=== PATIENT | female | born 1955 | race Caucasian/White ===

== ENCOUNTER → 2016-06-19 | Outpatient (CLI) | payer BC ==
[~2016-06-19] MED LIST: ACET-24 PO; ALBUAER19 INH; CLB/200 PO; CLB200 PO; CPR500 PO; DICL75TA2 PO; FEXO1TAB46 PO; FLUT0.15 INH; LANS30CA12 PO; LCTX PO; MECL1TAB42 PO; MULT-240 PO; MULT-506 PO; ONDA8TAB12 PO; ONDA8TAB6 PO; OSEL75CA16 PO; OXYC15TA89 PO; OXYC20TA50 PO; OXYSR10 PO; PARO1TAB PO; RXC5 PO; SIMV40TA2 PO; TRAM-10 PO; VNTHFA/IN INH; [UNRECOGNIZED DRUG - CODE] PO
--- NOTE | 2016-06-20 07:31 | MAMMOGRAPHY REPORT ---
BILATERAL DIGITAL SCREENING MAMMOGRAM WITH CAD: 06/19/2016 CLINICAL HISTORY: Routine screening. Patient has no complaints. TECHNIQUE: Current study was also evaluated with a Computer Aided Detection (CAD) system. Bilatera l CC and MLO views were obtained. COMPARISON: Comparison is made to exams dated: 06/14/2015 mammogram, 02/21/2014 mammogram, 02/07/2013 mammogram, 02/06/2012 mammogram, and 11/26/2009 mammogram - [facility]. BREAST COMPOSITION: The tissue of both breasts is almost entirely fatty. FINDINGS: No suspicious masses, calcifications, or areas of architectural distortion are noted in e ither breast. There has been no significant interval change compared to prior exams. Scattered bilat eral benign-appearing calcifications are not significantly changed. IMPRESSION: ACR BI-RADS CATEGORY 2: BENIGN There is no mammographic evidence of malignancy. A 1 year screening mammogram is recommended. The p atient will receive written notification of the results. Approximately 10% of breast cancers are not detected with mammography. A negative mammographic repor t should not delay biopsy if a clinically suggestive mass is present. Tesha Stewart M.D. ah/:06/19/2016 15:14:22 [employer] Breathing Apparatus: Bettina Cali, [facility] letter sent: Normal 1/2 BI-RADS Code: ACR BI-RADS Category 2: Benign
== END | disposition home or self-care (01) ==
LOC: C.MAMM 13:09
PROVIDERS: ATTEND Obstetrics & Gynecology
DX: Z12.31 Encounter for screening mammogram for malignant neoplasm of breast (principal)

== ENCOUNTER 2016-07-17 16:47 | Emergency (ER) | payer BC ==
[~2016-07-17] VITALS: Ht 162.6 cm; Wt 103.5 kg
[~2016-07-17 16:47] MED LIST changes: -ACET-24 PO; -CLB/200 PO; -CLB200 PO; -CPR500 PO; -LCTX PO; -MULT-506 PO; -ONDA8TAB12 PO; -ONDA8TAB6 PO; -OSEL75CA16 PO; -OXYC15TA89 PO; -OXYC20TA50 PO; -OXYSR10 PO; -RXC5 PO; -TRAM-10 PO; -VNTHFA/IN INH
[2016-07-17 17:11] VITALS: TEMP 36.9; Ht 162.6 cm; Wt 103.5 kg
[2016-07-17] MEDS ORDERED: OSEL75CA16 PO (17:35)
[2016-07-17] MEDS ORDERED: IBUPROFEN 600 MG TAB PO STA (17:56)
[2016-07-17] MEDS ORDERED: SODIUM CHLORIDE 0.9% 1000ML 1,000 ML IV STA (17:56)
[2016-07-17 18:37] LABS: COMPLETE YES; EOS % 0.3 %; HEMATOCRIT 39.9 % (37-47); IG% 0.4 %; LYMPH % 8.5 %; LYMPH ABS # 0.77 K/uL (1.2-3.4); MEAN CELL VOLUME 89.7 fL (80-100); MEAN CORPUSCULAR HGB CONC 34.6 g/dl (32-36); MEAN PLATELET VOLUME 10.2 fL (7.4-10.4); MONO % 10.5 %; NEUT % 80.3 %; PLATELET COUNT 181 K/uL (130-400); RED BLOOD COUNT 4.45 M/uL (4.2-5.4); WHITE BLOOD COUNT 9.09 K/uL (4.8-10.8)
[2016-07-17 18:50] VITALS: BP 130/74; PULSE 76; O2SAT 98
[2016-07-17 18:55] LABS: BLOOD UREA NITROGEN 19 mg/dl (7-18); BUN/CREATININE RATIO 17.1 (10-20); CALCIUM 8.7 mg/dl (8.5-10.1); CARBON DIOXIDE 18 mmol/L (21-32); CHLORIDE 109 mmol/L (98-107); GLUCOSE 126 mg/dl (70-99); POTASSIUM 3.4 mmol/L (3.5-5.1); SODIUM 141 mmol/L (136-145)
[2016-07-17 18:59] LABS: CKMB/CK RATIO 0.4 (0-3.0)
--- NOTE | 2016-07-17 19:09 | DIAGNOSTIC IMAGING REPORT ---
SINGLE VIEW CHEST CLINICAL HISTORY: Fever. Sepsis. FINDINGS: An AP, portable, upright chest radiograph is compared to study dated 11/30/2015. Correlation is made with chest CT dated . The examination is significantly degraded by portable technique large body habitus, and patient rotation. The cardiomediastinal silhouette is unremarkable. The lungs and pleural spaces are clear. No pneumothorax is seen. The skeletal structures are osteopenic. The bony thorax is grossly intact. IMPRESSION: No active disease in the chest. Electronically signed by: Singh Garcia M.D. 07/17/2016 7:08 PM Dictated Date/Time: 07/17/2016 7:07 PM
--- NOTE | 2016-07-17 19:15 | EMERGENCY ROOM VISIT NOTE ---
History Report prepared by Uriel: Venkatesh Owens Under the Supervision of: Abilio HairstonO. First contact with patient: 17:38 Chief Complaint: FLU LIKE SX Stated Complaint: FLU History of Present Illness The patient is a 60 year old female who presents to the Emergency Room with complaints of persistent illness beginning 3 days ago. She notes that 3 days ago she began shaking, had a fever of 99.5, nausea, vomiting, and diarrhea and made an appointment for the next day at [facility]. She was put on Tamiflu but was not tested for the flu. Since they she has also taken Tylenol, and has been sweaty and developed congestion and headache today, but denies any cough. She reports the shaking begins after 4 hours following taking Tylenol. The patient notes she has been drinking fluids. She admits to being around people with the flu recently. Source of History: patient Onset: 3 days ago Position: other (global) Quality: other (illness) Timing: other (persistent) Associated Symptoms: + diarrhea, + fevers, + headache, + nausea, + vomiting , No cough Review of Systems See HPI for pertinent positives & negatives. A total of 10 systems reviewed and were otherwise negative. Past Medical & Surgical Medical Problems: (1) Abdominal pain (2) Avulsion of fingernail (3) Depressive Disorder Nec (4) Dysuria (5) Encounter for removal of sutures (6) GERD (gastroesophageal reflux disease) (7) Lower extremity edema (8) Pure Hypercholesterolem (9) Rib fracture (10) Shortness of breath (11) SOB (shortness of breath) (12) Umbilical hernia (13) Vertigo Surgical Problems: (1) H/O tubal ligation (2) H/O umbilical hernia repair (3) S/P rotator cuff surgery Family History Blood clots FH: cancer FH: myocardial infarction Hypertension Seizures Social History Smoking Status: Never Smoker Alcohol Use: none Drug Use: none Marital Status: Housing Status: lives with significant other Occupation Status: employed Current/Historical Medications Scheduled Diclofenac Sodium (Voltaren), 75 MG PO BID Lansoprazole (Prevacid), 30 MG PO QAM Multiple Vitamins W/ Minerals (Womens One Daily), 1 TAB PO QAM Oseltamivir Phosphate (Oseltamivir Phosphate), 75 MG PO BID Paroxetine (Paroxetine HCl ER), 12.5 MG PO QAM Paroxetine (Paroxetine HCl ER), 37.5 MG PO QAM Simvastatin (Zocor), 40 MG PO QPM Scheduled PRN Albuterol Inhaler (Ventolin Inhaler), 2 PUFFS INH QID PRN for Colds/Cough Fexofenadine Hcl (Cristina), 180 MG PO DAILY PRN for ALLERGIC REACTION Fluticasone Propionate (Nasal) (Flonase Allergy Relief), 2 SPRAYS NEB DAILY PRN for Allergy Symptoms Meclizine Hcl (Meclizine Hcl), 25 MG PO TID PRN for Dizziness Allergies Coded Allergies: Amitriptyline (Verified Allergy, Intermediate, RASH AND FEET SWELLING, 07/17) Cephalosporins (Verified Allergy, Intermediate, RASH AND TACHYCARDIA, ) Lorazepam (Verified Allergy, Intermediate, RASH, 07/17/16) Amoxicillin (Verified Adverse Reaction, Intermediate, VOMITING, 07/17/16) Sulfamethoxazole w/Trimethoprim (Verified Adverse Reaction, Intermediate, SEVERE GI UPSET; DIAPHORESIS; HOT FLASHES, 07/17/16) Clarithromycin (Verified Adverse Reaction, Mild, GI UPSET, 07/17/16) Clavulanic Acid (Verified Adverse Reaction, Mild, SEVERE NAUSEA, 07/17/16) Nitrofurantoin (Verified Adverse Reaction, Mild, GI UPSET, 07/17/16) Penicillins (Verified Adverse Reaction, Mild, SEVERE NAUSEA, 07/17/16) Physical Exam Vital Signs Date Time Temp Pulse Resp B/P Pulse Ox O2 Delivery O2 Flow Rate FiO2 07/17/16 17:11 36.9 74 16 102/67 97 Room Air Physical Exam CONSTITUTIONAL/VITAL SIGNS: Reviewed / noted above. GENERAL: Non-toxic in appearance. INTEGUMENTARY: Warm, dry, and [place]. HEAD: Normocephalic. EYES: without scleral icterus or trauma. ENT/OROPHARYNX: clear and moist. LYMPHADENOPATHY/NECK: Is supple without lymphadenopathy or meningismus. RESPIRATORY: Lungs clear and equal. CARDIOVASCULAR: Regular rate and rhythm. GI/ABDOMEN: Soft and nontender. No organomegaly or pulsatile mass. No rebound or guarding. Normal bowel sounds. EXTREMITIES: Warm and well perfused. BACK: No CVA tenderness. NEUROLOGICAL: Intact without focal deficits. PSYCHIATRIC: normal affect. MUSCULOSKELETAL: Normally developed with good muscle tone. Medical Decision & Procedures ER Provider Diagnostic Interpretation: Radiology results are stated below per my review and radiologist interpretation: SINGLE VIEW CHEST FINDINGS: An AP, portable, upright chest radiograph is compared to study dated 11/30/2015. Correlation is made with chest CT dated . The examination is significantly degraded by portable technique large body habitus, and patient rotation. The cardiomediastinal silhouette is unremarkable. The lungs and pleural spaces are clear. No pneumothorax is seen. The skeletal structures are osteopenic. The bony thorax is grossly intact. IMPRESSION: No active disease in the chest. Electronically signed by: Singh Garcia M.D. 07/17/2016 7:08 PM Dictated Date/Time: 07/17/2016 7:07 PM Laboratory Results 07/17/16 18:15 Red Blood Count 4.45, Mean Corpuscular Volume 89.7, Mean Corpuscular Hemoglobin 31.0, Mean Corpuscular Hemoglobin Concent 34.6, Mean Platelet Volume 10.2, Neutrophils (%) (Auto) 80.3, Lymphocytes (%) (Auto) 8.5, Monocytes (%) (Auto) 10.5, Eosinophils (%) (Auto) 0.3, Basophils (%) (Auto) 0.0, Neutrophils # (Auto ) 7.30, Lymphocytes # (Auto) 0.77, Monocytes # (Auto) 0.95, Eosinophils # (Auto ) 0.03, Basophils # (Auto) 0.00 07/17/16 18:15 Test 07/17/16 18:15 07/17/16 18:38 White Blood Count 9.09 K/uL (4.8-10.8) Red Blood Count 4.45 M/uL (4.2-5.4) Hemoglobin 13.8 g/dL (12.0-16.0) Hematocrit 39.9 % (37-47) Mean Corpuscular Volume 89.7 fL (80-100) Mean Corpuscular Hemoglobin 31.0 pg (25-34) Mean Corpuscular Hemoglobin Concent 34.6 g/dl (32-36) Platelet Count 181 K/uL (130-400) Mean Platelet Volume 10.2 fL (7.4-10.4) Neutrophils (%) (Auto) 80.3 % Lymphocytes (%) (Auto) 8.5 % Monocytes (%) (Auto) 10.5 % Eosinophils (%) (Auto) 0.3 % Basophils (%) (Auto) 0.0 % Neutrophils # (Auto) 7.30 K/uL (1.4-6.5) Lymphocytes # (Auto) 0.77 K/uL (1.2-3.4) Monocytes # (Auto) 0.95 K/uL (0.11-0.59) Eosinophils # (Auto) 0.03 K/uL (0-0.5) Basophils # (Auto) 0.00 K/uL (0-0.2) RDW Standard Deviation 47.4 fL (36.4-46.3) RDW Coefficient of Variation 14.5 % (11.5-14.5) Immature Granulocyte % (Auto) 0.4 % Immature Granulocyte # (Auto) 0.04 K/uL (0.00-0.02) Anion Gap 14.0 mmol/L (3-11) Est Creatinine Clear Calc Drug Dose 62.9 ml/min Estimated GFR () 62.8 Estimated GFR (Non- 54.1 BUN/Creatinine Ratio 17.1 (10-20) Calcium Level 8.7 mg/dl (8.5-10.1) Total Creatine Kinase 178 U/L (26-192) Creatine Kinase MB 0.8 ng/ml (0.5-3.6) Creatine Kinase MB Ratio 0.4 (0-3.0) Troponin I < 0.015 ng/ml (0-0.045) Influenza Type A Antigen Neg for Influ A (NEG) Influenza Type B Antigen Neg for Influ B (NEG) Laboratory results as stated above per my review. Medications Administered Medications (Trade) Dose Ordered Sig/Nino Route Start Time Stop Time Status Last Admin Dose Admin Sodium Chloride (Nss 1000ml) 1,000 ml @ 999 mls/hr Q1H1M STAT IV 07/17/16 17:56 07/17/16 18:56 DC 07/17/16 18:35 999 MLS/HR Ibuprofen (Motrin Tab) 600 mg NOW STAT PO 07/17/16 17:56 07/17/16 17:59 DC 07/17/16 18:36 600 MG ED Course 1750: Previous medical records were reviewed. The patient was evaluated in room C12B. A complete history and physical examination was performed. 1756: Ordered Ibuprofen 600 mg PO, and NSS 1,000 ml @ 999 mls/hr IV. 1919: On reevaluation, the patient is doing well. I discussed the results and findings with the patient. She verbalized agreement of the treatment plan. The patient was discharged home. Medical Decision Differential includes viral illness, influenza, streptococcal pharyngitis, meningitis, pneumonia, sinusitis, UTI, pyelonephritis, otitis media. This is a [id number] female who presents to the ED with a chief complaint of flulike symptoms. The patient states that she started having symptoms on Thursday , 3 days ago and was placed on Tamiflu on Thursday. The patient states that she has continued having some subjective fevers and chills. She also reports a little diarrhea. She checked her temperature and it was 99.5. The patient's vital signs here are normal. She is afebrile. Her physical exam was unremarkable. CBC is normal, PRP is normal, troponin is negative. Flu swab was negative. Chest x-ray was negative for acute disease. The patient was told the results per cheese felt to be stable for discharge. Impression Primary Impression: Influenza-like symptoms Scribe Attestation The scribe's documentation has been prepared under my direction and personally reviewed by me in its entirety. I confirm that the note above accurately reflects all work, treatment, procedures, and medical decision making performed by me. Departure Information Dispostion Home / Self-Care Referrals Contreras Shelton M.D. (PCP) Patient Instructions My [facility] Additional Instructions Follow-up with your doctor for further care and evaluation in 1-5 days. Return to the emergency department for worsening or new symptoms or any concerns. You have been examined and treated today on an emergency basis only. This is not a substitute for, or an effort to provide, complete comprehensive medical care. It is impossible to recognize and treat all injuries or illnesses in a single emergency department visit. It is therefore important that you follow up closely with your doctor. Call as soon as possible for an appointment.
--- NOTE | 2016-07-18 14:29 | Pharmacy Progress Note ---
ED Pharmacist Culture FollowUp Date of Service: Jul 18, 2016. 1 of 2 Blood Cx's from 07/17 is growing gram negative rods. Patient was seen on for "flu-like symptoms": fever, chills, NVD. She had a normal WBC but elevated neut count and L shift. She was felt to have a viral illness. She was not sent home with antibiotics. Reviewed the patient's case w/ Dr Jimenez. He asked that patient be called and asked to return to the ER for evaluation. I spoke with the patient ([phone]). She said she is feeling better today but will have her bring her to the ER for evaluation this evening.
[2016-07-18] MEDS ORDERED: VNTHFA/IN INH (16:16)
[2016-07-18] MEDS ORDERED: TRAM-10 PO (21:27)
[2016-07-23] MEDS ORDERED: CPR500 PO (10:15)
[2016-07-23] MEDS ORDERED: LCTX PO (10:15)
--- NOTE | 2016-07-23 13:37 | Pharmacy Progress Note ---
ED Pharmacist Culture FollowUp Date of Service: Jul 23, 2016. Blood Cx from 07/17 finalized today. 1 of 2 BLCXs from that date grew E coli. The patient was contacted on 07/18 when preliminary cx was growing gram negative rods. She presented to the ER that evening and was subsequently admitted to [facility]. ID was consulted. Bacteremia was felt to be secondary to UTI. She was treated w/ Aztreonam IV from 07/18 thru 07/22 at which time she was transitioned to Ciprofloxacin PO. She was discharged on 07/23 with Rx for Ciprofloxacin PO per ID /hospitalist's recommendations to complete a total ABX course of 7 days. The sensitivities from the BLCX showed pansensitive E coli. The patient was prescribed appropriate ABX therapy. No action required from ED standpoint.
[2016-11-03] MEDS ORDERED: MULT-506 PO (11:34)
== END 2016-07-17 19:28 | disposition home or self-care (01) ==
LOC: C.EDB 16:48 → C.EDC 19:28
DX: R50.9 Fever, unspecified (principal); R19.7 Diarrhea, unspecified; R11.2 Nausea with vomiting, unspecified; K21.9 Gastro-esophageal reflux disease without esophagitis; E78.00 Pure hypercholesterolemia, unspecified; Z98.51 Tubal ligation status; Z98.890 Other specified postprocedural states; Z82.49 Family history of ischemic heart disease and other diseases of the circulatory system; Z82.0 Family history of epilepsy and other diseases of the nervous system; Z79.899 Other long term (current) drug therapy

== ENCOUNTER 2016-07-18 15:18 | Inpatient (IN) | payer BC ==
[~2016-07-18] VITALS: Ht 160 cm; Wt 103.9 kg
[~2016-07-18 15:18] MED LIST changes: +OSEL75CA16 PO
--- NOTE | 2016-07-18 16:09 | EMERGENCY ROOM VISIT NOTE ---
History Report prepared by Uriel: Rachel Blackman Under the Supervision of: Dr. Molly Porter D.O. First contact with patient: 15:47 Chief Complaint: ABNORMAL LABS Stated Complaint: REF BY [facility] - BACTERIA IN BLOOD History of Present Illness The patient is a 60 year old female who presents to the Emergency Room with complaints of persistent abnormal labs that were drawn yesterday. The patient states that last evening she was evaluated in the emergency department for persistent flu-like symptoms. She states that earlier this week she started developing diaphoresis, headache, chills, and post-nasal drip. The patient states that she saw her PCP and states that she was started on Tamiflu due to her symptoms. She states that last evening she felt dizzy and lightheaded so she was evaluated in the emergency department. The patient states that she is feeling better today, but notes that she has been taking Motrin and Tylenol for her symptoms. Per records the patient was instructed to come to the emergency department because she grew out gram negative bacilli in her blood cultures. The patient states that for the last three weeks she hasn't been feeling well. She additionally states that she recently got a Cortizone shot in her shoulder. Source of History: patient Onset: yesterday Position: other (global) Quality: other (abnormal labs) Timing: other (persistent) Associated Symptoms: + chills, + diaphoresis, + headache Note: Associated Symptoms: post-nasal drip Review of Systems See HPI for pertinent positives & negatives. A total of 10 systems reviewed and were otherwise negative. Past Medical & Surgical Medical Problems: (1) Abdominal pain (2) Avulsion of fingernail (3) Depressive Disorder Nec (4) Dysuria (5) Encounter for removal of sutures (6) GERD (gastroesophageal reflux disease) (7) Lower extremity edema (8) Pure Hypercholesterolem (9) Rib fracture (10) Shortness of breath (11) SOB (shortness of breath) (12) Umbilical hernia (13) Vertigo Surgical Problems: (1) H/O tubal ligation (2) H/O umbilical hernia repair (3) S/P rotator cuff surgery Family History Blood clots FH: cancer FH: myocardial infarction Hypertension Seizures Social History Smoking Status: Never Smoker Alcohol Use: none Drug Use: none Marital Status: Housing Status: lives with significant other Occupation Status: employed Current/Historical Medications Scheduled Albuterol Hfa (Ventolin Hfa), 2-4 PUFFS INH Q6H Diclofenac Sodium (Voltaren), 75 MG PO BID Lansoprazole (Prevacid), 30 MG PO QAM Multiple Vitamins W/ Minerals (Womens One Daily), 1 TAB PO QAM Oseltamivir Phosphate (Oseltamivir Phosphate), 75 MG PO BID Paroxetine (Paroxetine HCl ER), 12.5 MG PO QAM Paroxetine (Paroxetine HCl ER), 37.5 MG PO QAM Simvastatin (Zocor), 40 MG PO QPM Scheduled PRN Fexofenadine Hcl (Cristina), 180 MG PO DAILY PRN for ALLERGIC REACTION Fluticasone Propionate (Nasal) (Flonase Allergy Relief), 2 SPRAYS NEB DAILY PRN for Allergy Symptoms Meclizine Hcl (Meclizine Hcl), 25 MG PO TID PRN for Dizziness Allergies Coded Allergies: Amitriptyline (Verified Allergy, Intermediate, RASH AND FEET SWELLING, 07/18) Cephalosporins (Verified Allergy, Intermediate, RASH AND TACHYCARDIA, ) Lorazepam (Verified Allergy, Intermediate, RASH, 07/18/16) Amoxicillin (Verified Adverse Reaction, Intermediate, VOMITING, 07/18/16) Sulfamethoxazole w/Trimethoprim (Verified Adverse Reaction, Intermediate, SEVERE GI UPSET; DIAPHORESIS; HOT FLASHES, 07/18/16) Clarithromycin (Verified Adverse Reaction, Mild, GI UPSET, 07/18/16) Clavulanic Acid (Verified Adverse Reaction, Mild, SEVERE NAUSEA, 07/18/16) Nitrofurantoin (Verified Adverse Reaction, Mild, GI UPSET, 07/18/16) Penicillins (Verified Adverse Reaction, Mild, SEVERE NAUSEA, 07/18/16) Physical Exam Vital Signs Date Time Temp Pulse Resp B/P Pulse Ox O2 Delivery O2 Flow Rate FiO2 07/18/16 18:02 36.8 07/18/16 17:18 36.8 88 18 149/88 99 Room Air 07/18/16 15:23 36.4 87 18 124/85 100 Room Air Physical Exam HEENT: Head - normocephalic and atraumatic Pupils are equal, round, and reactive to light. Extraocular eye muscles are intact, and sclera are anicteric. Vertical nystagmus noted. Nose - moist nasal mucosa without discharge. Mouth - moist buccal mucosa. Oropharynx is nonerythematous and there is no tonsillar exudate or edema noted. Neck: Supple; no JVD, nuchal rigidity, cervical lymphadenopathy. Heart: Regular rate and rhythm. There is a normal S1 and S2 with no murmurs, clicks, or gallops appreciated. Lungs: Clear to auscultation bilaterally with no wheezes, rales, or rhonchi. Abdomen: Soft, completely nontender, nondistended, with good bowel sounds. There are no palpable pulsatile masses or hepatosplenomegaly. There is no guarding, rigidity, or rebound noted. Extremities: No evidence of cyanosis, clubbing, or edema. There are easily palpable peripheral pulses. Skin: warm and dry with good turgor and no rashes. Medical Decision & Procedures Laboratory Results 07/18/16 16:30 Red Blood Count 4.56, Mean Corpuscular Volume 90.1, Mean Corpuscular Hemoglobin 30.9, Mean Corpuscular Hemoglobin Concent 34.3, Mean Platelet Volume 10.3, Neutrophils (%) (Auto) 77.0, Lymphocytes (%) (Auto) 9.8, Monocytes (%) (Auto) 12.1, Eosinophils (%) (Auto) 0.5, Basophils (%) (Auto) 0.1, Neutrophils # (Auto ) 6.53, Lymphocytes # (Auto) 0.83, Monocytes # (Auto) 1.03, Eosinophils # (Auto ) 0.04, Basophils # (Auto) 0.01 07/18/16 16:30 Test 07/18/16 16:30 07/18/16 16:37 07/18/16 16:40 White Blood Count 8.48 K/uL (4.8-10.8) Red Blood Count 4.56 M/uL (4.2-5.4) Hemoglobin 14.1 g/dL (12.0-16.0) Hematocrit 41.1 % (37-47) Mean Corpuscular Volume 90.1 fL (80-100) Mean Corpuscular Hemoglobin 30.9 pg (25-34) Mean Corpuscular Hemoglobin Concent 34.3 g/dl (32-36) Platelet Count 187 K/uL (130-400) Mean Platelet Volume 10.3 fL (7.4-10.4) Neutrophils (%) (Auto) 77.0 % Lymphocytes (%) (Auto) 9.8 % Monocytes (%) (Auto) 12.1 % Eosinophils (%) (Auto) 0.5 % Basophils (%) (Auto) 0.1 % Neutrophils # (Auto) 6.53 K/uL (1.4-6.5) Lymphocytes # (Auto) 0.83 K/uL (1.2-3.4) Monocytes # (Auto) 1.03 K/uL (0.11-0.59) Eosinophils # (Auto) 0.04 K/uL (0-0.5) Basophils # (Auto) 0.01 K/uL (0-0.2) RDW Standard Deviation 48.8 fL (36.4-46.3) RDW Coefficient of Variation 14.8 % (11.5-14.5) Immature Granulocyte % (Auto) 0.5 % Immature Granulocyte # (Auto) 0.04 K/uL (0.00-0.02) Anion Gap 12.0 mmol/L (3-11) Est Creatinine Clear Calc Drug Dose 78.9 ml/min Estimated GFR () 82.2 Estimated GFR (Non- 70.9 BUN/Creatinine Ratio 21.5 (10-20) Calcium Level 8.8 mg/dl (8.5-10.1) Total Bilirubin 0.9 mg/dl (0.2-1) Aspartate Amino Transf (AST/SGOT) 28 U/L (15-37) Alanine Aminotransferase (ALT/SGPT) 45 U/L (12-78) Alkaline Phosphatase 151 U/L (45-117) C-Reactive Protein 31.70 mg/dl (0-0.29) Total Protein 7.3 gm/dl (6.4-8.2) Albumin 2.6 gm/dl (3.4-5.0) Globulin 4.7 gm/dl (2.5-4.0) Albumin/Globulin Ratio 0.6 (0.9-2) Bedside Lactic Acid Venous 1.17 mmol/L (0.90-1.70) Prothrombin Time 10.9 SECONDS (9.0-12.0) Prothromb Time International Ratio 1.0 (0.9-1.1) Activated Partial Thromboplast Time 31.5 SECONDS (21.0-31.0) Partial Thromboplastin Ratio 1.2 Laboratory results per my review. Medications Administered Medications (Trade) Dose Ordered Sig/Nino Route Start Time Stop Time Status Last Admin Dose Admin Aztreonam/Dextrose (Azactam IV/D5 100ml) 110 ml @ 100 mls/hr NOW STAT IV 07/18/16 17:32 07/18/16 18:37 DC 07/18/16 18:08 100 MLS/HR Ibuprofen (Motrin Tab) 600 mg NOW STAT PO 07/18/16 18:05 07/18/16 18:06 DC 07/18/16 18:10 600 MG Procedure The patient was treated with Aztreonam 2000 mg/Dextrose 110 ml @ 100 mls/hr IV. Oral Motrin ED Course 1550: Past medical records reviewed. The patient was evaluated in room C10. A complete history and physical exam was performed. A septic protocol was performed. 1726: I reevaluated the patient and she is resting comfortably. I discussed the exam findings with her and I discussed the treatment plan. She verbalized complete understanding and agreement. She is going to be evaluated for further treatment. The patient has developed rigors and was given oral Motrin. 1732: Ordered Aztreonam 2000 mg/Dextrose 110 ml @ 100 mls/hr IV. 1736: I discussed the patients case with Milly Randolph. She is going to evaluate the patient for further treatment. Medical Decision The patient is a 60 year old female who presents to the ED with abnormal labs. Differential diagnosis includes sepsis, septic joint, bacteremia, influenza Lab interpretation: white count 8.4, stable H&H, potassium 3.2, Lactic acid 1.1 , creatinine 0.8, glucose 103, LFTs are normal, except alk-phos of 151, coags are normal. C-reactive protein is greater than 31. This is a 60-year-old female patient who was diagnosed with influenza earlier in the week and started on Tamiflu. The patient's symptoms were not improving. She was seen here in the emergency department last night where she was diagnosed with a flulike illness. Blood cultures were obtained and she grew out gram negative bacilli today. She was told to return here to the emergency department. The patient does give a history of rigors that seemed to be controlled with NSAIDs. Of note, the patient underwent a hydrocortisone injection in her shoulder a couple weeks ago. She states that she has not felt well since that time. She states that the pain has not worsened at all in that shoulder but is not improving. Considered the possibility of a septic joint. The patient will be admitted to the hospital on IV Aztreonam. I discussed the case with the [facility] Hospitalist and they will evaluate for further care. Consults Time Called: 1731 Consulting Physician: Milly Randolph Returned Call: [phone] I discussed the patients case with Milly Randolph. She is going to evaluate the patient for further treatment. Impression Primary Impression: Bacteremia Scribe Attestation The scribe's documentation has been prepared under my direction and personally reviewed by me in its entirety. I confirm that the note above accurately reflects all work, treatment, procedures, and medical decision making performed by me. Departure Information Dispostion Being Evaluated By Hospitalist Contreras Duron M.D. (PCP)
[2016-07-18] MEDS ORDERED: VNTHFA/IN INH (16:16)
[2016-07-18 17:00] LABS: BUN/CREATININE RATIO 21.5 (10-20); CALCIUM 8.8 mg/dl (8.5-10.1); CREATININE 0.88 mg/dl (0.60-1.20); POTASSIUM 3.2 mmol/L (3.5-5.1)
[2016-07-18 17:04] LABS: ALB/GLOB RATIO 0.6 (0.9-2)
[2016-07-18 17:06] LABS: PARTIAL THROMBOPLASTIN RATIO 1.2; PROTHROMBIN TIME (PATIENT) 10.9 SECONDS (9.0-12.0)
[2016-07-18 17:14] LABS: BASO % 0.1 %; BASO ABS # 0.01 K/uL (0-0.2); EOS % 0.5 %; HEMATOCRIT 41.1 % (37-47); IG% 0.5 %; LYMPH % 9.8 %; LYMPH ABS # 0.83 K/uL (1.2-3.4); MEAN CELL VOLUME 90.1 fL (80-100); MEAN CORPUSCULAR HEMOGLOBIN 30.9 pg (25-34); MEAN CORPUSCULAR HGB CONC 34.3 g/dl (32-36); MEAN PLATELET VOLUME 10.3 fL (7.4-10.4); MONO % 12.1 %; PLATELET COUNT 187 K/uL (130-400); RED BLOOD COUNT 4.56 M/uL (4.2-5.4); WHITE BLOOD COUNT 8.48 K/uL (4.8-10.8)
[2016-07-18] MEDS ORDERED: AZTREONAM IV 2,000 MG in DEXTROSE 5% 100ML 100 ML IV STA (17:32)
[2016-07-18] MEDS ORDERED: IBUPROFEN 600 MG TAB PO STA (18:05)
[2016-07-18] MEDS ORDERED: ONDANSETRON INJ 2 MG/ML 2 ML VIAL IV PRN (19:15)
[2016-07-18] MEDS ORDERED: MAGNESIUM HYDROXIDE SUSP 30 ML UDC PO PRN (19:15)
[2016-07-18] MEDS ORDERED: ALUMINUM/MAGNESIUM/SIMETH (MAALOX MAX) 30 ML UDC PO PRN (19:15)
[2016-07-18] MEDS ORDERED: ZOLPIDEM TARTRATE 5 MG TAB PO PRN (19:15)
[2016-07-18] MEDS ORDERED: POLYETHYLENE (MIRALAX) 17 GM PACK PO PRN (19:30)
[2016-07-18] MEDS ORDERED: POTASSIUM CHLORIDE 10 MEQ TABCR PO STA (19:31)
[2016-07-18] MEDS: SODIUM CHLORIDE 0.9% 1000ML 1,000 ML IV SCH (20:43)
[2016-07-18 21:01] VITALS: BP 145/73; PULSE 97; TEMP 36.7; Ht 160 cm; Wt 103.9 kg
[2016-07-18] MEDS ORDERED: TRAM-10 PO (21:27)
[2016-07-18] MEDS ORDERED: TRAMADOL HCL 50 MG TAB PO PRN (21:30)
[2016-07-18] MEDS ORDERED: IBUPROFEN 200 MG TAB PO PRN (21:30)
[2016-07-18] MEDS ORDERED: MECLIZINE HCL 25 MG TAB PO PRN (21:30)
--- NOTE | 2016-07-18 22:01 | History and Physical ---
History & Physical Date & Time of Service: Jul 18, 2016 at 21:30 Chief Complaint: Bacteremia Primary Care Physician: Contreras Shelton M.D. History of Present Illness Source: patient, clinic records, hospital records This is a 60 y/o female with PMH of dyslipidemia, anxiety, chronic sinusitis, and other problems listed below who presented to the ED for abnormal blood work. Pt states 4 days ago on Thursday she developed chills/ rigors, sweats, severe diffuse body aches, sore throat. No fever when she took her temp. She was alternating Tylenol and Motrin at home which helps with the rigors. She was seen by Dr. Hoffman on Thursday and started empirically on Tamiflu due to known influenza exposure (her grandson). She had 1 episode of vomiting and diarrhea on Thursday but that resolved. Pt states yesterday she did not eat well and had a headache which resolved. She presented to the ER yesterday due to persistent symptoms. Workup included CXR and labs which were unremarkable and influenza antigen was negative. She had blood cultures drawn yesterday and was called today for one bottle growing gram negative bacilli. Today patient feels generally weak and continues with chills/ sweats/ diffuse aches. She has been lightheaded upon standing. She was able to eat today. She has some right shoulder pain for past month for which she had an MRI and cortisone shot approx [address] Zhong. The R shoulder is remains sore. She had right rotator cuff repair in 2013. Pt denies nasal congestion, sinus pressure, cough, chest pain, SOB, wheezing, abdominal pain, dysuria, frequency, urgency, rash, wounds. Past Medical/Surgical History Medical Problems: (1) Allergic rhinitis Status: Chronic (2) Anxiety Status: Chronic (3) Chronic sinusitis Status: Chronic (4) Depressive Disorder Nec Status: Chronic (5) Dyslipidemia Status: Chronic (6) Encounter for removal of sutures Status: Resolved (7) GERD (gastroesophageal reflux disease) Status: Chronic (8) Pure Hypercholesterolem Status: Chronic (9) SOB (shortness of breath) Status: Resolved (10) Vertigo Status: Chronic Surgical Problems: (1) H/O dilation and curettage Status: Chronic (2) H/O sinus surgery Status: Chronic (3) H/O tubal ligation Status: Resolved (4) H/O umbilical hernia repair Status: Resolved (5) H/O umbilical hernia repair Status: Chronic (6) S/P rotator cuff repair Permanent Comment: right shoulder 2013, Dr. Zhong Status: Chronic (7) S/P rotator cuff surgery Status: Resolved (8) S/P tonsillectomy and adenoidectomy Status: Chronic (9) S/P tubal ligation Status: Chronic Family History Blood clots FH: cancer FH: myocardial infarction Hypertension Seizures Social History Smoking Status: Never Smoker Marital Status: Occupational Status: employed Immunizations History of Influenza Vaccine: Yes Influenza Vaccine Date: Mar 17, 2013 History of Tetanus Vaccine?: Yes History of Pneumococcal: No History of Hepatitis B Vaccine: No Multi-Drug Resistant Organisms History of MDRO: No Allergies Coded Allergies: Amitriptyline (Verified Allergy, Intermediate, RASH AND FEET SWELLING, 07/18) Cephalosporins (Verified Allergy, Intermediate, RASH AND TACHYCARDIA, ) Lorazepam (Verified Allergy, Intermediate, RASH, 07/18/16) Amoxicillin (Verified Adverse Reaction, Intermediate, VOMITING, 07/18/16) Sulfamethoxazole w/Trimethoprim (Verified Adverse Reaction, Intermediate, SEVERE GI UPSET; DIAPHORESIS; HOT FLASHES, 07/18/16) Clarithromycin (Verified Adverse Reaction, Mild, GI UPSET, 07/18/16) Clavulanic Acid (Verified Adverse Reaction, Mild, SEVERE NAUSEA, 07/18/16) Nitrofurantoin (Verified Adverse Reaction, Mild, GI UPSET, 07/18/16) Penicillins (Verified Adverse Reaction, Mild, SEVERE NAUSEA, 07/18/16) Home Medications Scheduled Albuterol Hfa (Ventolin Hfa), 2 PUFFS INH QID Diclofenac Sodium (Voltaren), 75 MG PO BID Fexofenadine Hcl (Cristina), 180 MG PO DAILY Fluticasone Propionate (Nasal) (Flonase Allergy Relief), 2 SPRAYS INH DAILY Lansoprazole (Prevacid), 30 MG PO QAM Oseltamivir Phosphate (Oseltamivir Phosphate), 75 MG PO BID Paroxetine (Paroxetine HCl ER), 12.5 MG PO QAM Paroxetine (Paroxetine HCl ER), 37.5 MG PO QAM Simvastatin (Zocor), 40 MG PO QPM Scheduled PRN Meclizine Hcl (Meclizine Hcl), 25 MG PO TID PRN for Dizziness Tramadol (Ultram), 100 MG PO Q6H PRN for Pain Review of Systems Ten point ROS performed with pertinent positives and negatives noted in HPI. Physical Exam Vital Signs Date Time Temp Pulse Resp B/P Pulse Ox O2 Delivery O2 Flow Rate FiO2 07/18/16 18:02 36.8 07/18/16 17:18 36.8 88 18 149/88 99 Room Air 07/18/16 15:23 36.4 87 18 124/85 100 Room Air General Appearance: no apparent distress, + obese Head: normocephalic, atraumatic Eyes: normal inspection, PERRL, EOMI ENT: hearing grossly normal, pharynx normal, + pertinent finding (no sinus tenderness) Neck: supple, trachea midline Respiratory/Chest: lungs clear, normal breath sounds, no respiratory distress, no accessory muscle use Cardiovascular: regular rate, rhythm, no murmur, normal peripheral pulses Abdomen/GI: normal bowel sounds, non tender, soft Extremities/Musculoskelatal: no calf tenderness, no pedal edema, + pertinent finding (R shoulder nontender, no swelling or erythema, no pain with ROM) Neurologic/Psych: alert, normal mood/affect, oriented x 3, + pertinent finding (grossly nonfocal) Skin: normal color, no rash, + diaphoresis Diagnostics Laboratory Results Results Past 24 Hours Test 07/18/16 16:30 07/18/16 16:37 07/18/16 16:40 Range/Units White Blood Count 8.48 4.8-10.8 K/uL Red Blood Count 4.56 4.2-5.4 M/uL Hemoglobin 14.1 12.0-16.0 g/dL Hematocrit 41.1 37-47 % Mean Corpuscular Volume 90.1 80-100 fL Mean Corpuscular Hemoglobin 30.9 25-34 pg Mean Corpuscular Hemoglobin Concent 34.3 32-36 g/dl Platelet Count 187 130-400 K/uL Mean Platelet Volume 10.3 7.4-10.4 fL Neutrophils (%) (Auto) 77.0 % Lymphocytes (%) (Auto) 9.8 % Monocytes (%) (Auto) 12.1 % Eosinophils (%) (Auto) 0.5 % Basophils (%) (Auto) 0.1 % Neutrophils # (Auto) 6.53 1.4-6.5 K/uL Lymphocytes # (Auto) 0.83 1.2-3.4 K/uL Monocytes # (Auto) 1.03 0.11-0.59 K/uL Eosinophils # (Auto) 0.04 0-0.5 K/uL Basophils # (Auto) 0.01 0-0.2 K/uL RDW Standard Deviation 48.8 36.4-46.3 fL RDW Coefficient of Variation 14.8 11.5-14.5 % Immature Granulocyte % (Auto) 0.5 % Immature Granulocyte # (Auto) 0.04 0.00-0.02 K/uL Sodium Level 141 136-145 mmol/L Potassium Level 3.2 3.5-5.1 mmol/L Chloride Level 108 98-107 mmol/L Carbon Dioxide Level 21 21-32 mmol/L Anion Gap 12.0 3-11 mmol/L Blood Urea Nitrogen 19 7-18 mg/dl Creatinine 0.88 0.60-1.20 mg/dl Est Creatinine Clear Calc Drug Dose 78.9 ml/min Estimated GFR () 82.2 Estimated GFR (Non- 70.9 BUN/Creatinine Ratio 21.5 10-20 Random Glucose 103 70-99 mg/dl Calcium Level 8.8 8.5-10.1 mg/dl Total Bilirubin 0.9 0.2-1 mg/dl Aspartate Amino Transf (AST/SGOT) 28 15-37 U/L Alanine Aminotransferase (ALT/SGPT) 45 12-78 U/L Alkaline Phosphatase 151 45-117 U/L C-Reactive Protein 31.70 0-0.29 mg/dl Total Protein 7.3 6.4-8.2 gm/dl Albumin 2.6 3.4-5.0 gm/dl Globulin 4.7 2.5-4.0 gm/dl Albumin/Globulin Ratio 0.6 0.9-2 Bedside Lactic Acid Venous 1.17 0.90-1.70 mmol/L Prothrombin Time 10.9 9.0-12.0 SECONDS Prothromb Time International Ratio 1.0 0.9-1.1 Activated Partial Thromboplast Time 31.5 21.0-31.0 SECONDS Partial Thromboplastin Ratio 1.2 Microbiology Results 07/18/16 Blood Culture, Received Pending 07/18/16 Blood Culture, Received Pending Impression Assessment and Plan GRAM NEGATIVE BACTEREMIA 1 bottle blood culture yesterday 07/17 grew gram negative bacilli No evidence of sepsis: no leukocytosis, afebrile, no tachycardia or hypotension , lactic acid WNL; does have elevated CRP No clear source of infection- CXR 07/17/16 unremarkable, no wounds; will check UA although low suspicion for UTI (denies urinary sx) Treated with Azactam in ER Continue empiric Azactam Repeat blood cultures pending Consult infectious disease INFLUENZA LIKE SYMPTOMS Was on Tamiflu from 07/15 Influenza antigen negative in ER yesterday Check influenza PCR Acetaminophen and ibuprofen PRN (held diclofenac as patient preferred ibuprofen instead) HYPOKALEMIA Replace and monitor R SHOULDER PAIN No apparent joint infection Check x-ray right shoulder in am ANXIETY Continue Paxil DYSLIPIDEMIA Continue statin GERD Continue PPI DVT PROPHYLAXIS Heparin SQ Pt seen in collaboration with Dr. Augustine. Please see her addendum. ATTENDING ADDENDUM : pt seen and examined, in agreement with above h&P 60 yo F presented to ED with flu like symptom -generalized body ache , sore throat , fever Flu serology negative Blood culture drawn in ED yesterday 1 bottle + ve gram negative bacilli repeat blood cultures ordered empiric abx with IV Azactam ID eval requested VTE Prophylaxis VTE Risk Assessment Done? Y/N: Yes Risk Level: Moderate
[2016-07-18] MEDS: ACETAMINOPHEN 325 MG TAB PO PRN (22:11)
[2016-07-18] MEDS: HEPARIN SOD 5000 UNIT/0.5 ML CARP SQ SCH (22:13)
[2016-07-18 22:47] VITALS: O2SAT 98
[2016-07-18 23:17] LABS: COMPLETE YES
[2016-07-18 23:55] VITALS: BP 111/76; PULSE 71; TEMP 36.9; O2SAT 99
[2016-07-19] MEDS: AZTREONAM IV 1,000 MG in DEXTROSE 5% 100ML 100 ML IV SCH ×3 (01:52→18:23)
[2016-07-19] MEDS: IBUPROFEN 200 MG TAB PO PRN ×3 (01:54→18:24)
[2016-07-19 04:36] LABS: URINE APPEARANCE CLOUDY (CLEAR); URINE BILIRUBIN NEG (NEG); URINE COLOR YELLOW; URINE EPITHELIAL CELL AUTO 20-30 /lpf (0-5); URINE NITRITE POS (NEG); URINE PH 5.5 (4.5-7.5); URINE SPECIFIC GRAVITY 1.021 (1.000-1.030); UROBILINOGEN NEG (NEG); ZZUR CULT IF INDIC CLEAN CATCH YES
[2016-07-19 04:48] LABS: MANUAL MICROSCOPIC REQUIRED? NO; REVIEW REQ? NO
[2016-07-19] MEDS: SODIUM CHLORIDE 0.9% 1000ML 1,000 ML IV SCH ×2 (05:16→15:44)
[2016-07-19] MEDS: ACETAMINOPHEN 325 MG TAB PO PRN ×3 (06:22→22:12)
[2016-07-19 06:56] LABS: HEMATOCRIT 38.3 % (37-47); MEAN CELL VOLUME 90.3 fL (80-100); MEAN CORPUSCULAR HEMOGLOBIN 30.2 pg (25-34); MEAN CORPUSCULAR HGB CONC 33.4 g/dl (32-36); MEAN PLATELET VOLUME 9.7 fL (7.4-10.4); PLATELET COUNT 209 K/uL (130-400); RED BLOOD COUNT 4.24 M/uL (4.2-5.4); WHITE BLOOD COUNT 9.25 K/uL (4.8-10.8)
[2016-07-19 07:29] LABS: BUN/CREATININE RATIO 17.8 (10-20); CALCIUM 8.6 mg/dl (8.5-10.1); CREATININE 0.8 mg/dl (0.60-1.20); POTASSIUM 3.4 mmol/L (3.5-5.1)
[2016-07-19 07:54] VITALS: BP 128/78; PULSE 93; TEMP 36.8; O2SAT 97
[2016-07-19] MEDS: ALBUTEROL HFA 8 GM INHALER INH SCH ×4 (08:00→20:00)
[2016-07-19] MEDS ORDERED: DICLOFENAC SOD EC 75 MG TABCR PO SCH (08:00)
[2016-07-19] MEDS: FLUTICASONE PROPIONATE NA SPR 16 GM BTL NAE SCH (08:00)
[2016-07-19] MEDS: FEXOFENADINE HCL 180 MG TAB PO SCH (08:16)
[2016-07-19 09:20] LABS: MAGNESIUM 2.2 mg/dl (1.8-2.4)
--- NOTE | 2016-07-19 09:55 | DIAGNOSTIC IMAGING REPORT ---
RIGHT SHOULDER 3 VIEWS CLINICAL HISTORY: Right shoulder pain. FINDINGS: 3 views of the right shoulder are obtained. No prior studies are available for comparison at the time of dictation. The Skeletal structures are osteopenic. No fracture or dislocation is seen. Mild productive degenerative change is seen at the acromioclavicular joint. Mild arthritic change is also seen in the greater tuberosity of the humeral head. There is spurring seen along the inferior humeral head. The glenohumeral articulation is preserved. The overlying soft tissues are within normal limits. Partially imaged right upper lobe lung parenchyma appears clear. IMPRESSION: Osteopenia and mild arthritic change as above. No acute bony abnormality is identified in the right shoulder. Electronically signed by: Singh Garcia M.D. 07/19/2016 9:54 AM Dictated Date/Time: 07/19/2016 9:53 AM
[2016-07-19] MEDS ORDERED: POTASSIUM CHLORIDE 20 MEQ TABCR PO ONE (12:15)
[2016-07-19] MEDS: HEPARIN SOD 5000 UNIT/0.5 ML CARP SQ SCH ×3 (13:05→22:15)
[2016-07-19 16:18] VITALS: BP 135/84; PULSE 91; TEMP 36.6; O2SAT 100
--- NOTE | 2016-07-19 16:58 | Medical Consult ---
Consultation Date of Consultation: Jul 19, 2016. Attending Physician: Franc Jones MD Reason for Consultation: Gram-negative bacteremia History of Present Illness 60-year-old female with history of hyperlipidemia and chronic sinusitis who was in usual state of health until 4-5 days prior to admission when she developed the onset of high fever, shaking chills, and sore throat. She was seen by her primary care physician who prescribed Tamiflu, but then patient developed abdominal pain and diarrhea with persistence of fever. She was seen in the emergency room where blood cultures were drawn, patient was sent home, but called back when cultures were reported positive for gram-negative bacilli. She has been started empirically on IV aztreonam and feeling somewhat better. She was found to have abnormal urinalysis and does have history of urinary tract infections, but denies any significant dysuria, frequency, change in urine , or flank pain. Denies cough or shortness of breath. No other significant travel or exposure history. No ill contacts. Past Medical/Surgical History Medical Problems: (1) Bacteremia Status: Acute (2) Chest pressure Status: Acute (3) Depressive Disorder Nec Status: Chronic (4) Dizziness Status: Acute (5) GERD (gastroesophageal reflux disease) Status: Chronic (6) Influenza-like symptoms Status: Acute (7) Pure Hypercholesterolem Status: Chronic (8) Vertigo Status: Chronic Social History Problems: (1) History of recent surgery Status: Acute Medical Problems: (1) Allergic rhinitis (2) Anxiety (3) Chronic sinusitis (4) Depressive Disorder Nec (5) Dyslipidemia (6) Encounter for removal of sutures (7) GERD (gastroesophageal reflux disease) (8) Pure Hypercholesterolem (9) SOB (shortness of breath) (10) Vertigo Surgical Problems: (1) H/O dilation and curettage (2) H/O sinus surgery (3) H/O tubal ligation (4) H/O umbilical hernia repair (5) H/O umbilical hernia repair (6) S/P rotator cuff repair (7) S/P rotator cuff surgery (8) S/P tonsillectomy and adenoidectomy (9) S/P tubal ligation Family History Blood clots FH: cancer FH: myocardial infarction Hypertension Seizures Social History Smoking Status: Never Smoker Marital Status: Housing Status: lives with significant other Occupation Status: employed Allergies Coded Allergies: Amitriptyline (Verified Allergy, Intermediate, RASH AND FEET SWELLING, 07/18) Cephalosporins (Verified Allergy, Intermediate, RASH AND TACHYCARDIA, ) Lorazepam (Verified Allergy, Intermediate, RASH, 07/18/16) Amoxicillin (Verified Adverse Reaction, Intermediate, VOMITING, 07/18/16) Sulfamethoxazole w/Trimethoprim (Verified Adverse Reaction, Intermediate, SEVERE GI UPSET; DIAPHORESIS; HOT FLASHES, 07/18/16) Clarithromycin (Verified Adverse Reaction, Mild, GI UPSET, 07/18/16) Clavulanic Acid (Verified Adverse Reaction, Mild, SEVERE NAUSEA, 07/18/16) Nitrofurantoin (Verified Adverse Reaction, Mild, GI UPSET, 07/18/16) Penicillins (Verified Adverse Reaction, Mild, SEVERE NAUSEA, 07/18/16) Current Inpatient Medications Current Inpatient Medications Medications (Trade) Dose Ordered Sig/Nino Route Start Time Stop Time Status Last Admin Dose Admin Heparin Sodium (Porcine) (Heparin Sq 5000 Unit/0.5ml) 5,000 unit Q8 SQ 07/18/16 22:00 08/17/16 21:59 07/19/16 13:18 5,000 UNIT Acetaminophen (Tylenol Tab) 650 mg Q4H PRN PO 07/18/16 19:15 08/17/16 19:14 07/19/16 13:56 650 MG Al Hydrox/Mg Hydrox/Simethicone (Maalox Max Susp) 15 ml Q4H PRN PO 07/18/16 19:15 08/17/16 19:14 Magnesium Hydroxide (Milk Of Magnesia Susp) 30 ml Q6H PRN PO 07/18/16 19:15 08/17/16 19:14 Polyethylene (Miralax Powder Packet) 17 gm DAILY PRN PO 07/18/16 19:30 08/17/16 19:29 Zolpidem Tartrate (Ambien Tab) 5 mg HSZ PRN PO 07/18/16 19:15 08/17/16 19:14 Ondansetron HCl 4 mg 4 mg Q6H PRN IV 07/18/16 19:15 08/17/16 19:14 Aztreonam 1000 mg/ Dextrose 110 ml @ 100 mls/hr Q8H IV 07/19/16 02:00 08/01/16 17:59 07/19/16 09:45 100 MLS/HR Sodium Chloride (Nss 1000ml) 1,000 ml @ 100 mls/hr Q10H IV 07/18/16 19:30 08/17/16 19:29 07/19/16 15:44 100 MLS/HR Albuterol (Ventolin Hfa Inhaler) 2 puffs QID INH 07/19/16 08:00 08/18/16 07:59 Fexofenadine HCl (Cristina Tab) 180 mg DAILY PO 07/19/16 08:00 08/18/16 07:59 07/19/16 08:16 180 MG Fluticasone Propionate (Flonase Nasal [place]) 2 sprays DAILY MARICRUZ 07/19/16 08:00 08/18/16 07:59 Meclizine HCl (Antivert Tab) 25 mg TID PRN PO 07/18/16 21:30 08/17/16 21:29 Simvastatin (Zocor Tab) 40 mg QPM PO 07/19/16 21:00 08/18/16 20:59 Tramadol HCl (Ultram Tab) 100 mg Q6H PRN PO 07/18/16 21:30 08/17/16 21:29 Ibuprofen (Advil Tab) 400 mg Q6 PRN PO 07/18/16 21:45 08/17/16 21:44 07/19/16 09:45 400 MG Miscellaneous Information (Order Awaiting Action) 1 ea QS N/A 07/19/16 16:00 08/18/16 15:59 Miscellaneous Information (Order Awaiting Action) 1 ea QS N/A 07/19/16 16:00 08/18/16 15:59 Review of Systems Constitutional: + chills, + fatigue, + fever, + sweats, + weakness Eyes: No problem reported ENT: No problem reported Respiratory: No problem reported Cardiovascular: No problem reported Abdomen: + diarrhea, + nausea, + vomiting Musculoskeletal: + joint pain Genitourinary - Female: + problem reported ( discolored urine) Neurologic: + problem reported ( headache) Psychiatric: No problem reported Endocrine: No problem reported Hematologic / Lymphatic: No problem reported Integumentary: No problem reported Allergic / Immunologic: No problem reported Physical Exam Date Time Temp Pulse Resp B/P Pulse Ox O2 Delivery O2 Flow Rate FiO2 07/19/16 16:18 36.6 91 18 135/84 100 Room Air 07/19/16 16:00 Room Air 07/19/16 08:00 Room Air 07/19/16 07:54 36.8 93 20 128/78 97 Room Air 07/19/16 00:00 Room Air 07/18/16 23:55 36.9 71 18 111/76 99 Room Air 07/18/16 22:47 98 Room Air 07/18/16 21:01 36.7 97 18 145/73 07/18/16 18:02 36.8 07/18/16 17:18 36.8 88 18 149/88 99 Room Air General Appearance: WD/WN, no apparent distress Head: normocephalic, atraumatic Eyes: normal inspection, EOMI, sclerae normal ENT: normal ENT inspection, hearing grossly normal, pharynx normal Neck: supple, no adenopathy, thyroid normal, trachea midline Respiratory/Chest: chest non-tender, lungs clear, normal breath sounds, no respiratory distress Cardiovascular: regular rate, rhythm, no gallop, no murmur Abdomen/GI: normal bowel sounds, non tender, soft, no organomegaly Back: normal inspection, no CVA tenderness Extremities/Musculoskelatal: normal inspection, no calf tenderness, non-tender Neurologic/Psych: alert, normal mood/affect, oriented x 3 Skin: normal color, warm/dry, no rash Lymphatic: no adenopathy Laboratory Results Date/Time Source Procedure Growth Status 07/19/16 00:55 Urine , Clean Catch Urine Culture Pending Received Last 24 Hours Test 07/19/16 00:55 07/19/16 06:31 07/19/16 06:41 Urine Color YELLOW Urine Appearance CLOUDY Urine pH 5.5 Urine Specific [place] 1.021 Urine Protein 1+ Urine Glucose (UA) NEG Urine Ketones NEG Urine Occult Blood 3+ Urine Nitrite POS Urine Bilirubin NEG Urine Urobilinogen NEG Urine Leukocyte Esterase MODERATE Urine WBC (Auto) >30 /hpf Urine RBC (Auto) >30 /hpf Urine Hyaline Casts (Auto) 10-30 /lpf Urine Epithelial Cells (Auto) 20-30 /lpf Urine Bacteria (Auto) NEG White Blood Count 9.25 K/uL Red Blood Count 4.24 M/uL Hemoglobin 12.8 g/dL Hematocrit 38.3 % Mean Corpuscular Volume 90.3 fL Mean Corpuscular Hemoglobin 30.2 pg Mean Corpuscular Hemoglobin Concent 33.4 g/dl RDW Standard Deviation 49.4 fL RDW Coefficient of Variation 14.9 % Platelet Count 209 K/uL Mean Platelet Volume 9.7 fL Sodium Level 143 mmol/L Potassium Level 3.4 mmol/L Chloride Level 111 mmol/L Carbon Dioxide Level 22 mmol/L Anion Gap 10.0 mmol/L Blood Urea Nitrogen 14 mg/dl Creatinine 0.80 mg/dl Est Creatinine Clear Calc Drug Dose 85.1 ml/min Estimated GFR () 92.2 Estimated GFR (Non- 79.6 BUN/Creatinine Ratio 17.8 Random Glucose 117 mg/dl Calcium Level 8.6 mg/dl Magnesium Level 2.2 mg/dl RIGHT SHOULDER 3 VIEWS CLINICAL HISTORY: Right shoulder pain. FINDINGS: 3 views of the right shoulder are obtained. No prior studies are available for comparison at the time of dictation. The Skeletal structures are osteopenic. No fracture or dislocation is seen. Mild productive degenerative change is seen at the acromioclavicular joint. Mild arthritic change is also seen in the greater tuberosity of the humeral head. There is spurring seen along the inferior humeral head. The glenohumeral articulation is preserved. The overlying soft tissues are within normal limits. Partially imaged right upper lobe lung parenchyma appears clear. IMPRESSION: Osteopenia and mild arthritic change as above. No acute bony abnormality is identified in the right shoulder. Electronically signed by: Singh Garcia M.D. 07/19/2016 9:54 AM Dictated Date/Time: 07/19/2016 9:53 AM The status of Assessment & Plan 60-year-old female with gram-negative bacteremia, most likely source appears to be urinary tract infection given abnormal urinalysis and discolored urine. However, final identification should provide better idea where this infection has originated. Patient appears to be responding well to aztreonam, but given body weight I have increase dose to 2 g every 8 hours. Patient does not appear to have severe penicillin allergy, so likely could be able to be transitioned to IV ertapenem if organism proved sensitive, which will allow easier outpatient therapy as may require 7-10 days of IV antibiotics. ID service will follow.
--- NOTE | 2016-07-19 19:09 | Progress Note ---
Medicine Progress Note Date & Time of Visit: Jul 19, 2016 at 19:05. Subjective patient states she feels improved in good spirits denies abdominal pain, nausea, urinary symptoms no cough, dyspnea, denies other symptoms Objective Last 8 Hrs Date Time Temp Pulse Resp B/P Pulse Ox O2 Delivery O2 Flow Rate FiO2 07/19/16 16:18 36.6 91 18 135/84 100 Room Air 07/19/16 16:00 Room Air Physical Exam: General- oriented x 3, not in distress, speaks in sentences with no effort Head- atraumatic Eyes- anicteric Neck- supple, no JVD Lungs- clear breath sounds bilaterally Heart- normal rate, regular rhythm; no murmurs Abdomen- normal bowel sounds, soft, nontender Extremities- no pretibial edema, no calf tenderness Neuro- alert, oriented x 3; no gross focal deficits Skin- warm & dry Laboratory Results: Last 24 Hours Test 07/19/16 00:55 07/19/16 06:31 07/19/16 06:41 Urine Color YELLOW Urine Appearance CLOUDY Urine pH 5.5 Urine Specific [place] 1.021 Urine Protein 1+ Urine Glucose (UA) NEG Urine Ketones NEG Urine Occult Blood 3+ Urine Nitrite POS Urine Bilirubin NEG Urine Urobilinogen NEG Urine Leukocyte Esterase MODERATE Urine WBC (Auto) >30 /hpf Urine RBC (Auto) >30 /hpf Urine Hyaline Casts (Auto) 10-30 /lpf Urine Epithelial Cells (Auto) 20-30 /lpf Urine Bacteria (Auto) NEG White Blood Count 9.25 K/uL Red Blood Count 4.24 M/uL Hemoglobin 12.8 g/dL Hematocrit 38.3 % Mean Corpuscular Volume 90.3 fL Mean Corpuscular Hemoglobin 30.2 pg Mean Corpuscular Hemoglobin Concent 33.4 g/dl RDW Standard Deviation 49.4 fL RDW Coefficient of Variation 14.9 % Platelet Count 209 K/uL Mean Platelet Volume 9.7 fL Sodium Level 143 mmol/L Potassium Level 3.4 mmol/L Chloride Level 111 mmol/L Carbon Dioxide Level 22 mmol/L Anion Gap 10.0 mmol/L Blood Urea Nitrogen 14 mg/dl Creatinine 0.80 mg/dl Est Creatinine Clear Calc Drug Dose 85.1 ml/min Estimated GFR () 92.2 Estimated GFR (Non- 79.6 BUN/Creatinine Ratio 17.8 Random Glucose 117 mg/dl Calcium Level 8.6 mg/dl Magnesium Level 2.2 mg/dl Date/Time Source Procedure Growth Status 07/19/16 00:55 Urine , Clean Catch Urine Culture Pending Received Assessment & Plan GRAM NEGATIVE BACTEREMIA R/O UTI - improving clinically - ff up cultures continue Aztreonam IV fluids INFLUENZA LIKE SYMPTOMS Was on Tamiflu from 07/15 Influenza antigen negative in ER yesterday Check influenza PCR: negative Acetaminophen and ibuprofen PRN (held diclofenac as patient preferred ibuprofen instead) HYPOKALEMIA replaced R SHOULDER PAIN No apparent joint infection X-ray right shoulder in am: unrevealing ANXIETY Continue Paxil DYSLIPIDEMIA Continue statin GERD Continue PPI DVT PROPHYLAXIS Heparin SQ Dispo pending Current Inpatient Medications: Current Inpatient Medications Medications (Trade) Dose Ordered Sig/Nino Route Start Time Stop Time Status Last Admin Dose Admin Heparin Sodium (Porcine) (Heparin Sq 5000 Unit/0.5ml) 5,000 unit Q8 SQ 07/18/16 22:00 08/17/16 21:59 07/19/16 13:18 5,000 UNIT Acetaminophen (Tylenol Tab) 650 mg Q4H PRN PO 07/18/16 19:15 08/17/16 19:14 07/19/16 13:56 650 MG Al Hydrox/Mg Hydrox/Simethicone (Maalox Max Susp) 15 ml Q4H PRN PO 07/18/16 19:15 08/17/16 19:14 Magnesium Hydroxide (Milk Of Magnesia Susp) 30 ml Q6H PRN PO 07/18/16 19:15 08/17/16 19:14 Polyethylene (Miralax Powder Packet) 17 gm DAILY PRN PO 07/18/16 19:30 08/17/16 19:29 Zolpidem Tartrate (Ambien Tab) 5 mg HSZ PRN PO 07/18/16 19:15 08/17/16 19:14 Ondansetron HCl 4 mg 4 mg Q6H PRN IV 07/18/16 19:15 08/17/16 19:14 Aztreonam 1000 mg/ Dextrose 110 ml @ 200 mls/hr Q8H IV 07/19/16 02:00 08/01/16 17:59 07/19/16 18:23 200 MLS/HR Sodium Chloride (Nss 1000ml) 1,000 ml @ 100 mls/hr Q10H IV 07/18/16 19:30 08/17/16 19:29 07/19/16 15:44 100 MLS/HR Albuterol (Ventolin Hfa Inhaler) 2 puffs QID INH 07/19/16 08:00 08/18/16 07:59 Fexofenadine HCl (Cristina Tab) 180 mg DAILY PO 07/19/16 08:00 08/18/16 07:59 07/19/16 08:16 180 MG Fluticasone Propionate (Flonase Nasal [place]) 2 sprays DAILY MARICRUZ 07/19/16 08:00 08/18/16 07:59 Meclizine HCl (Antivert Tab) 25 mg TID PRN PO 07/18/16 21:30 08/17/16 21:29 Simvastatin (Zocor Tab) 40 mg QPM PO 07/19/16 21:00 08/18/16 20:59 Tramadol HCl (Ultram Tab) 100 mg Q6H PRN PO 07/18/16 21:30 08/17/16 21:29 Ibuprofen (Advil Tab) 400 mg Q6 PRN PO 07/18/16 21:45 08/17/16 21:44 07/19/16 18:24 400 MG Miscellaneous Information (Order Awaiting Action) 1 ea QS N/A 07/19/16 16:00 08/18/16 15:59 Miscellaneous Information (Order Awaiting Action) 1 ea QS N/A 07/19/16 16:00 08/18/16 15:59
[2016-07-19] MEDS: SIMVASTATIN 40 MG TAB PO SCH (22:11)
[2016-07-20 00:07] VITALS: BP 123/80; PULSE 75; TEMP 36.7; O2SAT 99
[2016-07-20] MEDS: AZTREONAM IV 1,000 MG in DEXTROSE 5% 100ML 100 ML IV SCH ×3 (01:52→17:34)
[2016-07-20] MEDS: SODIUM CHLORIDE 0.9% 1000ML 1,000 ML IV SCH ×3 (01:52→17:05)
[2016-07-20] MEDS: IBUPROFEN 200 MG TAB PO PRN ×3 (01:54→18:49)
[2016-07-20] MEDS: HEPARIN SOD 5000 UNIT/0.5 ML CARP SQ SCH ×3 (05:53→20:19)
[2016-07-20] MEDS: ACETAMINOPHEN 325 MG TAB PO PRN ×3 (05:58→20:35)
[2016-07-20 07:22] VITALS: BP 134/83; PULSE 73; TEMP 36.7; O2SAT 97
[2016-07-20 08:00] VITALS: O2SAT 97
[2016-07-20] MEDS: ALBUTEROL HFA 8 GM INHALER INH SCH ×5 (08:00→20:18)
[2016-07-20] MEDS: FLUTICASONE PROPIONATE NA SPR 16 GM BTL NAE SCH (08:00)
[2016-07-20] MEDS: FEXOFENADINE HCL 180 MG TAB PO SCH (08:00)
[2016-07-20] MEDS: PREVACID PO SCH (08:01)
[2016-07-20] MEDS: PAROXETINE 12.5 MG TABCR PO SCH (08:01)
[2016-07-20] MEDS: PAXIL PO SCH (08:02)
[2016-07-20 14:59] VITALS: BP 126/78; PULSE 88; TEMP 36.8; O2SAT 97
[2016-07-20 16:00] VITALS: O2SAT 97
--- NOTE | 2016-07-20 16:34 | Progress Note ---
Medicine Progress Note Date & Time of Visit: Jul 20, 2016 at 16:32. Subjective patient seen resting in bed, comfortable states she continues to feel improved still having episodes of sweats otherwise, no chills, abdominal pain, headache, urinary symptoms, diarrhea denies other symptoms Objective Last 8 Hrs Date Time Temp Pulse Resp B/P Pulse Ox O2 Delivery O2 Flow Rate FiO2 07/20/16 16:00 97 Room Air 07/20/16 14:59 36.8 88 18 126/78 97 Room Air Physical Exam: General- oriented x 3, not in distress, speaks in sentences with no effort Neck- no JVD Lungs- clear breath sounds bilaterally, no rales Heart- normal rate, regular rhythm; no murmurs Abdomen- normal bowel sounds, soft, nontender Extremities- no pretibial edema, no calf tenderness Neuro- alert, oriented x 3; no gross focal deficits Skin- warm & dry Laboratory Results: Last 24 Hours Test 07/20/16 16:14 Assessment & Plan E COLI BACTEREMIA LIKELY FROM UTI - improving clinically continue Aztreonam IV fluids - ID on board INFLUENZA LIKE SYMPTOMS Was on Tamiflu from 07/15 Influenza antigen negative in ER yesterday influenza PCR: negative Acetaminophen and ibuprofen PRN (held diclofenac as patient preferred ibuprofen instead) - resolved HYPOKALEMIA - repeat prp today R SHOULDER PAIN No apparent joint infection X-ray right shoulder in am: unrevealing ANXIETY Continue Paxil DYSLIPIDEMIA Continue statin GERD Continue PPI DVT PROPHYLAXIS Heparin SQ Dispo pending Current Inpatient Medications: Current Inpatient Medications Medications (Trade) Dose Ordered Sig/Nino Route Start Time Stop Time Status Last Admin Dose Admin Heparin Sodium (Porcine) (Heparin Sq 5000 Unit/0.5ml) 5,000 unit Q8 SQ 07/18/16 22:00 08/17/16 21:59 07/20/16 14:17 5,000 UNIT Acetaminophen (Tylenol Tab) 650 mg Q4H PRN PO 07/18/16 19:15 08/17/16 19:14 07/20/16 14:17 650 MG Al Hydrox/Mg Hydrox/Simethicone (Maalox Max Susp) 15 ml Q4H PRN PO 07/18/16 19:15 08/17/16 19:14 Magnesium Hydroxide (Milk Of Magnesia Susp) 30 ml Q6H PRN PO 07/18/16 19:15 08/17/16 19:14 Polyethylene (Miralax Powder Packet) 17 gm DAILY PRN PO 07/18/16 19:30 08/17/16 19:29 Zolpidem Tartrate (Ambien Tab) 5 mg HSZ PRN PO 07/18/16 19:15 08/17/16 19:14 Ondansetron HCl 4 mg 4 mg Q6H PRN IV 07/18/16 19:15 08/17/16 19:14 Aztreonam/Dextrose (Azactam IV/D5 100ml) 110 ml @ 200 mls/hr Q8H IV 07/19/16 02:00 08/01/16 17:59 07/20/16 10:02 200 MLS/HR Albuterol (Ventolin Hfa Inhaler) 2 puffs QID INH 07/19/16 08:00 08/18/16 07:59 Fexofenadine HCl (Cristina Tab) 180 mg DAILY PO 07/19/16 08:00 08/18/16 07:59 07/20/16 08:00 180 MG Fluticasone Propionate (Flonase Nasal [place]) 2 sprays DAILY MARICRUZ 07/19/16 08:00 08/18/16 07:59 Meclizine HCl (Antivert Tab) 25 mg TID PRN PO 07/18/16 21:30 08/17/16 21:29 Simvastatin (Zocor Tab) 40 mg QPM PO 07/19/16 21:00 08/18/16 20:59 07/19/16 22:11 40 MG Tramadol HCl (Ultram Tab) 100 mg Q6H PRN PO 07/18/16 21:30 08/17/16 21:29 Ibuprofen (Advil Tab) 400 mg Q6 PRN PO 07/18/16 21:45 08/17/16 21:44 07/20/16 10:03 400 MG Non-Formulary Medication (Non-Formulary Patient'S Own Med) 1 ea DAILY PO 07/20/16 08:00 08/19/16 07:59 07/20/16 08:01 1 EA Paroxetine HCl (pAXil CONTROLLED REL TAB) 12.5 mg QAM PO 07/20/16 08:00 08/19/16 07:59 07/20/16 08:01 12.5 MG Non-Formulary Medication (Non-Formulary Patient'S Own Med) 1 ea DAILY PO 07/20/16 08:00 08/19/16 07:59 07/20/16 08:02 1 EA
[2016-07-20 17:54] LABS: BUN/CREATININE RATIO 25.1 (10-20); CALCIUM 8.1 mg/dl (8.5-10.1); CREATININE 0.69 mg/dl (0.60-1.20)
[2016-07-20 17:55] LABS: POTASSIUM 4.1 mmol/L (3.5-5.1)
[2016-07-20] MEDS: SIMVASTATIN 40 MG TAB PO SCH (20:18)
[2016-07-20 23:52] VITALS: BP 152/89; PULSE 73; TEMP 36.5; O2SAT 97
[2016-07-21] MEDS: IBUPROFEN 200 MG TAB PO SCH ×4 (00:57→19:22)
[2016-07-21] MEDS: AZTREONAM IV 1,000 MG in DEXTROSE 5% 100ML 100 ML IV SCH ×3 (00:57→17:47)
[2016-07-21] MEDS: SODIUM CHLORIDE 0.9% 1000ML 1,000 ML IV SCH ×2 (00:57→16:38)
[2016-07-21] MEDS: ACETAMINOPHEN 325 MG TAB PO PRN ×3 (04:06→16:30)
[2016-07-21] MEDS: HEPARIN SOD 5000 UNIT/0.5 ML CARP SQ SCH ×3 (06:29→21:43)
[2016-07-21 07:22] VITALS: BP 98/49; PULSE 52; TEMP 36.5; O2SAT 97
[2016-07-21 07:28] LABS: MEAN CELL VOLUME 92.4 fL (80-100); MEAN CORPUSCULAR HEMOGLOBIN 30.5 pg (25-34); MEAN PLATELET VOLUME 9.5 fL (7.4-10.4); PLATELET COUNT 264 K/uL (130-400); RED BLOOD COUNT 3.57 M/uL (4.2-5.4); WHITE BLOOD COUNT 6.29 K/uL (4.8-10.8)
[2016-07-21] MEDS: FLUTICASONE PROPIONATE NA SPR 16 GM BTL NAE SCH (07:58)
[2016-07-21] MEDS: ALBUTEROL HFA 8 GM INHALER INH SCH ×4 (07:58→19:25)
[2016-07-21] MEDS: FEXOFENADINE HCL 180 MG TAB PO SCH (07:59)
[2016-07-21] MEDS: PAROXETINE 12.5 MG TABCR PO SCH (07:59)
[2016-07-21 08:00] VITALS: O2SAT 97
[2016-07-21] MEDS: PAXIL PO SCH (08:00)
[2016-07-21] MEDS: PREVACID PO SCH (08:00)
--- NOTE | 2016-07-21 11:58 | Progress Note ---
Subjective Date of Service: Jul 21, 2016. Subjective initial blood culture with e coli, final sensitivity pending. urine culture negative. afebriel. tolerating abx. no overnight events. Problem List Medical Problems: (1) Bacteremia Status: Acute (2) Chest pressure Status: Acute (3) Depressive Disorder Nec Status: Chronic (4) Dizziness Status: Acute (5) GERD (gastroesophageal reflux disease) Status: Chronic (6) Influenza-like symptoms Status: Acute (7) Pure Hypercholesterolem Status: Chronic (8) Vertigo Status: Chronic Social History Problems: (1) History of recent surgery Status: Acute Objective Vital Signs Date Time Temp Pulse Resp B/P Pulse Ox O2 Delivery O2 Flow Rate FiO2 07/21/16 08:00 97 Room Air 07/21/16 07:22 36.5 52 18 98/49 97 Room Air 07/20/16 23:52 36.5 73 20 152/89 97 Room Air 07/20/16 16:00 97 Room Air 07/20/16 14:59 36.8 88 18 126/78 97 Room Air Laboratory Results Item Value Date Time Blood Culture - Preliminary Resulted 07/18/16 1630 Blood Escherichia Coli Blood Culture - Preliminary Resulted 07/18/16 1640 Blood NO GROWTH TO DATE. Urine Culture - Final Complete 07/19/16 0055 Urine , Clean Catch NO GROWTH - LESS THAN 1,000 COLONIES/ML Last 24 Hours Test 07/20/16 17:00 07/21/16 07:17 Sodium Level 145 mmol/L Potassium Level 4.1 mmol/L Chloride Level 111 mmol/L Carbon Dioxide Level 22 mmol/L Anion Gap 12.0 mmol/L Blood Urea Nitrogen 17 mg/dl Creatinine 0.69 mg/dl Est Creatinine Clear Calc Drug Dose 98.7 ml/min Estimated GFR () 108.9 Estimated GFR (Non- 94.0 BUN/Creatinine Ratio 25.1 Random Glucose 95 mg/dl Calcium Level 8.1 mg/dl White Blood Count 6.29 K/uL Red Blood Count 3.57 M/uL Hemoglobin 10.9 g/dL Hematocrit 33.0 % Mean Corpuscular Volume 92.4 fL Mean Corpuscular Hemoglobin 30.5 pg Mean Corpuscular Hemoglobin Concent 33.0 g/dl RDW Standard Deviation 51.7 fL RDW Coefficient of Variation 15.2 % Platelet Count 264 K/uL Mean Platelet Volume 9.5 fL Assessment and Plan (1) Sepsis Assessment & Plan: will need 10 days abx, await final sensitivities. would repeat blood cultures. will follow.
[2016-07-21] MEDS ORDERED: NURSING VERBAL MED ORDER ONE (14:00)
[2016-07-21 14:44] VITALS: BP 130/64; PULSE 80; TEMP 36.8; O2SAT 100
[2016-07-21 16:00] VITALS: O2SAT 100
--- NOTE | 2016-07-21 17:28 | Progress Note ---
Medicine Progress Note Date & Time of Visit: Jul 21, 2016 at 17:23. Subjective states was not feeling well this afternoon feeling improved now that IV fluids was increased denies shortness of breath, chest pain no abdominal pain, nausea, vomiting, urinary symptoms requesting tylenol and motrin round the clock to relieve chills no other symptoms Objective Last 8 Hrs Date Time Temp Pulse Resp B/P Pulse Ox O2 Delivery O2 Flow Rate FiO2 07/21/16 14:44 36.8 80 16 130/64 100 Room Air Physical Exam: General- oriented x 3, not in distress, speaks in sentences with no effort Neck- no JVD Lungs- clear breath sounds bilaterally, no rales/wheezes Heart- normal rate, regular rhythm; no murmurs Abdomen- normal bowel sounds, soft, nontender Extremities- no pretibial edema, no calf tenderness Neuro- alert, oriented x 3; no gross focal deficits Skin- warm & dry Laboratory Results: Last 24 Hours Test 07/21/16 07:17 White Blood Count 6.29 K/uL Red Blood Count 3.57 M/uL Hemoglobin 10.9 g/dL Hematocrit 33.0 % Mean Corpuscular Volume 92.4 fL Mean Corpuscular Hemoglobin 30.5 pg Mean Corpuscular Hemoglobin Concent 33.0 g/dl RDW Standard Deviation 51.7 fL RDW Coefficient of Variation 15.2 % Platelet Count 264 K/uL Mean Platelet Volume 9.5 fL Assessment & Plan E COLI BACTEREMIA LIKELY FROM UTI - blood cultures 07/17/16: pansensitive E coli 1/2 bottles- sensitive to Cipro and Levaquin which patient is not allergic to repeat blood cultures 07.18.16: e coli 1/2 bottles urine cultures: no growth - improving clinically continue Aztreonam Day 3 IV fluids scheduled Motrin and Tylenol per patient's request (has been taking tylenol and motrin since last week, will check PRP and Liver function test) - possible transition to PO antibiotics - ID on board, appreciate the recommendations INFLUENZA LIKE SYMPTOMS Was on Tamiflu from 07/15 Influenza antigen negative in ER yesterday influenza PCR: negative Acetaminophen and ibuprofen PRN (held diclofenac as patient preferred ibuprofen instead) - resolved HYPOKALEMIA - monitor R SHOULDER PAIN No apparent joint infection X-ray right shoulder in am: unrevealing ANXIETY Continue Paxil DYSLIPIDEMIA Continue statin GERD Continue PPI DVT PROPHYLAXIS Heparin SQ Dispo pending anticipate dc home when medically stable Current Inpatient Medications: Current Inpatient Medications Medications (Trade) Dose Ordered Sig/Nino Route Start Time Stop Time Status Last Admin Dose Admin Heparin Sodium (Porcine) (Heparin Sq 5000 Unit/0.5ml) 5,000 unit Q8 SQ 07/18/16 22:00 08/17/16 21:59 07/21/16 13:32 5,000 UNIT Acetaminophen (Tylenol Tab) 650 mg Q4H PRN PO 07/18/16 19:15 08/17/16 19:14 07/21/16 16:30 650 MG Al Hydrox/Mg Hydrox/Simethicone (Maalox Max Susp) 15 ml Q4H PRN PO 07/18/16 19:15 08/17/16 19:14 Magnesium Hydroxide (Milk Of Magnesia Susp) 30 ml Q6H PRN PO 07/18/16 19:15 08/17/16 19:14 Polyethylene (Miralax Powder Packet) 17 gm DAILY PRN PO 07/18/16 19:30 08/17/16 19:29 Zolpidem Tartrate (Ambien Tab) 5 mg HSZ PRN PO 07/18/16 19:15 08/17/16 19:14 Ondansetron HCl 4 mg 4 mg Q6H PRN IV 07/18/16 19:15 08/17/16 19:14 Aztreonam/Dextrose (Azactam IV/D5 100ml) 110 ml @ 200 mls/hr Q8H IV 07/19/16 02:00 08/01/16 17:59 07/21/16 10:16 200 MLS/HR Albuterol (Ventolin Hfa Inhaler) 2 puffs QID INH 07/19/16 08:00 08/18/16 07:59 Fexofenadine HCl (Cristina Tab) 180 mg DAILY PO 07/19/16 08:00 08/18/16 07:59 07/21/16 07:59 180 MG Fluticasone Propionate (Flonase Nasal [place]) 2 sprays DAILY MARICRUZ 07/19/16 08:00 08/18/16 07:59 Meclizine HCl (Antivert Tab) 25 mg TID PRN PO 07/18/16 21:30 08/17/16 21:29 Simvastatin (Zocor Tab) 40 mg QPM PO 07/19/16 21:00 08/18/16 20:59 07/20/16 20:18 40 MG Tramadol HCl (Ultram Tab) 100 mg Q6H PRN PO 07/18/16 21:30 08/17/16 21:29 Non-Formulary Medication (Non-Formulary Patient'S Own Med) 1 ea DAILY PO 07/20/16 08:00 08/19/16 07:59 07/21/16 08:00 1 EA Paroxetine HCl (pAXil CONTROLLED REL TAB) 12.5 mg QAM PO 07/20/16 08:00 08/19/16 07:59 07/21/16 07:59 12.5 MG Non-Formulary Medication 1 ea 1 ea DAILY PO 07/20/16 08:00 08/19/16 07:59 07/21/16 08:00 1 EA Sodium Chloride (Nss 1000ml) 1,000 ml @ 100 mls/hr Q10H IV 07/20/16 16:45 08/19/16 16:44 07/21/16 16:38 100 MLS/HR Ibuprofen (Advil Tab) 400 mg Q6 PO 07/21/16 01:00 08/20/16 00:59 07/21/16 12:31 400 MG
[2016-07-21 18:13] LABS: CALCIUM 8.7 mg/dl (8.5-10.1); CREATININE 0.74 mg/dl (0.60-1.20); POTASSIUM 3.8 mmol/L (3.5-5.1)
[2016-07-21] MEDS: SIMVASTATIN 40 MG TAB PO SCH (21:18)
[2016-07-21 23:04] VITALS: BP 135/77; PULSE 78; TEMP 36.7; O2SAT 99
[2016-07-21] MEDS: ACETAMINOPHEN 325 MG TAB PO SCH (23:34)
[2016-07-22] MEDS: AZTREONAM IV 1,000 MG in DEXTROSE 5% 100ML 100 ML IV SCH ×2 (01:37→09:27)
[2016-07-22] MEDS: IBUPROFEN 200 MG TAB PO SCH ×3 (03:26→20:08)
[2016-07-22] MEDS: HEPARIN SOD 5000 UNIT/0.5 ML CARP SQ SCH ×3 (06:14→21:07)
[2016-07-22 06:59] VITALS: BP 159/97; PULSE 72; TEMP 36.7; O2SAT 96
[2016-07-22] MEDS: ALBUTEROL HFA 8 GM INHALER INH SCH ×4 (07:26→20:00)
[2016-07-22] MEDS: FLUTICASONE PROPIONATE NA SPR 16 GM BTL NAE SCH ×2 (07:27→07:34)
[2016-07-22 07:29] LABS: BASO % 0.9 %; BASO ABS # 0.06 K/uL (0-0.2); COMPLETE YES; EOS % 1.7 %; HEMATOCRIT 32.8 % (37-47); IG% 3.9 %; LYMPH % 28.7 %; LYMPH ABS # 2.01 K/uL (1.2-3.4); MEAN CELL VOLUME 90.6 fL (80-100); MEAN CORPUSCULAR HEMOGLOBIN 30.1 pg (25-34); MEAN CORPUSCULAR HGB CONC 33.2 g/dl (32-36); MEAN PLATELET VOLUME 9.2 fL (7.4-10.4); MONO % 8.1 %; NEUT % 56.7 %; PLATELET COUNT 307 K/uL (130-400); RED BLOOD COUNT 3.62 M/uL (4.2-5.4); WHITE BLOOD COUNT 7.01 K/uL (4.8-10.8)
[2016-07-22] MEDS: SODIUM CHLORIDE 0.9% 1000ML 1,000 ML IV SCH (07:34)
[2016-07-22] MEDS: ACETAMINOPHEN 325 MG TAB PO SCH ×2 (07:35→15:35)
[2016-07-22] MEDS: PAXIL PO SCH (07:36)
[2016-07-22] MEDS: FEXOFENADINE HCL 180 MG TAB PO SCH (07:36)
[2016-07-22] MEDS: PREVACID PO SCH (07:37)
[2016-07-22] MEDS: PAROXETINE 12.5 MG TABCR PO SCH (07:37)
[2016-07-22 07:59] LABS: BUN/CREATININE RATIO 16.1 (10-20); CALCIUM 8.2 mg/dl (8.5-10.1); CREATININE 0.63 mg/dl (0.60-1.20); POTASSIUM 3.7 mmol/L (3.5-5.1)
[2016-07-22 08:00] VITALS: O2SAT 96
--- NOTE | 2016-07-22 14:05 | Progress Note ---
Subjective Date of Service: Jul 22, 2016. Subjective pt tolerating abx. initial culture 07/17 valdivia sensitive e coli, repeat 07/18 pending. on day 08/22 abx with aztreonam. afebrile. wbc nml. Problem List Medical Problems: (1) Bacteremia Status: Acute (2) Chest pressure Status: Acute (3) Depressive Disorder Nec Status: Chronic (4) Dizziness Status: Acute (5) GERD (gastroesophageal reflux disease) Status: Chronic (6) Influenza-like symptoms Status: Acute (7) Pure Hypercholesterolem Status: Chronic (8) Vertigo Status: Chronic Social History Problems: (1) History of recent surgery Status: Acute Objective Vital Signs Date Time Temp Pulse Resp B/P Pulse Ox O2 Delivery O2 Flow Rate FiO2 07/22/16 08:00 96 Room Air 07/22/16 06:59 36.7 72 18 159/97 96 Room Air 07/22/16 00:00 Room Air 07/21/16 23:04 36.7 78 18 135/77 99 Room Air 07/21/16 16:00 100 Room Air 07/21/16 14:44 36.8 80 16 130/64 100 Room Air Laboratory Results Last 24 Hours Test 07/21/16 17:33 07/22/16 06:55 Sodium Level 141 mmol/L 145 mmol/L Potassium Level 3.8 mmol/L 3.7 mmol/L Chloride Level 108 mmol/L 112 mmol/L Carbon Dioxide Level 22 mmol/L 24 mmol/L Anion Gap 11.0 mmol/L 9.0 mmol/L Blood Urea Nitrogen 16 mg/dl 10 mg/dl Creatinine 0.74 mg/dl 0.63 mg/dl Est Creatinine Clear Calc Drug Dose 92.0 ml/min 108.1 ml/min Estimated GFR () 101.3 112.2 Estimated GFR (Non- 87.4 96.8 BUN/Creatinine Ratio 22.0 16.1 Random Glucose 94 mg/dl 95 mg/dl Calcium Level 8.7 mg/dl 8.2 mg/dl Total Bilirubin 0.3 mg/dl Direct Bilirubin 0.1 mg/dl Aspartate Amino Transf (AST/SGOT) 36 U/L Alanine Aminotransferase (ALT/SGPT) 58 U/L Alkaline Phosphatase 176 U/L Total Protein 7.0 gm/dl Albumin 2.4 gm/dl White Blood Count 7.01 K/uL Red Blood Count 3.62 M/uL Hemoglobin 10.9 g/dL Hematocrit 32.8 % Mean Corpuscular Volume 90.6 fL Mean Corpuscular Hemoglobin 30.1 pg Mean Corpuscular Hemoglobin Concent 33.2 g/dl Platelet Count 307 K/uL Mean Platelet Volume 9.2 fL Neutrophils (%) (Auto) 56.7 % Lymphocytes (%) (Auto) 28.7 % Monocytes (%) (Auto) 8.1 % Eosinophils (%) (Auto) 1.7 % Basophils (%) (Auto) 0.9 % Neutrophils # (Auto) 3.98 K/uL Lymphocytes # (Auto) 2.01 K/uL Monocytes # (Auto) 0.57 K/uL Eosinophils # (Auto) 0.12 K/uL Basophils # (Auto) 0.06 K/uL RDW Standard Deviation 51.0 fL RDW Coefficient of Variation 15.2 % Immature Granulocyte % (Auto) 3.9 % Immature Granulocyte # (Auto) 0.27 K/uL Assessment and Plan (1) Sepsis Assessment & Plan: continue abx, initial culture with valdivia sensitive e coli. will need 7 days total, can transition to po levaquin upon d/c.
[2016-07-22 15:01] VITALS: BP 146/88; PULSE 86; TEMP 37; O2SAT 98
[2016-07-22 16:03] VITALS: O2SAT 98
[2016-07-22] MEDS ORDERED: FLUCONAZOLE 50 MG TAB PO ONE (16:15)
--- NOTE | 2016-07-22 20:48 | Progress Note ---
Internal Med Progress Note Date of Service: Jul 22, 2016. Provider Documentation: SUBJECTIVE: no fever or chills feels much better energy has improved OBJECTIVE: Vital Signs-as noted below Exam: General-no sign of distress Eyes-sclera non icteric ENT-NAd Neck-no thyromegaly Lungs-CTA Heart-regular S1/S2 Abdomen-soft, non tender Extremities-no rash or deformity Neuro-AAO x3, no focal deficit Lab data as noted below. ASSESSMENT & PLAN: E COLI BACTEREMIA LIKELY FROM UTI - blood cultures 07/17/16: pansensitive E coli 1/2 bottles- repeat blood cultures 07.18.16: e coli 1/2 bottles urine cultures: no growth - improving clinically on Aztreonam Day # 4 - possible transition to PO antibiotics tomorrow - ID on board, appreciate the recommendations INFLUENZA LIKE SYMPTOMS Was on Tamiflu from 07/15 Influenza antigen negative in ER influenza PCR: negative D/c Tamiflu HYPOKALEMIA - corrected R SHOULDER PAIN No apparent joint infection X-ray right shoulder in am: unrevealing ANXIETY Continue Paxil DYSLIPIDEMIA Continue statin GERD Continue PPI DVT PROPHYLAXIS Heparin SQ FULL CODE DISPOSITION possible discharge home tomorrow if medically stable Medicine follow up with Dr Contreras Shelton Vital Signs: Date Time Temp Pulse Resp B/P Pulse Ox O2 Delivery O2 Flow Rate FiO2 07/23/16 08:00 97 Room Air 07/23/16 07:00 36.4 72 20 140/84 97 Room Air 07/23/16 04:39 36.7 93 20 100 Room Air 07/23/16 00:20 36.4 82 20 148/82 100 Room Air 07/23/16 00:10 Room Air 07/22/16 16:03 98 Room Air 07/22/16 15:01 37.0 86 20 146/88 98 Room Air Lab Results:
[2016-07-22] MEDS: SIMVASTATIN 40 MG TAB PO SCH (21:13)
--- NOTE | 2016-07-22 21:37 | Discharge Instructions ---
Discharge Instructions Date of Service Jul 22, 2016. Admission Reason for Admission: Bacteremia Discharge Discharge Diagnosis / Problem: GENERALIZED WEAKNESS /BACTEREMIA /UTI Discharge Goals Goal(s): Improve disease control, Therapeutic intervention Activity Recommendations Activity Limitations: resume your previous activity . Instructions / Follow-Up Instructions / Follow-Up HOSPITAL FOLLOW UP WITH DR DUNN ON Thursday07/28/16 @ 11: 10 AM CHECK UA ON YOUR OFFICE VISIT CONTINUE TO TAKE LACTINEX ( PROBIOTIC ) FOR AT LEAST 1 WEEK TO PREVENT ANTIBIOTIC INDUCED DIARRHEA YOU CAN ALSO TAKE YOGURT WITH PROBIOTIC -ACTIVA 3 TIMES WITH MEALS WELL DRINK PLENTY OF FLUID , RESUME DAILY ACTIVITY TOLERATED TRY TO DO 2-3 HRS A DAY LIGHT WALKING /EXERCISE AT LEAST 3-4 TIMES A WEEK PLEASE CALL DR DUNN OFFICE WITH ANY SYMPTOMS OF FEVER OR CHILLS OR URINARY SYMPTOMS DO NOT TAKE DICLOFENAC FOR YOUR SHOULDER PAIN IF TAKING MOTRIN FOR HEADACHE OR FEVER -WILL CAUSE SEVERE ACID REFLUX DISEASE /STOMACH INFLAMMATION PLEASE NOTIFY YOUR FAMILY PHYSICIAN WITH ANY RECURRENCE OF THE SYMPTOM Current Hospital Diet Patient's current hospital diet: Regular Diet Discharge Diet Recommended Diet: Regular Diet Pending Studies Studies pending at discharge: no Medical Emergencies . Who to Call and When: Medical Emergencies: If at any time you feel your situation is an emergency, please call 911 immediately. . Non-Emergent Contact Non-Emergency issues call your: Primary Care Provider . . "Provider Documentation" section prepared by Margaret Augustine. VTE Core Measure Inpt VTE Proph given/why not?: Unfractionated heparin SQ
[2016-07-23] MEDS ORDERED: ACETAMINOPHEN 325 MG TAB PO PRN
[2016-07-23 00:20] VITALS: BP 148/82; PULSE 82; TEMP 36.4; O2SAT 100
[2016-07-23] MEDS ORDERED: IBUPROFEN 200 MG TAB PO PRN ×2 (04:00→14:00)
[2016-07-23 04:39] VITALS: PULSE 93; TEMP 36.7; O2SAT 100
[2016-07-23] MEDS: HEPARIN SOD 5000 UNIT/0.5 ML CARP SQ SCH ×2 (05:55→13:10)
[2016-07-23 07:00] VITALS: BP 140/84; PULSE 72; TEMP 36.4; O2SAT 97
[2016-07-23] MEDS: ALBUTEROL HFA 8 GM INHALER INH SCH ×2 (07:22→11:34)
[2016-07-23] MEDS: FLUTICASONE PROPIONATE NA SPR 16 GM BTL NAE SCH (07:22)
[2016-07-23] MEDS: FEXOFENADINE HCL 180 MG TAB PO SCH (07:23)
[2016-07-23] MEDS: PREVACID PO SCH (07:24)
[2016-07-23] MEDS: PAXIL PO SCH (07:24)
[2016-07-23] MEDS: PAROXETINE 12.5 MG TABCR PO SCH (07:25)
[2016-07-23 08:00] VITALS: O2SAT 97
[2016-07-23] MEDS ORDERED: ACETAMINOPHEN 325 MG TAB PO SCH (08:00)
[2016-07-23] MEDS ORDERED: PANTOprazole SOD 40 MG TAB PO SCH (08:00)
[2016-07-23] MEDS ORDERED: CIPROFLOXACIN 250 MG TAB PO SCH (10:00)
[2016-07-23] MEDS ORDERED: LCTX PO (10:15)
[2016-07-23] MEDS ORDERED: CPR500 PO (10:15)
--- NOTE | 2016-07-23 10:19 | Progress Note ---
Internal Med Progress Note Date of Service: Jul 23, 2016. Provider Documentation: SUBJECTIVE: feels absolutely fine no chills or rigor no fever , normal energy and appetite no urinary symptoms ready to be discharged home OBJECTIVE: Vital Signs-as noted below Exam: General-no sign of distress , very pleasant Eyes-sclera non icteric ENT-NAd Neck-no thyromegaly Lungs-CTA Heart-regular S1/S2 Abdomen-soft, non tender Extremities-no rash or deformity Neuro-AAO x3, no focal deficit Lab data as noted below. ASSESSMENT & PLAN: E COLI BACTEREMIA LIKELY FROM UTI - blood cultures 07/17/16: pansensitive E coli 1/2 bottles- repeat blood cultures 07/18/16: e coli 1/2 bottles urine cultures: no growth - improving clinically ID on board, appreciate the recommendations treated with IV Aztreonam Day - transition to PO antibiotics today -PO ciprofloxacin -complete total 7 days course - INFLUENZA LIKE SYMPTOMS -possible due to above Was on Tamiflu from 07/15 Influenza antigen negative in ER influenza PCR: negative D/c Tamiflu HYPOKALEMIA - corrected R SHOULDER PAIN No apparent joint infection X-ray right shoulder in am: unrevealing ANXIETY Continue Paxil DYSLIPIDEMIA Continue statin GERD Continue PPI DVT PROPHYLAXIS Heparin SQ FULL CODE DISPOSITION discharge home today Medicine follow up with Dr Contreras Shelton Vital Signs: Date Time Temp Pulse Resp B/P Pulse Ox O2 Delivery O2 Flow Rate FiO2 07/23/16 08:00 97 Room Air 07/23/16 07:00 36.4 72 20 140/84 97 Room Air 07/23/16 04:39 36.7 93 20 100 Room Air 07/23/16 00:20 36.4 82 20 148/82 100 Room Air 07/23/16 00:10 Room Air 07/22/16 16:03 98 Room Air 07/22/16 15:01 37.0 86 20 146/88 98 Room Air
[2016-07-23 10:20] VITALS: BP 140/84; PULSE 72; TEMP 36.4; O2SAT 97
--- NOTE | 2016-07-23 10:22 | Discharge Summary ---
Discharge Summary Date of Service Jul 23, 2016. Discharge Summary Admission Date: Jul 18, 2016 at 17:50 Discharge Date: Jul 23, 2016 Discharge Disposition: Home Principal Diagnosis: GENERALIZED WEAKNESS /BACTEREMIA /UTI Consultations: ID DR HOWE /DR BELL Medication Reconciliation New Medications: Ciprofloxacin (Ciprofloxacin HCl) 500 Mg Tab 1 TAB PO BID for 2 Days, #4 TABS Lactobacillus Acidophilus (Lactinex) Tab 1 TAB PO TIDM for 7 Days, #21 TAB OVER THE COUNTER Continued Medications: Albuterol Hfa (Ventolin Hfa) 200 Puffs/77445 Mcg Aers 2 PUFFS INH QID, #1 INHALER Diclofenac Sodium (Voltaren) 75 Mg Tab 75 MG PO BID, TAB TAKE THIS MEDICATION WITH FOOD. Fexofenadine Hcl (Cristina) 180 Mg Tab 180 MG PO DAILY, TAB Fluticasone Propionate (Nasal) (Flonase Allergy Relief) 50 Mcg/Act Spr 2 SPRAYS INH DAILY Lansoprazole (Prevacid) 30 Mg Capcr 30 MG PO QAM, CAP Meclizine Hcl (Meclizine Hcl) 25 Mg Tab 25 MG PO TID PRN for Dizziness, TAB Paroxetine (Paroxetine HCl ER) 12.5 Mg Tabcr 12.5 MG PO QAM TAKE ONE 12.5 MG TABLET ALONG WITH ONE 37.5 MG TABLET TO EQUAL DAILY DOSE OF 50 MG. Paroxetine (Paroxetine HCl ER) 37.5 Mg Tabcr 37.5 MG PO QAM TAKE ONE 37.5 MG TABLET ALONG WITH ONE 12.5 MG TABLET TO EQUAL DAILY DOSE OF 50 MG. Simvastatin (Zocor) 40 Mg Tab 40 MG PO QPM, TAB Tramadol (Ultram) 50 Mg Tab 100 MG PO Q6H PRN for Pain, TAB Discontinued Medications: Oseltamivir Phosphate (Oseltamivir Phosphate) 75 Mg Cap 75 MG PO BID, #10 Referrals At Discharge Follow up Referrals: Physician Referral - 07/28/16 with Contreras Shelton M.D. Admission Information HPI (per Admitting provider): This is a 60 y/o female with PMH of dyslipidemia, anxiety, chronic sinusitis, and other problems listed below who presented to the ED for abnormal blood work. Pt states 4 days ago on Thursday she developed chills/ rigors, sweats, severe diffuse body aches, sore throat. No fever when she took her temp. She was alternating Tylenol and Motrin at home which helps with the rigors. She was seen by Dr. Hoffman on Thursday and started empirically on Tamiflu due to known influenza exposure (her grandson). She had 1 episode of vomiting and diarrhea on Thursday but that resolved. Pt states yesterday she did not eat well and had a headache which resolved. She presented to the ER yesterday due to persistent symptoms. Workup included CXR and labs which were unremarkable and influenza antigen was negative. She had blood cultures drawn yesterday and was called today for one bottle growing gram negative bacilli. Today patient feels generally weak and continues with chills/ sweats/ diffuse aches. She has been lightheaded upon standing. She was able to eat today. She has some right shoulder pain for past month for which she had an MRI and cortisone shot approx [address] Zhong. The R shoulder is remains sore. She had right rotator cuff repair in 2013. Pt denies nasal congestion, sinus pressure, cough, chest pain, SOB, wheezing, abdominal pain, dysuria, frequency, urgency, rash, wounds. Physical Exam (per Admitting): General Appearance: no apparent distress, + obese Head: normocephalic, atraumatic Eyes: normal inspection, PERRL, EOMI ENT: hearing grossly normal, pharynx normal, + pertinent finding (no sinus tenderness) Neck: supple, trachea midline Respiratory/Chest: lungs clear, normal breath sounds, no respiratory distress, no accessory muscle use Cardiovascular: regular rate, rhythm, no murmur, normal peripheral pulses Abdomen/GI: normal bowel sounds, non tender, soft Extremities/Musculoskelatal: no calf tenderness, no pedal edema, + pertinent finding (R shoulder nontender, no swelling or erythema, no pain with ROM) Neurologic/Psych: alert, normal mood/affect, oriented x 3, + pertinent finding (grossly nonfocal) Skin: normal color, no rash, + diaphoresis Hospital Course E COLI BACTEREMIA LIKELY FROM UTI - blood cultures 07/17/16: pansensitive E coli 1/2 bottles- repeat blood cultures 07/18/16: e coli 1/2 bottles urine cultures: no growth - improving clinically ID on board, appreciate the recommendations treated with IV Aztreonam Day - transition to PO antibiotics today -PO ciprofloxacin -complete total 7 days course - INFLUENZA LIKE SYMPTOMS -possible due to above Was on Tamiflu from 07/15 Influenza antigen negative in ER influenza PCR: negative D/c Tamiflu HYPOKALEMIA - corrected R SHOULDER PAIN No apparent joint infection X-ray right shoulder in am: unrevealing ANXIETY Continue Paxil DYSLIPIDEMIA Continue statin GERD Continue PPI DVT PROPHYLAXIS Heparin SQ FULL CODE DISPOSITION discharge home today Medicine follow up with Dr Contreras Shelton Total time spent on discharge = 40 m ins This includes examination of the patient, discharge planning, medication reconciliation, and communication with other providers. Discharge Instructions DI: Medical v4 Discharge Instructions Date of Service Jul 22, 2016. Admission Reason for Admission: Bacteremia Discharge Discharge Diagnosis / Problem: GENERALIZED WEAKNESS /BACTEREMIA /UTI Discharge Goals Goal(s): Improve disease control, Therapeutic intervention Activity Recommendations Activity Limitations: resume your previous activity . Instructions / Follow-Up Instructions / Follow-Up HOSPITAL FOLLOW UP WITH DR SHELTON ON Thursday07/28/16 @ 11: 10 AM CHECK UA ON YOUR OFFICE VISIT CONTINUE TO TAKE LACTINEX ( PROBIOTIC ) FOR AT LEAST 1 WEEK TO PREVENT ANTIBIOTIC INDUCED DIARRHEA YOU CAN ALSO TAKE YOGURT WITH PROBIOTIC -ACTIVA 3 TIMES WITH MEALS WELL DRINK PLENTY OF FLUID , RESUME DAILY ACTIVITY TOLERATED TRY TO DO 2-3 HRS A DAY LIGHT WALKING /EXERCISE AT LEAST 3-4 TIMES A WEEK PLEASE CALL DR SHELTON OFFICE WITH ANY SYMPTOMS OF FEVER OR CHILLS OR URINARY SYMPTOMS DO NOT TAKE DICLOFENAC FOR YOUR SHOULDER PAIN IF TAKING MOTRIN FOR HEADACHE OR FEVER -WILL CAUSE SEVERE ACID REFLUX DISEASE /STOMACH INFLAMMATION PLEASE NOTIFY YOUR FAMILY PHYSICIAN WITH ANY RECURRENCE OF THE SYMPTOM Current Hospital Diet Patient's current hospital diet: Regular Diet Discharge Diet Recommended Diet: Regular Diet Pending Studies Studies pending at discharge: no Medical Emergencies . Who to Call and When: Medical Emergencies: If at any time you feel your situation is an emergency, please call 911 immediately. . Non-Emergent Contact Non-Emergency issues call your: Primary Care Provider . . "Provider Documentation" section prepared by Margaret Augustine. VTE Core Measure Inpt VTE Proph given/why not?: Unfractionated heparin SQ Additional Copies To Contreras Shelton M.D.
[2016-07-23] MEDS ORDERED: LEVOFLOXACIN 500 MG TAB PO SCH (11:00)
[2016-07-23] MEDS: LACTOBACILLUS ACIDOPHILUS (FLORANEX) TAB PO SCH ×2 (11:33→11:36)
[2016-07-23] MEDS ORDERED: IBUPROFEN 200 MG TAB PO SCH (12:00)
[2016-11-03] MEDS ORDERED: MULT-506 PO (11:34)
== END 2016-07-23 13:20 | disposition home or self-care (01) | DRG 872 ==
LOC: ENRESERVTM → ENRESERVDT → C.EDB 15:20 → C.MS4W 17:50 → UNDOADMIN 19:10
PROVIDERS: ADMIT Hospitalist; ATTEND Hospitalist
DX: R78.81 Bacteremia (principal); N39.0 Urinary tract infection, site not specified; B96.20 Unspecified Escherichia coli [E. coli] as the cause of diseases classified elsewhere; R09.89 Other specified symptoms and signs involving the circulatory and respiratory systems; E87.6 Hypokalemia; M25.511 Pain in right shoulder; F41.9 Anxiety disorder, unspecified; E78.5 Hyperlipidemia, unspecified; K21.9 Gastro-esophageal reflux disease without esophagitis; E66.9 Obesity, unspecified; Z79.899 Other long term (current) drug therapy; Z88.0 Allergy status to penicillin; Z88.1 Allergy status to other antibiotic agents; Z88.2 Allergy status to sulfonamides; Z88.8 Allergy status to other drugs, medicaments and biological substances; Z82.49 Family history of ischemic heart disease and other diseases of the circulatory system; Z82.0 Family history of epilepsy and other diseases of the nervous system; R19.7 Diarrhea, unspecified; R11.2 Nausea with vomiting, unspecified; E78.00 Pure hypercholesterolemia, unspecified; Z98.51 Tubal ligation status; Z98.890 Other specified postprocedural states

== ENCOUNTER → 2016-09-04 | Outpatient (CLI) | payer BC ==
[~2016-09-04] MED LIST changes: +ACET-24 PO; -ALBUAER19 INH; +CLB/200 PO; +CLB200 PO; +CPR500 PO; -MULT-240 PO; +MULT-506 PO; +ONDA8TAB12 PO; +ONDA8TAB6 PO; -OSEL75CA16 PO; +OXYC15TA89 PO; +OXYC20TA50 PO; +OXYSR10 PO; +RXC5 PO; +TRAM-10 PO; +VNTHFA/IN INH
== END | disposition home or self-care (01) ==
LOC: C.PAPS 10:49
PROVIDERS: ATTEND Obstetrics & Gynecology
DX: Z01.419 Encounter for gynecological examination (general) (routine) without abnormal findings (principal); Z78.0 Asymptomatic menopausal state

== ENCOUNTER 2016-11-28 06:09 | Inpatient (IN) | payer BC ==
[2016-11-03 11:34] VITALS: BMI 40.0
--- NOTE | 2016-11-03 12:09 | PAT Medication Instructions ---
Service Date Nov 03, 2016. Current Home Medication List Albuterol Hfa (Ventolin Hfa), 2 PUFFS INH QID Diclofenac Sodium (Voltaren), 75 MG PO BID Fexofenadine Hcl (Cristina), 180 MG PO DAILY Fluticasone Propionate (Nasal) (Flonase Allergy Relief), 2 SPRAYS INH DAILY Lansoprazole (Prevacid), 30 MG PO QAM Meclizine Hcl (Meclizine Hcl), 25 MG PO TID PRN for Dizziness Multivitamin (Multivitamin), 1 TAB PO QAM Paroxetine (Paroxetine HCl ER), 12.5 MG PO QAM Paroxetine (Paroxetine HCl ER), 37.5 MG PO QAM Simvastatin (Zocor), 40 MG PO QPM Tramadol (Ultram), 100 MG PO Q6H PRN for Pain Medication Instructions For Your Scheduled Surgery - Check with surgeon for instructions: Diclofenac Sodium (Voltaren), 75 MG PO BID - Hold the following medications the morning of surgery: Fexofenadine Hcl (Cristina), 180 MG PO DAILY Multivitamin (Multivitamin), 1 TAB PO QAM - Take the following medications the morning of surgery with a sip of water OTHERWISE NOTHING TO EAT OR DRINK AFTER MIDNIGHT: Albuterol Hfa (Ventolin Hfa), 2 PUFFS INH QID (use if needed; BRING TO HOSPITAL) Lansoprazole (Prevacid), 30 MG PO QAM Fluticasone Propionate (Nasal) (Flonase Allergy Relief), 2 SPRAYS INH DAILY Tramadol (Ultram), 100 MG PO Q6H PRN for Pain (may take up to 4 hours prior to surgery if needed) Paroxetine (Paroxetine HCl ER), 12.5 MG PO QAM Paroxetine (Paroxetine HCl ER), 37.5 MG PO QAM Meclizine Hcl (Meclizine Hcl), 25 MG PO TID PRN for Dizziness - Take the following medications as scheduled the night before surgery: Albuterol Hfa (Ventolin Hfa), 2 PUFFS INH QID Tramadol (Ultram), 100 MG PO Q6H PRN for Pain Simvastatin (Zocor), 40 MG PO QPM Meclizine Hcl (Meclizine Hcl), 25 MG PO TID PRN for Dizziness If you have any questions please call us at [phone] or [phone] or [phone]
[2016-11-03 12:58] LABS: BASO % 0.3 %; BASO ABS # 0.02 K/uL (0-0.2); COMPLETE YES; EOS % 1.7 %; HEMATOCRIT 41.2 % (37-47); IG% 0.2 %; LYMPH % 23.9 %; LYMPH ABS # 1.45 K/uL (1.2-3.4); MEAN CELL VOLUME 94.3 fL (80-100); MEAN CORPUSCULAR HEMOGLOBIN 30.4 pg (25-34); MEAN CORPUSCULAR HGB CONC 32.3 g/dl (32-36); MEAN PLATELET VOLUME 10.4 fL (7.4-10.4); MONO % 11.1 %; NEUT % 62.8 %; PLATELET COUNT 277 K/uL (130-400); RED BLOOD COUNT 4.37 M/uL (4.2-5.4); WHITE BLOOD COUNT 6.06 K/uL (4.8-10.8)
--- NOTE | 2016-11-03 13:14 | DIAGNOSTIC IMAGING REPORT ---
TWO VIEW CHEST CLINICAL HISTORY: Preoperative examination. FINDINGS: PA and lateral chest radiographs are compared to study dated 07/17/2016. The cardiomediastinal silhouette is unremarkable. There is mild elevation of the right hemidiaphragm. Bibasilar atelectasis is observed. The lungs and pleural spaces are otherwise clear. There is no pneumothorax. The skeletal structures are osteopenic. Degenerative change is noted throughout the thoracic spine. IMPRESSION: No active disease in the chest. Electronically signed by: Snigh Garcia M.D. 11/03/2016 1:13 PM Dictated Date/Time: 11/03/2016 1:12 PM
[2016-11-03 13:22] LABS: ESTIMATED AVERAGE GLUCOSE 117 mg/dl; HA1C FLAG Normal (Normal)
[2016-11-03 13:26] LABS: URINE APPEARANCE CLEAR (CLEAR); URINE BILIRUBIN NEG (NEG); URINE COLOR YELLOW; URINE EPITHELIAL CELL AUTO 20-30 /lpf (0-5); URINE NITRITE NEG (NEG); URINE PH 6.5 (4.5-7.5); URINE SPECIFIC GRAVITY 1.023 (1.000-1.030); UROBILINOGEN NEG (NEG); ZZUR CULT IF INDIC CLEAN CATCH NO
[2016-11-03 13:27] LABS: PROTHROMBIN TIME (PATIENT) 10.9 SECONDS (9.0-12.0)
[2016-11-03 13:30] LABS: MANUAL MICROSCOPIC REQUIRED? NO; REVIEW REQ? NO
[2016-11-03 14:16] LABS: BUN/CREATININE RATIO 30.4 (10-20); CALCIUM 8.8 mg/dl (8.5-10.1); CREATININE 0.78 mg/dl (0.60-1.20); POTASSIUM 4.5 mmol/L (3.5-5.1)
--- NOTE | 2016-11-17 14:11 | History and Physical ---
History & Physical Date Nov 17, 2016. Chief Complaint Right shoulder pain History of Present Illness The patient is a 60 year old female with complaints of right shoulder pain. She states the symptoms are acute and non-traumatic. The patient states the pain occurs constantly. She has failed conservative therapies of NSAIDs, Cortisone injections and PT. She would like to proceed with surgery. Past Medical/Surgical History Medical Problems: (1) Allergic rhinitis (2) Anxiety (3) Bacteremia (4) Chronic sinusitis (5) Depressive Disorder Nec (6) Dyslipidemia (7) Encounter for removal of sutures (8) GERD (gastroesophageal reflux disease) (9) Pure Hypercholesterolem (10) Sepsis (11) SOB (shortness of breath) (12) Vertigo Surgical Problems: (1) H/O dilation and curettage (2) H/O sinus surgery (3) H/O tubal ligation (4) H/O umbilical hernia repair (5) H/O umbilical hernia repair (6) S/P rotator cuff repair (7) S/P rotator cuff surgery (8) S/P tonsillectomy and adenoidectomy (9) S/P tubal ligation Additional History Hepatic Disease: No Endocrine Disorder: No Kidney Disease: No Hypertension: No Heart Disease: No Bleeding Tendencies: No Infectious Diseases: No Allergies Coded Allergies: Amitriptyline (Verified Allergy, Intermediate, RASH AND FEET SWELLING, ) Cephalosporins (Verified Allergy, Intermediate, RASH AND TACHYCARDIA, 11/03) Lorazepam (Verified Allergy, Intermediate, RASH, 11/03/16) Amoxicillin (Verified Adverse Reaction, Intermediate, VOMITING, 11/03/16) Sulfamethoxazole w/Trimethoprim (Verified Adverse Reaction, Intermediate, SEVERE GI UPSET; DIAPHORESIS; HOT FLASHES, 11/03/16) Clarithromycin (Verified Adverse Reaction, Mild, GI UPSET, 11/03/16) Clavulanic Acid (Verified Adverse Reaction, Mild, SEVERE NAUSEA, 11/03/16) Nitrofurantoin (Verified Adverse Reaction, Mild, GI UPSET, 11/03/16) Penicillins (Verified Adverse Reaction, Mild, SEVERE NAUSEA, 11/03/16) Home Medications Scheduled Albuterol Hfa (Ventolin Hfa), 2 PUFFS INH QID Diclofenac Sodium (Voltaren), 75 MG PO BID Fexofenadine Hcl (Cristina), 180 MG PO DAILY Fluticasone Propionate (Nasal) (Flonase Allergy Relief), 2 SPRAYS INH DAILY Lansoprazole (Prevacid), 30 MG PO QAM Multivitamin (Multivitamin), 1 TAB PO QAM Paroxetine (Paroxetine HCl ER), 12.5 MG PO QAM Paroxetine (Paroxetine HCl ER), 37.5 MG PO QAM Simvastatin (Zocor), 40 MG PO QPM Scheduled PRN Meclizine Hcl (Meclizine Hcl), 25 MG PO TID PRN for Dizziness Tramadol (Ultram), 100 MG PO Q6H PRN for Pain Physical Examination Skin: warm/dry, no rash Eyes: normal inspection, EOMI ENT: normal ENT inspection Head: normocephalic, atraumatic Neck: supple, no adenopathy Respiratory/Chest: lungs clear, normal breath sounds Cardiovascular: regular rate, rhythm, no murmur Abdomen / GI: normal bowel sounds, non tender Extremities: normal inspection, + pertinent finding (decreased ROM and strength of the right arm. 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 She had failed conservative therapies that include NSAIDs, cortisone injections and PT. The pain makes it difficult to perform her ADL's. 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 She would like to proceed with surgery. She will be schedule for a right shoulder arthroscopy with rotator cuff repair and subacromial decompression. Risks and benefits were discussed with the patient that include but not limited to infection, DVT, pain, stiffness, need for revision surgery, failure to relieve all symptoms, re-tear, damage to blood vessels, damage to nerves, and anesthesia risks. She wishes to proceed. all questions were answered to her satisfaction.
[2016-11-28] VITALS (9 sets, daily range): BP systolic 100–150; BP diastolic 61–91; PULSE 85–102; TEMP 36.3–37.3; O2SAT 92–97; Ht 160 cm; Wt 102.6 kg
[~2016-11-28] VITALS: Ht 160 cm; Wt 102.6 kg
[~2016-11-28 06:09] MED LIST changes: -ACET-24 PO; +ACETAMINOPHEN 500 MG TAB PO SCH; +CEFAZOLIN 2000 MG/60 ML D5W 60 ML IV SCH; -CLB/200 PO; -CLB200 PO; -CPR500 PO; +GABAPENTIN 300 MG CAP PO SCH; +LACTATED RINGER'S 1000ML 1,000 ML IV SCH; +METOCLOPRAMIDE HCL 10 MG TAB PO SCH; -ONDA8TAB12 PO; -ONDA8TAB6 PO; -OXYC15TA89 PO; -OXYC20TA50 PO; -OXYSR10 PO; -RXC5 PO
[2016-11-28] MEDS: TRANEXAMIC ACID INJ 1,000 MG in SODIUM CHLORIDE 0.9% 100ML 100 ML IV SCH ×2 (06:30→07:52)
[2016-11-28] MEDS ORDERED: ONDANSETRON INJ 2 MG/ML 2 ML VIAL ONE (06:45)
[2016-11-28] MEDS ORDERED: ROCURONIUM BROMIDE 10 MG/ML 5 ML VIAL ONE (06:45)
[2016-11-28] MEDS ORDERED: GLYCOPYRROLATE INJ 0.2 MG/ML VIAL ONE (06:45)
[2016-11-28] MEDS ORDERED: MIDAZOLAM HCL 1 MG/ML 2ML VIAL ONE (06:45)
[2016-11-28] MEDS ORDERED: FENTANYL CITRATE INJ 50 MCG/1 ML 2 ML VIAL ONE (06:45)
[2016-11-28] MEDS ORDERED: PROPOFOL IV EMULSION 10 MG/ML 20 ML VIAL IV ONE (06:45)
[2016-11-28] MEDS ORDERED: LIDOCAINE HCL 2% 2 ML VIAL (20MG/ML) ONE (06:45)
[2016-11-28] MEDS ORDERED: DEXAMETHASONE SOD INJ 4 MG/ML VIAL ONE (06:45)
[2016-11-28] MEDS ORDERED: NEOSTIGMINE METHYLSULFATE 5 MG/5 ML SYR ONE (06:45)
--- NOTE | 2016-11-28 06:49 | History & Physical Bridge Note ---
H&P Re-Evaluation Bridge Note: I have examined the patient, reviewed the History & Physical and in the interval since the performance of the History & Physical I have noted the following changes of clinical significance: No changes noted
[2016-11-28] MEDS ORDERED: ROPIVACAINE 0.5% 5 MG/ML 30 ML VIAL ONE (07:04)
[2016-11-28] MEDS ORDERED: POVIDONE-IODINE OP SOLN 30 ML BTL ONE (07:11)
[2016-11-28] MEDS ORDERED: THROMBIN FOR SOLN 20000 UNIT KIT ONE (07:11)
[2016-11-28] MEDS ORDERED: VANCOMYCIN HCL 1000MG/20ML VIAL ONE (07:12)
[2016-11-28] MEDS ORDERED: BACITRACIN 50000 UNIT VIAL ONE (07:12)
[2016-11-28] MEDS ORDERED: VANCOMYCIN 1GM/270ML NSS ONE (07:24)
[2016-11-28] MEDS ORDERED: SODIUM CHLORIDE 0.9% INJ 10 ML VIAL ONE (08:05)
[2016-11-28] MEDS ORDERED: ORTHO JOINT ANESTHETIC ONE ×2 (08:22→09:27)
[2016-11-28] MEDS ORDERED: ROPIVACAINE 5MG/ML 30 ML 150 MG, BUPIVACAINE/EPINEPHR 0.5% MPF 30 ML, KETOROLAC TROMETH... INFIL SCH ×7 (09:00)
[2016-11-28] MEDS ORDERED: ONDANSETRON INJ 2 MG/ML 2 ML VIAL IV PRN ×2 (09:30→10:45)
[2016-11-28] MEDS ORDERED: FENTANYL CITRATE INJ 50 MCG/1 ML 2 ML VIAL IV PRN (09:30)
[2016-11-28] MEDS ORDERED: ATROPINE SULFATE 0.1 MG/ML 5ML SYR IV PRN (09:30)
[2016-11-28] MEDS ORDERED: PHENYLEPHRINE 100MCG/ML 5ML SYR ONE (09:36)
[2016-11-28] MEDS ORDERED: PHENYLEPHRINE HCL INJ 10 MG/ML VIAL ONE (10:21)
--- NOTE | 2016-11-28 10:41 | [facility] Post Operative Brief Note ---
Immediate Operative Summary Operative Date Nov 28, 2016. 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 Duke Ramachandran General Internal Medicine Doctor Surgeon(s) [place] PA-C Estimated Blood Loss 100ml Findings above Specimens Permanent specimens A: Right humeral head B: Explanted anchors right shoulder Drains 1 hemovac Anesthesia geta, interscalene Complication(s) None Disposition Recovery Room / PACU
[2016-11-28] MEDS ORDERED: MECLIZINE HCL 25 MG TAB PO PRN (10:45)
[2016-11-28] MEDS ORDERED: ZOLPIDEM TARTRATE 5 MG TAB PO PRN (10:45)
[2016-11-28] MEDS ORDERED: METOCLOPRAMIDE HCL INJ 5 MG/ML 2 ML VIAL IV PRN (10:45)
[2016-11-28] MEDS ORDERED: MAGNESIUM HYDROXIDE SUSP 30 ML UDC PO PRN (10:45)
[2016-11-28] MEDS ORDERED: MoRPHine SULFATE 2 MG/ML CARP IV PRN (10:45)
[2016-11-28] MEDS ORDERED: ALUMINUM/MAGNESIUM SUSP 30 ML UDC PO PRN (10:45)
--- NOTE | 2016-11-28 11:50 | DIAGNOSTIC IMAGING REPORT ---
RIGHT SHOULDER MIN 2 VIEWS ROUTINE CLINICAL HISTORY: Postop right shoulder arthroplasty. COMPARISON: 07/19/2016 DISCUSSION: There are postsurgical changes of a reverse total right shoulder arthroplasty. There are overlying surgical drains and skin sushila. There is no dislocation. IMPRESSION: Postsurgical changes of a reverse total right shoulder arthroplasty Electronically signed by: Ganesh Kelly M.D. 11/28/2016 11:49 AM Dictated Date/Time: 11/28/2016 11:49 AM
[2016-11-28] MEDS: ALBUTEROL HFA 8 GM INHALER INH SCH ×3 (13:00→21:23)
--- NOTE | 2016-11-28 13:00 | Anesthesiology Progress Note ---
Anesthesia Post Op Note Date & Time Nov 28, 2016 at 13:00 Vital Signs Pain Intensity: 0.0 Vital Signs Past 12 Hours Date Time Temp Pulse Resp B/P (MAP) Pulse Ox O2 Delivery O2 Flow Rate FiO2 11/28/16 12:55 97 18 148/89 (108) 95 Nasal Cannula 2.0 11/28/16 12:25 36.7 94 15 124/78 (93) 94 Nasal Cannula 2.0 11/28/16 12:00 36.7 102 16 136/79 (98) 97 Nasal Cannula 2.0 11/28/16 12:00 97 Nasal Cannula 2.0 11/28/16 12:00 97 Nasal Cannula 2.0 11/28/16 11:43 36.7 140/87 11/28/16 11:41 165/88 11/28/16 11:40 102 20 92 11/28/16 11:40 102 20 11/28/16 11:36 138/83 11/28/16 11:35 103 21 95 11/28/16 11:35 95 21 11/28/16 11:31 133/83 11/28/16 11:30 93 17 11/28/16 11:30 93 17 95 11/28/16 11:26 138/79 11/28/16 11:25 95 16 94 11/28/16 11:25 95 16 11/28/16 11:21 139/87 11/28/16 11:20 94 18 95 11/28/16 11:20 94 18 11/28/16 11:16 152/91 11/28/16 11:15 94 16 93 11/28/16 11:15 94 16 11/28/16 11:11 124/82 11/28/16 11:10 93 18 11/28/16 11:10 93 18 92 11/28/16 11:06 154/90 11/28/16 11:05 93 19 93 11/28/16 11:05 93 19 11/28/16 11:02 166/86 11/28/16 11:00 36.2 99 14 166/86 94 Mask 10 11/28/16 06:45 36.8 90 20 150/91 97 Room Air Notes Mental Status: alert / awake / arousable, participated in evaluation Pt Amnestic to Procedure: Yes Nausea / Vomiting: adequately controlled Pain: adequately controlled Airway Patency, RR, SpO2: stable & adequate BP & HR: stable & adequate Hydration State: stable & adequate Anesthetic Complications: no major complications apparent
[2016-11-28] MEDS: D5W AND 1/2NSS + 20MEQ KCL 1,000 ML IV SCH ×2 (14:00→22:45)
[2016-11-28] MEDS: ACETAMINOPHEN 500 MG TAB PO SCH ×2 (14:01→21:23)
[2016-11-28] MEDS: KETOROLAC TROMETHAMINE 30 MG/ML VIAL IV. SCH ×2 (14:02→19:51)
--- NOTE | 2016-11-28 16:20 | [facility] Operative Report ---
Operative Report Operative Date Nov 28, 2016. 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 She is failed conservative measures including injections anti-inflammatories and physical therapy. Status for rotator cuff recommendation was for a reverse total shoulder arthroplasty. Description of Procedure Risks, benefits and alternatives to surgery including, but not limited to, infection DVT, pain, stiffness, need for revision surgery, failure to relieve all symptoms, damage to blood vessels, damage to nerves, risk of anesthesia were discussed with the patient and they wished to proceed. The patient was identified. Laterality was confirmed and marked. The patient received a preoperative antibiotic as well as an interscalene block. They were transferred to the operating room and placed in the supine position and induced into general endotracheal anesthesia per the anesthesia staff. The patient was then safely transferred to a slight beachchair position. The patient was secured in the Tenet positioner. All pressure points were well padded. The shoulder was prepped and draped in the usual sterile manner with ChloraPrep. The arm was secured in the Spider choudhury. I made a longitudinal incision just lateral to the coracoid, sharply incising through the skin and utilizing Bovie electrocautery to achieve hemostasis. I identified the cephalic vein and mobilized it laterally with the deltoid. I mobilize the pectoralis and mobilize this medially releasing a small portion of the upper border of the pec tendon to improve visualization. I then identified and mobilized the conjoined tendon. I identified the long head of the biceps tendon. The long head of the biceps tendon had significant tendinosis and tearing proximally. I performed an in situ biceps tenodesis with interrupted #2 FiberWire suture. I then released the subscapularis. I didn't pinned into place my humeral head version cutting guide and made my humeral head resection. I then sequentially reamed and sequentially broached up to a size 7. I then placed the trial humeral stem into the shoulder. I placed retractors around the glenoid and then excised the residual biceps tendon stump and glenoid labrum. I elevated the soft tissues and the inferior aspect of the glenoid to improve exposure and released tissues circumferentially. I then positioned and drilled for the central post for the glenoid plate. The glenoid plate was bone grafted with bone taken from the humeral head. I impacted the definitive glenoid plate into position and then placed a total of 4 compression screws that were then locked into position with locking caps. I then placed the size 38 glenosphere onto the plate and secured it with a locking screw. I then removed the trial humeral stem and placed the definitive humeral stem. I trialed off of the definitive stem. I had difficulty getting the shoulder reduced. I felt that the liner was engaging with the notch on the last year that the humeral setscrew goes into and it appeared that the polyethylene had become deformed. I therefore removed the polyethylene resected a little bit more bone and then further impacted the stem. I then placed a new +0 polyethylene liner. There was good fit with a plus [0) humeral tray and a plus 0 humeral liner. The definitive components used were [employer] Equinox: Humeral press-fit stem: 7 Standard glenoid plate Glenosphere: 38 Humeral tray:+ 0 Humeral polyethylene liner: + 0 I thoroughly irrigated the wound. Deep tissues were anesthetized with an orthomix solution. I then locked my definitive humeral tray into position with a torque limiting screw. I then impacted the definitive humeral polyethylene liner into position. I then reduced the shoulder. There was good range of motion and good stability after the reduction. The wound was again thoroughly irrigated and a Betadine soak was performed. A deep drain was placed. The deltopectoral interval was closed with interrupted #1 Ethibond suture. The subcutaneous tissue was closed with interrupted 2-0 Vicryl suture. The skin was closed with sushila. A sterile dressing was applied. A sling was placed. All needle and sponge counts were correct at the end of the procedure. The patient was transferred to the PACU in stable condition without apparent complication. I attest to the content of the Intraoperative Record and any orders documented therein. Any exceptions are noted below.
[2016-11-28] MEDS: FERROUS GLUCONATE 324 MG TAB PO SCH (17:22)
[2016-11-28] MEDS ORDERED: VANCOMYCIN INJ 1,500 MG in SODIUM CHLORIDE 0.9% 500ML 500 ML IV SCH (20:00)
[2016-11-28] MEDS ORDERED: SIMVASTATIN 40 MG TAB PO SCH (21:00)
[2016-11-28] MEDS: PREGABALIN 75 MG CAP PO SCH (21:00)
[2016-11-28] MEDS: OXYCODONE HCL 10 MG TABCR (OXYCONTIN) PO SCH (21:22)
[2016-11-29] MEDS: KETOROLAC TROMETHAMINE 30 MG/ML VIAL IV. SCH ×2 (02:08→07:25)
[2016-11-29] MEDS: OXYCODONE HCL IR 5 MG TAB (IMMEDIATE RELEASE) PO PRN ×3 (03:34→11:30)
[2016-11-29] MEDS: ACETAMINOPHEN 500 MG TAB PO SCH (05:49)
[2016-11-29 05:54] LABS: HEMATOCRIT 34.2 % (37-47); MEAN CELL VOLUME 91.7 fL (80-100); MEAN CORPUSCULAR HEMOGLOBIN 29.5 pg (25-34); MEAN CORPUSCULAR HGB CONC 32.2 g/dl (32-36); MEAN PLATELET VOLUME 9.7 fL (7.4-10.4); PLATELET COUNT 257 K/uL (130-400); RED BLOOD COUNT 3.73 M/uL (4.2-5.4); WHITE BLOOD COUNT 12.06 K/uL (4.8-10.8)
[2016-11-29 06:27] LABS: CALCIUM 8.2 mg/dl (8.5-10.1); CREATININE 0.67 mg/dl (0.60-1.20); POTASSIUM 4.4 mmol/L (3.5-5.1)
[2016-11-29 07:04] VITALS: BP 108/67; PULSE 84; TEMP 36.7; O2SAT 98
[2016-11-29] MEDS: OXYCODONE HCL 10 MG TABCR (OXYCONTIN) PO SCH (07:25)
[2016-11-29] MEDS: D5W AND 1/2NSS + 20MEQ KCL 1,000 ML IV SCH (08:24)
[2016-11-29] MEDS: ALBUTEROL HFA 8 GM INHALER INH SCH (08:25)
[2016-11-29] MEDS: FERROUS GLUCONATE 324 MG TAB PO SCH (08:27)
[2016-11-29] MEDS: PREGABALIN 75 MG CAP PO SCH (08:28)
--- NOTE | 2016-11-29 08:35 | Orthopedic Progress Note ---
Orthopedic Progress Note Date of Service Nov 29, 2016. Subjective Post OP Day: 1 Reports: feeling well, Denies: chest pain, SOB, nausea / vomiting, light headedness, calf pain Objective calves soft nontender, N/V intact, dressing C/D/I, A&O x3, toes mobile, hemovac drainage (65/50CC PER SHIFT) Date Time Temp Pulse Resp B/P (MAP) Pulse Ox O2 Delivery O2 Flow Rate FiO2 11/29/16 07:20 Room Air 11/29/16 07:04 36.7 84 19 108/67 (81) 98 Room Air 11/29/16 00:30 Room Air 11/28/16 23:03 36.4 85 16 100/61 (74) 92 Room Air 11/28/16 19:21 36.4 93 17 116/64 (81) 96 Room Air 11/28/16 16:00 Nasal Cannula 2.0 11/28/16 15:23 36.3 89 16 124/75 (91) 94 Nasal Cannula 2.0 11/28/16 14:53 37.3 90 21 109/71 (84) 96 Nasal Cannula 2.0 11/28/16 13:57 91 20 118/73 (88) 95 Nasal Cannula 2.0 11/28/16 12:55 97 18 148/89 (108) 95 Nasal Cannula 2.0 11/28/16 12:25 36.7 94 15 124/78 (93) 94 Nasal Cannula 2.0 11/28/16 12:00 36.7 102 16 136/79 (98) 97 Nasal Cannula 2.0 11/28/16 12:00 97 Nasal Cannula 2.0 11/28/16 12:00 97 Nasal Cannula 2.0 11/28/16 11:43 36.7 140/87 11/28/16 11:41 165/88 11/28/16 11:40 102 20 92 11/28/16 11:40 102 20 11/28/16 11:36 138/83 11/28/16 11:35 103 21 95 11/28/16 11:35 95 21 11/28/16 11:31 133/83 11/28/16 11:30 93 17 11/28/16 11:30 93 17 95 11/28/16 11:26 138/79 11/28/16 11:25 95 16 94 11/28/16 11:25 95 16 11/28/16 11:21 139/87 11/28/16 11:20 94 18 95 11/28/16 11:20 94 18 11/28/16 11:16 152/91 11/28/16 11:15 94 16 93 11/28/16 11:15 94 16 11/28/16 11:11 124/82 11/28/16 11:10 93 18 11/28/16 11:10 93 18 92 11/28/16 11:06 154/90 11/28/16 11:05 93 19 93 11/28/16 11:05 93 19 11/28/16 11:02 166/86 11/28/16 11:00 36.2 99 14 166/86 94 Mask 10 Laboratory Results 24 Hours: Test 11/29/16 05:28 Hematocrit 34.2 % Hemoglobin 11.0 g/dL Assessment & Plan Assessment: POD#1 SP RIGHT REV TSA Plan: pain controlled d/c drain d/c to home Inhouse Planning Pain Management: Celebrex, Oxycontin, PO Tylenol, Oxy IR DVT Prophylaxis: TEDs, SCDs Discharge Planning Discharge Planning: home with home health (PLAN ON DC TO HOME TODAY)
[2016-11-29] MEDS ORDERED: CLB200 PO (08:39)
[2016-11-29] MEDS ORDERED: ACET-24 PO (08:39)
[2016-11-29] MEDS ORDERED: ONDA8TAB6 PO (08:39)
[2016-11-29] MEDS ORDERED: OXYSR10 PO (08:39)
[2016-11-29] MEDS ORDERED: RXC5 PO (08:39)
--- NOTE | 2016-11-29 08:40 | Discharge Instructions ---
Discharge Instructions Date of Service Nov 29, 2016. Admission Reason for Admission: Right Shoulder Osteoarthritis Discharge Discharge Diagnosis / Problem: SP RIGHT REV TSA Discharge Goals Goal(s): Decrease discomfort, Improve function, Increase independence Activity Recommendations Activity Limitations: per Instructions/Follow-up section . Instructions / Follow-Up Instructions / Follow-Up ACTIVITY RECOMMENDATIONS: SELF CARE INSTRUCTIONS AFTER TOTAL SHOULDER ARTHROPLASTY REVERSE A. You may do daily exercises as taught in physical therapy while in hospital. No lifting with the operative arm. B. You are to wear your sling/immobilizer at all times EXCEPT when performing your daily exercises and for hygiene purposes. C. You may perform dry, daily dressing changes. Please keep your incision covered. You may shower 48 hours after surgery. Do not apply soap or any ointment/ lotions directly over incision. Do not soak incision in bath tub/swimming pool. D. You may use ice as needed to operative shoulder. SPECIAL CARE INSTRUCTIONS: VERY IMPORTANT TO READ AND REVIEW A. There are a few signs you need to watch for after you are home. Call [facility] at [phone] if you experience any of the followin. Increased severe shoulder pain. Some pain is expected especially when you exercise. 2. Increased swelling in you shoulder or arm; pain or swelling in either upper extremity. 3. Any fluid drainage from the incision. 4. Shortness of breath or chest pain. B. Please call [facility] at [phone] if you have any questions or concerns about your operation or recovery. C. Call your physician if: 1. Temperature is greater than 101 degrees (F). 2. Pain is not relieved by prescribed pain medications. 3. Increase drainage or redness from incision. 4. Unanswered questions or concerns. FOLLOW UP VISIT: Please call [facility] at [phone] to schedule a follow up appointment with Dr. GRAY or his PA in 12-14 days from your surgery date. Current Hospital Diet Patient's current hospital diet: Regular Diet Discharge Diet Recommended Diet: Regular Diet Procedures Procedures Performed: Right Reverse Total Shoulder Arthroplasty abd biceps tenodesis Pending Studies Studies pending at discharge: no Laboratory Results Hemoglobin A1c Test 11/03/16 12:30 Range/Units Estimated Average Glucose 117 mg/dl Hemoglobin A1c 5.7 H 4.5-5.6 % Medical Emergencies . Who to Call and When: Medical Emergencies: If at any time you feel your situation is an emergency, please call 911 immediately. . Non-Emergent Contact Non-Emergency issues call your: Surgeon . "Provider Documentation" section prepared by Ayla Chauhan. . VTE Core Measure Inpt VTE Proph given/why not?: Myles Rizo, SCD's
[2016-11-29] MEDS ORDERED: FLUTICASONE PROPIONATE NA SPR 16 GM BTL SCH (09:00)
[2016-11-29] MEDS ORDERED: LANSOPRAZOLE SOLUTAB 30 MG PO SCH (09:00)
[2016-11-29] MEDS ORDERED: PANTOprazole SOD 40 MG TAB PO SCH (09:00)
[2016-11-29] MEDS ORDERED: FEXOFENADINE HCL 180 MG TAB PO SCH (09:00)
[2016-11-29] MEDS ORDERED: MULTIVITAMIN TAB PO SCH ×2 (09:00)
[2016-11-29] MEDS ORDERED: PAROXETINE 12.5 MG TABCR PO SCH ×2 (09:00)
[2016-11-29] MEDS ORDERED: PAROXETINE 37.5 MG PO SCH (09:00)
[2016-11-29] MEDS ORDERED: PAROXETINE PO SCH ×2 (09:00)
[2016-11-29 10:16] VITALS: BP 108/67; PULSE 84; TEMP 36.7; O2SAT 98
[2016-11-29] MEDS ORDERED: CeleBREX 200 MG CAP PO SCH (21:00)
== END 2016-11-29 13:20 | disposition home health service (06) | DRG 483 ==
LOC: C.ACU 06:09 → C.3E 10:40 → ENRESERV 11:41
PROVIDERS: ADMIT Orthopaedic Surgery; ATTEND Orthopaedic Surgery
PROC: 0KQ70ZZ Repair Right Upper Arm Muscle, Open Approach (ICD-10-PCS; principal; 2016-11-28 08:30)
PROC: 0RRJ00Z Replacement of Right Shoulder Joint with Reverse Ball and Socket Synthetic Substitute, Open Approach (ICD-10-PCS; principal; 2016-11-28 08:30)
DX: M19.011 Primary osteoarthritis, right shoulder (principal); M87.321 Other secondary osteonecrosis, right humerus; S46.211A Strain of muscle, fascia and tendon of other parts of biceps, right arm, initial encounter; K21.9 Gastro-esophageal reflux disease without esophagitis; F41.9 Anxiety disorder, unspecified; E78.00 Pure hypercholesterolemia, unspecified; J30.9 Allergic rhinitis, unspecified; J32.9 Chronic sinusitis, unspecified; F32.9 Major depressive disorder, single episode, unspecified; Z79.899 Other long term (current) drug therapy; X58.XXXA Exposure to other specified factors, initial encounter

== ENCOUNTER 2016-12-04 03:15 | Emergency (ER) | payer BC ==
[~2016-12-04] VITALS: Ht 160 cm; Wt 105.0 kg
[~2016-12-04 03:15] MED LIST changes: +ACET-24 PO; -ACETAMINOPHEN 500 MG TAB PO SCH; -CEFAZOLIN 2000 MG/60 ML D5W 60 ML IV SCH; +CLB200 PO; -DICL75TA2 PO; -GABAPENTIN 300 MG CAP PO SCH; -LACTATED RINGER'S 1000ML 1,000 ML IV SCH; -METOCLOPRAMIDE HCL 10 MG TAB PO SCH; +ONDA8TAB6 PO; +OXYSR10 PO; +RXC5 PO; -TRAM-10 PO
[2016-12-04 03:20] VITALS: Ht 160 cm; Wt 105.0 kg
[2016-12-04] MEDS ORDERED: ACET-24 PO (03:44)
[2016-12-04] MEDS ORDERED: CLB/200 PO (03:45)
[2016-12-04] MEDS ORDERED: ONDA8TAB12 PO (03:47)
[2016-12-04] MEDS ORDERED: OXYC20TA50 PO (03:48)
[2016-12-04] MEDS ORDERED: OXYC15TA89 PO (03:49)
[2016-12-04 03:54] LABS: BASO % 0.4 %; BASO ABS # 0.03 K/uL (0-0.2); COMPLETE YES; EOS % 4.3 %; HEMATOCRIT 36.3 % (37-47); IG% 0.1 %; LYMPH % 28.4 %; LYMPH ABS # 1.94 K/uL (1.2-3.4); MEAN CORPUSCULAR HEMOGLOBIN 29.1 pg (25-34); MEAN PLATELET VOLUME 9.8 fL (7.4-10.4); MONO % 9.4 %; NEUT % 57.4 %; PLATELET COUNT 297 K/uL (130-400); RED BLOOD COUNT 3.99 M/uL (4.2-5.4); WHITE BLOOD COUNT 6.82 K/uL (4.8-10.8)
[2016-12-04 04:16] LABS: BUN/CREATININE RATIO 31.4 (10-20); CALCIUM 8.6 mg/dl (8.5-10.1); CREATININE 0.64 mg/dl (0.60-1.20)
[2016-12-04 04:19] LABS: ALB/GLOB RATIO 0.9 (0.9-2)
[2016-12-04 04:51] VITALS: BP 136/86; PULSE 85; TEMP 36.7; O2SAT 98
--- NOTE | 2016-12-04 04:57 | EMERGENCY ROOM VISIT NOTE ---
History First contact with patient: 03:27 Chief Complaint: ARM PAIN Stated Complaint: S/P 11/28 ON R SHOULDER, STINGING AND HOT SENSATION History of Present Illness The patient is a 61 year old female who presents to the Emergency Room with complaints of pain of her right upper extremity for the past several hours. 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 The patient states that her pain is well-controlled on OxyContin and Vicodin. She has been using a sling for comfort, but states that she had her first appointment for physical therapy today. The patient is now complaining of some discomfort along the medial aspect of her arm just superior to her elbow. She describes it as a warm sensation. The patient is concerned for infection, but has not had fever at home. She has been eating and drinking as normal. No chest pain, chest tightness or shortness of breath, abdominal pain, or difficulty using the bathroom. No pain in her legs. No numbness or paresthesias. She rates her discomfort a 4/10. Review of Systems More than 10 systems were reviewed and otherwise negative with the exception of history of present illness. Past Medical/Surgical History Medical Problems: (1) Allergic rhinitis (2) Anxiety (3) Bacteremia (4) Chronic sinusitis (5) Depressive Disorder Nec (6) Dyslipidemia (7) Encounter for removal of sutures (8) GERD (gastroesophageal reflux disease) (9) Pure Hypercholesterolem (10) Rotator cuff arthropathy (11) Sepsis (12) SOB (shortness of breath) (13) Vertigo Surgical Problems: (1) H/O dilation and curettage (2) H/O sinus surgery (3) H/O tubal ligation (4) H/O umbilical hernia repair (5) H/O umbilical hernia repair (6) S/P rotator cuff repair (7) S/P rotator cuff surgery (8) S/P tonsillectomy and adenoidectomy (9) S/P tubal ligation Family History Blood clots FH: cancer FH: myocardial infarction Hypertension Seizures Social History Smoking Status: Never Smoker Alcohol Use: none Marital Status: Housing Status: lives with significant other Occupation Status: employed Current/Historical Medications Scheduled Acetaminophen (Sb Non-Aspirin Extra Stre), 1,000 MG PO Q8 Albuterol Hfa (Ventolin Hfa), 2 PUFFS INH QID Celecoxib (CeleBREX), 200 MG PO BID Fexofenadine Hcl (Cristina), 180 MG PO DAILY Fluticasone Propionate (Nasal) (Flonase Allergy Relief), 2 SPRAYS INH DAILY Lansoprazole (Prevacid), 30 MG PO QAM Multivitamin (Multivitamin), 1 TAB PO QAM Oxycodone HCl (Oxycontin), 10 MG PO Q12 Oxycodone Hcl (Oxycontin), 10 MG PO Q12 Oxycodone Hcl (Oxycontin), 5 MG PO Q12 Paroxetine (Paroxetine HCl ER), 12.5 MG PO QAM Paroxetine (Paroxetine HCl ER), 37.5 MG PO QAM Simvastatin (Zocor), 40 MG PO QPM Scheduled PRN Meclizine Hcl (Meclizine Hcl), 25 MG PO TID PRN for Dizziness Ondansetron Hcl (Zofran), 8 MG PO Q8 PRN for nausea Physical Exam Vital Signs Date Time Temp Pulse Resp B/P (MAP) Pulse Ox O2 Delivery O2 Flow Rate FiO2 12/04/16 03:20 36.7 85 18 136/86 98 Room Air Physical Exam VITALS: Vitals are noted on the nurse's note and reviewed by myself. Vital signs stable. GENERAL: Well-developed, well-nourished, white female, who is in no acute distress and resting comfortably. Patient is cooperative with the examination. HEAD: Normocephalic atraumatic. HEART: Regular rate and rhythm without murmurs gallops or rubs. LUNGS: Clear to auscultation bilaterally without wheezes, rales or rhonchi. No retractions or accessory muscle use. MUSCULOSKELETAL: No obvious tenderness on palpation of the right shoulder. The surgical dressing appears intact without erythema or edema. There is bruising appreciated throughout the mid and distal medial humerus, which is roughly in the area the patient isolates her discomfort. There is no obvious warmth or palpable cord. Neurovascular status is intact distally. NEURO: Patient was alert and oriented to person place and time. CN II through XII grossly intact. Medical Decision & Procedures Laboratory Results 12/04/16 03:40 Red Blood Count 3.99, Mean Corpuscular Volume 91.0, Mean Corpuscular Hemoglobin 29.1, Mean Corpuscular Hemoglobin Concent 32.0, Mean Platelet Volume 9.8, Neutrophils (%) (Auto) 57.4, Lymphocytes (%) (Auto) 28.4, Monocytes (%) (Auto) 9.4, Eosinophils (%) (Auto) 4.3, Basophils (%) (Auto) 0.4, Neutrophils # (Auto) 3.91, Lymphocytes # (Auto) 1.94, Monocytes # (Auto) 0.64, Eosinophils # (Auto) 0.29, Basophils # (Auto) 0.03 12/04/16 03:40 Test 12/04/16 03:40 White Blood Count 6.82 K/uL (4.8-10.8) Red Blood Count 3.99 M/uL (4.2-5.4) Hemoglobin 11.6 g/dL (12.0-16.0) Hematocrit 36.3 % (37-47) Mean Corpuscular Volume 91.0 fL (80-100) Mean Corpuscular Hemoglobin 29.1 pg (25-34) Mean Corpuscular Hemoglobin Concent 32.0 g/dl (32-36) Platelet Count 297 K/uL (130-400) Mean Platelet Volume 9.8 fL (7.4-10.4) Neutrophils (%) (Auto) 57.4 % Lymphocytes (%) (Auto) 28.4 % Monocytes (%) (Auto) 9.4 % Eosinophils (%) (Auto) 4.3 % Basophils (%) (Auto) 0.4 % Neutrophils # (Auto) 3.91 K/uL (1.4-6.5) Lymphocytes # (Auto) 1.94 K/uL (1.2-3.4) Monocytes # (Auto) 0.64 K/uL (0.11-0.59) Eosinophils # (Auto) 0.29 K/uL (0-0.5) Basophils # (Auto) 0.03 K/uL (0-0.2) RDW Standard Deviation 46.4 fL (36.4-46.3) RDW Coefficient of Variation 13.9 % (11.5-14.5) Immature Granulocyte % (Auto) 0.1 % Immature Granulocyte # (Auto) 0.01 K/uL (0.00-0.02) Anion Gap 7.0 mmol/L (3-11) Est Creatinine Clear Calc Drug Dose 105.6 ml/min Estimated GFR () 110.8 Estimated GFR (Non- 95.6 BUN/Creatinine Ratio 31.4 (10-20) Calcium Level 8.6 mg/dl (8.5-10.1) Total Bilirubin 0.4 mg/dl (0.2-1) Aspartate Amino Transf (AST/SGOT) 28 U/L (15-37) Alanine Aminotransferase (ALT/SGPT) 32 U/L (12-78) Alkaline Phosphatase 124 U/L (45-117) Total Protein 6.7 gm/dl (6.4-8.2) Albumin 3.1 gm/dl (3.4-5.0) Globulin 3.6 gm/dl (2.5-4.0) Albumin/Globulin Ratio 0.9 (0.9-2) ED Course Physical exam and history were performed. Nursing notes, EMR, and Medication List were personally reviewed. Patient appears to have pain along the medial aspect of her right upper arm began this evening. She is on postop day 5 of a right shoulder repair and her pain in the shoulder itself is very well controlled at home. The patient is concerned about infection and has been without fever. I discussed options of care with the patient and elected to draw basic blood work. The patient's blood work is as above and was reviewed. She does not have a significantly elevated white blood cell count or bandemia. She is very slightly anemic, but this is likely related to her recent surgical procedure. Her electrolytes and other labs are fairly nondiagnostic. Overall the patient appears stable for discharge home. Clinically she does not have signs of infection or clot. Labs also seen without signs of infection. She does have an upcoming appointment with her surgeon next week, and I feel this is a reasonable timeframe. Her symptoms today could certainly be related to the initiation of physical therapy or simply part of the normal healing process. I did ask the patient to monitor for fever, redness, and any other concerning symptoms. She was certainly invited back to the ER anytime and was pleased with plan of care. She rated her discomfort a 0/10 at the time of departure. The chart was completed utilizing [employer] Voice Recognition Software. Grammatical errors, random word insertions, pronoun errors, and incomplete sentences are an occasional consequence of this system due to software limitations, ambient noise, and hardware issues. Any formal questions or concerns about the content, text, or information contained within the body of this dictation should be directly addressed to the provider for clarification. . Medical Decision Differential diagnosis: Etiologies such as cellulitis, abscess, MRSA infection, DVT, necrotizing fasciitis, dermatitis, drug eruption, as well as others were entertained.. Impression Primary Impression: Pain of right upper extremity Departure Information Dispostion Home / Self-Care Condition GOOD Referrals Duke Ramachandran M.D. Forms HOME CARE DOCUMENTATION FORM, IMPORTANT VISIT INFORMATION Patient Instructions My [facility] Additional Instructions You were seen and evaluated today on an emergency basis only. This is not a substitute for, or an effort to provide, complete comprehensive medical care. It is not possible to recognize and treat all injuries or illnesses in a single emergency department visit. For this reason it is recommended that you followup with Orthopedics as scheduled next week for ongoing care and evaluation. Continue your at-home medications as prescribed. You are welcome to return to the emergency department anytime with new, worsening, or concerning symptoms.
== END 2016-12-04 04:52 | disposition home or self-care (01) ==
LOC: C.EDB 03:17 → C.EDA 04:52
DX: M79.601 Pain in right arm (principal); Z98.890 Other specified postprocedural states; F32.9 Major depressive disorder, single episode, unspecified; Z79.899 Other long term (current) drug therapy

== ENCOUNTER → 2017-01-24 | Outpatient (CLI) | payer BC ==
[~2017-01-24] MED LIST changes: +CLB/200 PO; -CLB200 PO; +ONDA8TAB12 PO; -ONDA8TAB6 PO; +OXYC15TA89 PO; +OXYC20TA50 PO; -RXC5 PO
== END | disposition home or self-care (01) ==
LOC: C.LAB 09:51
PROVIDERS: ATTEND Obstetrics & Gynecology
DX: N83.209 Unspecified ovarian cyst, unspecified side (principal)

== ENCOUNTER → 2017-06-23 | Outpatient (CLI) | payer BC ==
[~2017-06-23] MED LIST changes: +DICL-201 PO; -FLUT0.15 INH; +FLUT0.15 NAE
--- NOTE | 2017-06-24 14:02 | MAMMOGRAPHY REPORT ---
BILATERAL DIGITAL SCREENING MAMMOGRAM TOMOSYNTHESIS WITH CAD: 06/23/2017 CLINICAL HISTORY: Routine screening. Patient has no complaints. TECHNIQUE: Breast tomosynthesis in addition to standard 2D mammography was performed. Current study was also evaluated with a Computer Aided Detection (CAD) system. COMPARISON: Comparison is made to exams dated: 06/19/2016 mammogram, 06/14/2015 mammogram, 02/21/2014 ma mmogram, 02/06/2012 mammogram, 02/07/2013 mammogram, and 12/24/2010 mammogram - [facility]. BREAST COMPOSITION: The tissue of both breasts is almost entirely fatty. FINDINGS: There are scattered benign rim calcifications in both breasts. No suspicious mass, archite ctural distortion or cluster of microcalcifications is seen. IMPRESSION: ACR BI-RADS CATEGORY 1: NEGATIVE There is no mammographic evidence of malignancy. A 1 year screening mammogram is recommended. The pa tient will receive written notification of the results. Approximately 10% of breast cancers are not detected with mammography. A negative mammographic report should not delay biopsy if a clinically suggestive mass is present. Hattie Mendes M.D. ay/:06/23/2017 16:18:07 Telegraph Mechanic: Britney Hummel M, [facility] letter sent: Normal 1/2 BI-RADS Code: ACR BI-RADS Category 1: Negative
== END | disposition home or self-care (01) ==
LOC: C.MAMM 13:09
PROVIDERS: ATTEND Obstetrics & Gynecology
DX: Z12.31 Encounter for screening mammogram for malignant neoplasm of breast (principal)

== ENCOUNTER 2017-07-11 15:48 | Emergency (ER) | payer BC ==
[~2017-07-11] VITALS: Ht 160 cm; Wt 101.5 kg
[~2017-07-11 15:48] MED LIST changes: -CLB/200 PO; -ONDA8TAB12 PO; -OXYC15TA89 PO; -OXYC20TA50 PO; -OXYSR10 PO; -[UNRECOGNIZED DRUG - CODE] PO
[2017-07-11 16:06] VITALS: Ht 160 cm; Wt 101.5 kg
--- NOTE | 2017-07-11 16:25 | EMERGENCY ROOM VISIT NOTE ---
History Report prepared by Uriel: Mehdi Quiles Under the Supervision of: Dr. Miguel Ángel Avila M.D. First contact with patient: 16:12 Chief Complaint: URINARY SYMPTOMS Stated Complaint: UTI,BACTERIAL INF Nursing Triage Summary: patient to ED via triage with family for UTI, states "I am asymptomatic with UTI typically, last year I went septic and almost from one. I've been having hot flashes, and weakness, [facility] and sent me over for a possible sepsis workup." History of Present Illness The patient is a 61 year old white female with a past medical history of dyslipidemia, GERD, vertigo, UTI's who presents to the ED with a cc of persistent urinary symptoms beginning 3 nights ago. Positive sweats, dysuria, bacteria in urine, chills, increased temperature. Negative recent strains or heavy lifting. Per the patient's family, the patient, last year around this time , was hospitalized with sepsis which ended up coming from a UTI which was asymptomatic. The patient had a urine culture 4 days ago, and was told that there were no issues and it was clean. The patient then saw her urologist 5 days ago, and had her bladder checked. She was then noted to be "soaking wet" 3 nights ago, and her temperature was noted to be around 99.7. The next few nights she had the sweats with chills again. The patient says that she was seen at [facility] prior to arrival, and was told that her urine culture from 2 days ago had bacteria and was concerning for sepsis. The patient was prescribed Amoxicillin but has not taken it yet. Source of History: patient Onset: 3 nights ago Position: other (global - urinary symptoms) Quality: other (dysuria) Timing: other (persistent) Associated Symptoms: + chills, + diaphoresis Note: Negative recent strains or heavy lifting. Review of Systems See HPI for pertinent positives and negatives. A total of ten systems were reviewed and were otherwise negative. Past Medical & Surgical Medical Problems: (1) Allergic rhinitis (2) Anxiety (3) Bacteremia (4) Chronic sinusitis (5) Depressive Disorder Nec (6) Dyslipidemia (7) Encounter for removal of sutures (8) GERD (gastroesophageal reflux disease) (9) Pure Hypercholesterolem (10) Rotator cuff arthropathy (11) Sepsis (12) SOB (shortness of breath) (13) Vertigo Surgical Problems: (1) H/O dilation and curettage (2) H/O sinus surgery (3) H/O tubal ligation (4) H/O umbilical hernia repair (5) H/O umbilical hernia repair (6) S/P rotator cuff repair (7) S/P rotator cuff surgery (8) S/P tonsillectomy and adenoidectomy (9) S/P tubal ligation Family History Blood clots FH: cancer FH: myocardial infarction Hypertension Seizures Social History Smoking Status: Never Smoker Alcohol Use: none Marital Status: Housing Status: lives with significant other Occupation Status: employed Current/Historical Medications Scheduled Albuterol Hfa (Ventolin Hfa), 2 PUFFS INH QID Ciprofloxacin Hcl (Cipro), 500 MG PO BID Lansoprazole (Prevacid), 30 MG PO QAM Multivitamin (Multivitamin), 1 TAB PO QAM Paroxetine Hcl (Paxil Cr), 12.5 MG PO DAILY Paroxetine Hcl (Paxil Cr), 37.5 MG PO DAILY Simvastatin (Zocor), 40 MG PO QPM Scheduled PRN Acetaminophen (Sb Non-Aspirin Extra Stre), 1,000 MG PO Q8 PRN for Pain Diclofenac (Voltaren), 75 MG PO UD PRN for Pain Fexofenadine Hcl (Cristina), 180 MG PO QAM PRN for Allergic Reaction Fluticasone Propionate (Nasal) (Flonase Allergy Relief), 2 SPRAYS MARICRUZ QAM PRN for Allergic Reaction Meclizine Hcl (Meclizine Hcl), 25 MG PO TID PRN for Dizziness Tramadol (Ultram), 100 MG PO TID PRN for Pain Allergies Coded Allergies: Amitriptyline (Verified Allergy, Intermediate, RASH AND FEET SWELLING, ) Cephalosporins (Verified Allergy, Intermediate, RASH AND TACHYCARDIA, 07/11) Lorazepam (Verified Allergy, Intermediate, RASH, 06/29/17) Amoxicillin (Verified Adverse Reaction, Intermediate, VOMITING, 07/11/17) Sulfamethoxazole w/Trimethoprim (Verified Adverse Reaction, Intermediate, SEVERE GI UPSET; DIAPHORESIS; HOT FLASHES, 07/11/17) Clarithromycin (Verified Adverse Reaction, Mild, GI UPSET, 07/11/17) Clavulanic Acid (Verified Adverse Reaction, Mild, SEVERE NAUSEA, 07/11/17) Nitrofurantoin (Verified Adverse Reaction, Mild, GI UPSET, 07/11/17) Penicillins (Verified Adverse Reaction, Mild, SEVERE NAUSEA, 07/11/17) Physical Exam Vital Signs Date Time Temp Pulse Resp B/P (MAP) Pulse Ox O2 Delivery O2 Flow Rate FiO2 07/11/17 19:19 37.2 82 20 163/102 97 07/11/17 18:55 82 20 163/102 97 Room Air 07/11/17 17:44 82 07/11/17 16:06 37.2 87 20 154/99 92 Room Air Physical Exam GENERAL: Awake, alert, well-appearing, NAD HENT: Normocephalic, atraumatic. EYES: Normal conjunctiva. Sclera non-icteric. NECK: Supple. No nuchal rigidity. FROM. RESPIRATORY: CTAB, no rhonchi, wheezing, crackles CARDIAC: RRR, no MRG ABDOMEN: Soft, NTND, BS+ MSK: No chest wall TTP, no LE edema NEURO: GCS 15, CN 2-12 intact, moves all 4s on command SKIN: No rash or jaundice noted. Medical Decision & Procedures ER Provider Diagnostic Interpretation: X-ray: Per my interpretation, radiologist review. CHEST ONE VIEW PORTABLE CLINICAL HISTORY: Fever, sepsis COMPARISON STUDY: No previous studies for comparison. FINDINGS: The cardiac and mediastinal contours are normal. There is no evidence of focal pulmonary consolidation. There is no evidence of failure. No pleural effusions are visualized.[ There are postsurgical changes involving the right shoulder IMPRESSION: No active disease in the chest. Electronically signed by: Ganesh Kelly M.D. 07/11/2017 5:25 PM Dictated Date/Time: 07/11/2017 5:25 PM Laboratory Results 07/11/17 16:53 Red Blood Count 4.50, Mean Corpuscular Volume 90.2, Mean Corpuscular Hemoglobin 30.2, Mean Corpuscular Hemoglobin Concent 33.5, Mean Platelet Volume 9.9, Neutrophils (%) (Auto) 57.1, Lymphocytes (%) (Auto) 30.5, Monocytes (%) (Auto) 9.9, Eosinophils (%) (Auto) 1.8, Basophils (%) (Auto) 0.5, Neutrophils # (Auto) 3.75, Lymphocytes # (Auto) 2.00, Monocytes # (Auto) 0.65, Eosinophils # (Auto) 0.12, Basophils # (Auto) 0.03 07/11/17 16:53 Test 07/11/17 16:50 07/11/17 16:53 Urine Color YELLOW Urine Appearance CLEAR (CLEAR) Urine pH 6.5 (4.5-7.5) Urine Specific [place] 1.023 (1.000-1.030) Urine Protein NEG (NEG) Urine Glucose (UA) NEG (NEG) Urine Ketones NEG (NEG) Urine Occult Blood NEG (NEG) Urine Nitrite NEG (NEG) Urine Bilirubin NEG (NEG) Urine Urobilinogen NEG (NEG) Urine Leukocyte Esterase MODERATE (NEG) Urine WBC (Auto) 5-10 /hpf (0-5) Urine RBC (Auto) 0-4 /hpf (0-4) Urine Hyaline Casts (Auto) 0 /lpf (0-5) Urine Epithelial Cells (Auto) 10-20 /lpf (0-5) Urine Bacteria (Auto) NEG (NEG) White Blood Count 6.56 K/uL (4.8-10.8) Red Blood Count 4.50 M/uL (4.2-5.4) Hemoglobin 13.6 g/dL (12.0-16.0) Hematocrit 40.6 % (37-47) Mean Corpuscular Volume 90.2 fL (80-100) Mean Corpuscular Hemoglobin 30.2 pg (25-34) Mean Corpuscular Hemoglobin Concent 33.5 g/dl (32-36) Platelet Count 273 K/uL (130-400) Mean Platelet Volume 9.9 fL (7.4-10.4) Neutrophils (%) (Auto) 57.1 % Lymphocytes (%) (Auto) 30.5 % Monocytes (%) (Auto) 9.9 % Eosinophils (%) (Auto) 1.8 % Basophils (%) (Auto) 0.5 % Neutrophils # (Auto) 3.75 K/uL (1.4-6.5) Lymphocytes # (Auto) 2.00 K/uL (1.2-3.4) Monocytes # (Auto) 0.65 K/uL (0.11-0.59) Eosinophils # (Auto) 0.12 K/uL (0-0.5) Basophils # (Auto) 0.03 K/uL (0-0.2) RDW Standard Deviation 49.4 fL (36.4-46.3) RDW Coefficient of Variation 14.9 % (11.5-14.5) Immature Granulocyte % (Auto) 0.2 % Immature Granulocyte # (Auto) 0.01 K/uL (0.00-0.02) Prothrombin Time 10.5 SECONDS (9.0-12.0) Prothromb Time International Ratio 1.0 (0.9-1.1) Activated Partial Thromboplast Time 24.0 SECONDS (21.0-31.0) Partial Thromboplastin Ratio 0.9 Anion Gap 7.0 mmol/L (3-11) Est Creatinine Clear Calc Drug Dose 89.6 ml/min Estimated GFR () 100.6 Estimated GFR (Non- 86.8 BUN/Creatinine Ratio 29.6 (10-20) Calcium Level 9.1 mg/dl (8.5-10.1) Laboratory results reviewed by me Medications Administered Medications (Trade) Dose Ordered Sig/Nino Route Start Time Stop Time Status Last Admin Dose Admin Sodium Chloride 500 ml @ 1,000 mls/hr Q30M ONCE IV 07/11/17 16:36 07/11/17 17:05 DC 07/11/17 17:07 1,000 MLS/HR Ciprofloxacin (Cipro Tab) 500 mg NOW STAT PO 07/11/17 17:50 07/11/17 17:51 DC 07/11/17 19:05 500 MG ED Course 1630: The patient was evaluated in room B10. A complete history and physical exam was performed. 1754: I reevaluated the patient and she is resting comfortably. Discussed results and discharge instructions: she verbalized understanding and agreement. The patient is ready for discharge. Medical Decision The patient is a 61 year old white female with a past medical history of dyslipidemia, GERD, vertigo, UTI's who presents to the ED with a cc of persistent urinary symptoms beginning 3 nights ago. Positive sweats, dysuria, bacteria in urine, chills, increased temperature. Negative recent strains or heavy lifting. Differential diagnosis: Etiologies such as renal colic, appendicitis, diverticulitis, mesenteric ischemia, aortic pathology, infections, inflammatory bowel disease, PUD, biliary pathology, UTI, as well as others were entertained. Patient was seen and evaluated the bedside. Patient was having some mild complaints of just not feeling her normal self. The patient and family were concerned as the patient did have some asymptomatic UTI which resulted in a septicemia. Upon review of the chart she did have an E. coli that was pansensitive to antibiotics. Patient was seen and agrees Ott which point they referred her here for further evaluation and treatment. I did obtain the records from her urinalysis which showed that she may be infected. Negative nitrates with the patient does have some WBCs leuks and bacteria. Patient did have blood work completed. Patient's blood work is very reassuring. Patient has normal kidney function does not have an elevated white blood cell count. Patient's urinalysis does not necessarily look infected at this time however given the patient's prior urinalysis we will treat. Patient was given a first dose of Rocephin. I believe the patient is suitable for outpatient follow-up and treatment at this time. Patient was given ciprofloxacin for home. Patient was informed of all findings. Patient was given strict follow-up, discharge, and return precautions. All questions were answered. Patient was deemed suitable for outpatient follow-up at this time. Patient agreed with the plan of care and was safely discharged home. Medication Reconcilliation Current Medication List: was personally reviewed by me Blood Pressure Screening Patient's blood pressure: Elevated blood pressure Blood pressure disposition: Referred to PCP Impression Primary Impression: Urinary tract infection Scribe Attestation The scribe's documentation has been prepared under my direction and personally reviewed by me in its entirety. I confirm that the note above accurately reflects all work, treatment, procedures, and medical decision making performed by me. Departure Information Dispostion Home / Self-Care Prescriptions Ciprofloxacin Hcl (CIPRO) 500 Mg Tab 500 MG PO BID for 7 Days, #14 TAB Prov: Miguel Ángel Avila M.D. 07/11/17 Referrals Contreras Shelton M.D. (PCP) Patient Instructions ED UTI Cystitis Female, My [facility] Additional Instructions Please return to the emergency department if you have worsening or recurrent symptoms not amenable to at-home treatment. Please call for a follow-up appointment with her primary care physician. Please take your medications as prescribed. If you have other concerns and/or complaints please feel free to also call your primary care physician's office or return the ED for further evaluation, management, and treatment. You may take 600 mg Ibuprofen every 6 hours as needed for pain with food for no more than 2 consecutive days. You may take tylenol 1000 mg every 6 hours as needed for pain. You may take motrin and tylenol separately or at the same time. Take your medications as prescribed. If taking an antibiotic consider taking a probiotic and/or eating yogurt, but at the least, please take with food as it can cause upset stomach. You have been examined and treated today on an emergency basis only. This is not a substitute for, or an effort to provide, complete comprehensive medical care. It is impossible to recognize and treat all injuries or illnesses in a single emergency department visit. It is therefore important that you follow up closely with [facility] [address] [facility], your PCP, and/or your specialist(s). Call as soon as possible for an appointment. Thank you for your time and consideration. I look forward to speaking with you again soon. Please don't hesitate to call us if you have any questions. Problem Qualifiers Primary Impression: Urinary tract infection Urinary tract infection type: site unspecified Hematuria presence: without hematuria Qualified Codes: N39.0 - Urinary tract infection, site not specified
[2017-07-11] MEDS ORDERED: SODIUM CHLORIDE 0.9% 500ML 500 ML IV ONE (16:36)
[2017-07-11 17:10] LABS: BASO % 0.5 %; BASO ABS # 0.03 K/uL (0-0.2); EOS % 1.8 %; EOS ABS # 0.12 K/uL (0-0.5); HEMATOCRIT 40.6 % (37-47); HEMOGLOBIN 13.6 g/dL (12.0-16.0); IG# 0.01 K/uL (0.00-0.02); LYMPH % 30.5 %; MEAN CELL VOLUME 90.2 fL (80-100); MEAN CORPUSCULAR HEMOGLOBIN 30.2 pg (25-34); MEAN CORPUSCULAR HGB CONC 33.5 g/dl (32-36); MEAN PLATELET VOLUME 9.9 fL (7.4-10.4); MONO % 9.9 %; MONO ABS # 0.65 K/uL (0.11-0.59); NEUT % 57.1 %; NEUT ABS # 3.75 K/uL (1.4-6.5); PLATELET COUNT 273 K/uL (130-400); RED CELL DISTRIBUTION WIDTH CV 14.9 % (11.5-14.5); RED CELL DISTRIBUTION WIDTH SD 49.4 fL (36.4-46.3); WHITE BLOOD COUNT 6.56 K/uL (4.8-10.8)
[2017-07-11] MEDS ORDERED: PARO37.5 PO (17:17)
[2017-07-11] MEDS ORDERED: TRAM-10 PO (17:17)
[2017-07-11] MEDS ORDERED: PARO12.5 PO (17:17)
--- NOTE | 2017-07-11 17:26 | DIAGNOSTIC IMAGING REPORT ---
CHEST ONE VIEW PORTABLE CLINICAL HISTORY: Fever, sepsis COMPARISON STUDY: No previous studies for comparison. FINDINGS: The cardiac and mediastinal contours are normal. There is no evidence of focal pulmonary consolidation. There is no evidence of failure. No pleural effusions are visualized.[ There are postsurgical changes involving the right shoulder IMPRESSION: No active disease in the chest. Electronically signed by: Ganesh Kelly M.D. 07/11/2017 5:25 PM Dictated Date/Time: 07/11/2017 5:25 PM
[2017-07-11 17:27] LABS: CALCIUM 9.1 mg/dl (8.5-10.1); CREATININE 0.74 mg/dl (0.60-1.20)
[2017-07-11] MEDS ORDERED: CIPROFLOXACIN 500 MG TAB PO STA (17:50)
[2017-07-11] MEDS ORDERED: CIPR-255 PO (19:03)
[2017-07-11 19:19] VITALS: BP 163/102; PULSE 82; TEMP 37.2; O2SAT 97
== END 2017-07-11 19:20 | disposition home or self-care (01) ==
LOC: C.EDB 15:49
DX: N39.0 Urinary tract infection, site not specified (principal); R03.0 Elevated blood-pressure reading, without diagnosis of hypertension; F41.8 Other specified anxiety disorders; E78.5 Hyperlipidemia, unspecified; Z86.19 Personal history of other infectious and parasitic diseases; Z88.8 Allergy status to other drugs, medicaments and biological substances; Z88.2 Allergy status to sulfonamides; Z88.1 Allergy status to other antibiotic agents; Z88.0 Allergy status to penicillin; Z83.2 Family history of diseases of the blood and blood-forming organs and certain disorders involving the immune mechanism; Z82.49 Family history of ischemic heart disease and other diseases of the circulatory system; Z82.0 Family history of epilepsy and other diseases of the nervous system

== ENCOUNTER 2017-07-13 12:12 | Emergency (ER) | payer BC ==
[~2017-07-13] VITALS: Ht 160 cm; Wt 99.8 kg
[~2017-07-13 12:12] MED LIST changes: +CIPR-255 PO; +PARO12.5 PO; -PARO1TAB PO; +PARO37.5 PO; +TRAM-10 PO
[2017-07-13 12:40] VITALS: Ht 160 cm; Wt 99.8 kg
[2017-07-13] MEDS ORDERED: SODIUM CHLORIDE 0.9% 500ML 500 ML IV STA (13:34)
[2017-07-13] MEDS ORDERED: CEFTRIAXONE SOD INJ 1 GM ADDVIAL IV STA (13:34)
[2017-07-13 13:39] LABS: BASO % 0.3 %; BASO ABS # 0.02 K/uL (0-0.2); EOS % 1.6 %; HEMATOCRIT 41.1 % (37-47); HEMOGLOBIN 13.6 g/dL (12.0-16.0); IG# 0.01 K/uL (0.00-0.02); LYMPH ABS # 1.72 K/uL (1.2-3.4); MEAN CELL VOLUME 89.2 fL (80-100); MEAN CORPUSCULAR HEMOGLOBIN 29.5 pg (25-34); MEAN CORPUSCULAR HGB CONC 33.1 g/dl (32-36); MEAN PLATELET VOLUME 9.8 fL (7.4-10.4); MONO ABS # 0.64 K/uL (0.11-0.59); NEUT % 60.9 %; NEUT ABS # 3.89 K/uL (1.4-6.5); PLATELET COUNT 268 K/uL (130-400); RED CELL DISTRIBUTION WIDTH CV 14.9 % (11.5-14.5); RED CELL DISTRIBUTION WIDTH SD 48.7 fL (36.4-46.3); WHITE BLOOD COUNT 6.38 K/uL (4.8-10.8)
[2017-07-13 13:58] LABS: CALCIUM 8.8 mg/dl (8.5-10.1); CREATININE 0.78 mg/dl (0.60-1.20); POTASSIUM 3.9 mmol/L (3.5-5.1)
[2017-07-13] MEDS ORDERED: AMPICILLIN INJ 2,000 MG in SODIUM CHLORIDE 0.9% 50ML 50 ML IV STA (14:03)
--- NOTE | 2017-07-13 15:51 | DIAGNOSTIC IMAGING REPORT ---
ABD/PELVIS WITHOUT FOR STONE CLINICAL HISTORY: 61 years-old Female presenting with EVALUATE FLANK PAIN/HEMATURIA. TECHNIQUE: Multidetector CT of the abdomen and pelvis was performed without the use of intravenous contrast. IV contrast: None. A dose lowering technique was used consistent with the principles of ALARA (as low as reasonably achievable). COMPARISON: 08/29/2015. CT DOSE (mGy.cm): The estimated cumulative dose is 998.86 mGycm. 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 Lung bases: Lungs and pleural spaces clear. Normal heart size. No pericardial or pleural effusion. Liver: Normal morphology. Density consistent with hepatic steatosis. Biliary: No intrahepatic or extrahepatic biliary ductal dilatation. Normal gallbladder. Pancreas: Mild parenchymal atrophy. Spleen: Normal. Adrenal glands: Normal. Kidneys and ureters: Focal cortical defect along the posterior upper pole of the right kidney could suggest scarring from reflux nephropathy or prior infarct or infection. Bilateral nonobstructing renal calculi at the upper poles of the kidneys, on the right measuring 5 mm and on the left measuring 5 mm. No hydronephrosis. Ureters normal. Bladder: Normal. Pelvic organs: Normal noncontrast appearance of the uterus. The ovaries contain follicles/cysts and are somewhat prominent for the patient's age. Bowel: Limited diverticulosis of the sigmoid colon. No bowel obstruction. The appendix is normal. Small hiatal hernia. Peritoneal cavity: No free fluid or intraperitoneal gas. Lymph nodes: No gross lymphadenopathy allowing for noncontrast technique. Vasculature: Normal noncontrast appearance. Abdominal wall: Postsurgical changes of the umbilicus with ventral mesh in place. No associated fluid. Musculoskeletal: Degenerative changes of the spine. Degenerative changes of the pubic symphysis. IMPRESSION: 1. Bilateral nonobstructing renal calculi. No hydronephrosis. 2. Prominent ovaries containing follicles/cysts, unexpected for the patient's age. Further evaluation with dedicated pelvic ultrasound to be considered. 3. Postsurgical changes of the umbilicus with hernia repair. The report will be called/faxed according to standard departmental protocol. Electronically signed by: Duke Caraballo M.D. 07/13/2017 3:50 PM Dictated Date/Time: 07/13/2017 3:44 PM
[2017-07-13] MEDS ORDERED: AMOX500T3 PO (16:20)
[2017-07-13 16:27] VITALS: BP 151/87; PULSE 76; TEMP 36.5; O2SAT 97
--- NOTE | 2017-07-13 16:48 | EMERGENCY ROOM VISIT NOTE ---
History Report prepared by Uriel: Radha Ma Under the Supervision of: Dr. Singh Hernández M.D. First contact with patient: 13:22 Chief Complaint: URINARY SYMPTOMS Stated Complaint: UTI SYMPTOMS, RECOMMENDED BY DR SAGE, SEPSIS HX Nursing Triage Summary: pt was seen here thursday daughter called dr sage told to come back for reeval. not been feeling any better. History of Present Illness The patient is a 61 year old female who presents to the Emergency Room with complaints of persistent urinary symptoms for six days. She states that she has been waking up in a puddle of sweat with a fever. She states that she was not feeling well three days ago. She was seen in the ED three days ago for similar symptoms. She was diagnosed with an E. coli UTI and was prescribed Cipro. She notes burning with urination began two days ago, along with low back pain. She has a history of urinary issues. She has a history of sepsis. She reports there was blood in her urine about a week and a half ago. She had a cystoscopy seven days ago and was told everything was normal--she began feeling poorly the day after the cystoscopy. She states that they could barely get through to her bladder due to some narrowing. Source of History: patient Onset: six days ago Position: other (global ) Quality: other (urinary symptoms) Timing: other (persistent ) Associated Symptoms: + fevers, + abdominal pain, + back pain, + urinary symptoms (pain with urination) Note: She notes brain fog and sweats. Review of Systems See HPI for pertinent positives & negatives. A total of 10 systems reviewed and were otherwise negative. Past Medical & Surgical Medical Problems: (1) Allergic rhinitis (2) Anxiety (3) Bacteremia (4) Chronic sinusitis (5) Depressive Disorder Nec (6) Dyslipidemia (7) Encounter for removal of sutures (8) GERD (gastroesophageal reflux disease) (9) Pure Hypercholesterolem (10) Rotator cuff arthropathy (11) Sepsis (12) SOB (shortness of breath) (13) Vertigo Surgical Problems: (1) H/O dilation and curettage (2) H/O sinus surgery (3) H/O tubal ligation (4) H/O umbilical hernia repair (5) H/O umbilical hernia repair (6) S/P rotator cuff repair (7) S/P rotator cuff surgery (8) S/P tonsillectomy and adenoidectomy (9) S/P tubal ligation Family History Blood clots FH: cancer FH: myocardial infarction Hypertension Seizures Social History Smoking Status: Never Smoker Smokeless Tobacco Use: No Alcohol Use: none Drug Use: none Marital Status: Housing Status: lives with significant other Occupation Status: employed Current/Historical Medications Scheduled Albuterol Hfa (Ventolin Hfa), 2 PUFFS INH QID Amoxicillin (Amoxil), 500 MG PO TID Ciprofloxacin Hcl (Cipro), 500 MG PO BID Lansoprazole (Prevacid), 30 MG PO QAM Multivitamin (Multivitamin), 1 TAB PO QAM Paroxetine Hcl (Paxil Cr), 12.5 MG PO DAILY Paroxetine Hcl (Paxil Cr), 37.5 MG PO DAILY Simvastatin (Zocor), 40 MG PO QPM Scheduled PRN Acetaminophen (Sb Non-Aspirin Extra Stre), 1,000 MG PO Q8 PRN for Pain Diclofenac (Voltaren), 75 MG PO UD PRN for Pain Fexofenadine Hcl (Cristina), 180 MG PO QAM PRN for Allergic Reaction Fluticasone Propionate (Nasal) (Flonase Allergy Relief), 2 SPRAYS MARICRUZ QAM PRN for Allergic Reaction Meclizine Hcl (Meclizine Hcl), 25 MG PO TID PRN for Dizziness Tramadol (Ultram), 100 MG PO TID PRN for Pain Allergies Coded Allergies: Amitriptyline (Verified Allergy, Intermediate, RASH AND FEET SWELLING, ) Cephalosporins (Verified Allergy, Intermediate, RASH AND TACHYCARDIA, 07/11) Lorazepam (Verified Allergy, Intermediate, RASH, 06/29/17) Amoxicillin (Verified Adverse Reaction, Intermediate, VOMITING, 07/11/17) Sulfamethoxazole w/Trimethoprim (Verified Adverse Reaction, Intermediate, SEVERE GI UPSET; DIAPHORESIS; HOT FLASHES, 07/11/17) Clarithromycin (Verified Adverse Reaction, Mild, GI UPSET, 07/11/17) Clavulanic Acid (Verified Adverse Reaction, Mild, SEVERE NAUSEA, 07/11/17) Nitrofurantoin (Verified Adverse Reaction, Mild, GI UPSET, 07/11/17) Penicillins (Verified Adverse Reaction, Mild, SEVERE NAUSEA, 07/11/17) Physical Exam Vital Signs Date Time Temp Pulse Resp B/P (MAP) Pulse Ox O2 Delivery O2 Flow Rate FiO2 07/13/17 16:27 36.5 76 22 151/87 97 07/13/17 16:21 76 151/87 07/13/17 15:52 71 22 148/89 97 Room Air 07/13/17 14:39 73 18 143/84 97 Room Air 07/13/17 12:40 36.5 81 18 154/76 98 Room Air Physical Exam GENERAL: Patient is in no acute distress. HEENT: No acute trauma, normocephalic atraumatic, mucous membranes moist, no nasal congestion, no scleral icterus. NECK: No stridor, no adenopathy, no meningismus, trachea is midline. LUNGS: Clear to auscultation bilaterally, no wheeze, no rhonchi, breath sounds equal. HEART: Without murmurs gallops or rubs, regular rate and rhythm. ABDOMEN: Soft, nontender, bowel sounds positive, no hernias, no peritonitis. BACK: Right more than left back discomfort with percussion. EXTREMITIES: No cyanosis or edema, full range of motion of all the joints without pain or difficulty, no signs for acute trauma. NEUROLOGIC: Oriented x 3, no acute motor or sensory deficits, no focal weakness. SKIN: No rash, no jaundice, no diaphoresis. Medical Decision & Procedures ER Provider Diagnostic Interpretation: Radiology results as stated below per my review and radiologist interpretation: ABD/PELVIS WITHOUT FOR STONE CLINICAL HISTORY: 61 years-old Female presenting with EVALUATE FLANK PAIN/HEMATURIA. TECHNIQUE: Multidetector CT of the abdomen and pelvis was performed without the use of intravenous contrast. IV contrast: None. A dose lowering technique was used consistent with the principles of ALARA (as low as reasonably achievable). COMPARISON: 08/29/2015. CT DOSE (mGy.cm): The estimated cumulative dose is 998.86 mGycm. 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 Lung bases: Lungs and pleural spaces clear. Normal heart size. No pericardial or pleural effusion. Liver: Normal morphology. Density consistent with hepatic steatosis. Biliary: No intrahepatic or extrahepatic biliary ductal dilatation. Normal gallbladder. Pancreas: Mild parenchymal atrophy. Spleen: Normal. Adrenal glands: Normal. Kidneys and ureters: Focal cortical defect along the posterior upper pole of the right kidney could suggest scarring from reflux nephropathy or prior infarct or infection. Bilateral nonobstructing renal calculi at the upper poles of the kidneys, on the right measuring 5 mm and on the left measuring 5 mm. No hydronephrosis. Ureters normal. Bladder: Normal. Pelvic organs: Normal noncontrast appearance of the uterus. The ovaries contain follicles/cysts and are somewhat prominent for the patient's age. Bowel: Limited diverticulosis of the sigmoid colon. No bowel obstruction. The appendix is normal. Small hiatal hernia. Peritoneal cavity: No free fluid or intraperitoneal gas. Lymph nodes: No gross lymphadenopathy allowing for noncontrast technique. Vasculature: Normal noncontrast appearance. Abdominal wall: Postsurgical changes of the umbilicus with ventral mesh in place. No associated fluid. Musculoskeletal: Degenerative changes of the spine. Degenerative changes of the pubic symphysis. IMPRESSION: 1. Bilateral nonobstructing renal calculi. No hydronephrosis. 2. Prominent ovaries containing follicles/cysts, unexpected for the patient's age. Further evaluation with dedicated pelvic ultrasound to be considered. 3. Postsurgical changes of the umbilicus with hernia repair. The report will be called/faxed according to standard departmental protocol. Electronically signed by: Duke Caraballo M.D. 07/13/2017 3:50 PM Dictated Date/Time: 07/13/2017 3:44 PM Laboratory Results 07/13/17 13:30 Red Blood Count 4.61, Mean Corpuscular Volume 89.2, Mean Corpuscular Hemoglobin 29.5, Mean Corpuscular Hemoglobin Concent 33.1, Mean Platelet Volume 9.8, Neutrophils (%) (Auto) 60.9, Lymphocytes (%) (Auto) 27.0, Monocytes (%) (Auto) 10.0, Eosinophils (%) (Auto) 1.6, Basophils (%) (Auto) 0.3, Neutrophils # (Auto ) 3.89, Lymphocytes # (Auto) 1.72, Monocytes # (Auto) 0.64, Eosinophils # (Auto ) 0.10, Basophils # (Auto) 0.02 07/13/17 13:30 Test 07/13/17 13:15 07/13/17 13:30 07/13/17 13:39 Urine Color YELLOW Urine Appearance CLEAR (CLEAR) Urine pH 5.5 (4.5-7.5) Urine Specific Sheldon 1.018 (1.000-1.030) Urine Protein NEG (NEG) Urine Glucose (UA) NEG (NEG) Urine Ketones NEG (NEG) Urine Occult Blood NEG (NEG) Urine Nitrite NEG (NEG) Urine Bilirubin NEG (NEG) Urine Urobilinogen NEG (NEG) Urine Leukocyte Esterase TRACE (NEG) Urine WBC (Auto) 1-5 /hpf (0-5) Urine RBC (Auto) 0-4 /hpf (0-4) Urine Hyaline Casts (Auto) 1-5 /lpf (0-5) Urine Epithelial Cells (Auto) 10-20 /lpf (0-5) Urine Bacteria (Auto) NEG (NEG) White Blood Count 6.38 K/uL (4.8-10.8) Red Blood Count 4.61 M/uL (4.2-5.4) Hemoglobin 13.6 g/dL (12.0-16.0) Hematocrit 41.1 % (37-47) Mean Corpuscular Volume 89.2 fL (80-100) Mean Corpuscular Hemoglobin 29.5 pg (25-34) Mean Corpuscular Hemoglobin Concent 33.1 g/dl (32-36) Platelet Count 268 K/uL (130-400) Mean Platelet Volume 9.8 fL (7.4-10.4) Neutrophils (%) (Auto) 60.9 % Lymphocytes (%) (Auto) 27.0 % Monocytes (%) (Auto) 10.0 % Eosinophils (%) (Auto) 1.6 % Basophils (%) (Auto) 0.3 % Neutrophils # (Auto) 3.89 K/uL (1.4-6.5) Lymphocytes # (Auto) 1.72 K/uL (1.2-3.4) Monocytes # (Auto) 0.64 K/uL (0.11-0.59) Eosinophils # (Auto) 0.10 K/uL (0-0.5) Basophils # (Auto) 0.02 K/uL (0-0.2) RDW Standard Deviation 48.7 fL (36.4-46.3) RDW Coefficient of Variation 14.9 % (11.5-14.5) Immature Granulocyte % (Auto) 0.2 % Immature Granulocyte # (Auto) 0.01 K/uL (0.00-0.02) Anion Gap 8.0 mmol/L (3-11) Est Creatinine Clear Calc Drug Dose 84.2 ml/min Estimated GFR () 94.4 Estimated GFR (Non- 81.5 BUN/Creatinine Ratio 23.9 (10-20) Calcium Level 8.8 mg/dl (8.5-10.1) Bedside Lactic Acid Venous 0.93 mmol/L (0.90-1.70) Laboratory results reviewed by me. Medications Administered Medications (Trade) Dose Ordered Sig/Nino Route Start Time Stop Time Status Last Admin Dose Admin Sodium Chloride 500 ml @ 999 mls/hr Q31M STAT IV 07/13/17 13:34 07/13/17 14:04 DC 07/13/17 14:37 999 MLS/HR Ampicillin Sodium 2000 mg/Sodium Chloride 58 ml @ 100 mls/hr NOW STAT IV 07/13/17 14:03 07/13/17 14:37 DC 07/13/17 14:39 100 MLS/HR ED Course 1328: The patient was evaluated in room C4. A complete history and physical exam was performed. Labs: Encounter Date: 07/11/2017 UA Culture: >100,000 COLONIES/ML ENTEROCOCCUS SPECIES (A) SUSCEPTIBLE: AMPICILLIN SUSCEPTIBLE: NITROFURANTOIN RESISTANT: TETRACYCLINE SUSCEPTIBLE: VANCOMYCIN 1356: I spoke with the pharmacist. They state that Cephalosporins do not work for this type of infection. 1403: Ordered Ampicillin Sodium 2,000 mg/Sodium Chloride 58 ml @ 100 mls/hr IV 1407: I spoke with Dr. Shelton, PCP. We discussed the patient's case. 1611: I reassessed the patient at this time. She is feeling better and resting comfortably. I discussed the results and treatment plan with the patient. I answered all pertaining questions that she had. She expressed understanding and verbalized agreement. The patient will be discharged home. Medical Decision The patient is a 61 year old female who presents to the ED with complaints of urinary symptoms. Differential diagnoses considered include renal colic, pyelonephritis, UTI, renal failure, electrolyte imbalance, sepsis, and failed outpatient treatment. There is no leukocytosis or concerning anemia. No significant electrolyte abnormality or kidney failure. Urinalysis does not show obvious infection, urine culture is pending. Lactic acid level is not elevated making sepsis less likely. Blood cultures are pending. Abdominal and pelvis CT does not show any urinary obstruction. Some cysts were noted on her ovaries for which follow-up was suggested--she was already aware of the ovarian cysts. The patient presents with a complicated story as of late. She felt that she had Escherichia coli in her urine, I was able to obtain the results from [facility]. She has Enterococcus, not Escherichia coli. Cipro and ceftriaxone/ cephalosporins would not be effective. The patient received IV ampicillin while in our ED. She was given IV saline. The patient feels well, she looks well. I discussed things with her primary doctor's office. I spoke with her, she was offered a hospital stay but feels well enough for discharge. She will be prescribed amoxicillin 3 times a day for 10 days. If feeling worse, she will return. Hydration was encouraged. Medication Reconcilliation Current Medication List: was personally reviewed by me Blood Pressure Screening Patient's blood pressure: Elevated blood pressure Blood pressure disposition: Referred to PCP Consults Time Called: 1407 Consulting Physician: Dr. Shelton, PCP I spoke with Dr. Chapa, PCP. We discussed the patient's case. Impression Primary Impression: UTI (urinary tract infection) Scribe Attestation The scribe's documentation has been prepared under my direction and personally reviewed by me in its entirety. I confirm that the note above accurately reflects all work, treatment, procedures, and medical decision making performed by me. Departure Information Dispostion Home / Self-Care Prescriptions Amoxicillin (AMOXIL) 500 Mg Tab 500 MG PO TID, #30 TAB Prov: Singh Hernández M.D. 07/13/17 Referrals Contreras Shelton M.D. (PCP) Forms HOME CARE DOCUMENTATION FORM, IMPORTANT VISIT INFORMATION Patient Instructions My [facility] Amitive Additional Instructions amoxicillin 3x per day for 10 days stop the cipro rest tylenol for aches and chills fluids follow with kianna md later in the week return if worsening as we discussed
== END 2017-07-13 16:28 | disposition home or self-care (01) ==
LOC: C.EDB 12:13 → C.EDC 16:28
DX: N39.0 Urinary tract infection, site not specified (principal); N20.0 Calculus of kidney; F41.8 Other specified anxiety disorders; Z79.899 Other long term (current) drug therapy; Z88.1 Allergy status to other antibiotic agents; Z88.0 Allergy status to penicillin; Z88.8 Allergy status to other drugs, medicaments and biological substances

== ENCOUNTER 2017-12-20 17:12 | Emergency (ER) | payer BC ==
[~2017-12-20 17:12] MED LIST changes: +ASPI-461 PO; -CIPR-255 PO; +DLD/2 PO; +SUMA50TA15 PO
[2017-12-20 17:18] VITALS: TEMP 36.4; Ht 160 cm
[2017-12-20] MEDS ORDERED: LORAZEPAM 2 MG/ML 1 ML VIAL IV STA (17:26)
[2017-12-20] MEDS ORDERED: ONDANSETRON INJ 2 MG/ML 2 ML VIAL IV STA (17:26)
[2017-12-20] MEDS ORDERED: KETOROLAC TROMETHAMINE 30 MG/ML VIAL IV STA (17:26)
[2017-12-20] MEDS ORDERED: SODIUM CHLORIDE 0.9% 1000ML 1,000 ML IV STA (17:26)
[2017-12-20] MEDS ORDERED: DiphenhydrAMINE HCL 50 MG/ML VIAL IV STA ×2 (17:34→19:50)
[2017-12-20 18:20] LABS: BASO % 0.4 %; BASO ABS # 0.02 K/uL (0-0.2); EOS % 1.5 %; EOS ABS # 0.08 K/uL (0-0.5); HEMATOCRIT 39.5 % (37-47); HEMOGLOBIN 12.9 g/dL (12.0-16.0); IG# 0.01 K/uL (0.00-0.02); LYMPH % 25.2 %; LYMPH ABS # 1.36 K/uL (1.2-3.4); MEAN CELL VOLUME 91.2 fL (80-100); MEAN CORPUSCULAR HEMOGLOBIN 29.8 pg (25-34); MEAN CORPUSCULAR HGB CONC 32.7 g/dl (32-36); MONO % 8.3 %; MONO ABS # 0.45 K/uL (0.11-0.59); NEUT % 64.4 %; NEUT ABS # 3.48 K/uL (1.4-6.5); PLATELET COUNT 259 K/uL (130-400); RED CELL DISTRIBUTION WIDTH CV 14.2 % (11.5-14.5); RED CELL DISTRIBUTION WIDTH SD 48.2 fL (36.4-46.3)
--- NOTE | 2017-12-20 18:32 | EMERGENCY ROOM VISIT NOTE ---
History First contact with patient: 17:23 Chief Complaint: DIZZY Stated Complaint: DISORIENTATED, DIZZY History of Present Illness The patient is a 62 year old female who presents to the Emergency Room with complaints of dizziness and nausea which began last night. The patient has a history of benign positional vertigo. She states she has had an upper respiratory infection with some mucus starting recently. She complains of some crackling in the left ear. The patient has been taking Cristina all week and Tylenol. She took a meclizine prior to going to bed last evening however this gave her "terrible nightmares." Patient states she has multiple allergies. She has been seen by physical therapy where apparently these treatments made her vertigo "worse." Patient has been followed by ENT. She states when she develops vertigo, she always gets a Z-Gigi which makes symptoms better within 2 days. Patient denies any fevers, headache, neck pain. Her daughter states that the patient's mother of a "aneurysm" which adds to the anxiety of the situation. Review of Systems See HPI for pertinent positives & negatives. A total of 10 systems reviewed and were otherwise negative. Past Medical/Surgical History Medical Problems: (1) Allergic rhinitis (2) Anxiety (3) Bacteremia (4) Chronic sinusitis (5) Depressive Disorder Nec (6) Dyslipidemia (7) Encounter for removal of sutures (8) GERD (gastroesophageal reflux disease) (9) Left Knee DJD (10) Pure Hypercholesterolem (11) Rotator cuff arthropathy (12) Sepsis (13) SOB (shortness of breath) (14) Vertigo Surgical Problems: (1) H/O dilation and curettage (2) H/O sinus surgery (3) H/O tubal ligation (4) H/O umbilical hernia repair (5) H/O umbilical hernia repair (6) S/P rotator cuff repair (7) S/P rotator cuff surgery (8) S/P tonsillectomy and adenoidectomy (9) S/P tubal ligation Family History Blood clots FH: cancer FH: myocardial infarction Hypertension Seizures Social History Smoking Status: Never Smoker Alcohol Use: none Drug Use: none Marital Status: Housing Status: lives with significant other Occupation Status: employed Current/Historical Medications Scheduled Acetaminophen (Sb Non-Aspirin Extra Stre), 1,000 MG PO Q8H Aspirin (Aspirin), 81 MG PO BID Diclofenac (Voltaren), 75 MG PO BID Lansoprazole (Prevacid), 30 MG PO QAM Methylprednisolone (Medrol Dosepak), 1 PKT PO UD Multivitamin (Multivitamin), 1 TAB PO QAM Ondasetron Odt (Zofran Odt), 4 MG SL Q6H Paroxetine Hcl (Paxil Cr), 12.5 MG PO QAM Paroxetine Hcl (Paxil Cr), 37.5 MG PO QAM Simvastatin (Zocor), 40 MG PO QPM Scheduled PRN Acetaminophen (Sb Non-Aspirin Extra Stre), 1,000 MG PO Q8 PRN for Pain Albuterol Hfa (Ventolin Hfa), 2 PUFFS INH QID PRN for SOB/Wheezing Fexofenadine Hcl (Cristina), 180 MG PO QAM PRN for Allergic Reaction Fluticasone Propionate (Nasal) (Flonase Allergy Relief), 2 SPRAYS MARICRUZ QAM PRN for Allergic Reaction Meclizine Hcl (Meclizine Hcl), 25 MG PO TID PRN for Dizziness Tramadol (Ultram), 100 MG PO TID PRN for Pain Physical Exam Vital Signs Date Time Temp Pulse Resp B/P (MAP) Pulse Ox O2 Delivery O2 Flow Rate FiO2 12/20/17 22:11 84 20 161/103 100 Room Air 12/20/17 20:16 78 20 143/70 100 Room Air 12/20/17 18:26 74 20 164/84 100 Room Air 12/20/17 17:18 36.4 94 20 146/82 100 Room Air Physical Exam Vital signs reviewed. General: Generally well-appearing, anxious 62-year-old female, in no significant distress. HEENT: No scleral icterus, PERRLA, neck supple. Atraumatic. No appreciable nystagmus. TMs are clear bilaterally. Cardiovascular: Regular rate and rhythm, no extra sounds. Pulmonary: Clear to auscultation bilaterally, normal work of breathing. Normally hyperventilating. Abdomen: Soft, nontender, nondistended, positive bowel sounds. Musculoskeletal: Atraumatic, no peripheral edema. Neurologic: Patient awake alert and oriented x 3, full strength in all 4 extremities. Cranial nerves 2 through 12 grossly intact. Speech is clear. Skin: Warm, dry, no rash Medical Decision & Procedures Laboratory Results 12/20/17 18:05 Red Blood Count 4.33, Mean Corpuscular Volume 91.2, Mean Corpuscular Hemoglobin 29.8, Mean Corpuscular Hemoglobin Concent 32.7, Mean Platelet Volume 10.0, Neutrophils (%) (Auto) 64.4, Lymphocytes (%) (Auto) 25.2, Monocytes (%) (Auto) 8.3, Eosinophils (%) (Auto) 1.5, Basophils (%) (Auto) 0.4, Neutrophils # (Auto) 3.48, Lymphocytes # (Auto) 1.36, Monocytes # (Auto) 0.45, Eosinophils # (Auto) 0.08, Basophils # (Auto) 0.02 12/20/17 18:05 Test 12/20/17 18:05 12/20/17 19:00 White Blood Count 5.40 K/uL (4.8-10.8) Red Blood Count 4.33 M/uL (4.2-5.4) Hemoglobin 12.9 g/dL (12.0-16.0) Hematocrit 39.5 % (37-47) Mean Corpuscular Volume 91.2 fL (80-100) Mean Corpuscular Hemoglobin 29.8 pg (25-34) Mean Corpuscular Hemoglobin Concent 32.7 g/dl (32-36) Platelet Count 259 K/uL (130-400) Mean Platelet Volume 10.0 fL (7.4-10.4) Neutrophils (%) (Auto) 64.4 % Lymphocytes (%) (Auto) 25.2 % Monocytes (%) (Auto) 8.3 % Eosinophils (%) (Auto) 1.5 % Basophils (%) (Auto) 0.4 % Neutrophils # (Auto) 3.48 K/uL (1.4-6.5) Lymphocytes # (Auto) 1.36 K/uL (1.2-3.4) Monocytes # (Auto) 0.45 K/uL (0.11-0.59) Eosinophils # (Auto) 0.08 K/uL (0-0.5) Basophils # (Auto) 0.02 K/uL (0-0.2) RDW Standard Deviation 48.2 fL (36.4-46.3) RDW Coefficient of Variation 14.2 % (11.5-14.5) Immature Granulocyte % (Auto) 0.2 % Immature Granulocyte # (Auto) 0.01 K/uL (0.00-0.02) Anion Gap 10.0 mmol/L (3-11) Estimated GFR () 99.9 Estimated GFR (Non- 86.2 BUN/Creatinine Ratio 24.9 (10-20) Calcium Level 8.6 mg/dl (8.5-10.1) Magnesium Level 2.2 mg/dl (1.8-2.4) Total Bilirubin 0.8 mg/dl (0.2-1) Direct Bilirubin 0.2 mg/dl (0-0.2) Aspartate Amino Transf (AST/SGOT) 22 U/L (15-37) Alanine Aminotransferase (ALT/SGPT) 26 U/L (12-78) Alkaline Phosphatase 107 U/L (45-117) Total Protein 7.3 gm/dl (6.4-8.2) Albumin 3.6 gm/dl (3.4-5.0) Urine Color YELLOW Urine Appearance CLEAR (CLEAR) Urine pH >= 9.0 (4.5-7.5) Urine Specific Randolph 1.011 (1.000-1.030) Urine Protein NEG (NEG) Urine Glucose (UA) NEG (NEG) Urine Ketones NEG (NEG) Urine Occult Blood NEG (NEG) Urine Nitrite NEG (NEG) Urine Bilirubin NEG (NEG) Urine Urobilinogen NEG (NEG) Urine Leukocyte Esterase SMALL (NEG) Urine WBC (Auto) 5-10 /hpf (0-5) Urine RBC (Auto) 0-4 /hpf (0-4) Urine Hyaline Casts (Auto) 1-5 /lpf (0-5) Urine Epithelial Cells (Auto) 20-30 /lpf (0-5) Urine Bacteria (Auto) NEG (NEG) Medications Administered Medications (Trade) Dose Ordered Sig/Nino Route Start Time Stop Time Status Last Admin Dose Admin Sodium Chloride 1,000 ml @ 999 mls/hr Q1H1M STAT IV 12/20/17 17:26 12/20/17 18:26 DC 12/20/17 18:05 999 MLS/HR Ketorolac Tromethamine (Toradol Inj) 30 mg NOW STAT IV 12/20/17 17:26 12/20/17 17:30 DC 12/20/17 18:06 30 MG Ondansetron HCl (Zofran Inj) 4 mg NOW STAT IV 12/20/17 17:26 12/20/17 17:30 DC 12/20/17 18:06 4 MG Diphenhydramine HCl (Benadryl Cap) 25 mg STK-MED ONCE .ROUTE 12/20/17 18:12 12/20/17 18:13 DC 12/20/17 18:16 25 MG Diphenhydramine HCl (Benadryl Inj) 12.5 mg NOW STAT IV 12/20/17 19:50 12/20/17 19:52 DC 12/20/17 20:15 12.5 MG Methylprednisolone Sodium Succinate (Solu-Medrol IV) 125 mg NOW STAT IV 12/20/17 19:50 12/20/17 19:52 DC 12/20/17 20:15 125 MG Sodium Chloride 500 ml @ 999 mls/hr Q31M STAT IV 12/20/17 20:43 12/20/17 21:13 DC 12/20/17 20:54 999 MLS/HR Diazepam (Valium Inj) 5 mg STK-MED ONCE .ROUTE 12/20/17 20:50 12/20/17 20:51 DC 12/20/17 20:53 5 MG ED Course Differential diagnosis: Etiologies such as benign positional vertigo, dehydration, hypovolemia, anemia, tumor, infection, hypoglycemia, electrolyte abnormalities, cardiac sources, intracerebral event, toxicologic, neurologic, as well as others were entertained. Medical Decision This patient was evaluated and appeared to be in no significant distress. Patient is anxious and hyperventilating. Patient feels somewhat improved with her eyes closed on her right side. IV access was obtained and laboratory work was drawn. The patient has many preferences when it comes to medications. She does not want anything to make her "loopy." Patient was hydrated with normal saline solution, was ordered IV Solu-Medrol, IV Benadryl and IV Zofran. Patient apparently declined IV Benadryl and was then given oral Benadryl by nursing. On my reevaluation, the patient's laboratory work was reviewed. There is no evidence of UTI. Patient's potassium is 3.3, I suspect this is secondary to hyperventilation. The patient continued to have some vertiginous symptoms and did accept 12.5 mg of IV Benadryl thereafter. She was also given additional IV fluid and Valium 2.5 mg IV. The patient was ambulatory and does have some vertigo with movement. She was offered evaluation from the hospitalist service due to persistent symptoms however she has declined. Patient is likely suffering from her recurrence benign positional vertigo. I do not see evidence of stroke on exam. Patient was advised to follow-up with her PCP and ENT for reevaluation. She will return to the ED for worsening of symptoms or any medical concerns. Medication Reconcilliation Current Medication List: was personally reviewed by me Blood Pressure Screening Patient's blood pressure: Elevated blood pressure Blood pressure disposition: Referred to PCP Impression Primary Impression: Vertigo Departure Information Prescriptions Ondasetron Odt (ZOFRAN ODT) 4 Mg Tab 4 MG SL Q6H for Nausea, #6 TAB Prov: Nneka Angeles M.D. 12/20/17 Methylprednisolone (MEDROL DOSEPAK) 4 Mg Gigi 1 PKT PO UD for 6 Days, #1 PKT Prov: Nneka Angeles M.D. 12/20/17 Referrals Contreras Shelton M.D. (PCP) Patient Instructions My [facility]
[2017-12-20 18:41] LABS: ALBUMIN 3.6 gm/dl (3.4-5.0); ALKALINE PHOSPHATASE 107 U/L (45-117); ALT/SGPT 26 U/L (12-78); AST/SGOT 22 U/L (15-37); BLOOD UREA NITROGEN 18 mg/dl (7-18); CALCIUM 8.6 mg/dl (8.5-10.1); CARBON DIOXIDE 22 mmol/L (21-32); CREATININE 0.74 mg/dl (0.60-1.20); GLUCOSE 102 mg/dl (70-99); POTASSIUM 3.3 mmol/L (3.5-5.1); SODIUM 139 mmol/L (136-145); TOTAL PROTEIN 7.3 gm/dl (6.4-8.2)
[2017-12-20] MEDS ORDERED: METHYLPREDNISOLONE 125 MG VIAL IV STA (19:50)
[2017-12-20] MEDS ORDERED: SODIUM CHLORIDE 0.9% 500ML 500 ML IV STA (20:43)
[2017-12-20] MEDS ORDERED: DIAZEPAM INJ 5 MG/ML 2 ML CARP IV STA (20:43)
[2017-12-20] MEDS ORDERED: DIAZEPAM 5 MG/ML INJ 10ML VIAL ONE (20:50)
[2017-12-20] MEDS ORDERED: ONDA4TAB10 SL (21:42)
[2017-12-20] MEDS ORDERED: METH4PAK PO (21:42)
[2017-12-20 22:11] VITALS: BP 161/103; PULSE 84; O2SAT 100
== END 2017-12-20 22:10 | disposition home or self-care (01) ==
LOC: C.EDB 17:13 → C.EDA 22:10
DX: R42 Dizziness and giddiness (principal); F41.9 Anxiety disorder, unspecified; F32.9 Major depressive disorder, single episode, unspecified; E78.5 Hyperlipidemia, unspecified; K21.9 Gastro-esophageal reflux disease without esophagitis; E78.00 Pure hypercholesterolemia, unspecified

== ENCOUNTER 2019-02-23 10:16 | Inpatient (IN) ==
--- NOTE | 2018-12-28 16:32 | PAT Medication Instructions ---
Medication Instructions Date of Service December 28, 2018 Home Medications acetaminophen [Tylenol Extra Strength] 1,000 mg PO Q6H PRN albuterol sulfate [Ventolin HFA] 2 puff INHALATION QID PRN diclofenac sodium 75 mg PO BID fexofenadine [Cristina Allergy] 180 mg PO DAILY PRN fluticasone propionate [Flonase Allergy Relief] 2 spray INTRANASAL DAILY PRN lansoprazole [Prevacid] 30 mg PO QAM meclizine 25 mg PO TID PRN pkmvbvdy-vrah-xus-folic acid [One Daily For Women] 1 tab PO QAM ondansetron 4 mg TRANSLINGUAL Q8 PRN oxymetazoline [Afrin (oxymetazoline)] 2 spray INTRANASAL Q12H PRN paroxetine HCl [Paxil CR] 12.5 mg PO QAM paroxetine HCl [Paxil CR] 37.5 mg PO QAM simvastatin [Zocor] 40 mg PO QPM sumatriptan succinate [Imitrex] 50 mg PO UD PRN tramadol [Ultram] 50 - 100 mg PO Q8 PRN ASK your surgeon for instructions diclofenac sodium 75 mg PO BID DO NOT take the morning of surgery fexofenadine [Cristina Allergy] 180 mg PO DAILY PRN poaffpdc-clxu-bud-folic acid [One Daily For Women] 1 tab PO QAM Take morning of surgery With a small sip of water, OTHERWISE NOTHING TO EAT OR DRINK AFTER MIDNIGHT: acetaminophen [Tylenol Extra Strength] 1,000 mg PO Q6H PRN (if needed, may be taken up to four hours before surgery) albuterol sulfate [Ventolin HFA] 2 puff INHALATION QID PRN (if needed, and bring with you to the hospital) fluticasone propionate [Flonase Allergy Relief] 2 spray INTRANASAL DAILY PRN (if needed) lansoprazole [Prevacid] 30 mg PO QAM meclizine 25 mg PO TID PRN (if needed) ondansetron 4 mg TRANSLINGUAL Q8 PRN (if needed) oxymetazoline [Afrin (oxymetazoline)] 2 spray INTRANASAL Q12H PRN (if needed) paroxetine HCl [Paxil CR] 12.5 mg PO QAM paroxetine HCl [Paxil CR] 37.5 mg PO QAM sumatriptan succinate [Imitrex] 50 mg PO UD PRN (if needed) tramadol [Ultram] 50 - 100 mg PO Q8 PRN (if needed, may be taken up to four hours before surgery) Take evening before surgery acetaminophen [Tylenol Extra Strength] 1,000 mg PO Q6H PRN (if needed) albuterol sulfate [Ventolin HFA] 2 puff INHALATION QID PRN (if needed) fexofenadine [Cristina Allergy] 180 mg PO DAILY PRN (if needed) fluticasone propionate [Flonase Allergy Relief] 2 spray INTRANASAL DAILY PRN (if needed) meclizine 25 mg PO TID PRN (if needed) ondansetron 4 mg TRANSLINGUAL Q8 PRN (if needed) oxymetazoline [Afrin (oxymetazoline)] 2 spray INTRANASAL Q12H PRN (if needed) simvastatin [Zocor] 40 mg PO QPM sumatriptan succinate [Imitrex] 50 mg PO UD PRN (if needed) tramadol [Ultram] 50 - 100 mg PO Q8 PRN (if needed) Other Notes If you have any questions please call us at [phone] or [phone] or [phone] or [phone]
--- NOTE | 2019-01-27 10:54 | Anesthesiology Consultation ---
Date of Service January 27, 2019 Assessment & Plan (1) Encounter for pre-operative examination: Chart Review Chart Review: Pending: Refer to Additional Notes / Consult section (pending preop testing (labs, EKG)) and Patient seen in Pre Admission Testing Teaching & Discussion Pre-Anesthesia Teaching/Discussion Notes: Instructed NPO after midnight before surgery,except medications with 15 cc of water. Medication instructions provided according to the PAT guidelines. History Surgery Operation Date: 02/04/19 07:00 Proposed Procedures p Right Total Knee Replacement - Chidi Tolentino MD Height/Weight Height: 5 ft 3 in Weight: 100.1 kg Allergies Allergy/AdvReac Type Severity Reaction Status Date / Time amitriptyline Allergy Intermediate RASH AND Verified 12/24/18 08:20 FEET SWELLING Cephalosporins Allergy Intermediate RASH AND Verified 12/24/18 08:20 TACHYCARDIA lorazepam Allergy Intermediate RASH Verified 12/24/18 08:20 cefazolin Allergy RASH Verified 01/26/19 09:34 Bactrim AdvReac Intermediate SEVERE GI Verified 12/20/17 18:10 UPSET; DIAPHORESIS; HOT FLASHES sulfamethoxazole AdvReac Intermediate SEVERE GI Verified 12/24/18 08:20 UPSET; DIAPHORESIS; HOT FLASHES trimethoprim AdvReac Intermediate SEVERE GI Verified 12/24/18 08:20 UPSET; DIAPHORESIS; HOT FLASHES clarithromycin AdvReac Mild GI UPSET Verified 12/24/18 08:20 clavulanic acid AdvReac Mild SEVERE Verified 12/24/18 08:20 NAUSEA nitrofurantoin AdvReac Mild GI UPSET Verified 12/24/18 08:20 Penicillins AdvReac Mild SEVERE Verified 12/24/18 08:20 NAUSEA Medications Home Medications Medication Instructions Recorded Confirmed Last Taken acetaminophen [Tylenol Extra 1,000 mg PO Q6H PRN 06/03/18 12/24/18 06/03/18 12:00 Strength] albuterol sulfate [Ventolin HFA] 2 puff INHALATION QID PRN 06/03/18 12/24/18 Unknown diclofenac sodium 75 mg PO BID 06/03/18 12/24/18 Unknown fexofenadine [Cristina Allergy] 180 mg PO DAILY PRN 06/03/18 12/24/18 Unknown fluticasone propionate [Flonase 2 spray INTRANASAL DAILY PRN 06/03/18 12/24/18 Unknown Allergy Relief] lansoprazole [Prevacid] 30 mg PO QAM 06/03/18 12/24/18 Unknown meclizine 25 mg PO TID PRN 06/03/18 12/24/18 Unknown sjvwtrao-roew-xdv-folic acid [One 1 tab PO QAM 06/03/18 12/24/18 Unknown Daily For Women] ondansetron 4 mg TRANSLINGUAL Q8 PRN 06/03/18 12/24/18 Unknown oxymetazoline [Afrin 2 spray INTRANASAL Q12H PRN 06/03/18 12/24/18 Unknown (oxymetazoline)] paroxetine HCl [Paxil CR] 12.5 mg PO QAM 06/03/18 12/24/18 Unknown paroxetine HCl [Paxil CR] 37.5 mg PO QAM 06/03/18 12/24/18 Unknown simvastatin [Zocor] 40 mg PO QPM 06/03/18 12/24/18 Unknown sumatriptan succinate [Imitrex] 50 mg PO UD PRN 06/03/18 12/24/18 Unknown tramadol [Ultram] 50 - 100 mg PO Q8 PRN 06/03/18 12/24/18 Unknown Past Medical History Medical History Anxiety Dyslipidemia Depression GERD (gastroesophageal reflux disease) controlled Hx of migraines Obesity Osteoarthritis Seasonal allergies Past Family History Family History Other No significant family history Past Surgical History Surgical History H/O umbilical hernia repair H/O dilation and curettage H/O sinus surgery History of carpal tunnel release of both wrists History of colonoscopy History of left knee replacement Left TKA: 10/30/17: SAB x 1 at L3-L4 + PNB at [facility] History of right shoulder replacement History of rotator cuff surgery RIGHT History of tonsillectomy and adenoidectomy Hx of tubal ligation Past Anesthesia History No Family Hx of Anesthesia Complications and Other "Slow to wake" x 1 episode (right shoulder TSA); no hx reintubation History of PONV No Hx of PONV and Hx of Motion Sickness Social History Smoking Status: Never smoker Do You Dip or Chew Tobacco: No Hx Alcohol Use: No Hx Substance Use: No substance use type: does not use Review of Systems Patient denies chest pain, shortness of breath, dyspnea on exertion, reflux, cough, wheezing, palpitations. Physical Exam Vital Signs VITALS BP 121/78 P 73 TEMP 98.2 SP02 96%RA RESP 18 PHYSICAL Mildly decreased cervical extension 2/2 vertigo per patient Full TMJ range of motion. TMD 3 finger breaths Mallampati Score 2 Dentition: intact, Ynes upper left side (glued in tight but able to be removed if necessary), cap on sides Lungs: clear throughout to auscultation Cardiac: regular rate and rhythm, no murmurs noted Spine: normal Carotid arteries: negative bruit Extremities: no edema Testing Chest X-Ray Date: 06/03/18 No pneumothorax or pleural effusion is noted. There is no consolidation or evidence for pulmonary edema. Cardiac size is normal. Mediastinal contours are normal. Slight elevation of the right hemidiaphragm is noted.
[2019-01-27 12:28] LABS: Basophils # (auto) 0.03 K/uL (0-0.2); Basophils % (auto) 0.6 %; Eosinophils # (auto) 0.14 K/uL (0-0.5); Eosinophils % (auto) 2.8 %; Hematocrit (blood only) 40.6 % (37-47); Hemoglobin 12.9 g/dL (12.0-16.0); Immature Granulocytes # (auto) 0.02 K/uL (0.00-0.02); Immature Granulocytes % (auto) 0.4 %; Lymphocytes # (auto) 1.51 K/uL (1.2-3.4); Lymphocytes % (auto) 30.6 %; Mean Corpuscular Hemoglobin 29.7 pg (25-34); Mean Corpuscular Hgb Conc 31.8 g/dL (32-36); Mean Corpuscular Volume 93.3 fL (80-100); Mean Platelet Volume 10.6 fL (7.4-10.4); Monocytes # (auto) 0.43 K/uL (0.11-0.59); Monocytes % (auto) 8.7 %; Neutrophils # (auto) 2.81 K/uL (1.4-6.5); Neutrophils % (auto) 56.9 %; Platelet Count 255 K/uL (130-400); RDW Coefficient of Variation 14.4 % (11.5-14.5); RDW Standard Deviation 49.3 fL (36.4-46.3); Red Blood Count 4.35 M/uL (4.2-5.4); White Blood Count 4.94 K/uL (4.8-10.8)
[2019-01-27 12:42] LABS: BUN Creatinine Ratio 35.2 (10-20); Blood Urea Nitrogen 24 mg/dl (7-18); C Reactive Protein < 0.29 mg/dl (0-0.29); Calcium 9.1 mg/dl (8.5-10.1); Carbon Dioxide 26 mmol/L (21-32); Chloride 108 mmol/L (98-107); Creatinine Clr Calc Pharmacy 92.9 ml/min; Est GFR (African American) 106.6; Glucose 85 mg/dl (70-99); Potassium 4.6 mmol/L (3.5-5.1); Sodium 141 mmol/L (136-145)
[2019-01-27 12:43] LABS: Partial Thromboplastin Ratio 0.8; Partial Thromboplastin Time 22.4 Seconds (21.0-31.0); Prothrombin Time 10.4 Seconds (9.0-12.0)
--- NOTE | 2019-01-30 15:38 | History and Physical Report ---
DATE OF ADMISSION: 02/04/2019 CHIEF COMPLAINT: Right knee pain. HISTORY OF PRESENT ILLNESS: A 63-year-old female now a little over a year out from left knee replacement who presents for surgical treatment of her right knee. She had a fairly long history of right knee pain and discomfort that has gradually just gotten worse over time. Pain is mostly in the medial side of her knee, but some global pain. Only gets very temporary response to injection. Does not get much relief from the oral medicines. It is affecting her quality of life. She has pain with any significant activities and prolonged walking. She has pain going up and down stairs. She would like to have her right knee fixed. PAST MEDICAL HISTORY: Past medical history consists of: 1. Elevated cholesterol. 2. Anxiety/depression. 3. Cervical spondylosis. 4. Gastroesophageal reflux disease. 5. Obesity with a BMI of 39. PAST SURGICAL HISTORY: 1. Left knee replacement done on 10/30/2017. 2. Tubal ligation. 3. Herniated umbilical repair. 4. Right hand cyst removal. 5. Tonsillectomy. 6. Reverse shoulder done by Dr. Ramachandran year and half ago. 7. Sinus surgery. 8. Bilateral carpal tunnel releases. ALLERGIES: NORTRIPTYLINE, BACTRIM, ANCEF, CLARITHROMYCIN, LORAZEPAM, MACROBID. Of note, the patient did have some penicillin for recent UTI. CURRENT MEDICATIONS: Include: 1. Tylenol. 2. Diclofenac. 3. Cristina. 4. Fluticasone. 5. Meclizine. 6. Multivitamin. 7. Ondansetron. 8. Paxil. 9. Zocor. 10. Imitrex. 11. Ventolin inhaler. 12. Prevacid. 13. Aspirin inhaler. 14. Tramadol. SOCIAL HISTORY: A 63-year-old female. 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 She is . FAMILY HISTORY: Negative for heart disease, diabetes, or blood clots. REVIEW OF HISTORY: Negative for diabetes, neurologic problem, vascular problem, bleeding disorders. Denies any chest pain or shortness of breath. No history of DVT or PE. No known bleeding problems. PHYSICAL EXAMINATION: GENERAL: Shows a pleasant, middle-aged female, looks to be in pretty good health. HEENT: Benign. NECK: Supple, no lymphadenopathy. LUNGS: Clear to auscultation. HEART: Has a regular rate and rhythm. ABDOMEN: Soft, nontender, nondistended. EXTREMITIES: Grossly neurovascularly intact except as follows: Examination of the right knee reveals the patient ambulates with minimal limp. She has got varus alignment to her knee. Moderate soft tissue envelope. She has got bony hypertrophy medially. She is tender over the medial joint line. Small knee effusion. Range of motion 0-120. No instability. Examination of the left knee reveals well-healed incision. No swelling. Range of motion 0-120. Good straight leg raise. X-RAYS: X-rays of the right knee reveal advanced medial compartment DJD. She has got complete loss of medial joint space. She has got some lateral compartment osteophyte changes as well. She has subchondral sclerosis, more on the medial side. ASSESSMENT: A 63-year-old female, a little over a year out from left knee replacement with advanced right knee degenerative joint disease. She has failed conservative treatment and would like to have her right knee replaced. PLAN: We are going to take her to the operating room and do a right total knee replacement. The risks and benefits of this procedure were explained to the patient including but not limited to DVT, PE, , infection, neurological injury, vascular injury, bleeding problem, pain, limited range of motion, stiffness, failure to relieve symptoms, incomplete relief of symptoms, need for further surgery in future, fracture, leg length inequality, nerve palsy, etc. The patient understands and desires to proceed. Informed consent was obtained. We will likely use vancomycin due to this apparent Ancef allergy for preoperative antibiotics. She knows to hold her diclofenac 10 days preop. She is planning on using the [facility] home health program which worked out well last time and then go to [facility] after that.
--- NOTE | 2019-02-19 18:47 | History and Physical Report ---
DATE OF ADMISSION: 02/23/2019 CHIEF COMPLAINT: Persistent right knee pain and discomfort. HISTORY OF PRESENT ILLNESS: The patient is a 63-year-old female, a little over a year out from a left knee replacement who presents for treatment of her right knee. She continues to be limited by right knee pain. She has global pain that gets worse as the day goes on. The more she walks, the more it hurts. She has had a temporary response to injection and has become less successful over time. She is very happy with her left knee and she would like to have her right knee replaced. We have actually scheduled for this knee replacement in the past but she has had it canceled for various reasons. She now would like to have proceed with surgery. PAST MEDICAL HISTORY: 1. Elevated cholesterol. 2. Anxiety/depression. 3. Cervical spondylosis. 4. Gastroesophageal reflux disease. 5. Obesity, BMI 39. PAST SURGICAL HISTORY: Include: 1. Left knee replacement done on 10/30/2017. 2. Tubal ligation. 3. Hernia umbilical repair. 4. Right hand cyst removal. 5. Tonsillectomy. 6. Reverse shoulder surgery done by Dr. Ramachandran. 7. Sinus surgery. 8. Bilateral carpal tunnel releases. ALLERGIES: Include: 1. NORTRIPTYLINE. 2. BACTRIM. 3. ANCEF. 4. CLARITHROMYCIN. 5. LORAZEPAM. 6. MACROBID. Of note, she has had penicillin of her recent urinary tract infection without difficulty. CURRENT MEDICINES: Include: 1. Tylenol. 2. Diclofenac. 3. Cristina. 4. Fluticasone. 5. Meclizine. 6. Multivitamin. 7. Ondansetron. 8. Paxil. 9. Zocor. 10. Imitrex. 11. Ventolin inhaler. 12. Prevacid. 13. Aspirin. 14. Tramadol. SOCIAL HISTORY: A 62-year-old female. 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 She is . FAMILY HISTORY: Negative for heart disease, diabetes, or blood clots. REVIEW OF SYSTEMS: Negative for diabetes, neurologic problem, vascular problem, bleeding disorders. Denies any current chest pain or shortness of breath. No history of DVT or PE. No known bleeding problems. PHYSICAL EXAMINATION: GENERAL: Reveals a healthy, pleasant middle-aged female. Looks to be in pretty good health. HEENT: Benign. NECK: Supple, no lymphadenopathy. LUNGS: Clear to auscultation. HEART: Has a regular rate and rhythm. ABDOMEN: Soft, nontender, nondistended. EXTREMITIES: Grossly neurovascularly intact except as follows: Examination of both knees reveals the patient ambulates independently. Examination of the right knee reveals varus alignment. She has bony hypertrophy medially and tender over the medial joint line. Small knee effusion. Range of motion 0-120. No instability. Examination of left knee reveals well-healed incision. No significant swelling. Range of motion is 0-120. No pain with hip motion. Good straight leg raise. X-RAYS: X-ray of the right knee reveal advanced right knee DJD. She has complete loss of medial joint space. She has got osteophytes both medially and laterally. She has got subchondral sclerosis, particularly in the medial side of her knee. ASSESSMENT: A 63-year-old female, a little over a year out from left knee replacement with advanced right knee degenerative joint disease. She has failed conservative treatment and would like to have her right knee replaced. We had actually scheduled for this before, but she has had to cancel and she would like to proceed at this time. PLAN: We will take her to the operating room and do right total knee replacement. The risks and benefits of this procedure were explained to the patient including but not limited to DVT, PE, , infection, neurological injury, vascular injury, bleeding problem, pain, limited range of motion, stiffness, failure to relieve symptoms, incomplete relief of symptoms, need for further surgery in future, fracture, leg length inequality, nerve palsy, etc. The patient understands and desires to proceed. Informed consent was obtained. She is planning to be discharged to home using [facility] similar to last time. She then went to [facility] after that. We did talk to her about stopping her diclofenac 10 days preop. She is to really limit her tramadol intake before surgery. We will likely use vancomycin preoperatively as she has got some question of ANCEF ALLERGY.
[~2019-02-23 10:16] MED LIST changes: -ACET-24 PO; +ACETAMINOPHEN 500 MG TAB PO SCH; -ASPI-461 PO; +BUPIVACAINE 0.25% 30 ML VIAL ONE; +BUPIVACAINE 0.5 % 5 MG/1 ML PF 10ML VIAL ONE; +BUPIVACAINE LIPOSOME/PF 266 MG, BUPIVACAINE/EPINEPHRINE 50 ML, SODIUM CHLORIDE 0.9% 30 ... INFIL SCH; +CEFAZOLIN - ALLERGY NOTED TO ORDERED MEDICATION SCH; +CEFAZOLIN 2000MG 2,000 MG/15 ML SYR IV SCH; +CHECK SCOPOLAMINE PATCH PLACEMENT SCH; -DICL-201 PO; -DLD/2 PO; +EPINEPHrine INJ 1 MG/ML AMP ONE; +FAMOTIDINE 20 MG TAB PO SCH; -FEXO1TAB46 PO; -FLUT0.15 NAE; +GABAPENTIN 600 MG DOSE PO SCH; -LANS30CA12 PO; +LR 500ML BOLUS, THEN 15ML/HR IV SCH; +LR 60ML/HR IV SCH; -MECL1TAB42 PO; +METOCLOPRAMIDE HCL 10 MG TABLET PO SCH; -MULT-506 PO; -PARO12.5 PO; -PARO37.5 PO; +SCOPOLAMINE 1.5 MG TDSY TD SCH; -SIMV40TA2 PO; -SUMA50TA15 PO; -TRAM-10 PO; +TRANEXAMIC ACID 1,000 MG **IV Intra-op IV SCH; -VNTHFA/IN INH
--- NOTE | 2019-02-23 11:13 | History & Physical Bridge Note ---
Date of Service February 23, 2019 History & Physical Bridge Note I have examined the patient, reviewed the History & Physical and in the interval since the performance of the History & Physical I have noted the following changes of clinical significance: no changes noted
[2019-02-23] MEDS ORDERED: VANCOMYCIN CONSULT ACTIVE PRN ×2 (11:26→17:06)
[2019-02-23] MEDS ORDERED: VANCOMYCIN HCL 1,500 MG in SODIUM CHLORIDE 0.9% 500 ML IV SCH ×2 (11:45→23:45)
[2019-02-23] MEDS ORDERED: ePHEDrine sulfate 50 MG/ML AMP IV PRN (12:05)
[2019-02-23] MEDS ORDERED: ONDANSETRON INJ 2 MG/ML 2 ML VIAL IV PRN ×2 (12:05→17:06)
[2019-02-23] MEDS ORDERED: PROMETHAZINE HCL 6.25 MG in SODIUM CHLORIDE 0.9% 50 ML IV PRN (12:05)
[2019-02-23] MEDS ORDERED: fentaNYL citrate 100 MCG/2 ML VIAL IV PRN (12:05)
[2019-02-23] MEDS ORDERED: ATROPINE SULFATE 0.1 MG/ML 10ML SYR IV PRN (12:05)
[2019-02-23] MEDS ORDERED: fentaNYL citrate 100 MCG/2 ML VIAL ONE (12:07)
[2019-02-23] MEDS ORDERED: LIDOCAINE HCL 2% 2 ML VIAL/AMP(20MG/ML) INFIL ONE (12:07)
[2019-02-23] MEDS ORDERED: ONDANSETRON INJ 2 MG/ML 2 ML VIAL ONE (12:07)
[2019-02-23] MEDS ORDERED: PROPOFOL IV EMULSION 10 MG/ML 20 ML VIAL IV ONE (12:07)
[2019-02-23] MEDS ORDERED: MIDAZOLAM HCL 1 MG/ML 2ML VIAL ONE (12:15)
[2019-02-23] MEDS ORDERED: BUPIVACAINE LIPOSOME 1.3% 266 MG/20 ML VIAL ONE (13:03)
[2019-02-23] MEDS ORDERED: BACITRACIN INJ 50,000 UNIT VIAL ONE (13:03)
[2019-02-23] MEDS ORDERED: SODIUM CHLORIDE 0.9% PF 50 ML VIAL ONE (13:03)
[2019-02-23] MEDS ORDERED: BUPIVACAINE/EPINEPHRINE 0.25% 1:200,000 30 ML VIAL ONE (13:03)
[2019-02-23] MEDS ORDERED: BUPIVACAINE 0.25% 30 ML VIAL ONE (13:04)
[2019-02-23] MEDS ORDERED: EPINEPHrine INJ 1 MG/ML AMP ONE (13:05)
[2019-02-23] MEDS: CEFAZOLIN 2000MG 2,000 MG/15 ML SYR IV SCH ×2 (13:29→13:55)
[2019-02-23] MEDS ORDERED: PHENYLEPHRINE HCL 10 MG/ML VIAL ONE (14:01)
--- NOTE | 2019-02-23 15:05 | Post Operative Brief Note ---
PG Immediate Post Op with CF Date of Surgery February 23, 2019 Pre & Post Diagnosis Operation Date: 02/23/19 12:45 Pre-Op Diagnosis: Right Knee Degenerative Joint Disease with Knee Pain Post-Op Diagnosis: Right Knee Degenerative Joint Disease with Knee Pain I personally identified the patient: Yes Procedure Operation Date: 02/23/19 12:45 Actual Procedures p Right Total Knee Replacement(Right) - Cihdi Tolentino MD Surgeon Chidi Tolentino MD [employer] Azael, PAC Estimated Blood Loss 50 Findings Consistent with Post-Op Diagnosis Fluids 1300 cc Specimens Specimen Description: A. Right Knee Bone and Tissue Drains Starks Catheter Anesthesia Type Spinal MAC Complications none Disposition Accompanied Patient To Recovery: No Disposition: Recovery Room
--- NOTE | 2019-02-23 15:42 | Anesthesiology Progress Note ---
Date of Service February 23, 2019 Anesthesia Post Procedure Vital Signs Vital Signs: Temp Pulse Pulse Resp BP Pulse Ox 02/23/19 15:20 91 H 18 140/93 99 02/23/19 15:12 36.6 C 98 H 16 146/80 H 99 02/23/19 10:45 36.6 C 88 18 174/89 H 98 Pain Intensity Right Knee: Pain Intensity: 0 Transfer of Care Handoff Completed per policy Notes Mental Status: alert / awake / arousable Patient Amnestic to Procedure: Yes Nausea / Vomiting: adequately controlled Pain: adequately controlled Airway Patency, RR, SpO2: stable & adequate BP & HR: stable & adequate Hydration State: stable & adequate Neuraxial Anesthesia: was administered and sensory block is resolving Anesthetic Complications: no major complications apparent
--- NOTE | 2019-02-23 15:55 | XRay Report ---
XR knee RT 2V routine HISTORY: 63 years-old Female Surgical Post Op right knee total joint arthroplasty. History of degene rative joint disease COMPARISON: Knee radiographs 10/15/2018 TECHNIQUE: 2 views of the right knee FINDINGS: Right knee total joint arthroplasty and patella resurfacing. Anterior midline skin sushila are noted along with expected postsurgical soft tissue swelling and deep tissue air with surgical drainage cath eter. IMPRESSION: Satisfactory alignment of the right knee total joint arthroplasty. The above report was generated using voice recognition software. It may contain grammatical, syntax o r spelling errors. Electronically signed by: Cm Stone M.D. 02/23/2019 3:53 PM
[2019-02-23] MEDS ORDERED: FEXOFENADINE HCL 180 MG TAB PO PRN (17:06)
[2019-02-23] MEDS ORDERED: ALBUTEROL HFA 8 GM INHALER INH PRN (17:06)
[2019-02-23] MEDS ORDERED: METOCLOPRAMIDE HCL INJ 5 MG/ML 2 ML VIAL IV PRN (17:06)
[2019-02-23] MEDS ORDERED: HYDROmorphone INJ 0.5 MG/0.5 ML SYR IV PRN (17:06)
[2019-02-23] MEDS ORDERED: ONDANSETRON 4 MG OD TAB PO PRN (17:06)
[2019-02-23] MEDS ORDERED: MAGNESIUM HYDROXIDE SUSP 30 ML UDC PO PRN (17:06)
[2019-02-23] MEDS ORDERED: SUMAtriptan succinate 50 MG TAB PO PRN (17:06)
[2019-02-23] MEDS ORDERED: OXYMETAZOLINE 0.05% 30 ML BTL NAE PRN (17:06)
[2019-02-23] MEDS ORDERED: FLUTICASONE PROPIONATE NA SPR 16 GM BTL NAE PRN (17:06)
[2019-02-23] MEDS ORDERED: SODIUM CHLORIDE 0.9% 1000ML 1,000 ML IV SCH (17:06)
[2019-02-23] MEDS ORDERED: MECLIZINE 12.5 MG TAB PO PRN (17:06)
[2019-02-23] MEDS ORDERED: ALUMINUM/MAGNESIUM SUSP 30 ML UDC PO PRN (17:06)
[2019-02-23] MEDS ORDERED: NALOXONE HCL 0.4 MG/1 ML VIAL/CARP IV PRN (17:06)
[2019-02-23] MEDS ORDERED: bisacodyL 10 MG SUPP PR PRN (17:06)
--- NOTE | 2019-02-23 17:27 | Operative Report ---
Post Operative Report Pre & Post Diagnosis Operation Date: 02/23/19 12:45 Pre-Op Diagnosis: Right Knee Degenerative Joint Disease with Knee Pain Post-Op Diagnosis: Right Knee Degenerative Joint Disease with Knee Pain I personally identified the patient: Yes Procedure Operation Date: 02/23/19 12:45 Actual Procedures p Right Total Knee Replacement(Right) - Chidi Tolentino MD Surgeon Chidi Tolentino MD Chicken Cleaner Azael, PAC Estimated Blood Loss 50 Findings Consistent with Post-Op Diagnosis Operative findings revealed advanced right knee DJD with extensive grade 4 changes of the medial femoral condyle medial tibial plateau with eburnation changes. She had osteophytes primarily in the medial compartment. She had a varus deformity to her knee. Moderate-sized joint effusion. Fluids 1300 cc Specimens Right Knee sent for pathology. Drains none Anesthesia Type Spinal MAC Complications none Disposition Accompanied Patient To Recovery: No Disposition: Recovery Room Indications Patient is a 63-year-old female with a long history of bilateral knee pain discomfort. She underwent a left knee replacement about year and a half ago is done well from this. She could persistent and limiting her right knee pain discomfort patient is failed conservative treatment. X-ray showed advanced right knee DJD patient elected proceed with surgical treatment. Description of Procedure Operative implants consisted of: 1. Biomet Vanguard size 62.5 right posterior bifemoral component. 2. Biomet size 63 tibial tray. 3. 10 mm posterior stabilized polyethylene insert. 4. 28 x 8 all poly-patella. Patient was taken to the operating room identified and placed in the operating room table in supine position with all contact areas were properly padded. IV antibiotic for by the anesthesia team. A spinal anesthetic and abductor canal block is provided in the holding area. Starks catheter was placed in sterile fashion. A right thigh tip was then placed in the right lower extremities and prepped and draped in usual sterile fashion. Breath right leg was elevated and exsanguinated with use of an Esmarch and tourniquet was placed at 300 mmHg. An anterior approach to the right knee was then performed the longitudinal incisions over the patella. Sharp dissection was carried out through the subcutaneous tissues down below the extensor mechanism. A medial parapatellar arthrotomy incision was made. Some subperiosteal dissection was carried out medially. The fat pad was resected from beneath the patella tendon. The lateral patellofemoral ligament was released. The knee was flexed. The patella was subluxated laterally. The osteophytes taken off the distal femur. The ACL PCL were then released from the distal femur the tibia subluxated anteriorly. External tibial alignment jig was then placed in the interface of tibia and adjusted 14 mm medially. The external tibial cut was made to remove about 2 mm of bone from the sufficient aspect medial tibial plateau. The tibia was sized to size 63. Some osteophytes taken off medial and posterior medially. Attention down the femur. Per the distal femur down the sharp drill with intramedullary canal was suction. A right 5 degree Cutting guide was placed. The distal femoral cut was made to take an additional 3 mm of bone off the distal femur. The femur was then sized to a size 62.5. We downsized this almost an entire size. The AP cutting block was pinned parallel to the epicondylar axis which was 4 degrees of external rotation. The anterior cut, anterior, posterior cut, posterior chamfer cuts were made. Box cut guide was placed to just slightly lateral and the box cut was made. The knee was flexed. The remnants of the medial and lateral menisci were excised. Posterior osteophytes were removed. A trial femoral component was placed but the tibial tray was pinned in maximum external rotation drill and stem punch were used to create defect in the proximal tip for the tibial tray. The knee was then trialed the 10 mm insert fit most appropriately. Attention down the patella. The patella was cleaned of all soft tissues. Patella thickness measured 19 mm and was cut down to 12. Size a size 28 patella. Lug holes were drilled for the 28 patella. Lateral osteophyte is moved. Patella button was placed. Knee was taken through range of motion patella tracked nicely with no thumbs test. Attention turned to placing the permanent components. All trial implants were removed. A bone plug was placed in the distal femur to limit blood loss. A double batch Palacos G cement was mixed. A Biomet Vanguard size 62.5 right posterior bifemoral component, a Biomet size 63 tibial tray, a 10 mm posterior bite polyethylene insert, and a 28 x 8 all poly-patella then cement placed. He was brought out in full extension until the cement hardened. Final cement check was then performed. The knee was injected with 100 cc of combination of 20 cc of Exparel, 30 cc of normal saline, 50 cc of quarter percent Marcaine with epinephrine. The patient did receive 1 g of tranexamic acid per the tourniquet was then let down for a final tourniquet time 53 minutes. Hemostasis was assured with electrocautery. The wounds once again irrigated. Extensor macros then closed with combination 1 PDS suture #1 Vicryl suture and [id number] fashion. The extensor mechanism was checked and found to be intact. Subcutaneous tissue was then closed with 2 Dexon suture in a buried interrupted fashion skin was closed skin sushila. Leg was then cleaned dried and sterile dressing was Xeroform for 4 sterile cast padding and an Jacinto bandage was applied. The patient then transferred to the recovery room in stable condition. Patient tolerated procedure well no comp case but only sponge counts are correct at the end the operation. I attest to the content of the Intraoperative Record and any orders documented therein. Any exceptions are noted below.
[2019-02-23] MEDS: OXYCODONE HCL IR 5 MG TAB (IMMEDIATE RELEASE) PO PRN (17:42)
[2019-02-23] MEDS: CHECK SCOPOLAMINE PATCH PLACEMENT SCH ×2 (17:48→23:46)
[2019-02-23] MEDS: KETOROLAC 30 MG/ML VIAL IV SCH ×2 (18:36→23:46)
[2019-02-23] MEDS: ASCORBIC ACID 500 MG TAB PO SCH (18:39)
[2019-02-23] MEDS: FERROUS GLUCONATE 324 MG TAB PO SCH (18:39)
[2019-02-23] MEDS ORDERED: TRANEXAMIC ACID 1,000 MG in 0.9 % SODIUM CHLORIDE 100 ML IV SCH (21:07)
[2019-02-23] MEDS: DOCUSATE SODIUM 100 MG CAP PO SCH (21:15)
[2019-02-23] MEDS: TAPENTADOL HCL ER 50 MG TABCR PO SCH (21:16)
[2019-02-23] MEDS: ACETAMINOPHEN 500 MG TAB PO SCH (21:16)
[2019-02-23] MEDS: ASPIRIN 81 MG ECTAB PO SCH (21:16)
[2019-02-23] MEDS: SIMVASTATIN 40 MG TAB PO SCH (21:16)
[2019-02-23] MEDS: SENNA 8.6 MG TAB PO SCH (21:16)
[2019-02-24] MEDS: ACETAMINOPHEN 500 MG TAB PO SCH ×3 (05:28→21:14)
[2019-02-24] MEDS: KETOROLAC 30 MG/ML VIAL IV SCH ×4 (05:28→23:52)
[2019-02-24 06:31] LABS: Hematocrit (blood only) 34.6 % (37-47); Mean Corpuscular Hemoglobin 29.9 pg (25-34); Mean Corpuscular Hgb Conc 31.8 g/dL (32-36); Mean Platelet Volume 9.7 fL (7.4-10.4); Platelet Count 198 K/uL (130-400); RDW Coefficient of Variation 14.4 % (11.5-14.5); RDW Standard Deviation 49.4 fL (36.4-46.3); Red Blood Count 3.68 M/uL (4.2-5.4); White Blood Count 6.66 K/uL (4.8-10.8)
[2019-02-24 07:05] LABS: BUN Creatinine Ratio 22.1 (10-20); Calcium 8.2 mg/dl (8.5-10.1); Creatinine Clr Calc Pharmacy 80.5 ml/min; Est GFR (Non-African American) 76.8
[2019-02-24] MEDS: PAXIL 37.5 MG PO SCH (07:28)
[2019-02-24] MEDS: ASCORBIC ACID 500 MG TAB PO SCH ×2 (07:28→18:08)
[2019-02-24] MEDS: FERROUS GLUCONATE 324 MG TAB PO SCH ×2 (07:28→18:08)
[2019-02-24] MEDS: PARoxetine HCl CONTROLLED REL 12.5 MG TABCR PO SCH (07:29)
--- NOTE | 2019-02-24 07:55 | Progress Note ---
DATE: 02/24/2019 SUBJECTIVE: A 63-year-old female postop day 1 from right knee replacement. She had a pretty good night. Pain has been remarkably well controlled. No chest pain or shortness of breath. Not feeling dizzy or lightheaded. OBJECTIVE: VITAL SIGNS: Temperature 36.9. Vital signs stable. GENERAL: Shows a pleasant, middle-aged female. Lying in bed, looks completely comfortable. LUNGS: Clear to auscultation. HEART: Regular rate and rhythm. ABDOMEN: Soft, nontender, nondistended. EXTREMITIES: Grossly neurovascularly intact except as follows: Examination of the right lower extremity reveals the leg to be well aligned. Dressing is clean, dry and intact. She can dorsiflex and plantarflex her foot appropriately. She is neurologically intact. LABORATORY DATA: Hemoglobin 11.0. Hematocrit 34.6. Electrolytes are stable. ASSESSMENT: A 63-year-old white female postoperative day 1 from right knee replacement, doing well. Pain is controlled. She is neurologically intact. PLAN: 1. DVT prophylaxis including thigh-high TEDs, SCDs, and aspirin twice a day. 2. PT/OT. Weight bear as tolerated. Right total knee protocol. 3. Pain control, doing well with current pain regimen. 4. Disposition: Plan to be discharged to home with some home health once adequately recovered and medically stable.
[2019-02-24] MEDS: ASPIRIN 81 MG ECTAB PO SCH ×2 (08:27→21:13)
[2019-02-24] MEDS: MULTIVITAMIN TAB PO SCH (08:27)
[2019-02-24] MEDS: TAPENTADOL HCL ER 50 MG TABCR PO SCH ×2 (08:27→21:13)
[2019-02-24] MEDS: DOCUSATE SODIUM 100 MG CAP PO SCH ×2 (08:27→21:13)
[2019-02-24] MEDS: PANTOprazole 40 MG TAB PO SCH (08:27)
[2019-02-24] MEDS: CEROVITE ADV FORMULA TAB PO SCH (08:27)
--- NOTE | 2019-02-24 08:27 | Anesthesiology Progress Note ---
Date of Service February 24, 2019 Anesthesia Post Procedure Vital Signs Vital Signs: Temp Pulse Pulse Pulse Resp BP BP 02/24/19 07:51 36.5 C 69 16 122/75 02/24/19 02:44 36.9 C 68 14 105/67 02/23/19 23:33 36.5 C 76 16 109/68 02/23/19 19:19 37.1 C 88 18 127/74 02/23/19 18:22 36.8 C 84 17 123/73 02/23/19 17:33 36.8 C 76 17 126/79 02/23/19 16:47 36.4 C L 84 17 112/73 02/23/19 16:20 36.5 C 80 17 118/73 02/23/19 15:55 36.9 C 99 H 20 121/71 02/23/19 15:40 95 H 18 122/75 02/23/19 15:30 94 H 18 124/75 02/23/19 15:20 91 H 18 140/93 02/23/19 15:12 36.6 C 98 H 16 146/80 H 02/23/19 10:45 36.6 C 88 18 174/89 H Pulse Ox 02/24/19 07:51 92 02/24/19 02:44 97 02/23/19 23:33 91 02/23/19 19:19 96 02/23/19 18:22 98 02/23/19 17:33 98 02/23/19 16:47 97 02/23/19 16:20 97 02/23/19 15:55 99 02/23/19 15:40 99 02/23/19 15:30 99 02/23/19 15:20 99 02/23/19 15:12 99 02/23/19 10:45 98 Pain Intensity Right Knee: Pain Intensity: 2 Notes Mental Status: alert / awake / arousable and participated in evaluation Patient Amnestic to Procedure: Yes Nausea / Vomiting: adequately controlled Pain: adequately controlled Airway Patency, RR, SpO2: stable & adequate BP & HR: stable & adequate Hydration State: stable & adequate Neuraxial Anesthesia: was administered and sensory block resolved Anesthetic Complications: no major complications apparent
[2019-02-24] MEDS: OXYCODONE HCL IR 5 MG TAB (IMMEDIATE RELEASE) PO PRN ×4 (08:30→22:25)
[2019-02-24] MEDS ORDERED: PARoxetine HCl CONTROLLED REL 12.5 MG TABCR PO SCH ×2 (09:00)
[2019-02-24] MEDS: SIMVASTATIN 40 MG TAB PO SCH (21:13)
[2019-02-24] MEDS: SENNA 8.6 MG TAB PO SCH (21:13)
[2019-02-25] MEDS: KETOROLAC 30 MG/ML VIAL IV SCH (05:42)
[2019-02-25] MEDS: ACETAMINOPHEN 500 MG TAB PO SCH (05:42)
[2019-02-25] MEDS: MULTIVITAMIN TAB PO SCH (07:29)
[2019-02-25] MEDS: PANTOprazole 40 MG TAB PO SCH (07:29)
[2019-02-25] MEDS: FERROUS GLUCONATE 324 MG TAB PO SCH (07:29)
[2019-02-25] MEDS: ASCORBIC ACID 500 MG TAB PO SCH (07:29)
[2019-02-25] MEDS: CEROVITE ADV FORMULA TAB PO SCH (07:29)
[2019-02-25] MEDS: ASPIRIN 81 MG ECTAB PO SCH (07:30)
[2019-02-25] MEDS: DOCUSATE SODIUM 100 MG CAP PO SCH (07:30)
[2019-02-25] MEDS: PARoxetine HCl CONTROLLED REL 12.5 MG TABCR PO SCH (07:31)
[2019-02-25] MEDS: PAXIL 37.5 MG PO SCH (07:31)
[2019-02-25] MEDS: TAPENTADOL HCL ER 50 MG TABCR PO SCH (07:33)
[2019-02-25] MEDS: OXYCODONE HCL IR 5 MG TAB (IMMEDIATE RELEASE) PO PRN (07:40)
--- NOTE | 2019-02-25 07:48 | Progress Note ---
DATE: 02/25/2019 SUBJECTIVE: A 63-year-old female postop day 2 from a right knee replacement. She is doing well. Pain is controlled. No chest pain or shortness of breath. Not feeling dizzy or lightheaded. OBJECTIVE: VITAL SIGNS: Temperature 36.4. Vital signs stable. GENERAL: Shows a pleasant, middle-aged female. She is sitting up in her bedside chair eating breakfast and looks comfortable. EXTREMITIES: Examination of the right leg reveals the dressing to be clean, dry and intact. Fairly mild swelling. Calf is soft and supple. She is neurologically intact. ASSESSMENT: A 63-year-old white female postoperative day 2 from right knee replacement, doing well. Pain is controlled. She is neurologically intact. PLAN: 1. DVT prophylaxis including thigh-high TEDs, SCDs, and aspirin twice a day. 2. PT/OT. Weight bear as tolerated. Right total knee protocol. 3. Pain control, doing well with current pain regimen. 4. Disposition: Plan to discharge her home with some home health later today.
--- NOTE | 2019-03-01 22:47 | Discharge Summary ---
ADMITTING PHYSICIAN AND SURGEON: Dr. Chidi Tolentino. ADMITTING DIAGNOSIS: Right knee degenerative joint disease. SURGERY PERFORMED: Right total knee arthroplasty. SECONDARY DIAGNOSES: Elevated cholesterol, anxiety, depression, cervical spondylosis, gastroesophageal reflux disease, obesity. CONSULTS: None obtained. HISTORY AND PHYSICAL EXAMINATION: Well documented in the patient's chart. HOSPITAL COURSE: The patient was admitted on 02/23/2019, underwent total knee arthroplasty, tolerated the procedure well. There were no complications. She was transferred to the PACU postoperatively and later to the orthopedic floor for further care. She was given vancomycin postoperatively, LALITO stockings, SCDs and aspirin for DVT prophylaxis. Hemoglobin, hematocrit and vital signs were monitored during her hospital stay and remained stable. She did not require any blood transfusions. There were no complications. By postoperative day 2, she was tolerating a regular diet, pain was controlled with oral pain medicine. She was participating in physical therapy. By postop day 2, she was discharged home, set up with home health services. She was given printed discharge instructions as well as new prescriptions for extra strength Tylenol, aspirin, iron supplement and oxycodone. Continue her home medicines with exception of Tylenol and tramadol, which were home dosing, changed. Continue physical therapy, weightbearing as tolerated, LALITO stockings. Follow up approximately 2 weeks postop or sooner if there are any problems or concerns.
== END 2019-02-25 11:40 | disposition home health service (06) | DRG 470 ==
LOC: ASU 10:16 → 3E 15:11

== ENCOUNTER 2020-02-11 17:13 | Inpatient (IN) ==
[2020-02-11] MEDS ORDERED: SODIUM CHLORIDE 0.9% 1000ML 1,000 ML IV SCH (17:45)
[2020-02-11 18:00] LABS: Appearance Urine Cloudy (Clear); Bacteria Urine Automated 1+ (Negative); Bilirubin Urine Negative (Negative); Blood Urine 1+ (Negative); Color Urine Dark Yellow; Epithelial Cell Urine Auto 20-30 /lpf (0-5); Glucose Urine UA Negative (Negative); Ketones Urine Negative (Negative); Leukocyte Esterase Urine 3+ (Negative); Nitrite Urine Negative (Negative); Protein Urine 1+ (Negative); Specific Gravity Urine 1.015 (1.000-1.030); Urobilinogen Urine Negative (Negative); WBC Urine Automated >30 /hpf (0-5); pH Urine 6.5 (4.5-7.5)
[2020-02-11 18:10] LABS: Basophils # (auto) 0.03 K/uL (0-0.2); Basophils % (auto) 0.3 %; Eosinophils # (auto) 0.04 K/uL (0-0.5); Eosinophils % (auto) 0.4 %; Hematocrit (blood only) 40.9 % (37-47); Hemoglobin 13.2 g/dL (12.0-16.0); Immature Granulocytes # (auto) 0.04 K/uL (0.00-0.02); Immature Granulocytes % (auto) 0.4 %; Lymphocytes # (auto) 0.86 K/uL (1.2-3.4); Mean Corpuscular Hemoglobin 29.3 pg (25-34); Mean Corpuscular Hgb Conc 32.3 g/dL (32-36); Mean Corpuscular Volume 90.9 fL (80-100); Mean Platelet Volume 10.2 fL (7.4-10.4); Monocytes # (auto) 1.18 K/uL (0.11-0.59); Monocytes % (auto) 12.4 %; Neutrophils # (auto) 7.36 K/uL (1.4-6.5); Neutrophils % (auto) 77.5 %; Platelet Count 256 K/uL (130-400); RDW Coefficient of Variation 14.6 % (11.5-14.5); RDW Standard Deviation 49.1 fL (36.4-46.3); White Blood Count 9.51 K/uL (4.8-10.8)
[2020-02-11 18:20] LABS: INR 1.1 (0.9-1.1); Partial Thromboplastin Ratio 0.9; Prothrombin Time 11.2 Seconds (9.0-12.0)
[2020-02-11 18:31] LABS: Alanine Aminotransferase 22 U/L (12-78); Albumin Level 3.4 gm/dl (3.4-5.0); Aspartate Aminotransferase 17 U/L (15-37); Blood Urea Nitrogen 14 mg/dl (7-18); Calcium 9.3 mg/dl (8.5-10.1); Carbon Dioxide 23 mmol/L (21-32); Chloride 106 mmol/L (98-107); Est GFR (African American) 78.8; Glucose 125 mg/dl (70-99); Magnesium 2.1 mg/dl (1.8-2.4); Potassium 3.8 mmol/L (3.5-5.1); Sodium 138 mmol/L (136-145)
[2020-02-11 18:36] LABS: Albumin Globulin Ratio 0.8 (0.9-2); Alkaline Phosphatase 107 U/L (45-117); Bilirubin,Total 1.3 mg/dl (0.2-1); Globulin 4.1 gm/dl (2.5-4.0); Total Protein 7.5 gm/dl (6.4-8.2); Troponin I < 0.015 ng/ml (0-0.045)
[2020-02-11] MEDS ORDERED: CIPROFLOXACIN / D5W 400 MG/200 ML BAG IV STA (18:47)
[2020-02-11] MEDS ORDERED: IOVERSOL 100ml IV ONE (18:52)
--- NOTE | 2020-02-11 19:15 | CT Scan Report ---
ABDOMEN AND PELVIS CT WITH IV CONTRAST CT DOSE: 1392.32 mGy.cm HISTORY: Acute bilateral flank pain with recent urinary tract infection. pyelonephritis, h/o kidney stones TECHNIQUE: Multiaxial CT images of the abdomen and pelvis were performed following the IV administrat ion of 94 cc of Optiray 320, A dose lowering technique was utilized adhering to the principles of AL MARYANNE. COMPARISON STUDY: CT abdomen and pelvis 02/25/2019 FINDINGS: Clear lung bases. No pneumatosis or pneumoperitoneum. The imaged inferior cardiac chambers are unremarkable. Unremarkable spleen, pancreas and adrenal glands. Gallbladder appears normal. Hepat ic steatosis. There are a few unchanged scattered subcentimeter hypodensities of the liver which are too small to characterize and likely benign. Patency of the hepatic and portal veins. 4 mm nonobstructing calculus of the superior pole right kidney. Slightly delayed left-sided nephrogra m with mild left-sided hydroureteronephrosis. 6 x 4 x 6 mm calculus is noted just distal to the urete ropelvic junction at the level of L3. No additional ureteral calculi. Unremarkable urinary bladder an d uterus. Resolution of the previously noted cystic adnexal foci. Aorta and IVC are unremarkable. The re is no adenopathy. No bowel obstruction or bowel wall thickening. Small hiatal hernia. Mild colonic diverticulosis witho ut acute diverticulitis. Terminal ileum and appendix are unremarkable. Prior ventral abdominal wall h erniorrhaphy. Degenerative changes of the hips, pelvis and spine. Moderate disc space narrowing with posterior disc osteophyte complex at L5-S1. IMPRESSION: 1. Mild left-sided hydroureteronephrosis and delayed nephrogram secondary to an obstructing 6 x 4 x 6 mm calculus of the proximal left ureter at the level of L3. 2. Right nephrolithiasis. 3. Colonic diverticulosis 4. Small hiatal hernia 5. Hepatic steatosis. ACT 112: Negative or not required by law. The above report was generated using voice recognition software. It may contain grammatical, syntax o r spelling errors. Electronically signed by: Cm Stone M.D. 02/11/2020 7:14 PM
--- NOTE | 2020-02-11 19:31 | XRay Report ---
XR chest 1V portable HISTORY: 64 years-old Female SEPSIS acute sepsis COMPARISON: CT abdomen and pelvis of same day, chest radiograph 06/28/2018 TECHNIQUE: Portable AP view of the chest FINDINGS: Cardiac silhouette is mildly enlarged. There is no pneumothorax, pleural effusion, airspace consolida tion or overt pulmonary edema. Reverse right shoulder total joint arthroplasty. Degenerative changes of the left shoulder and spine. IMPRESSION: No acute process. ACT 112: Negative or not required by law. The above report was generated using voice recognition software. It may contain grammatical, syntax o r spelling errors. Electronically signed by: Cm Stone M.D. 02/11/2020 7:30 PM
[2020-02-11] MEDS ORDERED: POLYETHYLENE (MIRALAX) 17 GM PACK PO PRN (20:27)
--- NOTE | 2020-02-11 20:40 | Emergency Department Note ---
History of Present Illness General Chief complaint: Illness Stated complaint: LETHARGIC, ELIZONDO, CRAMPS, LOWER BACK PAIN Source: patient and RN notes reviewed Mode of arrival: ambulatory Limitations: no limitations History of Present Illness Provider complaint: Chills, weakness, headache, abdominal cramps Maximum Pain Intensity: 5 This patient is a 64-year-old female who presents emergency department with complaints of chills, weakness, headache and abdominal cramps over the last 24 hours. Patient states she did take Tylenol earlier in an effort to get rid of her headache. She believes she may have a UTI as this is a recurrent issue for her. She does have a history of kidney stones but believes this pain is much different. She does admit to nasal congestion with her recent headache. Patient does not have any known COVID exposures and denies significant shortness of breath or cough. She denies vomiting, diarrhea. Home Medications Home Medications Medication Instructions Recorded Confirmed Type One Daily For Women 1 tab PO QAM 06/03/18 02/11/20 History albuterol sulfate [Ventolin HFA] 2 puff INHALATION QID PRN 06/03/18 02/11/20 History fexofenadine [Cristina Allergy] 180 mg PO QAM PRN 06/03/18 02/11/20 History fluticasone propionate [Flonase 2 spray INTRANASAL DAILY PRN 06/03/18 02/11/20 History Allergy Relief] lansoprazole [Prevacid] 30 mg PO QAM 06/03/18 02/11/20 History meclizine 25 mg PO TID PRN 06/03/18 02/11/20 History oxymetazoline [Afrin 2 spray INTRANASAL Q12H PRN 06/03/18 02/11/20 History (oxymetazoline)] paroxetine HCl [Paxil CR] 12.5 mg PO QAM 06/03/18 02/11/20 History paroxetine HCl [Paxil CR] 37.5 mg PO QAM 06/03/18 02/11/20 History simvastatin [Zocor] 40 mg PO HS 06/03/18 02/11/20 History acetaminophen [Tylenol Extra 500 mg PO Q6H PRN 02/11/20 02/11/20 History Strength] Allergies Allergy/AdvReac Type Severity Reaction Status Date / Time amitriptyline Allergy Intermediate RASH AND Verified 02/11/20 18:37 FEET SWELLING Cephalosporins Allergy Intermediate RASH AND Verified 02/11/20 18:37 TACHYCARDIA lorazepam Allergy Intermediate RASH Verified 02/11/20 18:37 cefazolin Allergy RASH Verified 02/11/20 18:37 Bactrim AdvReac Intermediate SEVERE GI Verified 12/20/17 18:10 UPSET; DIAPHORESIS; HOT FLASHES sulfamethoxazole AdvReac Intermediate SEVERE GI Verified 02/11/20 18:37 UPSET; DIAPHORESIS; HOT FLASHES trimethoprim AdvReac Intermediate SEVERE GI Verified 02/11/20 18:37 UPSET; DIAPHORESIS; HOT FLASHES clarithromycin AdvReac Mild GI UPSET Verified 02/11/20 18:37 clavulanic acid AdvReac Mild SEVERE Verified 02/11/20 18:37 NAUSEA nitrofurantoin AdvReac Mild GI UPSET Verified 02/11/20 18:37 Penicillins AdvReac Mild SEVERE Verified 02/11/20 18:37 NAUSEA Past Med/Surg History Medical History Anxiety Depression Dyslipidemia GERD (gastroesophageal reflux disease) controlled Hx of migraines Hx of sepsis s/p right tka d/t an undetected UTI (February 2019) Obesity Osteoarthritis Seasonal allergies Urinary tract infection gets UTI following any urinary catheterization, is prone to UTI and does not show typical signs and symptoms. Surgical History H/O dilation and curettage H/O sinus surgery H/O umbilical hernia repair History of bilateral knee replacement History of carpal tunnel release of both wrists History of colonoscopy History of left knee replacement Left TKA: 10/30/17: SAB x 1 at L3-L4 + PNB at [facility] History of right shoulder replacement History of rotator cuff surgery RIGHT History of tonsillectomy and adenoidectomy Hx of tubal ligation S/P excision of ganglion cyst finger Status post right knee replacement Family History Other No significant family history Social History Smoking Status: Never smoker Second Hand Exposure: No; Hx Alcohol Use: No Hx Substance Use: No Preferred Language: Lithuanian Communication Ability: Effective Continuous Towel Roller Required: No Beliefs That Will Affect Care: None marital status: Current Living Situation: Alone current occupational status: retired Feels Safe at Home: Yes Safety Concerns: Feels Safe At This Time Assistive Devices: Glasses Review of Systems See HPI for pertinent positives & negatives. and A total of 10 systems reviewed and were otherwise negative Physical Exam Vital Signs Vital Signs - 24 hr 02/11/20 17:18 02/11/20 17:37 02/11/20 17:50 Temperature 36.7 C 37.8 C H Temperature Source Oral Oral Pulse Rate 100 H Pulse Rate [Left Finger] 74 Pulse Rate from SpO2 Sensor Respiratory Rate 18 22 16 Respiratory Effort / Characteristics Non-Labored Spontaneous Non-Labored Spontaneous Respiratory Depth Normal Blood Pressure 121/82 Blood Pressure [Left Arm] 162/97 H Blood Pressure Mean 95 Blood Pressure Mean [Left Arm] 118 Blood Pressure Position Sitting Pulse Oximetry 98 96 96 Oxygen Delivery Method Room Air Room Air Room Air Sepsis Recent Fever Within 48 Hours No Sepsis New/Unexplained Change in Mental Status No Sepsis Action Taken by Nursing No Action Required 02/11/20 18:20 02/11/20 19:00 02/11/20 19:10 Temperature Temperature Source Pulse Rate 84 Pulse Rate [Left Finger] Pulse Rate from SpO2 Sensor 83 Respiratory Rate 16 18 12 Respiratory Effort / Characteristics Non-Labored Spontaneous Non-Labored Spontaneous Respiratory Depth Blood Pressure 118/78 Blood Pressure [Left Arm] Blood Pressure Mean 92 Blood Pressure Mean [Left Arm] Blood Pressure Position Pulse Oximetry 96 96 92 Oxygen Delivery Method Room Air Room Air Room Air Sepsis Recent Fever Within 48 Hours Sepsis New/Unexplained Change in Mental Status Sepsis Action Taken by Nursing 02/11/20 20:00 02/11/20 20:30 Temperature Temperature Source Pulse Rate 79 Pulse Rate [Left Finger] Pulse Rate from SpO2 Sensor 79 Respiratory Rate 22 Respiratory Effort / Characteristics Non-Labored Spontaneous Respiratory Depth Blood Pressure Blood Pressure [Left Arm] Blood Pressure Mean Blood Pressure Mean [Left Arm] Blood Pressure Position Pulse Oximetry 97 Oxygen Delivery Method Room Air Sepsis Recent Fever Within 48 Hours Sepsis New/Unexplained Change in Mental Status Sepsis Action Taken by Nursing Vital signs reviewed. Low-grade fever noted. General: Generally well-appearing 64-year-old female, in no significant distress HEENT: No scleral icterus, PERRLA, neck supple. Atraumatic. Cardiovascular: Regular rate and rhythm, no extra sounds. Pulmonary: Clear to auscultation bilaterally, normal work of breathing. Abdomen: Soft, obese, nontender, nondistended, positive bowel sounds. Musculoskeletal: Atraumatic, no peripheral edema. No CVA tenderness Neurologic: Patient awake alert and oriented x 3 Skin: Warm, diaphoretic, no rash Course Administered Medications Sodium Chloride (Nss 1000ml) 1,000 mls @ 80 mls/hr IV .[id number] JOANN Stop: 03/12/20 20:44 Last Admin: 02/11/20 21:01 Dose: 80 mls/hr Documented by: [id number] Simvastatin (Simvastatin 40 Mg Tab) 40 mg PO HS JOANN Stop: 03/12/20 22:14 Last Admin: 02/11/20 22:50 Dose: 40 mg Documented by: [id number] Discontinued Medications Sodium Chloride (Nss 1000ml) 1,000 mls @ 999 mls/hr IV .[id number] JOANN Stop: 02/11/20 18:45 Last Infusion: 02/11/20 19:23 Dose: 0 mls/hr Documented by: [id number] Admin: 02/11/20 18:10 Dose: 999 mls/hr Documented by: [id number] Ciprofloxacin (Cipro / D5w) 400 mg in 200 mls @ 100 mls/hr IV NOW STA; Protocol Stop: 02/11/20 20:46 Last Infusion: 02/11/20 21:08 Dose: 0 mls/hr Documented by: [id number] Admin: 02/11/20 19:03 Dose: 100 mls/hr Documented by: [id number] Ioversol (Ioversol 100ml) 94 ml IV ONCE ONE Stop: 02/11/20 18:53 Last Admin: 02/11/20 18:52 Dose: 94 ml Documented by: [id number] Medical Decision Making Differential Diagnosis Differential diagnosis: Etiologies such as viral syndrome, otitis, pharyngitis, pneumonia, influenza, meningitis, urinary tract infection, septic arthritis, soft tissue infectious process, intra-abdominal process, sepsis, bacteremia, as well as others were entertained. Medical Records Attestation: I reviewed the patient's medical records. Home Medications Current Medication List: was personally reviewed by me Laboratory Data Attestation: I reviewed the patient's lab results. Result diagrams: 02/11/20 17:58 02/11/20 17:58 Lab Results 02/11/20 02/11/20 02/11/20 Range/Units 17:30 17:53 17:53 WBC (4.8-10.8) K/uL RBC (4.2-5.4) M/uL Hgb (12.0-16.0) g/dL Hct (37-47) % MCV (80-100) fL MCH (25-34) pg MCHC (32-36) g/dL RDW Std Deviation (36.4-46.3) fL RDW Coeff of Lucien (11.5-14.5) % Plt Count (130-400) K/uL MPV (7.4-10.4) fL Immature Gran % (Auto) % Neut % (Auto) % Lymph % (Auto) % Maries % (Auto) % Eos % (Auto) % Baso % (Auto) % Neut # (Auto) (1.4-6.5) K/uL Lymph # (Auto) (1.2-3.4) K/uL Maries # (Auto) (0.11-0.59) K/uL Eos # (Auto) (0-0.5) K/uL Baso # (Auto) (0-0.2) K/uL Immature Gran # (Auto) (0.00-0.02) K/uL PT (9.0-12.0) Seconds INR (0.9-1.1) APTT (21.0-31.0) Seconds PTT Ratio Sodium (136-145) mmol/L Potassium (3.5-5.1) mmol/L Chloride (98-107) mmol/L Carbon Dioxide (21-32) mmol/L Anion Gap (3-11) BUN (7-18) mg/dl Creatinine (0.6-1.2) mg/dl Est Cr Clr Drug Dosing ml/min Est GFR ( Amer) Est GFR (Non-Af Amer) BUN/Creatinine Ratio (10-20) Glucose (70-99) mg/dl Lactate (0.4-2.0) mmol/L Calcium (8.5-10.1) mg/dl Magnesium (1.8-2.4) mg/dl Total Bilirubin (0.2-1) mg/dl AST (15-37) U/L ALT (12-78) U/L Alkaline Phosphatase (45-117) U/L Troponin I (0-0.045) ng/ml Total Protein (6.4-8.2) gm/dl Albumin (3.4-5.0) gm/dl Globulin (2.5-4.0) gm/dl Albumin/Globulin Ratio (0.9-2) Procalcitonin (0-0.5) ng/ml Urine Color Dark Yellow Urine Appearance Cloudy A (Clear) Urine pH 6.5 (4.5-7.5) Ur Specific [place] 1.015 (1.000-1.030) Urine Protein 1+ H (Negative) Urine Glucose (UA) Negative (Negative) Urine Ketones Negative (Negative) Urine Blood 1+ H (Negative) Urine Nitrite Negative (Negative) Urine Bilirubin Negative (Negative) Urine Urobilinogen Negative (Negative) Ur Leukocyte Esterase 3+ H (Negative) Urine WBC (Auto) >30 H (0-5) /hpf Urine RBC (Auto) 5-10 H (0-4) /hpf U Hyaline Cast (Auto) 10-30 H (0-5) /lpf U Epithel Cells (Auto) 20-30 H (0-5) /lpf Urine Bacteria (Auto) 1+ H (Negative) COVID-19 Eval Order Covid19 Done at [facility] COVID-19 PCR NEGATIVE (Negative) 02/11/20 02/11/20 02/11/20 Range/Units 17:58 17:58 17:58 WBC 9.51 (4.8-10.8) K/uL RBC 4.50 (4.2-5.4) M/uL Hgb 13.2 (12.0-16.0) g/dL Hct 40.9 (37-47) % MCV 90.9 (80-100) fL MCH 29.3 (25-34) pg MCHC 32.3 (32-36) g/dL RDW Std Deviation 49.1 H (36.4-46.3) fL RDW Coeff of Lucien 14.6 H (11.5-14.5) % Plt Count 256 (130-400) K/uL MPV 10.2 (7.4-10.4) fL Immature Gran % (Auto) 0.4 % Neut % (Auto) 77.5 % Lymph % (Auto) 9.0 % Maries % (Auto) 12.4 % Eos % (Auto) 0.4 % Baso % (Auto) 0.3 % Neut # (Auto) 7.36 H (1.4-6.5) K/uL Lymph # (Auto) 0.86 L (1.2-3.4) K/uL Maries # (Auto) 1.18 H (0.11-0.59) K/uL Eos # (Auto) 0.04 (0-0.5) K/uL Baso # (Auto) 0.03 (0-0.2) K/uL Immature Gran # (Auto) 0.04 H (0.00-0.02) K/uL PT 11.2 (9.0-12.0) Seconds INR 1.1 (0.9-1.1) APTT 26.0 (21.0-31.0) Seconds PTT Ratio 0.9 Sodium (136-145) mmol/L Potassium (3.5-5.1) mmol/L Chloride (98-107) mmol/L Carbon Dioxide (21-32) mmol/L Anion Gap (3-11) BUN (7-18) mg/dl Creatinine (0.6-1.2) mg/dl Est Cr Clr Drug Dosing ml/min Est GFR ( Amer) Est GFR (Non-Af Amer) BUN/Creatinine Ratio (10-20) Glucose (70-99) mg/dl Lactate (0.4-2.0) mmol/L Calcium (8.5-10.1) mg/dl Magnesium (1.8-2.4) mg/dl Total Bilirubin (0.2-1) mg/dl AST (15-37) U/L ALT (12-78) U/L Alkaline Phosphatase (45-117) U/L Troponin I (0-0.045) ng/ml Total Protein (6.4-8.2) gm/dl Albumin (3.4-5.0) gm/dl Globulin (2.5-4.0) gm/dl Albumin/Globulin Ratio (0.9-2) Procalcitonin 0.19 (0-0.5) ng/ml Urine Color Urine Appearance (Clear) Urine pH (4.5-7.5) Ur Specific [place] (1.000-1.030) Urine Protein (Negative) Urine Glucose (UA) (Negative) Urine Ketones (Negative) Urine Blood (Negative) Urine Nitrite (Negative) Urine Bilirubin (Negative) Urine Urobilinogen (Negative) Ur Leukocyte Esterase (Negative) Urine WBC (Auto) (0-5) /hpf Urine RBC (Auto) (0-4) /hpf U Hyaline Cast (Auto) (0-5) /lpf U Epithel Cells (Auto) (0-5) /lpf Urine Bacteria (Auto) (Negative) COVID-19 Eval Order COVID-19 PCR (Negative) 02/11/20 02/11/20 Range/Units 17:58 17:58 WBC (4.8-10.8) K/uL RBC (4.2-5.4) M/uL Hgb (12.0-16.0) g/dL Hct (37-47) % MCV (80-100) fL MCH (25-34) pg MCHC (32-36) g/dL RDW Std Deviation (36.4-46.3) fL RDW Coeff of Lucien (11.5-14.5) % Plt Count (130-400) K/uL MPV (7.4-10.4) fL Immature Gran % (Auto) % Neut % (Auto) % Lymph % (Auto) % Maries % (Auto) % Eos % (Auto) % Baso % (Auto) % Neut # (Auto) (1.4-6.5) K/uL Lymph # (Auto) (1.2-3.4) K/uL Maries # (Auto) (0.11-0.59) K/uL Eos # (Auto) (0-0.5) K/uL Baso # (Auto) (0-0.2) K/uL Immature Gran # (Auto) (0.00-0.02) K/uL PT (9.0-12.0) Seconds INR (0.9-1.1) APTT (21.0-31.0) Seconds PTT Ratio Sodium 138 (136-145) mmol/L Potassium 3.8 (3.5-5.1) mmol/L Chloride 106 (98-107) mmol/L Carbon Dioxide 23 (21-32) mmol/L Anion Gap 9.0 (3-11) BUN 14 (7-18) mg/dl Creatinine 0.89 (0.6-1.2) mg/dl Est Cr Clr Drug Dosing 73.0 ml/min Est GFR ( Amer) 78.8 Est GFR (Non-Af Amer) 68.0 BUN/Creatinine Ratio 16.0 (10-20) Glucose 125 H (70-99) mg/dl Lactate 1.3 (0.4-2.0) mmol/L Calcium 9.3 (8.5-10.1) mg/dl Magnesium 2.1 (1.8-2.4) mg/dl Total Bilirubin 1.3 H (0.2-1) mg/dl AST 17 (15-37) U/L ALT 22 (12-78) U/L Alkaline Phosphatase 107 (45-117) U/L Troponin I < 0.015 (0-0.045) ng/ml Total Protein 7.5 (6.4-8.2) gm/dl Albumin 3.4 (3.4-5.0) gm/dl Globulin 4.1 H (2.5-4.0) gm/dl Albumin/Globulin Ratio 0.8 L (0.9-2) Procalcitonin (0-0.5) ng/ml Urine Color Urine Appearance (Clear) Urine pH (4.5-7.5) Ur Specific [place] (1.000-1.030) Urine Protein (Negative) Urine Glucose (UA) (Negative) Urine Ketones (Negative) Urine Blood (Negative) Urine Nitrite (Negative) Urine Bilirubin (Negative) Urine Urobilinogen (Negative) Ur Leukocyte Esterase (Negative) Urine WBC (Auto) (0-5) /hpf Urine RBC (Auto) (0-4) /hpf U Hyaline Cast (Auto) (0-5) /lpf U Epithel Cells (Auto) (0-5) /lpf Urine Bacteria (Auto) (Negative) COVID-19 Eval Order COVID-19 PCR (Negative) Imaging Data Radiologist's Impression: XR chest 1V portable HISTORY: 64 years-old Female SEPSIS acute sepsis COMPARISON: CT abdomen and pelvis of same day, chest radiograph 06/28/2018 TECHNIQUE: Portable AP view of the chest FINDINGS: Cardiac silhouette is mildly enlarged. There is no pneumothorax, pleural effusion, airspace consolidation or overt pulmonary edema. Reverse right shoulder total joint arthroplasty. Degenerative changes of the left shoulder and spine. IMPRESSION: No acute process. ACT 112: Negative or not required by law. The above report was generated using voice recognition software. It may contain grammatical, syntax or spelling errors. Electronically signed by: Cm Stone M.D. 02/11/2020 7:30 PM Dictated: 02/11/201928 Transcribed: 02/11/201928 ABDOMEN AND PELVIS CT WITH IV CONTRAST CT DOSE: 1392.32 mGy.cm HISTORY: Acute bilateral flank pain with recent urinary tract infection. pyelonephritis, h/o kidney stones TECHNIQUE: Multiaxial CT images of the abdomen and pelvis were performed following the IV administration of 94 cc of Optiray 320, A dose lowering technique was utilized adhering to the principles of ALARA. COMPARISON STUDY: CT abdomen and pelvis 02/25/2019 FINDINGS: Clear lung bases. No pneumatosis or pneumoperitoneum. The imaged inferior cardiac chambers are unremarkable. Unremarkable spleen, pancreas and adrenal glands. Gallbladder appears normal. Hepatic steatosis. There are a few unchanged scattered subcentimeter hypodensities of the liver which are too small to characterize and likely benign. Patency of the hepatic and portal veins. 4 mm nonobstructing calculus of the superior pole right kidney. Slightly delayed left-sided nephrogram with mild left-sided hydroureteronephrosis. 6 x 4 x 6 mm calculus is noted just distal to the ureteropelvic junction at the level of L3. No additional ureteral calculi. Unremarkable urinary bladder and uterus. Resolution of the previously noted cystic adnexal foci. Aorta and IVC are unremarkable. There is no adenopathy. No bowel obstruction or bowel wall thickening. Small hiatal hernia. Mild colonic diverticulosis without acute diverticulitis. Terminal ileum and appendix are unremarkable. Prior ventral abdominal wall herniorrhaphy. Degenerative changes of the hips, pelvis and spine. Moderate disc space narrowing with posterior disc osteophyte complex at L5-S1. IMPRESSION: 1. Mild left-sided hydroureteronephrosis and delayed nephrogram secondary to an obstructing 6 x 4 x 6 mm calculus of the proximal left ureter at the level of L3. 2. Right nephrolithiasis. 3. Colonic diverticulosis 4. Small hiatal hernia 5. Hepatic steatosis. ACT 112: Negative or not required by law. The above report was generated using voice recognition software. It may contain grammatical, syntax or spelling errors. Electronically signed by: Cm Stone M.D. 02/11/2020 7:14 PM Dictated: 02/11/201903 Transcribed: 02/11/201905 ECG Data Attestation: I personally reviewed and interpreted this ECG as follows: Indication: + diaphoresis Rate (beats per minute): 88 Rhythm: + normal sinus ECG Intervals/blocks: + Normal QRS ECG ST segments: + T-wave inversions (Inferior) ECG Findings: + Q waves (Inferior); no PACs and no PVCs Blood Pressure Blood Pressure Findings: Elevated blood pressure Blood Pressure Disposition: elevated BP felt to be situational MDM Narrative This patient was evaluated and appeared to be in no significant distress. IV access was obtained and laboratory work was drawn. An order for cardiac m onitoring was placed and the patient was noted to be in a normal sinus rhythm at 88 bpm. IV fluids were initiated and the patient was given Cipro 400 mg IV due to her multiple medication allergies. CT imaging of the abdomen pelvis was performed and reveals a 6 mm proximal obstructing ureteral stone on the left. Urinalysis is concerning for infection. Consultation with Dr. Ku of urology was placed. The patient has a normal WBC, normal lactate and procalcitonin with a low-grade fever. He will consult on the patient however she will be admitted by the hospitalist service for further management. Patient is aware of the plan and agrees. Impression & Plan Calculus of proximal left ureter, Acute UTI, Fever Discharge Plan Visit Data Chief Complaint: Illness Stated Complaint: LETHARGIC, ELIZONDO, CRAMPS, LOWER BACK PAIN ED Provider: Nneka Angeles Discharge Problem: Calculus of proximal left ureter, Acute UTI, Fever Patient Disposition: Admitted As Inpatient Discharge Instructions Interventions: ED Discharge Assessment Last Done: 02/11/20 21:30 Discharge Problem: Fever Qualifiers: Fever type: due to other condition Qualified Code(s): R50.81 - Fever presenting with conditions classified elsewhere
--- NOTE | 2020-02-11 20:41 | History & Physical Report ---
Date of Service February 11, 2020 Assessment & Plan (1) Renal stone: (2) UTI (urinary tract infection): Patient initially presented with left flank pain at the end of December, was evaluated by PCP She had renal ultrasound done, which showed bilateral kidney stones She then recovered, did not have any more pain Presented today with chills, tiredness and feeling foggy headed, she was concerned for recurrent UTI UA positive for bacteria, epithelial cells, leuk esterase, negative for nitrites CT abdomen pelvis showed 6 mm left ureteral stone WBC elevated at 9.5 thousand, tachycardia, at 100, no fever however temperature elevated at 37.8 Celsius Lactate 1.3, procalcitonin negative Blood cultures obtained, and currently pending Urine culture pending Received normal saline and ciprofloxacin in the ED, will continue Urology, Dr. Ku contacted, likely patient will undergo procedure tomorrow morning N.p.o. after midnight, Tylenol as needed (3) Anxiety: For anxiety/depression patient is on Paxil total of 50 mg daily However patient states that if she does not take her own and if she takes generic she does not feel well She will have family member bring her own medication She already took Paxil at home for today (02/11/20) (4) GERD (gastroesophageal reflux disease): -Continue home lansoprazole (5) Dyslipidemia: -Continue home simvastatin DVT ppx: SCDs Code: Full History of Present Illness Chief Complaint: Chills, feeling tired and "foggy headed", found to have obstr ucting renal stone Primary Care Provider: Contreras Shelton MD Mrs. Alvarado is a 64-year-old female with history of hyperlipidemia, GERD, anxiety/depression, recurrent UTIs, who presents with chills, feeling tired and" foggy headed". She had left flank pain at the end of December and was seen by her primary care provider at that time. Pain was quite excruciating, starting at left flank and radiating up front towards the groin. That has resolved since then however. And since seeing her primary care provider she felt well. Primary care provider did order ultrasound of her kidneys and bilateral kidney stones where identified. Patient reports that she has history of UTIs, and last year she ended up with urosepsis. She says that she never has typical dysuria symptoms such as burning with urinary frequency however she feels tired, have some chills and feels foggy in her head. As she was having these symptoms this afternoon, she called her daughter and wanted to be checked in the hospital as she was worried that she is having UTI. She denies having a fever at home. She denies any chest pain, shortness of breath, palpitations, abdominal pain, nausea or vomiting. In the ED her temperature however was elevated at 37.8 Celsius, and her heart rate was 100. White blood cell count was within normal limit however elevated from her normal, at 9.5 thousand. Therefore there was concern for sepsis. Blood cultures were obtained and currently pending. UA showed bacteria, epithelial cells, leuk esterase, nitrites were negative. CT abdomen pelvis did show 64 x 6 mm calculus of the proximal left ureter and urology, Dr. Ku, was contacted by ED provider. Patient received normal saline and ciprofloxacin in the emergency room. Allergies Allergy/AdvReac Type Severity Reaction Status Date / Time amitriptyline Allergy Intermediate RASH AND Verified 02/11/20 18:37 FEET SWELLING Cephalosporins Allergy Intermediate RASH AND Verified 02/11/20 18:37 TACHYCARDIA lorazepam Allergy Intermediate RASH Verified 02/11/20 18:37 cefazolin Allergy RASH Verified 02/11/20 18:37 Bactrim AdvReac Intermediate SEVERE GI Verified 12/20/17 18:10 UPSET; DIAPHORESIS; HOT FLASHES sulfamethoxazole AdvReac Intermediate SEVERE GI Verified 02/11/20 18:37 UPSET; DIAPHORESIS; HOT FLASHES trimethoprim AdvReac Intermediate SEVERE GI Verified 02/11/20 18:37 UPSET; DIAPHORESIS; HOT FLASHES clarithromycin AdvReac Mild GI UPSET Verified 02/11/20 18:37 clavulanic acid AdvReac Mild SEVERE Verified 02/11/20 18:37 NAUSEA nitrofurantoin AdvReac Mild GI UPSET Verified 02/11/20 18:37 Penicillins AdvReac Mild SEVERE Verified 02/11/20 18:37 NAUSEA Home Medications Home Medications Medication Instructions Recorded Confirmed Type One Daily For Women 1 tab PO QAM 06/03/18 02/11/20 History albuterol sulfate [Ventolin HFA] 2 puff INHALATION QID PRN 06/03/18 02/11/20 History fexofenadine [Cristina Allergy] 180 mg PO QAM PRN 06/03/18 02/11/20 History fluticasone propionate [Flonase 2 spray INTRANASAL DAILY PRN 06/03/18 02/11/20 History Allergy Relief] lansoprazole [Prevacid] 30 mg PO QAM 06/03/18 02/11/20 History meclizine 25 mg PO TID PRN 06/03/18 02/11/20 History oxymetazoline [Afrin 2 spray INTRANASAL Q12H PRN 06/03/18 02/11/20 History (oxymetazoline)] paroxetine HCl [Paxil CR] 12.5 mg PO QAM 06/03/18 02/11/20 History paroxetine HCl [Paxil CR] 37.5 mg PO QAM 06/03/18 02/11/20 History simvastatin [Zocor] 40 mg PO HS 06/03/18 02/11/20 History acetaminophen [Tylenol Extra 500 mg PO Q6H PRN 02/11/20 02/11/20 History Strength] Past Med/Surg History Medical History Anxiety Depression Dyslipidemia GERD (gastroesophageal reflux disease) controlled Hx of migraines Hx of sepsis s/p right tka d/t an undetected UTI (February 2019) Obesity Osteoarthritis Seasonal allergies Urinary tract infection gets UTI following any urinary catheterization, is prone to UTI and does not show typical signs and symptoms. Surgical History H/O dilation and curettage H/O sinus surgery H/O umbilical hernia repair History of bilateral knee replacement History of carpal tunnel release of both wrists History of colonoscopy History of left knee replacement Left TKA: 10/30/17: SAB x 1 at L3-L4 + PNB at [facility] History of right shoulder replacement History of rotator cuff surgery RIGHT History of tonsillectomy and adenoidectomy Hx of tubal ligation S/P excision of ganglion cyst finger Status post right knee replacement Family History Other No significant family history Social History Smoking Status: Never smoker Second Hand Exposure: No; Hx Alcohol Use: No Hx Substance Use: No Preferred Language: Italian Communication Ability: Effective Beliefs That Will Affect Care: None marital status: Current Living Situation: Spouse current occupational status: retired Feels Safe at Home: Yes Assistive Devices: Glasses Review of Systems Review of Systems: All systems reviewed & are unremarkable except as noted in HPI & below Constitutional: + chills and + fatigue Eyes: no problem reported Ear, Nose, Mouth, Throat: no problem reported Respiratory: no problem reported Cardiovascular: no chest pain, no palpitations and no problem reported Gastrointestinal: no abdominal pain, no nausea and no vomiting Genitourinary: + flank pain; no dysuria Musculoskeletal: no problem reported Integumentary: no problem reported Neurologic: no problem reported Psychiatric: no problem reported Endocrine: no problem reported Physical Exam Physical Exam: Elderly obese female, sitting up in bed, in no acute distress Constitutional: WD/WN, vitals as above no acute distress Eyes: PERRL, conjunctivae normal, anicteric sclerae EOM intact bilaterally ENMT: external ear and nose normal, oropharynx normal Neck: trachea midline, no thyromegaly normal visual inspection Respiratory: normal respiratory effort, lungs clear to auscultation Auscultation: no crackles, no rhonchi and no wheezes Cardiovascular: RRR, no murmur, no edema Chest (Breasts): Chest: normal inspection of chest Gastrointestinal (Abdomen): Inspection/Auscultation: abdomen normal to inspection and normal bowel sounds; abdomen not distended Percussion/Pal pation: abdomen soft; abdomen nontender, no guarding and abdomen not rigid Musculoskeletal: no cyanosis or clubbing, extremities motor strength 5/5 Head/Neck/Chest: normocephalic and head atraumatic Skin: no rashes, warm and dry Neurologic: PERRL, EOMI, accommodation nl, no face palsy, no dysarthria moves all extremities Psychiatric: A+Ox3, euthymic affect Genitourinary: + CVA tenderness (mild b/l) Results & Data Results & Data ([facility]) Vital Signs (Past 12 Hours) Vital Signs Temp Pulse Pulse Resp BP BP Pulse Ox 02/11/20 19:10 84 12 118/78 92 02/11/20 19:00 18 96 02/11/20 18:20 16 96 02/11/20 17:50 16 96 02/11/20 17:37 37.8 C H 74 22 162/97 H 96 02/11/20 17:18 36.7 C 100 H 18 121/82 98 Laboratory Results 02/11/20 02/11/20 02/11/20 Range/Units 17:58 17:58 17:58 WBC (4.8-10.8) K/uL RBC (4.2-5.4) M/uL Hgb (12.0-16.0) g/dL Hct (37-47) % MCV (80-100) fL MCH (25-34) pg MCHC (32-36) g/dL RDW Std Deviation (36.4-46.3) fL RDW Coeff of Lucien (11.5-14.5) % Plt Count (130-400) K/uL MPV (7.4-10.4) fL Immature Gran % (Auto) % Neut % (Auto) % Lymph % (Auto) % Arthur % (Auto) % Eos % (Auto) % Baso % (Auto) % Neut # (Auto) (1.4-6.5) K/uL Lymph # (Auto) (1.2-3.4) K/uL Arthur # (Auto) (0.11-0.59) K/uL Eos # (Auto) (0-0.5) K/uL Baso # (Auto) (0-0.2) K/uL Immature Gran # (Auto) (0.00-0.02) K/uL PT 11.2 (9.0-12.0) Seconds INR 1.1 (0.9-1.1) APTT 26.0 (21.0-31.0) Seconds PTT Ratio 0.9 Sodium 138 (136-145) mmol/L Potassium 3.8 (3.5-5.1) mmol/L Chloride 106 (98-107) mmol/L Carbon Dioxide 23 (21-32) mmol/L Anion Gap 9.0 (3-11) BUN 14 (7-18) mg/dl Creatinine 0.89 (0.6-1.2) mg/dl Est Cr Clr Drug Dosing 73.0 ml/min Est GFR ( Amer) 78.8 Est GFR (Non-Af Amer) 68.0 BUN/Creatinine Ratio 16.0 (10-20) Glucose 125 H (70-99) mg/dl Lactate 1.3 (0.4-2.0) mmol/L Calcium 9.3 (8.5-10.1) mg/dl Magnesium 2.1 (1.8-2.4) mg/dl Total Bilirubin 1.3 H (0.2-1) mg/dl AST 17 (15-37) U/L ALT 22 (12-78) U/L Alkaline Phosphatase 107 (45-117) U/L Troponin I < 0.015 (0-0.045) ng/ml Total Protein 7.5 (6.4-8.2) gm/dl Albumin 3.4 (3.4-5.0) gm/dl Globulin 4.1 H (2.5-4.0) gm/dl Albumin/Globulin Ratio 0.8 L (0.9-2) Procalcitonin (0-0.5) ng/ml Urine Color Urine Appearance (Clear) Urine pH (4.5-7.5) Ur Specific [place] (1.000-1.030) Urine Protein (Negative) Urine Glucose (UA) (Negative) Urine Ketones (Negative) Urine Blood (Negative) Urine Nitrite (Negative) Urine Bilirubin (Negative) Urine Urobilinogen (Negative) Ur Leukocyte Esterase (Negative) Urine WBC (Auto) (0-5) /hpf Urine RBC (Auto) (0-4) /hpf U Hyaline Cast (Auto) (0-5) /lpf U Epithel Cells (Auto) (0-5) /lpf Urine Bacteria (Auto) (Negative) COVID-19 Eval Order COVID-19 PCR (Negative) 02/11/20 02/11/20 02/11/20 Range/Units 17:58 17:58 17:53 WBC 9.51 (4.8-10.8) K/uL RBC 4.50 (4.2-5.4) M/uL Hgb 13.2 (12.0-16.0) g/dL Hct 40.9 (37-47) % MCV 90.9 (80-100) fL MCH 29.3 (25-34) pg MCHC 32.3 (32-36) g/dL RDW Std Deviation 49.1 H (36.4-46.3) fL RDW Coeff of Lucien 14.6 H (11.5-14.5) % Plt Count 256 (130-400) K/uL MPV 10.2 (7.4-10.4) fL Immature Gran % (Auto) 0.4 % Neut % (Auto) 77.5 % Lymph % (Auto) 9.0 % Arthur % (Auto) 12.4 % Eos % (Auto) 0.4 % Baso % (Auto) 0.3 % Neut # (Auto) 7.36 H (1.4-6.5) K/uL Lymph # (Auto) 0.86 L (1.2-3.4) K/uL Arthur # (Auto) 1.18 H (0.11-0.59) K/uL Eos # (Auto) 0.04 (0-0.5) K/uL Baso # (Auto) 0.03 (0-0.2) K/uL Immature Gran # (Auto) 0.04 H (0.00-0.02) K/uL PT (9.0-12.0) Seconds INR (0.9-1.1) APTT (21.0-31.0) Seconds PTT Ratio Sodium (136-145) mmol/L Potassium (3.5-5.1) mmol/L Chloride (98-107) mmol/L Carbon Dioxide (21-32) mmol/L Anion Gap (3-11) BUN (7-18) mg/dl Creatinine (0.6-1.2) mg/dl Est Cr Clr Drug Dosing ml/min Est GFR ( Amer) Est GFR (Non-Af Amer) BUN/Creatinine Ratio (10-20) Glucose (70-99) mg/dl Lactate (0.4-2.0) mmol/L Calcium (8.5-10.1) mg/dl Magnesium (1.8-2.4) mg/dl Total Bilirubin (0.2-1) mg/dl AST (15-37) U/L ALT (12-78) U/L Alkaline Phosphatase (45-117) U/L Troponin I (0-0.045) ng/ml Total Protein (6.4-8.2) gm/dl Albumin (3.4-5.0) gm/dl Globulin (2.5-4.0) gm/dl Albumin/Globulin Ratio (0.9-2) Procalcitonin 0.19 (0-0.5) ng/ml Urine Color Urine Appearance (Clear) Urine pH (4.5-7.5) Ur Specific [place] (1.000-1.030) Urine Protein (Negative) Urine Glucose (UA) (Negative) Urine Ketones (Negative) Urine Blood (Negative) Urine Nitrite (Negative) Urine Bilirubin (Negative) Urine Urobilinogen (Negative) Ur Leukocyte Esterase (Negative) Urine WBC (Auto) (0-5) /hpf Urine RBC (Auto) (0-4) /hpf U Hyaline Cast (Auto) (0-5) /lpf U Epithel Cells (Auto) (0-5) /lpf Urine Bacteria (Auto) (Negative) COVID-19 Eval Order COVID-19 PCR NEGATIVE (Negative) 02/11/20 02/11/20 Range/Units 17:53 17:30 WBC (4.8-10.8) K/uL RBC (4.2-5.4) M/uL Hgb (12.0-16.0) g/dL Hct (37-47) % MCV (80-100) fL MCH (25-34) pg MCHC (32-36) g/dL RDW Std Deviation (36.4-46.3) fL RDW Coeff of Lucien (11.5-14.5) % Plt Count (130-400) K/uL MPV (7.4-10.4) fL Immature Gran % (Auto) % Neut % (Auto) % Lymph % (Auto) % Arthur % (Auto) % Eos % (Auto) % Baso % (Auto) % Neut # (Auto) (1.4-6.5) K/uL Lymph # (Auto) (1.2-3.4) K/uL Arthur # (Auto) (0.11-0.59) K/uL Eos # (Auto) (0-0.5) K/uL Baso # (Auto) (0-0.2) K/uL Immature Gran # (Auto) (0.00-0.02) K/uL PT (9.0-12.0) Seconds INR (0.9-1.1) APTT (21.0-31.0) Seconds PTT Ratio Sodium (136-145) mmol/L Potassium (3.5-5.1) mmol/L Chloride (98-107) mmol/L Carbon Dioxide (21-32) mmol/L Anion Gap (3-11) BUN (7-18) mg/dl Creatinine (0.6-1.2) mg/dl Est Cr Clr Drug Dosing ml/min Est GFR ( Amer) Est GFR (Non-Af Amer) BUN/Creatinine Ratio (10-20) Glucose (70-99) mg/dl Lactate (0.4-2.0) mmol/L Calcium (8.5-10.1) mg/dl Magnesium (1.8-2.4) mg/dl Total Bilirubin (0.2-1) mg/dl AST (15-37) U/L ALT (12-78) U/L Alkaline Phosphatase (45-117) U/L Troponin I (0-0.045) ng/ml Total Protein (6.4-8.2) gm/dl Albumin (3.4-5.0) gm/dl Globulin (2.5-4.0) gm/dl Albumin/Globulin Ratio (0.9-2) Procalcitonin (0-0.5) ng/ml Urine Color Dark Yellow Urine Appearance Cloudy A (Clear) Urine pH 6.5 (4.5-7.5) Ur Specific [place] 1.015 (1.000-1.030) Urine Protein 1+ H (Negative) Urine Glucose (UA) Negative (Negative) Urine Ketones Negative (Negative) Urine Blood 1+ H (Negative) Urine Nitrite Negative (Negative) Urine Bilirubin Negative (Negative) Urine Urobilinogen Negative (Negative) Ur Leukocyte Esterase 3+ H (Negative) Urine WBC (Auto) >30 H (0-5) /hpf Urine RBC (Auto) 5-10 H (0-4) /hpf U Hyaline Cast (Auto) 10-30 H (0-5) /lpf U Epithel Cells (Auto) 20-30 H (0-5) /lpf Urine Bacteria (Auto) 1+ H (Negative) COVID-19 Eval Order Covid19 Done at [facility] COVID-19 PCR (Negative) Diagnostic Findings CT abdomen/pelvis February 11, 2020 IMPRESSION: 1. Mild left-sided hydroureteronephrosis and delayed nephrogram secondary to an obstructing 6 x 4 x 6 mm calculus of the proximal left ureter at the level of L3. 2. Right nephrolithiasis. 3. Colonic diverticulosis 4. Small hiatal hernia 5. Hepatic steatosis.
[2020-02-11] MEDS: SODIUM CHLORIDE 0.9% 1000ML 1,000 ML IV SCH (21:01)
[2020-02-11] MEDS ORDERED: FEXOFENADINE HCL 180 MG TAB PO PRN (22:15)
[2020-02-11] MEDS: SIMVASTATIN 40 MG TAB PO SCH (22:50)
[2020-02-12 07:46] LABS: Hematocrit (blood only) 40.5 % (37-47); Hemoglobin 12.4 g/dL (12.0-16.0); Mean Corpuscular Hemoglobin 28.4 pg (25-34); Mean Corpuscular Hgb Conc 30.6 g/dL (32-36); Mean Corpuscular Volume 92.9 fL (80-100); Mean Platelet Volume 10.2 fL (7.4-10.4); Platelet Count 238 K/uL (130-400); RDW Coefficient of Variation 14.8 % (11.5-14.5); RDW Standard Deviation 50.6 fL (36.4-46.3); Red Blood Count 4.36 M/uL (4.2-5.4); White Blood Count 8.22 K/uL (4.8-10.8)
[2020-02-12 08:11] LABS: BUN Creatinine Ratio 15.1 (10-20); Creatinine Clr Calc Pharmacy 88.6 ml/min; Est GFR (African American) 98.5; Potassium 3.7 mmol/L (3.5-5.1)
[2020-02-12] MEDS: CIPROFLOXACIN / D5W 400 MG/200 ML BAG IV SCH ×2 (08:27→20:18)
[2020-02-12] MEDS: PANTOprazole 40 MG TAB PO SCH (08:40)
--- NOTE | 2020-02-12 09:45 | Anesthesiology Consultation ---
Date of Service February 12, 2020 Assessment & Plan (1) Encounter for pre-operative examination: Chart Review Chart Review: Acceptable Risk for Surgery Consults Requested none ASA ASA3 Proposed Anesthesia Anesthesia Type: MAC Risk / Benefits Reviewed With: PT / POA / Parent / Guardian, Accepts Plan and Informed Consent Obtained History Surgery Operation Date: 02/12/20 10:00 Proposed Procedures p Ureteral Stent Insertion/Removal(Left) - Nasir Ku, DO Height/Weight Height: 5 ft 4 in Weight: 103.1 kg Allergies Allergy/AdvReac Type Severity Reaction Status Date / Time amitriptyline Allergy Intermediate RASH AND Verified 02/11/20 18:37 FEET SWELLING Cephalosporins Allergy Intermediate RASH AND Verified 02/11/20 18:37 TACHYCARDIA lorazepam Allergy Intermediate RASH Verified 02/11/20 18:37 cefazolin Allergy RASH Verified 02/11/20 18:37 Bactrim AdvReac Intermediate SEVERE GI Verified 12/20/17 18:10 UPSET; DIAPHORESIS; HOT FLASHES sulfamethoxazole AdvReac Intermediate SEVERE GI Verified 02/11/20 18:37 UPSET; DIAPHORESIS; HOT FLASHES trimethoprim AdvReac Intermediate SEVERE GI Verified 02/11/20 18:37 UPSET; DIAPHORESIS; HOT FLASHES clarithromycin AdvReac Mild GI UPSET Verified 02/11/20 18:37 clavulanic acid AdvReac Mild SEVERE Verified 02/11/20 18:37 NAUSEA nitrofurantoin AdvReac Mild GI UPSET Verified 02/11/20 18:37 Penicillins AdvReac Mild SEVERE Verified 02/11/20 18:37 NAUSEA Medications Home Medications Medication Instructions Recorded Confirmed Last Taken One Daily For Women 1 tab PO QAM 06/03/18 02/11/20 02/11/20 albuterol sulfate [Ventolin HFA] 2 puff INHALATION QID PRN 06/03/18 02/11/20 02/23/18 fexofenadine [Cristina Allergy] 180 mg PO QAM PRN 06/03/18 02/11/20 02/11/20 fluticasone propionate [Flonase 2 spray INTRANASAL DAILY PRN 06/03/18 02/11/20 05/09/19 12:00 Allergy Relief] lansoprazole [Prevacid] 30 mg PO QAM 06/03/18 02/11/20 02/11/20 meclizine 25 mg PO TID PRN 06/03/18 02/11/20 Unknown oxymetazoline [Afrin 2 spray INTRANASAL Q12H PRN 06/03/18 02/11/20 Unknown (oxymetazoline)] paroxetine HCl [Paxil CR] 12.5 mg PO QAM 06/03/18 02/11/20 02/11/20 paroxetine HCl [Paxil CR] 37.5 mg PO QAM 06/03/18 02/11/20 02/11/20 simvastatin [Zocor] 40 mg PO HS 06/03/18 02/11/20 02/10/20 acetaminophen [Tylenol Extra 500 mg PO Q6H PRN 02/11/20 02/11/20 02/11/20 16:00 Strength] 1000 mg Active Medications Generic Name Dose Route Start Last Admin Trade Name Freq PRN Reason Stop Dose Admin Sodium Chloride 1,000 mls @ 80 mls/hr 02/11/20 20:45 02/11/20 21:01 Nss 1000ml IV 03/12/20 20:44 80 mls/hr .[id number] JOANN Administration Ciprofloxacin 400 mg in 200 mls @ 100 mls/hr 02/12/20 08:00 02/12/20 08:27 Cipro / D5w IV 02/22/20 07:59 100 mls/hr Q12H JOANN Administration Protocol Pantoprazole Sodium 40 mg 02/12/20 09:00 02/12/20 08:40 Pantoprazole 40 Mg Tab PO 03/13/20 08:59 40 mg QAM JOANN Administration Simvastatin 40 mg 02/11/20 22:15 02/11/20 22:50 Simvastatin 40 Mg Tab PO 03/12/20 22:14 40 mg HS JOANN Administration Past Medical History Medical History Anxiety Depression Dyslipidemia GERD (gastroesophageal reflux disease) controlled Hx of migraines Hx of sepsis s/p right tka d/t an undetected UTI (February 2019) Obesity Osteoarthritis Seasonal allergies Urinary tract infection gets UTI following any urinary catheterization, is prone to UTI and does not show typical signs and symptoms. Exercise / Class Metabolic Activity II 4-5 Yardwork/Stairs/Walk up hill Past Family History Family History Other No significant family history Past Surgical History Surgical History H/O dilation and curettage H/O sinus surgery H/O umbilical hernia repair History of bilateral knee replacement History of carpal tunnel release of both wrists History of colonoscopy History of left knee replacement Left TKA: 10/30/17: SAB x 1 at L3-L4 + PNB at [facility] History of right shoulder replacement History of rotator cuff surgery RIGHT History of tonsillectomy and adenoidectomy Hx of tubal ligation S/P excision of ganglion cyst finger Status post right knee replacement Past Anesthesia History No Hx of Anesthesia Complications and No Family Hx of Anesthesia Complications History of PONV No Hx of PONV and No Hx of Motion Sickness Social History Smoking Status: Never smoker Hx Alcohol Use: No Hx Substance Use: No substance use type: does not use Physical Exam Vital Signs Last Vital Signs Temp 99.3 F 02/12/20 07:31 Pulse 86 02/12/20 07:31 Resp 18 02/12/20 07:31 BP 144/85 H 02/12/20 07:31 Pulse Ox 96 02/12/20 07:31 ENMT Mouth: no dentition abnormality Thyromental Distance: > or= 3.5 Finger Breadths Mallampati Class: III Neck normal visual inspection Respiratory normal respiratory effort Auscultation: lungs clear to auscultation bilaterally Cardiovascular Rate/Rhythm: regular rate and regular rhythm Testing Laboratory Results 02/12/20 07:02 02/12/20 07:02 PT 11.2 Seconds (9.0-12.0) 02/11/20 17:58 INR 1.1 (0.9-1.1) 02/11/20 17:58 APTT 26.0 Seconds (21.0-31.0) 02/11/20 17:58 Urine Color Dark Yellow 02/11/20 17:30 Urine Appearance Cloudy (Clear) A 02/11/20 17:30 Urine pH 6.5 (4.5-7.5) 02/11/20 17:30 Ur Specific [place] 1.015 (1.000-1.030) 02/11/20 17:30 Urine Protein 1+ (Negative) H 02/11/20 17:30 Urine Glucose (UA) Negative (Negative) 02/11/20 17:30 Urine Ketones Negative (Negative) 02/11/20 17:30 Urine Nitrite Negative (Negative) 02/11/20 17:30 Ur Leukocyte Esterase 3+ (Negative) H 02/11/20 17:30 Urine WBC (Auto) >30 /hpf (0-5) H 02/11/20 17:30 Urine RBC (Auto) 5-10 /hpf (0-4) H 02/11/20 17:30 U Hyaline Cast (Auto) 10-30 /lpf (0-5) H 02/11/20 17:30 U Epithel Cells (Auto) 20-30 /lpf (0-5) H 02/11/20 17:30 Urine Bacteria (Auto) 1+ (Negative) H 02/11/20 17:30 02/11/20 17:30 Urine Culture - Preliminary Urine,Clean Catch Proteus species Electrocardiogram Date: 02/11/20 Normal sinus rhythm, rate 88 bpm Possible Inferior infarct , age undetermined Abnormal ECG When compared with ECG of 27-JAN-2019 11:24, Borderline criteria for Inferior infarct are now Present T wave inversion now evident in Inferior leads Chest X-Ray Date: 02/11/20 FINDINGS: Cardiac silhouette is mildly enlarged. There is no pneumothorax, pleural effusion, airspace consolidation or overt pulmonary edema. Reverse right shoulder total joint arthroplasty. Degenerative changes of the left shoulder and spine. IMPRESSION: No acute process.
[2020-02-12] MEDS ORDERED: ATROPINE SULFATE 0.1 MG/ML 10ML SYR IV PRN (10:18)
[2020-02-12] MEDS ORDERED: fentaNYL citrate 100 MCG/2 ML VIAL IV PRN (10:18)
[2020-02-12] MEDS ORDERED: ONDANSETRON INJ 2 MG/ML 2 ML VIAL IV PRN (10:18)
[2020-02-12] MEDS ORDERED: ePHEDrine sulfate 50 MG/ML AMP IV PRN (10:18)
--- NOTE | 2020-02-12 10:20 | Urology Consultation ---
Date of Consultation February 12, 2020 Assessment & Plan (1) Acute UTI: (2) Calculus of proximal left ureter: Patient had similar episode of stone approximately a year and a half ago with severe sepsis that required 10 days in the hospital. Patient has continual on again off again chills ill feelings pain and flank discomfort. Patient had a low-grade fever. Has not had considerable improvement but does have better control of discomfort and pain. Patient had a proximal stone that may have now moved into the more distal ureter. Discussed options. Discussed concerns and issues. Discussed patient's options with expulsion therapy versus intervention and stent placement. Risks and benefits discussed at length for procedure. These include bleeding, infection, injury to surrounding tissues or organs, and risks associated with anesthesia. Patient states understanding and agrees to proceed. Will sign consent and schedule. We will plan for cystoscopy with left retrograde pyelogram and stent placement Will likely need 7 to 10 days of antibiotics afterwards with plans for treatment of stone further down the road History of Present Illness Attending Physician: Franc Jones MD History of Present Illness New consultation for patient with stone, discomfort, obstruction, and ill feelings. Patient developed sudden onset of pain into flank going down and radiating into groin and back in waves comes and goes. Can be severe at times. Discussed and reviewed patient's family history for any history of stone disease. Also, discussed patient's medical surgery history especially related to any history of urinary issues or stone disease. Patient was admitted and is undergoing observation. Allergies Allergy/AdvReac Type Severity Reaction Status Date / Time amitriptyline Allergy Intermediate RASH AND Verified 02/11/20 18:37 FEET SWELLING Cephalosporins Allergy Intermediate RASH AND Verified 02/11/20 18:37 TACHYCARDIA lorazepam Allergy Intermediate RASH Verified 02/11/20 18:37 cefazolin Allergy RASH Verified 02/11/20 18:37 Bactrim AdvReac Intermediate SEVERE GI Verified 12/20/17 18:10 UPSET; DIAPHORESIS; HOT FLASHES sulfamethoxazole AdvReac Intermediate SEVERE GI Verified 02/11/20 18:37 UPSET; DIAPHORESIS; HOT FLASHES trimethoprim AdvReac Intermediate SEVERE GI Verified 02/11/20 18:37 UPSET; DIAPHORESIS; HOT FLASHES clarithromycin AdvReac Mild GI UPSET Verified 02/11/20 18:37 clavulanic acid AdvReac Mild SEVERE Verified 02/11/20 18:37 NAUSEA nitrofurantoin AdvReac Mild GI UPSET Verified 02/11/20 18:37 Penicillins AdvReac Mild SEVERE Verified 02/11/20 18:37 NAUSEA Home Medications Home Medications Medication Instructions Recorded Confirmed Type One Daily For Women 1 tab PO QAM 06/03/18 02/11/20 History albuterol sulfate [Ventolin HFA] 2 puff INHALATION QID PRN 06/03/18 02/11/20 History fexofenadine [Cristina Allergy] 180 mg PO QAM PRN 06/03/18 02/11/20 History fluticasone propionate [Flonase 2 spray INTRANASAL DAILY PRN 06/03/18 02/11/20 History Allergy Relief] lansoprazole [Prevacid] 30 mg PO QAM 06/03/18 02/11/20 History meclizine 25 mg PO TID PRN 06/03/18 02/11/20 History oxymetazoline [Afrin 2 spray INTRANASAL Q12H PRN 06/03/18 02/11/20 History (oxymetazoline)] paroxetine HCl [Paxil CR] 12.5 mg PO QAM 06/03/18 02/11/20 History paroxetine HCl [Paxil CR] 37.5 mg PO QAM 06/03/18 02/11/20 History simvastatin [Zocor] 40 mg PO HS 06/03/18 02/11/20 History acetaminophen [Tylenol Extra 500 mg PO Q6H PRN 02/11/20 02/11/20 History Strength] Patient History Medical History Anxiety Depression Dyslipidemia GERD (gastroesophageal reflux disease) controlled Hx of migraines Hx of sepsis s/p right tka d/t an undetected UTI (February 2019) Obesity Osteoarthritis Seasonal allergies Urinary tract infection gets UTI following any urinary catheterization, is prone to UTI and does not show typical signs and symptoms. Surgical History H/O dilation and curettage H/O sinus surgery H/O umbilical hernia repair History of bilateral knee replacement History of carpal tunnel release of both wrists History of colonoscopy History of left knee replacement Left TKA: 10/30/17: SAB x 1 at L3-L4 + PNB at [facility] History of right shoulder replacement History of rotator cuff surgery RIGHT History of tonsillectomy and adenoidectomy Hx of tubal ligation S/P excision of ganglion cyst finger Status post right knee replacement Family History Other No significant family history Social History Smoking Status: Never smoker Second Hand Exposure: No; Hx Alcohol Use: No Hx Substance Use: No Preferred Language: Bulgarian Communication Ability: Effective Crime Prevention Worker Required: No Beliefs That Will Affect Care: None marital status: Current Living Situation: Alone current occupational status: retired Feels Safe at Home: Yes Safety Concerns: Feels Safe At This Time Assistive Devices: Glasses Review of Systems Review of Systems: All systems reviewed & are unremarkable except as noted in HPI & below Physical Exam Physical Exam: General: Alert and oriented x 3 in no acute distress. Patient is well nourished and well kept. HEENT: Normocephalic Atraumatic. Inspection normal. Cranial Nerves 2-12 Grossly intact. Nares are clear. Neck is supple. Normal inspection of face. Normal inspection of neck. Neurologic: No deficits on inspection. Baseline for motor function and sensory. Psychologic: Normal affect. Respiratory: Nonlabored. No use of accessory muscles. No tachypnea or dyspnea. Cardiovascular: No tachycardia Skin: Naylor and Dry. No rashes or visible lesions. Extremities: Moving without issues. No motor deficits on inspection Lymphatics: No edema Abdomen: Soft Non-distended. No acites. No rebound or guarding. Results & Data ([facility]) Vital Signs (Past 12 Hours) Vital Signs Temp Pulse Resp BP Pulse Ox 02/12/20 07:31 37.4 C 86 18 144/85 H 96 02/11/20 23:00 37.2 C 82 18 130/77 99 PG Care Time/CCT Total # of Minutes Spent Total Time Spent with Patient: Total time spent is greater than 50% in coordination of care (as documented) at patient's floor/unit and/or counseling patient: Coding Level of Care Code 37137 Inpt Consult Level 5 Diagnoses Acute UTI N39.0 Calculus of proximal left ureter N20.1
[2020-02-12] MEDS ORDERED: MIDAZOLAM HCL 1 MG/ML 2ML VIAL ONE (10:38)
[2020-02-12] MEDS ORDERED: fentaNYL citrate 100 MCG/2 ML VIAL ONE (10:38)
[2020-02-12] MEDS: SODIUM CHLORIDE 0.9% 1000ML 1,000 ML IV SCH ×2 (10:44→23:30)
--- NOTE | 2020-02-12 11:29 | Electrocardiogram Report ---
Test Reason : Blood Pressure : / mmHG Vent. Rate : 088 BPM Atrial Rate : 088 BPM P-R Int : 152 ms QRS Dur : 088 ms QT Int : 354 ms P-R-T Axes : 054 086 -17 degrees QTc Int : 428 ms Poor data quality, interpretation may be adversely affected Normal sinus rhythm Possible Inferior infarct , age undetermined Abnormal ECG When compared with ECG of 27-JAN-2019 11:24, Borderline criteria for Inferior infarct are now Present T wave inversion now evident in Inferior leads Confirmed by Tristen Chung ([id number]) on 02/12/2020 11:29:10 AM Referred By: REFERRED SELF Confirmed By:Tristen Chung
[2020-02-12] MEDS ORDERED: DIATRIZOATE MEGLUMINE 30% 100ML VIAL INSTIL ONE (11:36)
--- NOTE | 2020-02-12 11:37 | Operative Report ---
PG Post Operative Report Pre & Post Diagnosis Operation Date: 02/12/20 10:00 Pre-Op Diagnosis: Ureteral Stone Post-Op Diagnosis: Ureteral Stone I identified the patient and participated in the time-out.: Yes Procedure Operation Date: 02/12/20 10:00 Actual Procedures p Cystoscopy with left retrograde pyelogram and Ureteral Stent Insertion(Left) - Nasir Ku DO Surgeon Nasir Ku, II, DO Nursing Executive None Estimated Blood Loss 1 Findings Consistent with Post-Op Diagnosis Stent placed in good position. Specimens None Drains 6 Fr Multilength Anesthesia Type MAC Complications none Disposition Disposition: Recovery Room Indications Patient with obstruction. Risks and benefits discussed at length. Description of Procedure Patient was consented and brought back to the operating room. Patient was placed under anesthesia in the supine position and moved to the dorsal lithotomy position. Patient was prepped and draped in the regular sterile fashion. A time out was completed. A 30degree Cystoscope was placed into the bladder and the entire bladder was examined. The UO's were identified. The UO was cannulized with a catheter and a retrograde pyelogram was completed. A wire was then placed. With the wire in place, a 6 Fr Double J stent was placed. It was confirmed with fluoroscopy. With the stent in place, the bladder was emptied. The scope was removed. The patient was cleaned, aroused from anesthesia, and transferred to the pacu in stable condition having tolerated the procedure well with no complications. I was present and participated in all aspects of the procedure. The patient will be monitored in the PACU until transferred. I attest to the content of the Intraoperative Record and any orders documented therein. Any exceptions are noted below.
--- NOTE | 2020-02-12 11:52 | Anesthesiology Progress Note ---
Date of Service February 12, 2020 Anesthesia Post Procedure Vital Signs Vital Signs: Temp Pulse Pulse Resp BP BP BP 02/12/20 10:31 98.4 F 84 18 121/66 02/12/20 07:31 99.3 F 86 18 144/85 H 02/11/20 23:00 99.0 F 82 18 130/77 02/11/20 22:11 97.9 F 80 16 134/77 02/11/20 21:19 77 24 131/81 02/11/20 20:30 79 22 02/11/20 19:10 84 12 118/78 02/11/20 19:00 18 02/11/20 18:20 16 02/11/20 17:50 16 02/11/20 17:37 100.0 F H 74 22 162/97 H 02/11/20 17:18 98.1 F 100 H 18 121/82 Pulse Ox 02/12/20 10:31 95 02/12/20 07:31 96 02/11/20 23:00 99 02/11/20 22:11 99 02/11/20 21:19 98 02/11/20 20:30 97 02/11/20 19:10 92 02/11/20 19:00 96 02/11/20 18:20 96 02/11/20 17:50 96 02/11/20 17:37 96 02/11/20 17:18 98 Pain Intensity Anterior Head: Pain Intensity: 2 Transfer of Care Handoff Completed per policy Notes Mental Status: alert / awake / arousable and participated in evaluation Patient Amnestic to Procedure: Yes Nausea / Vomiting: adequately controlled Pain: adequately controlled Airway Patency, RR, SpO2: stable & adequate BP & HR: stable & adequate Hydration State: stable & adequate Anesthetic Complications: no major complications apparent and Pt Satisfied with anesthetic care
--- NOTE | 2020-02-12 12:06 | Fluoroscopy Report ---
FL retrograde includes kub CLINICAL HISTORY: CYSTO LEFT STENT COMPARISON STUDY: CT of the abdomen and pelvis February 11, 2020. FLUOROSCOPY TIME: 21 seconds. FLUOROSCOPIC IMAGES: 2 FINDINGS: Fluoroscopy was provided during left retrograde exam with ureteral stent insertion. Left ur eteral stent is in place. There is mild left collecting system dilatation. IMPRESSION: Fluoroscopy provided during left retrograde exam with left ureteral stent insertion. ACT 112: Negative or not required by law. Electronically signed by: Teofilo Arroyo M.D. 02/12/2020 12:04 PM
[2020-02-12] MEDS: PARoxetine HCl CONTROLLED REL 12.5 MG TABCR PO SCH (14:22)
[2020-02-12] MEDS: PAXIL 37.5 MG PO SCH (14:23)
[2020-02-12] MEDS: ACETAMINOPHEN 500 MG TAB PO PRN ×2 (14:47→22:20)
[2020-02-12] MEDS ORDERED: PHENAZOPYRIDINE HCL 100 MG TAB PO PRN (17:31)
[2020-02-12] MEDS ORDERED: CONSULT PHARMACY PRN (17:40)
[2020-02-12] MEDS: AZTREONAM 1,000 MG in DEXTROSE 5% 100 ML IV SCH (18:37)
--- NOTE | 2020-02-12 18:47 | Hospitalist Progress Note ---
Date of Service February 12, 2020 Assessment & Plan (1) Acute UTI: (2) Calculus of proximal left ureter: afebrile, no leukocytosis s/p ureteral stent placement urine culture: Proteus blood cultures: pending patient reported chills late in the afternoon add Aztreonam to Cipro (given multiple allergies), IV fluids no previous microbiology data Anxiety continue Paxil SCDs Disposition possible d/c home tomorrow Admission and Anticipated Discharge Date Admission Date: February 11, 2020 Subjective ff up for UTI, L ureteral stone s/p stent placement today sitting up in bed, comfortable states she feels improved overall has some lower abdominal denies fever/chills, nausea no SOB, chest pain denies other symptoms Review of Systems Review of Systems: All systems reviewed & are unremarkable except as noted in Subjective Physical Exam Physical Exam: General- oriented x 3, not in distress, speaks in sentences with no effort or accessory muscle use Eyes- anicteric Neck- no JVD Lungs- clear breath sounds bilaterally, no rales/wheezes Heart- normal rate, regular rhythm; no murmurs Abdomen- normal bowel sounds, nondistended, soft, nontender no CVA tenderness Extremities- no pretibial edema, no calf tenderness Neuro- alert, oriented x 3; no gross focal neurologic deficits Skin- warm & dry Results & Data Results & Data ([facility]) Vital Signs (Past 12 Hours) Vital Signs Temp Pulse Pulse Pulse Resp BP BP 02/12/20 17:50 84 20 119/74 02/12/20 15:25 37.1 C 87 18 144/81 H 02/12/20 14:53 37.0 C 85 18 134/81 02/12/20 14:24 36.7 C 65 18 141/73 H 02/12/20 13:26 37.7 C H 88 18 119/77 02/12/20 12:54 37.0 C 83 18 120/76 02/12/20 12:28 36.9 C 85 20 121/73 02/12/20 12:00 37.5 C 85 20 123/64 02/12/20 11:50 84 16 123/75 02/12/20 11:44 37.4 C 87 16 128/71 02/12/20 10:31 36.9 C 84 18 121/66 02/12/20 07:31 37.4 C 86 18 144/85 H Pulse Ox 02/12/20 17:50 98 02/12/20 15:25 98 02/12/20 14:53 98 02/12/20 14:24 96 02/12/20 13:26 94 02/12/20 12:54 96 02/12/20 12:28 93 02/12/20 12:00 99 02/12/20 11:50 95 02/12/20 11:44 97 02/12/20 10:31 95 02/12/20 07:31 96
[2020-02-12] MEDS: SIMVASTATIN 40 MG TAB PO SCH (20:21)
[2020-02-13] MEDS: AZTREONAM 1,000 MG in DEXTROSE 5% 100 ML IV SCH (02:24)
[2020-02-13] MEDS: PANTOprazole 40 MG TAB PO SCH (08:34)
[2020-02-13] MEDS: PAXIL 37.5 MG PO SCH (08:35)
[2020-02-13] MEDS: PARoxetine HCl CONTROLLED REL 12.5 MG TABCR PO SCH (08:36)
[2020-02-13] MEDS: ACETAMINOPHEN 500 MG TAB PO PRN (08:38)
[2020-02-13] MEDS: CIPROFLOXACIN / D5W 400 MG/200 ML BAG IV SCH (08:55)
[2020-02-13] MEDS: SODIUM CHLORIDE 0.9% 1000ML 1,000 ML IV SCH (10:58)
--- NOTE | 2020-02-13 13:39 | Urology Progress Note ---
Date of Service February 13, 2020 Assessment & Plan (1) Calculus of proximal left ureter: Postop day 1 status post stent for obstructing ureteral stone. Patient will need outpatient follow-up in approximately 1 to 2 weeks after an adequate course of antibiotics and supportive care. Has a history of sepsis in the past from obstructing stone. Previously had seen Dr. Valdez but has not followed with urology since she left. Is interested in starting with our group. Plan for a likely history and physical visit in our office and plans for either ESWL or laser lithotripsy to steal with stone disease. Patient maintained stent to LAD.. Will need likely 7 to 10 days of antibiotics at least depending on results and sensitivities. Admission and Anticipated Discharge Date Admission Date: February 11, 2020 Subjective Postop from stent placement for obstruction issues. Patient has been tolerating well. Has noticed some frequency and urgency. Has not had severe pain in the back and flank. Does have occasional burning and irritation. No severe episodes or major changes. No new nausea or vomiting. Had tolerated anesthesia without major problems Review of Systems Review of Systems: All systems reviewed & are unremarkable except as noted in HPI & below Physical Exam Physical Exam: General: Alert in no acute distress. HEENT: Normocephalic Atraumatic. Inspection normal. Cranial Nerves 2-12 Grossly intact. Normal inspection of face. Normal inspection of neck. Psychologic: Normal affect. Respiratory: Nonlabored. No use of accessory muscles. No tachypnea or dyspnea. Cardiovascular: No tachycardia Skin: Raub and Dry. No rashes or visible lesions. Extremities/Lymphatics: No edema Abdomen: Soft Non-distended. No rebound or guarding. Results & Data ([facility]) Vital Signs (Past 12 Hours) Vital Signs Temp Pulse Pulse Resp BP BP Pulse Ox 02/13/20 11:29 37 C 76 18 130/81 97 02/13/20 08:09 36.8 C 86 16 158/89 H 99 02/13/20 07:17 77 02/13/20 04:00 36.6 C 77 18 129/73 94 PG Care Time/CCT Total # of Minutes Spent Total Time Spent with Patient: Total time spent is greater than 50% in coordination of care (as documented) at patient's floor/unit and/or counseling patient: Coding Level of Care Code 69405 Subseq Hosp Care Lvl 3 Diagnoses Calculus of proximal left ureter N20.1
--- NOTE | 2020-02-13 14:46 | Hospitalist Progress Note ---
Date of Service February 13, 2020 Assessment & Plan (1) Acute UTI: (2) Calculus of proximal left ureter: afebrile, no leukocytosis s/p ureteral stent placement urine culture: Proteus, pansensitive blood cultures: negative so far discharge plan: Ciprofloxacin 500mg BID x 8 more days to complete 10 days ff up with Urologist Dr. Nasir Ku, [facility] in 1-2 weeks Anxiety continue Paxil Disposition d/c home tomorrow ff up with PCP and Urologist per [place] instructions Admission and Anticipated Discharge Date Admission Date: February 11, 2020 Subjective ff up for ureteral stone, UTI, etc seen resting in bed, comfortable in very good spirits states she feels much better overall states back/side pain has resolved no problems with urination denies fever/chills since last night no nausea, abdominal pain, chest pain, dyspnea, palpitations, dizziness no other symptoms Review of Systems Review of Systems: All systems reviewed & are unremarkable except as noted in Subjective Physical Exam Physical Exam: General- oriented x 3, not in distress, speaks in sentences with no effort or accessory muscle use Eyes- anicteric Neck- no JVD Lungs- clear breath sounds bilaterally, no crackles or wheezing Heart- normal rate, regular rhythm; no murmurs Abdomen- normal bowel sounds, nondistended, soft, nontender no CVA tenderness Extremities- no pretibial edema, no calf tenderness Neuro- alert, oriented x 3; no gross focal neurologic deficits Skin- warm & dry Results & Data Results & Data ([facility]) Vital Signs (Past 12 Hours) Vital Signs Temp Pulse Pulse Resp BP BP Pulse Ox 02/13/20 11:29 37 C 76 18 130/81 97 02/13/20 08:09 36.8 C 86 16 158/89 H 99 02/13/20 07:17 77 02/13/20 04:00 36.6 C 77 18 129/73 94 Laboratory Results Laboratory Results - last 24 hr 02/12/20 17:05 POC Glucose 110 H
--- NOTE | 2020-02-13 14:56 | Discharge Summary ---
Date of Service February 13, 2020 Admission HPI Per Admitting Provider Mrs. Alvarado is a 64-year-old female with history of hyperlipidemia, GERD, anxiety/depression, recurrent UTIs, who presents with chills, feeling tired and" foggy headed". She had left flank pain at the end of December and was seen by her primary care provider at that time. Pain was quite excruciating, starting at left flank and radiating up front towards the groin. That has resolved since then however. And since seeing her primary care provider she felt well. Primary care provider did order ultrasound of her kidneys and bilateral kidney stones where identified. Patient reports that she has history of UTIs, and last year she ended up with urosepsis. She says that she never has typical dysuria symptoms such as burning with urinary frequency however she feels tired, have some chills and feels foggy in her head. As she was having these symptoms this afternoon, she called her daughter and wanted to be checked in the hospital as she was worried that she is having UTI. She denies having a fever at home. She denies any chest pain, shortness of breath, palpitations, abdominal pain, nausea or vomiting. In the ED her temperature however was elevated at 37.8 Celsius, and her heart rate was 100. White blood cell count was within normal limit however elevated from her normal, at 9.5 thousand. Therefore there was concern for sepsis. Blood cultures were obtained and currently pending. UA showed bacteria, epithelial cells, leuk esterase, nitrites were negative. CT abdomen pelvis did show 64 x 6 mm calculus of the proximal left ureter and urology, Dr. Phelps, was contacted by ED provider. Patient received normal saline and ciprofloxacin in the emergency room. Admission Exam Per Admitting Provider Physical Exam: Elderly obese female, sitting up in bed, in no acute distress Constitutional: WD/WN, vitals as above no acute distress Eyes: PERRL, conjunctivae normal, anicteric sclerae EOM intact bilaterally ENMT: external ear and nose normal, oropharynx normal Neck: trachea midline, no thyromegaly normal visual inspection Respiratory: normal respiratory effort, lungs clear to auscultation Auscult ation: no crackles, no rhonchi and no wheezes Cardiovascular: RRR, no murmur, no edema Chest (Breasts): Chest: normal inspection of chest Gastrointestinal (Abdomen): Inspection/Auscultation: abdomen normal to inspection and normal bowel sounds; abdomen not distended Percussion/Palpation: abdomen soft; abdomen nontender, no guarding and abdomen not rigid Musculoskeletal: no cyanosis or clubbing, extremities motor strength 5/5 Head/Neck/Chest: normocephalic and head atraumatic Skin: no rashes, warm and dry Neurologic: PERRL, EOMI, accommodation nl, no face palsy, no dysarthria mov es all extremities Psychiatric: A+Ox3, euthymic affect Genitourinary: + CVA tenderness (mild b/l) Principal Diagnosis LEFT URETERAL STONE, S/P LEFT URETER STENT PLACEMENT PROTEUS URINARY TRACT INFECTION Discharge Exam General- oriented x 3, not in distress, speaks in sentences with no effort or accessory muscle use Eyes- anicteric Neck- no JVD Lungs- clear breath sounds bilaterally, no crackles or wheezing Heart- normal rate, regular rhythm; no murmurs Abdomen- normal bowel sounds, nondistended, soft, nontender no CVA tenderness Extremities- no pretibial edema, no calf tenderness Neuro- alert, oriented x 3; no gross focal neurologic deficits Skin- warm & dry Discharge Data Allergies Allergy/AdvReac Type Severity Reaction Status Date / Time amitriptyline Allergy Intermediate RASH AND Verified 02/11/20 18:37 FEET SWELLING Cephalosporins Allergy Intermediate RASH AND Verified 02/11/20 18:37 TACHYCARDIA lorazepam Allergy Intermediate RASH Verified 02/11/20 18:37 cefazolin Allergy RASH Verified 02/11/20 18:37 Bactrim AdvReac Intermediate SEVERE GI Verified 12/20/17 18:10 UPSET; DIAPHORESIS; HOT FLASHES sulfamethoxazole AdvReac Intermediate SEVERE GI Verified 02/11/20 18:37 UPSET; DIAPHORESIS; HOT FLASHES trimethoprim AdvReac Intermediate SEVERE GI Verified 02/11/20 18:37 UPSET; DIAPHORESIS; HOT FLASHES clarithromycin AdvReac Mild GI UPSET Verified 02/11/20 18:37 clavulanic acid AdvReac Mild SEVERE Verified 02/11/20 18:37 NAUSEA nitrofurantoin AdvReac Mild GI UPSET Verified 02/11/20 18:37 Penicillins AdvReac Mild SEVERE Verified 02/11/20 18:37 NAUSEA Consultations 02/11/20 20:10 Consult Urology Stat ED Decision to Admit Stat Procedures Performed Operation Date: 02/12/20 10:00 Actual Procedures p Ureteral Stent Insertion(Left) - Nasir Phelps DO Ordered Studies 02/11/20 17:39 CT abd pelvis IV con only Stat COMPARISON STUDY: CT abdomen and pelvis 02/25/2019 FINDINGS: Clear lung bases. No pneumatosis or pneumoperitoneum. The imaged inferior cardiac chambers are unremarkable. Unremarkable spleen, pancreas and adrenal glands. Gallbladder appears normal. Hepatic steatosis. There are a few unchanged scattered subcentimeter hypodensities of the liver which are too small to characterize and likely benign. Patency of the hepatic and portal veins. 4 mm nonobstructing calculus of the superior pole right kidney. Slightly delayed left-sided nephrogram with mild left-sided hydroureteronephrosis. 6 x 4 x 6 mm calculus is noted just distal to the ureteropelvic junction at the level of L3. No additional ureteral calculi. Unremarkable urinary bladder and uterus. Resolution of the previously noted cystic adnexal foci. Aorta and IVC are unremarkable. There is no adenopathy. No bowel obstruction or bowel wall thickening. Small hiatal hernia. Mild colonic diverticulosis without acute diverticulitis. Terminal ileum and appendix are unremarkable. Prior ventral abdominal wall herniorrhaphy. Degenerative changes of the hips, pelvis and spine. Moderate disc space narrowing with posterior disc osteophyte complex at L5-S1. IMPRESSION: 1. Mild left-sided hydroureteronephrosis and delayed nephrogram secondary to an obstructing 6 x 4 x 6 mm calculus of the proximal left ureter at the level of L3. 2. Right nephrolithiasis. 3. Colonic diverticulosis 4. Small hiatal hernia 5. Hepatic steatosis. 02/12/20 07:13 FL retrograde includes kub Routine Hospital Course (1) Acute UTI: (2) Calculus of proximal left ureter: Left Ureteral Stone Proteus UTI CT Abd/Pelvis: 4 mm nonobstructing calculus of the superior pole right kidney. Slightly delayed left-sided nephrogram with mild left-sided hydroureteronephrosis. 6 x 4 x 6 mm calculus is noted just distal to the ureteropelvic junction at the level of L3. No additional ureteral calculi. remained afebrile, no leukocytosis s/p ureteral stent placement 02/12/[address] Nasir Phelps urine culture: Proteus, pansensitive blood cultures: negative so far discharge plan: Ciprofloxacin 500mg BID x 8 more days to complete 10 days ff up with Urologist Dr. Nasir Phleps, [facility] in 1-[address] Abdomen/Pelvis Findings (please refer to full report noted in Ordered Studies above) Hepatic steatosis. There are a few unchanged scattered subcentimeter hypodensities of the liver which are too small to characterize and likely benign. --> follow up as outpatient Anxiety continue Paxil Disposition d/c home tomorrow ff up with PCP and Urologist per DC instructions Total Time Total Time Spent Total Time Spent (In Minutes): 40 minutes Discharge Plan Discharge Items Patient Disposition: Home - Self-Care Reason For Visit: RENAL STONE,UTI Discharge Diagnosis: LEFT URETERAL STONE, URETERAL STONE PLACEMENT, URINARY TRACT INFECTION Activity: Resume your previous activity Non-emergency contact: Primary Care Provider and Urologist Call non-emergency contact if: you have any medication questions, your symptoms worsen, your pain is not controlled, your pain is worsening, your pain is unusual for you, your pain is concerning for you and you have a fever Follow-up/Referrals: Nasir Phelps DO [Physician] - Contreras Shelton MD [Primary Care Provider] - 02/17/20 11:00 am (Date & Time 02/17/2020 11:00 AM Provider Scarlet Hoffman DO Department [facility] ) Diet: Heart Healthy Addtl Attending Provider Instructions: YOUR NEW MEDICATION IS CIPROFLOXACIN - ANTIBIOTIC FOR URINARY TRACT INFECTION. PLEASE TAKE A PROBIOTIC AND EAT YOGURT DAILY FOR AT LEAST 1 MONTH. CALL PRIMARY CARE PHYSICIAN OR RETURN TO THE ER IF WITH RECURRENCE OF SYMPTOMS, INCLUDING FEVER/CHILLS, ABDOMINAL/FLANK/BACK PAIN, PROBLEMS WITH URINATION, NAUSEA/VOMITING, WEAKNESS. PLEASE FOLLOW UP WITH UROLOGIST DR. PHELPS IN 1-2 WEEKS. PLEASE CALL HIS OFFICE FOR AN APPOINTMENT. CONTACT INFORMATION OUTLINED ABOVE. PLEASE FOLLOW UP WITH DR. SHELTON THIS COMING THURSDAY OUTLINED ABOVE. Pending Studies at Discharge: Yes Studies:: FINAL RESULT OF BLOOD CULTURES Stand-Alone Forms: My [employer], Smoking Cessation Medications and DC Order Prescriptions: New ciprofloxacin HCl 500 mg tablet 500 mg PO Q12H Qty: 16 RF: 0 Continued fexofenadine [Cristina Allergy] 180 mg Tablet 180 mg PO QAM PRN (Reason: ALLERGIES) RF: 0 simvastatin [Zocor] 40 mg tablet 40 mg PO HS RF: 0 meclizine 25 mg Tablet 25 mg PO TID PRN (Reason: DIZZY) RF: 0 lansoprazole [Prevacid] 30 mg capsule,delayed release(DR/EC) 30 mg PO QAM RF: 0 albuterol sulfate [Ventolin HFA] 90 mcg/actuation Hfa Aerosol Inhaler 2 puff INHALATION QID PRN (Reason: Shortness Of Breath Or Wheezing) RF: 0 fluticasone propionate [Flonase Allergy Relief] 50 mcg/actuation spray,suspension 2 spray Intranasal DAILY PRN (Reason: ALLERGIES) RF: 0 paroxetine HCl [Paxil CR] 12.5 mg tablet extended release 24 hr 12.5 mg PO QAM RF: 0 paroxetine HCl [Paxil CR] 37.5 mg tablet extended release 24 hr 37.5 mg PO QAM RF: 0 oxymetazoline [Afrin (oxymetazoline)] 0.05 % [place],Non-Aerosol 2 spray INTRANASAL Q12H PRN (Reason: Congestion) RF: 0 One Daily For Women 18-0.4 mg Tablet 1 tab PO QAM RF: 0 acetaminophen [Tylenol Extra Strength] 500 mg Tablet 500 mg PO Q6H PRN (Reason: Pain) RF: 0 Discharge Orders: Discharge Order (Routine); Ordered 02/13/20 Ordered By: Franc Jones Admission Data Admit Date/Time: 02/11/20 20:27 Attending Provider: Franc Jones Admit Provider: Artem Che Primary Care Provider: Contreras Shelton Other Providers: Artem Che ; Nasir Phelps ; Sinan Lama
== END 2020-02-13 15:56 | disposition home or self-care (01) | DRG 660 ==
LOC: ED 17:13 → 2N 20:57 → SUATTDRO 20:57 → 2N 21:30

== ENCOUNTER 2024-11-11 06:46 | Inpatient (IN) ==
--- NOTE | 2024-11-11 07:12 | Emergency Department Note ---
Impression & Plan Facial cellulitis, Dental infection ED Provider Note CHIEF COMPLAINT: Dental infection HISTORY OF PRESENTING ILLNESS: The patient is a pleasant 68-year-old female who arrives to the emergency department for evaluation of facial swelling, and redness. The patient reports she was seen in the ED, and prescribed oral antibiotics, she was referred then to an escrow clerk. She states they attempted to root canals, and hope to see some improvement in her symptoms, however her pain and swelling is worse today. She reports she contacted them, and they referred her to the emergency department for evaluation. She states she is now having facial swelling, and pain extending from the left upper lip to the left lower eyelid. She reports no drainage from the upper left gingiva. She states pain is not controlled at home with oral medications. REVIEW OF SYSTEMS: See HPI for pertinent positives and pertinent negatives. ALLERGIES: See below MEDICATIONS: See below PAST MEDICAL HISTORY: See below PHYSICAL EXAM: VITALS: Vitals are noted on the nurse's note and reviewed by myself. Vital signs stable. GENERAL: 68-year-old female, in no acute distress, nondiaphoretic, well- developed well-nourished. SKIN: Erythema, edema from left upper lip, extending to the left lower eyelid. HEAD: Normocephalic atraumatic. EYES: Pupils equal round and reactive to light and accommodation. Conjunctivae without injection, sclerae without icterus. Extraocular movements intact. NOSE: Patent, turbinates without inflammation or discharge. No sinus tenderness. MOUTH: Mucous membranes moist. No tonsillar hypertrophy. Pharynx without erythema or exudate. Uvula midline. Airway patent. Tongue does not deviate. Erythema of the left upper gingiva, no drainage noted. White plaque noted to the left upper oral mucosa. NECK: Supple without nuchal rigidity. No JVD. HEART: Regular rate and rhythm without murmurs gallops or rubs. LUNGS: Clear to auscultation bilaterally without wheezes, rales or rhonchi. No retractions or accessory muscle use. NEURO: Patient was alert and oriented to person place and time. No focal neurological deficits. DIFFERENTIAL DIAGNOSIS: Dental caries, dental abscess, Ludwigs angina, Vincent angina, dental fracture, facial cellulitis, parotitis, osteomyelitis, sinus infection, peritonsillar abscess. ED COURSE AND MEDICAL DECISION MAKING: HISTORY FROM INDEPENDENT HISTORIAN: Daughter at bedside serving as secondary historian. MEDICATIONS GIVEN: 600 mg IV clindamycin, 4 mg IV morphine x 2, 4 mg IV Zofran, oral viscous lidocaine. INTERPRETATION OF LABS: I interpreted the labs with full lab results as below in the lab section of this note. Pertinent lab results discussed in the MDM section below. INTERPRETATION OF IMAGING: Imaging studies were interpreted by myself and read by radiology as per the imaging section of this note. CONSULTATIONS: Oral surgery consultation obtained from Dr. Krunal Jo. MDM SUMMARY: The patient is a pleasant, 68-year-old female who arrives to the emergency department for evaluation of the above-stated complaint. Saline lock was established, CBC, CMP were obtained. Lab work shows no leukocytosis, no anemia. CMP unremarkable. CT soft tissue imaging was obtained which shows no visible abscess. Patient was provided IV clindamycin for dental infection, as well as IV pain control, nausea control. Consult was obtained by Dr. Krunal Jo, from [facility], who agreed to evaluate the patient during hospital admission. The patient will require hospital admission for facial cellulitis. I spoke with Narcisa Trinh PA-C from the [facility] hospitalist group, who agreed to evaluate the patient. She along with Dr. Kennedy, will admit the patient to their services. Please refer to their documentation for further patient workup and care. DIAGNOSIS: Dental infection, facial cellulitis The patient's case was discussed with Dr. Boyle, who agreed with my evaluation and treatment plan. The chart was completed utilizing [employer] voice recognition software. Grammatical errors, random word insertions, pronoun errors, and incomplete sentences are an occasional consequence of this system due to software limitations, ambient noise, and hardware issues. Any formal questions or concerns about the content, text, or information contained within the body of this dictation should be directly addressed to the provider for clarification. Attending Attestation: I Yahir Boyle MD I have reviewed the advanced practitioner's documentation and agree with the plan of care. I accept the responsibility for the associated risk of managing the patient. I performed a substantive portion of the visit including involvement in all aspects of medical decision making. Past Med/Surg History Problem List Dental infection (Acute) Facial cellulitis (Acute) Pain, dental (Acute) Dental infection (Acute) Left hip pain Septic olecranon bursitis of left elbow Sciatica Routine gynecological examination Nephrolithiasis Dysuria Vaginal itching Allergic rhinitis Chronic sinusitis S/P rotator cuff repair "right shoulder 2013, Dr. Zhong" S/P tonsillectomy and adenoidectomy S/P tubal ligation Bacteremia Pain of right upper extremity Rotator cuff arthropathy Sepsis Encounter for pre-operative examination Ovarian cyst Renal stone UTI (urinary tract infection) GERD (gastroesophageal reflux disease) Calculus of proximal left ureter (Acute) Acute UTI (Acute) Fever (Acute) S/P ureteral stent placement History of bilateral knee replacement Anxiety Dyslipidemia H/O umbilical hernia repair H/O dilation and curettage H/O sinus surgery Medical History Urinary tract infection gets UTI following any urinary catheterization, is prone to UTI and does not show typical signs and symptoms. Hx of sepsis s/p right tka d/t an undetected UTI (February 2019) Obesity Osteoarthritis GERD (gastroesophageal reflux disease) controlled Hx of migraines Seasonal allergies Depression Surgical History History of cystoscopy with stent S/P BSO (bilateral salpingo-oophorectomy) S/P excision of ganglion cyst finger Status post right knee replacement History of carpal tunnel release of both wrists History of left knee replacement Left TKA: 10/30/17: SAB x 1 at L3-L4 + PNB at [facility] Hx of tubal ligation History of tonsillectomy and adenoidectomy History of right shoulder replacement History of rotator cuff surgery RIGHT History of colonoscopy Family History Aunt Breast cancer Father Myocardial infarction Grandfather (Paternal) Myocardial infarction Grandmother (Maternal) Ovarian cancer Other No family history of adverse response to anesthesia No significant family history Denies family history of Prostate cancer Colorectal cancer Social History Smoking Status: Never smoker Second Hand Exposure: No; Do You Dip or Chew Tobacco: No; Hx Alcohol Use: No Hx Substance Use: No Preferred Language: Indian Communication Ability: Effective Processing Operator Required: No Beliefs That Will Affect Care: None marital status: Current Living Situation: Alone Current Living Situation Comment: One story house with one dog current occupational status: retired Feels Safe at Home: Yes Assistive Devices: Glasses Allergies Allergies Allergy/AdvReac Type Severity Reaction Status Date / Time amitriptyline Allergy Intermediate RASH AND Verified 11/11/24 09:35 FEET SWELLING Cephalosporins Allergy Intermediate RASH AND Verified 11/11/24 09:35 TACHYCARDIA lorazepam Allergy Intermediate RASH Verified 11/11/24 09:35 cefazolin Allergy RASH Verified 11/11/24 09:35 Bactrim AdvReac Intermediate SEVERE GI Verified 12/20/17 18:10 UPSET; DIAPHORESIS; HOT FLASHES sulfamethoxazole [Bactrim] AdvReac Intermediate SEVERE GI Verified 11/11/24 09:35 UPSET; DIAPHORESIS; HOT FLASHES trimethoprim AdvReac Intermediate SEVERE GI Verified 11/11/24 09:35 UPSET; DIAPHORESIS; HOT FLASHES amoxicillin AdvReac Mild Swelling Verified 11/11/24 09:35 of Lip/Tongue/Throat clarithromycin AdvReac Mild GI UPSET Verified 11/11/24 09:35 clavulanic acid AdvReac Mild SEVERE Verified 11/11/24 09:35 NAUSEA nitrofurantoin AdvReac Mild GI UPSET Verified 11/11/24 09:35 Penicillins AdvReac Mild SEVERE Verified 11/11/24 09:35 NAUSEA Home Meds Home Medications Medication Instructions Recorded Confirmed fexofenadine 180 mg tablet 180 mg PO QAM 06/03/18 11/11/24 (Cristina Allergy) lansoprazole 30 mg capsule,delayed 30 mg PO QAM 06/03/18 11/11/24 release (Prevacid) meclizine 25 mg tablet 25 mg PO TID PRN DIZZY 06/03/18 11/11/24 qthbslsh-uiok-hry-folic acid 18 1 tab PO QAM 06/03/18 11/11/24 mg-0.4 mg tablet (One Daily For Women) paroxetine HCl 12.5 mg 12.5 mg PO QAM 06/03/18 11/11/24 tablet,extended release 24 hr (Paxil CR) paroxetine HCl 37.5 mg 37.5 mg PO QAM 06/03/18 11/11/24 tablet,extended release 24 hr (Paxil CR) simvastatin 40 mg tablet (Zocor) 40 mg PO HS 06/03/18 11/11/24 acetaminophen 500 mg tablet 500 mg PO Q6H PRN Pain 02/11/20 11/11/24 (Tylenol Extra Strength) Saccharomyces boulardii 250 mg 250 mg PO BID 11/11/24 11/11/24 capsule (Florastor) ibuprofen 200 mg tablet 200 mg PO Q6H PRN Pain 11/11/24 11/11/24 Previous Rx's Medication Instructions Recorded levofloxacin 500 mg tablet 500 mg PO DAILY 7 days #7 tabs 11/09/24 metronidazole 500 mg tablet 500 mg PO TID #21 tabs 11/09/24 oxycodone 5 mg tablet 5 mg PO Q6H PRN pain #9 tabs 11/09/24 Results & Data (ED) Vital Signs Vital Signs - 24 hr 11/11/24 06:52 11/11/24 08:30 11/11/24 09:15 Temperature 36 C L Temperature Source Temporal Artery Scan Pulse Rate 97 H Pulse Rate [Radial] 79 72 Pulse Rhythm [Radial] Regular Regular Respiratory Rate 18 16 16 Respiratory Effort / Characteristics Non-Labored Non-Labored Non-Labored Respiratory Depth Normal Normal Normal Respiratory Pattern Regular Regular Blood Pressure 128/81 Blood Pressure [Right Arm] 162/96 H 148/89 H Blood Pressure Mean 96 Blood Pressure Mean [Right Arm] 118 108 Pulse Oximetry 97 95 97 Oxygen Delivery Method Room Air Room Air Room Air Sepsis Recent Fever Within 48 Hours No Sepsis New/Unexplained Change in Mental Status No Sepsis Action Taken by Nursing No Action Required 11/11/24 11:00 Temperature Temperature Source Pulse Rate Pulse Rate [Radial] 72 Pulse Rhythm [Radial] Regular Respiratory Rate 18 Respiratory Effort / Characteristics Non-Labored Respiratory Depth Normal Respiratory Pattern Regular Blood Pressure Blood Pressure [Right Arm] 161/95 H Blood Pressure Mean Blood Pressure Mean [Right Arm] 117 Pulse Oximetry 97 Oxygen Delivery Method Room Air Sepsis Recent Fever Within 48 Hours Sepsis New/Unexplained Change in Mental Status Sepsis Action Taken by Residential Medications Current Medication List: was personally reviewed by me Laboratory Data Attestation: I reviewed the patient's lab results. 11/11/24 07:25 11/11/24 07:25 Lab Results 11/11/24 Range/Units 07:25 WBC 5.61 (4.8-10.8) K/ul RBC 4.70 (4.20-5.40) M/uL Hgb 14.0 (12.0-16.0) g/dl Hct 43.4 (37.0-47.0) % MCV 92.3 (80.0-100.0) fL MCH 29.8 (25.0-34.0) pg MCHC 32.3 (32.0-36.0) g/dL RDW Std Deviation 49.7 H (36.4-46.3) fL RDW Coeff of Lucien 14.6 H (11.5-14.5) % Plt Count 179 (130-400) K/uL MPV 9.9 (9.4-12.4) fL Immature Gran % (Auto) 0.4 % Neut % (Auto) 74.9 % Lymph % (Auto) 13.5 % Schleicher % (Auto) 8.6 % Eos % (Auto) 2.1 % Baso % (Auto) 0.5 % Neut # (Auto) 4.20 (1.40-6.50) K/uL Lymph # (Auto) 0.76 L (1.20-3.40) K/uL Schleicher # (Auto) 0.48 (0.11-0.59) K/uL Eos # (Auto) 0.12 (0.00-0.50) K/uL Baso # (Auto) 0.03 (0.00-0.20) K/uL Immature Gran # (Auto) 0.02 (0.01-0.20) K/uL Sodium 139 (136-145) mmol/L Potassium 3.9 (3.5-5.1) mmol/L Chloride 108 H (98-107) mmol/L Carbon Dioxide 24 (21-32) mmol/L Anion Gap 7 (3-11) BUN 11 (6-23) mg/dl Creatinine 0.70 (0.6-1.2) mg/dl Est Cr Clr Drug Dosing 91.0 ml/min eGFR 93.56 BUN/Creatinine Ratio 15.7 (10-20) Glucose 142 H (70-99(Fasting)) mg/dl Calcium 8.7 (8.6-10.3) mg/dl Total Bilirubin 0.9 (0.2-1.0) mg/dl AST 21 (13-39) U/L ALT 19 (7-52) U/L Alkaline Phosphatase 81 (34-104) U/L Total Protein 6.5 (6.0-8.3) gm/dl Albumin 3.8 (3.4-5.0) gm/dl Globulin 2.7 (2.5-4.0) gm/dl Albumin/Globulin Ratio 1.4 (0.9-2) Administered Medications Hydromorphone HCl (Hydromorphone Inj 1 Mg/Ml Syringe) 1 mg IV Q6H PRN PRN Reason: Severe Pain (Scale 7, 8, 9,10) Stop: 11/25/24 13:06 Last Admin: 11/11/24 13:17 Dose: 1 mg Documented By: LETICIA Sodium Chloride (Nss) 1,000 mls @ 125 mls/hr IV .Q8H JOANN Stop: 11/14/24 11:29 Last Admin: 11/11/24 12:03 Dose: 125 mls/hr Documented By: LETICIA Ondansetron HCl (Ondansetron Inj 2 Mg/Ml 2 Ml Vial) 4 mg IV Q6H PRN PRN Reason: Nausea Stop: 12/11/24 11:50 Last Admin: 11/11/24 13:10 Dose: 4 mg Documented By: LETICIA Discontinued Medications Clindamycin Phosphate (Cleocin/D5w) 600 mg in 50 mls @ 100 mls/hr IV NOW ONE Stop: 11/11/24 08:39 Last Infusion: 11/11/24 09:15 Dose: Infused Documented By: Admin: 11/11/24 08:28 Dose: 100 mls/hr Documented By: TERRIE Ioversol (Optiray 320 100ml) 94 ml IV ONCE ONE Stop: 11/11/24 08:37 Last Admin: 11/11/24 08:36 Dose: 94 ml Documented By: JV Lidocaine HCl (Lidocaine Viscous 2% 15 Ml Udc) 15 ml MT NOW ONE Stop: 11/11/24 09:54 Last Admin: 11/11/24 09:57 Dose: 15 ml Documented By: TERRIE Morphine Sulfate (Morphine Sulfate 4 Mg/Ml 1 Ml Carp\\Vial) 4 mg IV NOW STA Stop: 11/11/24 08:10 Last Admin: 11/11/24 08:16 Dose: 4 mg Documented By: JAMES Morphine Sulfate (Morphine Sulfate 4 Mg/Ml 1 Ml Carp\\Vial) 4 mg IV NOW STA Stop: 11/11/24 10:57 Last Admin: 11/11/24 11:05 Dose: 4 mg Documented By: TERRIE Ondansetron HCl (Ondansetron Inj 2 Mg/Ml 2 Ml Vial) 4 mg IV NOW STA Stop: 11/11/24 08:23 Last Admin: 11/11/24 08:28 Dose: 4 mg Documented By: TERRIE Imaging Data Attestation: I personally reviewed and interpreted this imaging study as follows: Radiologist's Impression: Soft Tissue Neck CT 11/11/24 07:15 CT soft tissue neck w con CLINICAL HISTORY: infection . Redness and swelling at the left face. COMPARISON STUDY: 11/09/2024 FINDINGS: There is a stable 1.7 cm hypodense oval right thyroid lobe nodule. Submandibular glands and parotid glands are unremarkable. There is swallowing artifact. Otherwise the visualized upper airway is patent and symmetric. No enlarged adenopathy seen. There are prior maxillary antrostomies, widely patent. There is mild mucosal thickening at the right maxillary sinus. Otherwise the paranasal sinuses are clear. There are a few opacified mastoid air cells. There is spray artifact from metallic dental hardware. No gross apical dental abscess is seen. No soft tissue fluid or soft tissue abscess seen in the face. There are lower cervical spine degenerative changes. IMPRESSION: No soft tissue abscess or fluid seen at the face or neck. Otherwise as described. ACT 112: Negative or not required by law. Electronically signed by: Rudy Villanueva M.D. 11/11/2024 9:07 AM Discharge Plan Visit Data Chief Complaint: Dental/Oral Stated Complaint: MOUTH INFECTION ED Provider: Yahir Boyle ED Midlevel Provider: Stacie Acuña Discharge Problem: Facial cellulitis, Dental infection Patient Disposition: Admitted As Inpatient Condition: Fair Discharge Instructions Interventions: ED Discharge Assessment Last Done: 11/11/24 11:42
[2024-11-11 07:38] LABS: Hematocrit (blood only) 43.4 % (37.0-47.0); Hemoglobin 14.0 g/dl (12.0-16.0); Immature Granulocytes # (auto) 0.02 K/uL (0.01-0.20); Immature Granulocytes % (auto) 0.4 %; Mean Corpuscular Hemoglobin 29.8 pg (25.0-34.0); Mean Corpuscular Volume 92.3 fL (80.0-100.0); Platelet Count 179 K/uL (130-400); RDW Standard Deviation 49.7 fL (36.4-46.3); Red Blood Count 4.70 M/uL (4.20-5.40); White Blood Count 5.61 K/ul (4.8-10.8)
[2024-11-11 07:54] LABS: Alanine Aminotransferase 19.0 U/L (7-52); Albumin Globulin Ratio 1.4 (0.9-2); Alkaline Phosphatase 81.0 U/L (34-104); Anion Gap 7.0 (3-11); Bilirubin,Total 0.9 mg/dl (0.2-1.0); Blood Urea Nitrogen 11.0 mg/dl (6-23); Calcium 8.7 mg/dl (8.6-10.3); Carbon Dioxide 24.0 mmol/L (21-32); Chloride 108.0 mmol/L (98-107); Creatinine Clr Calc Pharmacy 91.0 ml/min; Globulin 2.7 gm/dl (2.5-4.0); Glucose 142.0 mg/dl (70-99(Fasting)); Potassium 3.9 mmol/L (3.5-5.1); Sodium 139.0 mmol/L (136-145); Total Protein 6.5 gm/dl (6.0-8.3)
[2024-11-11] MEDS: MoRPHine SULFATE 4 MG/ML 1 ML CARP\\VIAL IV STA ×2 (08:16→11:05)
[2024-11-11] MEDS: CLINDAMYCIN/D5W 600 MG/50 ML BAG IV ONE (08:28)
[2024-11-11] MEDS: ONDANSETRON INJ 2 MG/ML 2 ML VIAL IV STA (08:28)
[2024-11-11] MEDS: OPTIRAY 320 100ml IV ONE (08:36)
--- NOTE | 2024-11-11 09:09 | CT Scan Report ---
CT soft tissue neck w con CLINICAL HISTORY: infection . Redness and swelling at the left face. COMPARISON STUDY: 11/09/2024 FINDINGS: There is a stable 1.7 cm hypodense oval right thyroid lobe nodule. Submandibular glands and parotid glands are unremarkable. There is swallowing artifact. Otherwise the visualized upper airway is patent and symmetric. No enlarged adenopathy seen. There are prior maxillary antrostomies, widely patent. There is mild mucosal thickening at the right maxillary sinus. Otherwise the paranasal sinus es are clear. There are a few opacified mastoid air cells. There is spray artifact from metallic dent al hardware. No gross apical dental abscess is seen. No soft tissue fluid or soft tissue abscess seen in the face. There are lower cervical spine degenerative changes. IMPRESSION: No soft tissue abscess or fluid seen at the face or neck. Otherwise as described. ACT 112: Negative or not required by law. Electronically signed by: Rudy Villanueva M.D. 11/11/2024 9:07 AM
--- NOTE | 2024-11-11 09:28 | History & Physical Report ---
Date of Service November 11, 2024 Assessment & Plan (1) Facial cellulitis: (2) Dental infection: Plan Patient is a 68-year-old female with past medical history significant for prediabetes, HLD, nonallergic rhinitis, vertigo, SUMAYA and other problems listed below who presented to the ED for evaluation of a dental infection which has been ongoing since 11/06/24. Seen by dentist on 11/08 and started on Z-Gigi w/ no improvement. Seen in our ED on 11/09 and started on po Flagyl and Levaquin w/ no improvement. Seen by lav crewman yesterday; attempted root canals both tooth 12 and tooth 14 --> no abscess or drainage noted, subsequently referred to ED. #L facial cellulitis #Dental infection; failure of outpt ABX therapy Soft tissue neck CT: no soft tissue abscess or fluid seen at the face or neck, no enlarged adenopathy Labs grossly unremarkable Check procal, lactate S/p IV clindamycin in ED (ISO multiple ABX allergies) Continue IV clindamycin for now Follow blood cultures OMFS consult; Dr. Jo to see pt this afternoon --> maintain NPO status for now Maintenance IVF while NPO #SUMAYA Continue Paxil #HLD Continue statin #Prediabetes Check Hgb A1c in AM #GERD Continue Prevacid DVT Prophylaxis: SCDs/TEDs for now PCP: Contreras Shelton MD Disposition: Admit to med/tele Patient seen in collaboration with Dr. Kennedy. Please see addendum. I spent a total of 52 minutes coordinating, documenting, and providing care for this patient excluding time spent in the performance of separately billed services or time spent by another provider/QHP. This included personally reviewing all current laboratories and imaging studies, medical reconciliation, outpatient chart review and discussion with specialists. This chart was completed in part utilizing Speech Voice Recognition Software. Grammatical errors, random word insertions, pronoun errors, and incomplete sentences are an occasional consequence of this system due to software limitations, ambient noise, and hardware issues. Any formal questions or concerns about the content, text, or information contained within the body of this dictation should be directly addressed to the provider for clarification. History of Present Illness Chief Complaint: Dental infection Primary Care Provider: Contreras Shelton MD Patient is a 68-year-old female with past medical history significant for prediabetes, HLD, nonallergic rhinitis, vertigo, SUMAYA and other problems listed below who presented to the ED for evaluation of a dental infection. History obtained from the patient, patient's daughter at bedside, discussion with ED provider and associated chart review. Patient with development of left-sided facial erythema/swelling and upper left- sided tooth pain beginning 11/06/2024. Was previously seen by her primary dentist on Thursday and was empirically started on a Z-Gigi. Patient did not note any improvement in her symptoms on the Z-Gigi therefore she was seen and evaluated in our ED on Thursday where she was prescribed oral Levaquin and Flagyl. Soft tissue neck CT at that time did not reveal any evidence of a inflammatory/infectious process or focal mass lesion. Patient's symptoms persisted even on the antibiotics therefore she saw an lav crewman yesterday whom started 2 root canals (tooth 12 and tooth 14) in hopes of draining a possible underlying abscess. However, there was no abscess formation seen. the erythema was mostly localized to the left cheek region but now is spreading up under her left eye in addition to the swelling. No drainage noted from the left eye or the oral cavity. Now also with development of small blistering lesions inside her mouth on the left side as well as on her top lip which were first noted yesterday. These are not draining. No fevers at home. No reported issues with swallowing. Denies any breathing difficulty. Pain is mostly localized to the mouth, left cheek and left eye. Feels there is nerve involvement as she has these fleeting waves of stinging and stabbing pain. Pain rated from anywhere to 2 out of 10 to 8 out of 10 at its worst. Has been taking ibuprofen at home with minimal relief in her pain. Allergies Allergy/AdvReac Type Severity Reaction Status Date / Time amitriptyline Allergy Intermediate RASH AND Verified 11/11/24 09:35 FEET SWELLING Cephalosporins Allergy Intermediate RASH AND Verified 11/11/24 09:35 TACHYCARDIA lorazepam Allergy Intermediate RASH Verified 11/11/24 09:35 cefazolin Allergy RASH Verified 11/11/24 09:35 Bactrim AdvReac Intermediate SEVERE GI Verified 12/20/17 18:10 UPSET; DIAPHORESIS; HOT FLASHES sulfamethoxazole [Bactrim] AdvReac Intermediate SEVERE GI Verified 11/11/24 09:35 UPSET; DIAPHORESIS; HOT FLASHES trimethoprim AdvReac Intermediate SEVERE GI Verified 11/11/24 09:35 UPSET; DIAPHORESIS; HOT FLASHES amoxicillin AdvReac Mild Swelling Verified 11/11/24 09:35 of Lip/Tongue/Throat clarithromycin AdvReac Mild GI UPSET Verified 11/11/24 09:35 clavulanic acid AdvReac Mild SEVERE Verified 11/11/24 09:35 NAUSEA nitrofurantoin AdvReac Mild GI UPSET Verified 11/11/24 09:35 Penicillins AdvReac Mild SEVERE Verified 11/11/24 09:35 NAUSEA Home Medications Medication Instructions Recorded Confirmed Type fexofenadine 180 mg tablet 180 mg PO QAM 06/03/18 11/11/24 History (Cristina Allergy) lansoprazole 30 mg capsule,delayed 30 mg PO QAM 06/03/18 11/11/24 History release (Prevacid) meclizine 25 mg tablet 25 mg PO TID PRN DIZZY 06/03/18 11/11/24 History dlrmhxpb-nsfp-kbt-folic acid 18 1 tab PO QAM 06/03/18 11/11/24 History mg-0.4 mg tablet (One Daily For Women) paroxetine HCl 12.5 mg 12.5 mg PO QAM 06/03/18 11/11/24 History tablet,extended release 24 hr (Paxil CR) paroxetine HCl 37.5 mg 37.5 mg PO QAM 06/03/18 11/11/24 History tablet,extended release 24 hr (Paxil CR) simvastatin 40 mg tablet (Zocor) 40 mg PO HS 06/03/18 11/11/24 History acetaminophen 500 mg tablet 500 mg PO Q6H PRN Pain 02/11/20 11/11/24 History (Tylenol Extra Strength) levofloxacin 500 mg tablet 500 mg PO DAILY 7 days #7 tabs 11/09/24 11/11/24 Rx metronidazole 500 mg tablet 500 mg PO TID #21 tabs 11/09/24 11/11/24 Rx oxycodone 5 mg tablet 5 mg PO Q6H PRN pain #9 tabs 11/09/24 11/11/24 Rx Saccharomyces boulardii 250 mg 250 mg PO BID 11/11/24 11/11/24 History capsule (Florastor) ibuprofen 200 mg tablet 200 mg PO Q6H PRN Pain 11/11/24 11/11/24 History Past Med/Surg History Problem List Dental infection (Acute) Facial cellulitis (Acute) Pain, dental (Acute) Dental infection (Acute) Left hip pain Septic olecranon bursitis of left elbow Sciatica Routine gynecological examination Nephrolithiasis Dysuria Vaginal itching Allergic rhinitis Chronic sinusitis S/P rotator cuff repair "right shoulder 2013, Dr. Zhong" S/P tonsillectomy and adenoidectomy S/P tubal ligation Bacteremia Pain of right upper extremity Rotator cuff arthropathy Sepsis Encounter for pre-operative examination Ovarian cyst Renal stone UTI (urinary tract infection) GERD (gastroesophageal reflux disease) Calculus of proximal left ureter (Acute) Acute UTI (Acute) Fever (Acute) S/P ureteral stent placement History of bilateral knee replacement Anxiety Dyslipidemia H/O umbilical hernia repair H/O dilation and curettage H/O sinus surgery Medical History Urinary tract infection gets UTI following any urinary catheterization, is prone to UTI and does not show typical signs and symptoms. Hx of sepsis s/p right tka d/t an undetected UTI (February 2019) Obesity Osteoarthritis GERD (gastroesophageal reflux disease) controlled Hx of migraines Seasonal allergies Depression Surgical History History of cystoscopy with stent S/P BSO (bilateral salpingo-oophorectomy) S/P excision of ganglion cyst finger Status post right knee replacement History of carpal tunnel release of both wrists History of left knee replacement Left TKA: 10/30/17: SAB x 1 at L3-L4 + PNB at [facility] Hx of tubal ligation History of tonsillectomy and adenoidectomy History of right shoulder replacement History of rotator cuff surgery RIGHT History of colonoscopy Family History Aunt Breast cancer Father Myocardial infarction Grandfather (Paternal) Myocardial infarction Grandmother (Maternal) Ovarian cancer Other No family history of adverse response to anesthesia No significant family history Denies family history of Prostate cancer Colorectal cancer Social History Smoking Status: Never smoker Second Hand Exposure: No; Do You Dip or Chew Tobacco: No; Hx Alcohol Use: No Hx Substance Use: No Preferred Language: Maltese Communication Ability: Effective [employer] Supervisor Required: No Beliefs That Will Affect Care: None marital status: Current Living Situation: Alone Current Living Situation Comment: One story house with one dog current occupational status: retired Feels Safe at Home: Yes Assistive Devices: Glasses Review of Systems Review of Systems: At least ten systems reviewed and negative, except as noted in the HPI. Physical Exam Physical Exam: General: Obese F, NAD but appears uncomfortable, sitting up in bed, A&Ox4, daughter at bedside HEENT: Normocephalic, + L-sided facial erythema from mouth region to under L eye, + L facial swelling (TTP), + dry blistering lesions inside L side of mouth and on upper lip Respiratory: Normal respiratory effort, lungs clear to auscultation bilaterally Cardiovascular: Regular rate, rhythm, normal peripheral pulses, no BLE edema Abdomen/GI: Normal bowel sounds, soft, nontender to palpation in all quadrants Extremities/MSK: No cyanosis or clubbing, extremities motor strength intact, moves all extremities Neurologic: No overt focal deficits, CN's II-XI not formally tested but appear grossly intact bilaterally Results & Data Results & Data Vital Signs (Past 12 Hours) Vital Signs Temp Pulse Pulse Resp BP BP Pulse Ox 11/11/24 08:30 79 16 162/96 H 95 11/11/24 06:52 36 C L 97 H 18 128/81 97 O2 Del Method 11/11/24 08:30 Room Air 11/11/24 06:52 Room Air Laboratory Results Short CBC 11/11/24 Range/Units 07:25 WBC 5.61 (4.8-10.8) K/ul Hgb 14.0 (12.0-16.0) g/dl Hct 43.4 (37.0-47.0) % Plt Count 179 (130-400) K/uL BMP 11/11/24 07:25 Sodium 139 Potassium 3.9 Chloride 108 H Carbon Dioxide 24 BUN 11 Creatinine 0.70 Glucose 142 H Calcium 8.7 Liver Function 11/11/24 Range/Units 07:25 Total Bilirubin 0.9 (0.2-1.0) mg/dl AST 21 (13-39) U/L ALT 19 (7-52) U/L Alkaline Phosphatase 81 (34-104) U/L Albumin 3.8 (3.4-5.0) gm/dl Diagnostic Findings Soft Tissue Neck CT 11/11/24 07:15 CT soft tissue neck w con CLINICAL HISTORY: infection . Redness and swelling at the left face. COMPARISON STUDY: 11/09/2024 FINDINGS: There is a stable 1.7 cm hypodense oval right thyroid lobe nodule. Submandibular glands and parotid glands are unremarkable. There is swallowing artifact. Otherwise the visualized upper airway is patent and symmetric. No enlarged adenopathy seen. There are prior maxillary antrostomies, widely patent. There is mild mucosal thickening at the right maxillary sinus. Otherwise the paranasal sinuses are clear. There are a few opacified mastoid air cells. There is spray artifact from metallic dental hardware. No gross apical dental abscess is seen. No soft tissue fluid or soft tissue abscess seen in the face. There are lower cervical spine degenerative changes. IMPRESSION: No soft tissue abscess or fluid seen at the face or neck. Otherwise as described. ACT 112: Negative or not required by law. Electronically signed by: Rudy Villanueva M.D. 11/11/2024 9:07 AM Medications Administered Discontinued Medications Clindamycin Phosphate (Cleocin/D5w) 600 mg in 50 mls @ 100 mls/hr IV NOW ONE Stop: 11/11/24 08:39 Last Infusion: 11/11/24 09:15 Dose: Infused Documented By: Admin: 11/11/24 08:28 Dose: 100 mls/hr Documented By: TERRIE Ioversol (Optiray 320 100ml) 94 ml IV ONCE ONE Stop: 11/11/24 08:37 Last Admin: 11/11/24 08:36 Dose: 94 ml Documented By: JV Morphine Sulfate (Morphine Sulfate 4 Mg/Ml 1 Ml Carp\\Vial) 4 mg IV NOW STA Stop: 11/11/24 08:10 Last Admin: 11/11/24 08:16 Dose: 4 mg Documented By: JAMES Ondansetron HCl (Ondansetron Inj 2 Mg/Ml 2 Ml Vial) 4 mg IV NOW STA Stop: 11/11/24 08:23 Last Admin: 11/11/24 08:28 Dose: 4 mg Documented By: KEG Code Status & VTE Plan Code Status FULL CODE Supervising Physician Co-Signing Physician Notes 68 yo F w/ PMH of prediabetes, HLD, nonallergic rhinitis, vertigo, SUMAYA presents w/ failure of OP therapy for dental infection. Left tooth pain a/w left cheek s welling/left medial face erythema continued to worsen despite OP antibiotics (initially z pack from dental office, then levaquin + flagyl from ED]. Pt f/u w/ endodontics yesterday, left upper tooth # 12 and #14 - RCT done (now w/ temporary filling) to release ? infection/pus --> pt worsened and called them today, it was presumed that her infection is likely coming from lower teeth. She was sent to ED. labs and imagings reviewed, CT neck w/ no abscess. Will c/w clinda, probiotic, pain Mx (apparently had brief minor skin rash after morphine injection in hospital, will change to dilaudid and closely monitor], nausea control. IVF. OMFS consult. NPO until OMFS eval. On exam: RA, left medial face erythema, lt upper #12 and #14 w/ temp filling, left cheek swelling, erythema. tender left cheek. rest of exam as above. Time spent independently: 27 min. I have seen and examined the patient and have discussed the case with the provider above. I agree with the assessment and plan as stated.
[2024-11-11] MEDS: LIDOCAINE VISCOUS 2% 15 ML UDC MT ONE (09:57)
[2024-11-11] MEDS ORDERED: MAGNESIUM HYDROXIDE SUSP 30 ML UDC PO PRN (11:51)
[2024-11-11] MEDS ORDERED: POLYETHYLENE (MIRALAX) 17 GM PACK PO PRN (11:51)
[2024-11-11] MEDS ORDERED: MoRPHine SULFATE 2 MG/ML CARP IV PRN (11:51)
[2024-11-11] MEDS: SODIUM CHLORIDE 0.9% 1,000 ML IV SCH (12:03)
[2024-11-11] MEDS: ACETAMINOPHEN 325 MG TAB PO PRN (13:06)
[2024-11-11] MEDS: ONDANSETRON INJ 2 MG/ML 2 ML VIAL IV PRN (13:10)
[2024-11-11] MEDS: HYDROmorphone INJ 1 MG/ML SYRINGE IV PRN (13:17)
[2024-11-11] MEDS: CLINDAMYCIN/D5W 600 MG/50 ML BAG IV SCH (15:28)
[2024-11-11] MEDS: SACCHAROMYCES BOULARDII 250 MG CAP PO SCH (21:19)
[2024-11-11] MEDS: SIMVASTATIN 40 MG TAB PO SCH (21:19)
[2024-11-12 06:26] LABS: Hematocrit (blood only) 41.7 % (37.0-47.0); Hemoglobin 13.1 g/dl (12.0-16.0); Immature Granulocytes # (auto) 0.01 K/uL (0.01-0.20); Immature Granulocytes % (auto) 0.2 %; Mean Corpuscular Hemoglobin 29.6 pg (25.0-34.0); Mean Corpuscular Volume 94.3 fL (80.0-100.0); Platelet Count 181 K/uL (130-400); RDW Standard Deviation 52.1 fL (36.4-46.3); Red Blood Count 4.42 M/uL (4.20-5.40); White Blood Count 5.65 K/ul (4.8-10.8)
[2024-11-12] MEDS ORDERED: ONDANSETRON INJ 2 MG/ML 2 ML VIAL ONE (06:37)
[2024-11-12] MEDS ORDERED: ROCURONIUM BROMIDE 10 MG/ML 5 ML VIAL IV ONE (06:37)
[2024-11-12] MEDS ORDERED: MIDAZOLAM HCL 1 MG/ML 2ML VIAL ONE (06:37)
[2024-11-12] MEDS ORDERED: DEXAMETHASONE SOD INJ 4 MG/ML VIAL ONE (06:37)
[2024-11-12] MEDS ORDERED: LIDOCAINE 2% 2 ML VIAL/AMP(20MG/ML) INFIL ONE (06:37)
[2024-11-12] MEDS ORDERED: PROPOFOL IV EMULSION 10 MG/ML 20 ML VIAL IV ONE (06:37)
--- NOTE | 2024-11-12 07:01 | Anesthesiology Consultation ---
Date of Service November 12, 2024 Assessment & Plan (1) Encounter for pre-operative examination: Chart Review Chart Review: Patient NOT seen in Pre Admission Testing Consults Requested none History Surgery Operation Date: 11/12/24 07:30 Proposed Procedures p Incision and Drainage Left Lower Jaw, - Krunal Jo DMD s Extraction of Tooth #19 - Krunal Jo DMD Height/Weight Height: 5 ft 4 in Weight: 109 kg Allergies Allergy/AdvReac Type Severity Reaction Status Date / Time amitriptyline Allergy Intermediate RASH AND Verified 11/11/24 09:35 FEET SWELLING Cephalosporins Allergy Intermediate RASH AND Verified 11/11/24 09:35 TACHYCARDIA lorazepam Allergy Intermediate RASH Verified 11/11/24 09:35 cefazolin Allergy RASH Verified 11/11/24 09:35 Bactrim AdvReac Intermediate SEVERE GI Verified 12/20/17 18:10 UPSET; DIAPHORESIS; HOT FLASHES sulfamethoxazole [Bactrim] AdvReac Intermediate SEVERE GI Verified 11/11/24 09:35 UPSET; DIAPHORESIS; HOT FLASHES trimethoprim AdvReac Intermediate SEVERE GI Verified 11/11/24 09:35 UPSET; DIAPHORESIS; HOT FLASHES amoxicillin AdvReac Mild Swelling Verified 11/11/24 09:35 of Lip/Tongue/Throat clarithromycin AdvReac Mild GI UPSET Verified 11/11/24 09:35 clavulanic acid AdvReac Mild SEVERE Verified 11/11/24 09:35 NAUSEA nitrofurantoin AdvReac Mild GI UPSET Verified 11/11/24 09:35 Penicillins AdvReac Mild SEVERE Verified 11/11/24 09:35 NAUSEA Medications Home Medications Medication Instructions Recorded Confirmed Last Taken fexofenadine 180 mg tablet 180 mg PO QAM 06/03/18 11/11/24 11/10/24 (Cristina Allergy) lansoprazole 30 mg capsule,delayed 30 mg PO QAM 06/03/18 11/11/24 11/11/24 release (Prevacid) meclizine 25 mg tablet 25 mg PO TID PRN DIZZY 06/03/18 11/11/24 11/10/24 bwnkgfrj-atlr-zdg-folic acid 18 1 tab PO QAM 06/03/18 11/11/24 11/10/24 mg-0.4 mg tablet (One Daily For Women) paroxetine HCl 12.5 mg 12.5 mg PO QAM 06/03/18 11/11/24 11/11/24 tablet,extended release 24 hr (Paxil CR) paroxetine HCl 37.5 mg 37.5 mg PO QAM 06/03/18 11/11/24 11/11/24 tablet,extended release 24 hr (Paxil CR) simvastatin 40 mg tablet (Zocor) 40 mg PO HS 06/03/18 11/11/24 11/10/24 acetaminophen 500 mg tablet 500 mg PO Q6H PRN Pain 02/11/20 11/11/24 02/26/20 (Tylenol Extra Strength) levofloxacin 500 mg tablet 500 mg PO DAILY 7 days #7 tabs 11/09/24 11/11/24 11/10/24 metronidazole 500 mg tablet 500 mg PO TID #21 tabs 11/09/24 11/11/24 11/11/24 oxycodone 5 mg tablet 5 mg PO Q6H PRN pain #9 tabs 11/09/24 11/11/24 11/10/24 Saccharomyces boulardii 250 mg 250 mg PO BID 11/11/24 11/11/24 11/11/24 capsule (Florastor) ibuprofen 200 mg tablet 200 mg PO Q6H PRN Pain 11/11/24 11/11/24 Unknown Active Medications Generic Name Dose Route Start Last Admin Trade Name Freq PRN Reason Stop Dose Admin Acetaminophen 650 mg 11/11/24 11:51 11/12/24 06:18 Acetaminophen 325 Mg Tab PO 12/11/24 11:50 650 mg Q4H PRN Administration Pain or Fever Hydromorphone HCl 1 mg 11/11/24 13:07 11/11/24 13:17 Hydromorphone Inj 1 Mg/Ml Syringe IV 11/25/24 13:06 1 mg Q6H PRN Administration Severe Pain (Scale 7, 8, 9,10) Sodium Chloride 1,000 mls @ 125 mls/hr 11/11/24 11:30 11/12/24 04:23 Nss IV 11/14/24 11:29 125 mls/hr .Q8H JOANN Administration Clindamycin Phosphate 600 mg in 50 mls @ 100 mls/hr 11/11/24 16:00 11/12/24 01:55 Cleocin/D5w IV 11/21/24 15:59 Infused Q8H JOANN Infusion Ondansetron HCl 4 mg 11/11/24 11:51 11/11/24 13:10 Ondansetron Inj 2 Mg/Ml 2 Ml Vial IV 12/11/24 11:50 4 mg Q6H PRN Administration Nausea Oxycodone HCl 5 mg 11/11/24 11:51 11/12/24 06:19 Oxycodone Hcl Ir 5 Mg Tab (Immediate Release) PO 11/25/24 11:50 5 mg Q4H PRN Administration Mod-Sev Pain (Scale 4-10) Saccharomyces Boulardii 250 mg 11/11/24 21:00 11/11/24 21:19 Saccharomyces Boulardii 250 Mg Cap PO 12/11/24 20:59 250 mg BID JOANN Administration Simvastatin 40 mg 11/11/24 21:00 11/11/24 21:19 Simvastatin 40 Mg Tab PO 12/11/24 20:59 40 mg HS JOANN Administration Past Medical History Medical History Urinary tract infection gets UTI following any urinary catheterization, is prone to UTI and does not show typical signs and symptoms. Hx of sepsis s/p right tka d/t an undetected UTI (February 2019) Obesity Osteoarthritis GERD (gastroesophageal reflux disease) controlled Hx of migraines Seasonal allergies Depression Past Family History Family History Aunt Breast cancer Father Myocardial infarction Grandfather (Paternal) Myocardial infarction Grandmother (Maternal) Ovarian cancer Other No family history of adverse response to anesthesia No significant family history Denies family history of Prostate cancer Colorectal cancer Past Surgical History Surgical History History of cystoscopy with stent S/P BSO (bilateral salpingo-oophorectomy) S/P excision of ganglion cyst finger Status post right knee replacement History of carpal tunnel release of both wrists History of left knee replacement Left TKA: 10/30/17: SAB x 1 at L3-L4 + PNB at [facility] Hx of tubal ligation History of tonsillectomy and adenoidectomy History of right shoulder replacement History of rotator cuff surgery RIGHT History of colonoscopy Social History Smoking Status: Never smoker Do You Dip or Chew Tobacco: No Hx Alcohol Use: No Hx Substance Use: No substance use type: does not use Physical Exam Vital Signs Last Vital Signs Temp 97.7 F 11/12/24 03:07 Pulse 78 11/12/24 06:49 Resp 14 11/12/24 03:07 BP 160/89 H 11/12/24 03:07 Pulse Ox 98 11/12/24 03:07 O2 Del Method Room Air 11/12/24 03:07 Testing Laboratory Results 11/12/24 05:24
[2024-11-12 07:03] LABS: Anion Gap 6.0 (3-11); Blood Urea Nitrogen 11.0 mg/dl (6-23); Calcium 8.5 mg/dl (8.6-10.3); Carbon Dioxide 26.0 mmol/L (21-32); Chloride 108.0 mmol/L (98-107); Creatinine Clr Calc Pharmacy 87.7 ml/min; Glucose 118.0 mg/dl (70-99(Fasting)); Magnesium 2.0 mg/dl (1.7-2.4); Potassium 4.4 mmol/L (3.5-5.1); Sodium 140.0 mmol/L (136-145)
[2024-11-12 07:17] LABS: Hemoglobin A1C 6.5 % (4.5-5.6)
[2024-11-12] MEDS ORDERED: ATROPINE SULFATE 0.1 MG/ML 10ML SYR IV PRN (07:44)
[2024-11-12] MEDS ORDERED: ONDANSETRON INJ 2 MG/ML 2 ML VIAL IV PRN (07:44)
--- NOTE | 2024-11-12 07:45 | Oral/Maxillofacial Consult ---
Date of Consultation November 12, 2024 Assessment & Plan (1) Dental infection: (2) Facial cellulitis: (3) Pain, dental: (4) Dental infection: (5) Perioral dermatitis with periocular dermatitis: History of Present Illness Attending Physician: Cindy Cain MD History of Present Illness Oral Maxillofacial Surgery Exam Present Complaint: I have intense pain/swelling from my infected lower left molar, electric shocks I can not touch the tooth. Symptoms have been ongoing for a while. Also redness upper left lip, lateral nose to lower left eye lid-dry scaly skin, no swelling This looks like unilateral oral dermatitis-very classic appearance also involving the left eye The eye is somewhat red and watery =[employer] [facility]? 68 yo F w/ PMH of prediabetes, HLD, nonallergic rhinitis, vertigo, SUMAYA presents w/ failure of OP therapy for dental infection. Left tooth pain with left cheek swelling/left medial face erythema continued to worsen despite OP antibiotics (initially z pack from dental office, then Levaquin + flag from ED]. Pt f/u w/ endodontics yesterday, left upper tooth # 12 and #14 - RCT done pt worsened and called them today, it was presumed that her infection is likely coming from lower teeth. She was sent to ED. Oral Exam: Lower left tender gingival tissue with deep pocket formation. Very sensitive # 19 UPPER TEETH 12 AND 14 OPENED UP FOR ENDO BY HEAVY EQUIPMENT PLUMBING SUPERVISOR? The # 19 is very symptomatic The pain is very intense, never goes away, she describes the pain similar to a trigeminal neuralgia-electric shock to face it does keep her up at night, hot/cold sensitive. Very complex pain pattern and presentation. Not sure why 12 and 14 were treated by product support technician. CT shows no infection upper. There is a rash upper lip and cheek not sure if related to dental issues- perioral dermatitis Imaging: No evidence of abscess noted Evidence of starting of root canal on # 12,14 [place] on # 19 Soft tissue: Swollen and very tender soft tissue # 19 The floor of the mouth, tongue, hard/soft palate, posterior pharyngeal area all with in normal limits, no pathology or abnormal findings noted. Noted the dermatitis as above. No trigger zone Oral Care: Overall oral care is good Occlusion: Class I TMJ exam: No pop, clicking, pain, good ROM, No history of TMJ injury or dysfunction Periodontal exam: somewhat swollen gingival tissue with early evidence of periodontal inflammation lower left and upper left--this could be related to the recent endo procedures Head/Neck exam: Neck is supple,Not Able to extend or flex neck due to vertigo , no masses, no abnormalities, no airway issues Treatment Plan: Her product support technician strongly feels the pain is from # 19 as it is extremely sensitive to touch Set up with general anesthesia in hospital l due to complexity of the procedure I reviewed the treatment plan and consent with the patient and daughter Understanding was expressed. Time was given for questions regarding the surgery, risks and post op care. Discussed alternative to treatment--procedure as planned, Do not do surgery The following teeth are decayed and fractured and removal is indicated THO: # 19 Also discussed if this is a Trigeminal neuralgia that the pain will remain and we will need to consider treatment for atypical pain syndrome Risks discussed: Bleeding,Pain,swelling,infection, dry socket, delayed healing, nerve injury to face,lips,tongue,chin area which could be permanent (rare). TMJ, jaw stiffness, change in bite (rare), ear pain (referred). Sinus problems like fistula or infection. Need to leave a small root fragment in place to avoid injury to nerve or sinus. Relationship of teeth to nerve/sinus The possibility of this being TGN Surgery to be set up this AM in OR Allergies Allergy/AdvReac Type Severity Reaction Status Date / Time amitriptyline Allergy Intermediate RASH AND Verified 11/11/24 09:35 FEET SWELLING Cephalosporins Allergy Intermediate RASH AND Verified 11/11/24 09:35 TACHYCARDIA lorazepam Allergy Intermediate RASH Verified 11/11/24 09:35 cefazolin Allergy RASH Verified 11/11/24 09:35 Bactrim AdvReac Intermediate SEVERE GI Verified 12/20/17 18:10 UPSET; DIAPHORESIS; HOT FLASHES sulfamethoxazole [Bactrim] AdvReac Intermediate SEVERE GI Verified 11/11/24 09:35 UPSET; DIAPHORESIS; HOT FLASHES trimethoprim AdvReac Intermediate SEVERE GI Verified 11/11/24 09:35 UPSET; DIAPHORESIS; HOT FLASHES amoxicillin AdvReac Mild Swelling Verified 11/11/24 09:35 of Lip/Tongue/Throat clarithromycin AdvReac Mild GI UPSET Verified 11/11/24 09:35 clavulanic acid AdvReac Mild SEVERE Verified 11/11/24 09:35 NAUSEA nitrofurantoin AdvReac Mild GI UPSET Verified 11/11/24 09:35 Penicillins AdvReac Mild SEVERE Verified 11/11/24 09:35 NAUSEA Home Medications Medication Instructions Recorded Confirmed Type fexofenadine 180 mg tablet 180 mg PO QAM 06/03/18 11/11/24 History (Cristina Allergy) lansoprazole 30 mg capsule,delayed 30 mg PO QAM 06/03/18 11/11/24 History release (Prevacid) meclizine 25 mg tablet 25 mg PO TID PRN DIZZY 06/03/18 11/11/24 History mdquuqnp-bzpf-pbl-folic acid 18 1 tab PO QAM 06/03/18 11/11/24 History mg-0.4 mg tablet (One Daily For Women) paroxetine HCl 12.5 mg 12.5 mg PO QAM 06/03/18 11/11/24 History tablet,extended release 24 hr (Paxil CR) paroxetine HCl 37.5 mg 37.5 mg PO QAM 06/03/18 11/11/24 History tablet,extended release 24 hr (Paxil CR) simvastatin 40 mg tablet (Zocor) 40 mg PO HS 06/03/18 11/11/24 History acetaminophen 500 mg tablet 500 mg PO Q6H PRN Pain 02/11/20 11/11/24 History (Tylenol Extra Strength) levofloxacin 500 mg tablet 500 mg PO DAILY 7 days #7 tabs 11/09/24 11/11/24 Rx metronidazole 500 mg tablet 500 mg PO TID #21 tabs 11/09/24 11/11/24 Rx oxycodone 5 mg tablet 5 mg PO Q6H PRN pain #9 tabs 11/09/24 11/11/24 Rx Saccharomyces boulardii 250 mg 250 mg PO BID 11/11/24 11/11/24 History capsule (Florastor) ibuprofen 200 mg tablet 200 mg PO Q6H PRN Pain 11/11/24 11/11/24 History Patient History Medical History Urinary tract infection gets UTI following any urinary catheterization, is prone to UTI and does not show typical signs and symptoms. Hx of sepsis s/p right tka d/t an undetected UTI (February 2019) Obesity Osteoarthritis GERD (gastroesophageal reflux disease) controlled Hx of migraines Seasonal allergies Depression Surgical History History of cystoscopy with stent S/P BSO (bilateral salpingo-oophorectomy) S/P excision of ganglion cyst finger Status post right knee replacement History of carpal tunnel release of both wrists History of left knee replacement Left TKA: 10/30/17: SAB x 1 at L3-L4 + PNB at [facility] Hx of tubal ligation History of tonsillectomy and adenoidectomy History of right shoulder replacement History of rotator cuff surgery RIGHT History of colonoscopy Family History Aunt Breast cancer Father Myocardial infarction Grandfather (Paternal) Myocardial infarction Grandmother (Maternal) Ovarian cancer Other No family history of adverse response to anesthesia No significant family history Denies family history of Prostate cancer Colorectal cancer Social History Smoking Status: Never smoker Second Hand Exposure: No; Do You Dip or Chew Tobacco: No; Hx Alcohol Use: No Hx Substance Use: No Preferred Language: Syriac Communication Ability: Effective Creative Designer Required: No Beliefs That Will Affect Care: None marital status: Current Living Situation: Alone Current Living Situation Comment: One story house with one dog current occupational status: retired Feels Safe at Home: Yes Assistive Devices: Glasses Results & Data Vital Signs (Past 12 Hours) Vital Signs Temp Pulse Pulse Resp BP Pulse Ox O2 Del Method 11/12/24 06:49 78 11/12/24 03:07 36.5 C 83 14 160/89 H 98 Room Air 11/11/24 22:54 36.8 C 80 20 182/91 H 95 Room Air 11/11/24 22:52 80 11/11/24 19:30 36.7 C 81 18 158/90 H 92 Room Air PG Care Time/CCT Total # of Minutes Spent Total Time Spent with Patient: Total time spent is greater than 50% in coordination of care (as documented) at patient's floor/unit and/or counseling patient: Coding Level of Care Code 26125 INT INP/OBS CARE 2/55MIN Diagnoses Dental infection K04.7 Facial cellulitis L03.211 Pain, dental K08.89 Perioral dermatitis with periocular dermatitis L71.0; L30.9
--- NOTE | 2024-11-12 07:59 | History & Physical Bridge Note ---
Date of Service November 12, 2024 History & Physical Bridge Note I have examined the patient, reviewed the History & Physical and in the interval since the performance of the History & Physical I have noted the following changes of clinical significance: no changes noted OK for the planned procedure
[2024-11-12] MEDS ORDERED: SUGAMMADEX SODIUM 200 MG/2 ML VIAL IV ONE (08:20)
[2024-11-12] MEDS: BUPIVACAINE/EPINEPHRINE 0.5% 1:200,000 1.8 ML CARP ONE (08:53)
--- NOTE | 2024-11-12 09:20 | Post Operative Brief Note ---
PG Immediate Post Op with CF Date of Surgery November 12, 2024 Pre & Post Diagnosis Operation Date: 11/12/24 07:30 <No data on this case meets the specified criteria> I identified the patient and participated in the time-out.: Yes Procedure Operation Date: 11/12/24 07:30 <No data on this case meets the specified criteria> Surgeon Krunal Jo, DMD Machine Ii Trimmer none Estimated Blood Loss 2 Findings Consistent with Post-Op Diagnosis looks to be a fungal infection with sloughing of upper left gingival tissues, lips and kirstin. Also left perioral dermatitis Swollen left mucobuccal fold # 19 Specimens Specimen Description: Microbiology 1. culture of left oral mucosa Pathology A. anterior gingiva biopsy B. posterior gingiva biopsy Anesthesia Type General Disposition Disposition: Recovery Room
[2024-11-12] MEDS: NYSTATIN OINT 15 GM TUBE EXT SCH (10:12)
--- NOTE | 2024-11-12 10:20 | Electrocardiogram Report ---
Test Reason : Blood Pressure : */* mmHG Vent. Rate : 76 BPM Atrial Rate : 76 BPM P-R Int : 182 ms QRS Dur : 88 ms QT Int : 398 ms P-R-T Axes : 41 14 20 degrees QTcB Int : 447 ms Normal sinus rhythm Normal ECG When compared with ECG of 11-Feb-2020 17:50, Borderline criteria for Inferior infarct are no longer Present T wave inversion less evident in Inferior leads Confirmed by Abel Oliva ([id number]) on 11/12/2024 10:20:17 AM Referred By: REFERRED SELF Confirmed By: Abel Oliva
[2024-11-12] MEDS: PARoxetine HCl CONTROLLED REL 12.5 MG TABCR PO SCH ×2 (10:37)
[2024-11-12] MEDS: FEXOFENADINE HCL 180 MG TAB PO SCH (10:45)
[2024-11-12] MEDS: CEROVITE ADV FORMULA TAB PO SCH (10:45)
--- NOTE | 2024-11-12 11:56 | Anesthesiology Progress Note ---
Date of Service November 12, 2024 Anesthesia Post Procedure Vital Signs Vital Signs: Temp Pulse Pulse Pulse Resp BP BP 11/12/24 11:21 98.1 F 80 20 175/91 H 11/12/24 10:28 97.9 F 85 168/94 H 11/12/24 09:47 98.1 F 89 170/96 H 11/12/24 09:35 93 H 19 175/84 H 11/12/24 09:25 92 H 18 160/95 H 11/12/24 09:15 90 17 153/95 H 11/12/24 09:05 97.0 F L 98 H 24 177/93 H 11/12/24 07:42 98.2 F 74 20 182/82 H 11/12/24 06:49 78 11/12/24 03:07 97.7 F 83 14 160/89 H 11/11/24 22:54 98.2 F 80 20 182/91 H 11/11/24 22:52 80 11/11/24 19:30 98.1 F 81 18 158/90 H 11/11/24 15:52 97.7 F 75 16 139/81 11/11/24 14:45 81 11/11/24 12:13 74 11/11/24 11:57 98.4 F 74 168/95 H 11/11/24 11:57 Pulse Ox Pulse Ox O2 Del Method O2 Del Method O2 Flow Rate 11/12/24 11:21 93 Room Air 11/12/24 10:28 92 Room Air 11/12/24 09:47 94 Room Air 11/12/24 09:35 94 Room Air 11/12/24 09:25 94 Room Air 11/12/24 09:15 96 Oxymask 3 11/12/24 09:05 93 Oxymask 5 11/12/24 07:42 96 Room Air 11/12/24 06:49 11/12/24 03:07 98 Room Air 11/11/24 22:54 95 Room Air 11/11/24 22:52 11/11/24 19:30 92 Room Air 11/11/24 15:52 96 Room Air 11/11/24 14:45 11/11/24 12:13 11/11/24 11:57 97 Room Air 11/11/24 11:57 97 Room Air Pain Intensity Left Face: Pain Intensity: 8 Transfer of Care Handoff Completed per policy Notes Mental Status: alert / awake / arousable and participated in evaluation Patient Amnestic to Procedure: Yes Nausea / Vomiting: adequately controlled Pain: adequately controlled Airway Patency, RR, SpO2: stable & adequate BP & HR: stable & adequate Hydration State: stable & adequate Anesthetic Complications: no major complications apparent and Pt Satisfied with anesthetic care
[2024-11-12] MEDS: ARTIFICIAL TEARS OPB PRN (12:19)
--- NOTE | 2024-11-12 13:46 | Hospitalist Progress Note ---
Date of Service November 12, 2024 Assessment & Plan (1) Facial cellulitis: (2) Dental infection: Plan Ms. Alvarado is a 68-year-old female with past medical history significant for prediabetes, HLD, nonallergic rhinitis, vertigo, SUMAYA and other problems listed admitted for perioral cellulitis and dental infection which has been ongoing since 11/06/24. Patient started multiple abx regimens prior to presentaion Seen by dentist on 11/08 and started on Z-Gigi w/ no improvement. Seen in our ED on 11/09 and started on po Flagyl and Levaquin w/ no improvement. Seen by interventional physician yesterday; attempted root canals both tooth 12 and tooth 14 --> no abscess or drainage noted, subsequently referred to ED. Patient is now s/p extraction of tooth #19 Patient with rash on left side of face with likely suspected conjunctivitis. Tender to touch and based on imaging review seemingly superficial. clindamycin with strep coverage, will add erythromycin ointment given concern for conjunctivitis. #L facial cellulitis V dermatitis v erysipelas #Dental infection; failure of outpt ABX therapy Soft tissue neck CT: no soft tissue abscess or fluid seen at the face or neck, no enlarged adenopathy Labs grossly unremarkable Check procal, lactate S/p IV clindamycin in ED (ISO multiple ABX allergies) Continue IV clindamycin for now MRSA negative continue probiotic OMFS consult; Dr. Jo following, s/p extraction Follow intraoperative cultures #Left conjunctivitis question for possible conjunctivitis given conjunctival injection and discharge +disocmfort will start erythromycin ointment q4h #thyroid nodules for OP follow up Multiple thyroid nodules measuring up to 1.4 cm, plan for nonemergent ultrasound as OP tsh in am #SUMAYA Continue Paxil #HLD Continue statin #Diabetes Hgb A1C 6.5% on this admission Counselling and clinical systems educator if still admitted come Thursday #GERD Continue Prevacid DVT Prophylaxis: SCDs/TEDs for now PCP: Contreras Shelton MD Disposition: dispo contingent on improvement of cellulitis Admission and Anticipated Discharge Date Admission Date: November 11, 2024 Subjective evaluated s/p procedure reports no active pain, but still with some post op related numbness reports that facial rash presented on and seemingly irritating eye, with notable dryness/sandlike sensation as well as some discharge noted Physical Exam Constitutional: WD/WN, vitals as above Eyes: left eye with conjunctival injection, discharge noted with stringing along top lid, no clear visualization of foreign object ENMT: well demarcated area of erythema from left border of upper lip along side nares to bottom eye lid encompassing left cheek Respiratory: normal respiratory effort, lungs clear to auscultation Cardiovascular: RRR, no murmur, no edema Results & Data Results & Data Vital Signs (Past 12 Hours) Vital Signs Temp Pulse Pulse Pulse Resp BP BP 11/12/24 12:53 11/12/24 11:21 36.7 C 80 20 175/91 H 11/12/24 10:28 36.6 C 85 168/94 H 11/12/24 09:47 36.7 C 89 170/96 H 11/12/24 09:35 93 H 19 175/84 H 11/12/24 09:25 92 H 18 160/95 H 11/12/24 09:15 90 17 153/95 H 11/12/24 09:05 36.1 C L 98 H 24 177/93 H 11/12/24 07:42 36.8 C 74 20 182/82 H 11/12/24 06:49 78 11/12/24 03:07 36.5 C 83 14 160/89 H Pulse Ox Pulse Ox O2 Del Method O2 Del Method O2 Flow Rate 11/12/24 12:53 93 Room Air 11/12/24 11:21 93 Room Air 11/12/24 10:28 92 Room Air 11/12/24 09:47 94 Room Air 11/12/24 09:35 94 Room Air 11/12/24 09:25 94 Room Air 11/12/24 09:15 96 Oxymask 3 11/12/24 09:05 93 Oxymask 5 11/12/24 07:42 96 Room Air 11/12/24 06:49 11/12/24 03:07 98 Room Air Laboratory Results Short CBC 11/12/24 Range/Units 05:24 WBC 5.65 (4.8-10.8) K/ul Hgb 13.1 (12.0-16.0) g/dl Hct 41.7 (37.0-47.0) % Plt Count 181 (130-400) K/uL BMP 11/12/24 05:24 Sodium 140 Potassium 4.4 Chloride 108 H Carbon Dioxide 26 BUN 11 Creatinine 0.73 Glucose 118 H Calcium 8.5 L Medications Administered Home Medications Medication Instructions Recorded Confirmed Last Taken fexofenadine 180 mg tablet 180 mg PO QAM 06/03/18 11/11/24 11/10/24 (Cristina Allergy) lansoprazole 30 mg capsule,delayed 30 mg PO QAM 06/03/18 11/11/24 11/11/24 release (Prevacid) meclizine 25 mg tablet 25 mg PO TID PRN DIZZY 06/03/18 11/11/24 11/10/24 qvftjdyz-wwar-obr-folic acid 18 1 tab PO QAM 06/03/18 11/11/24 11/10/24 mg-0.4 mg tablet (One Daily For Women) paroxetine HCl 12.5 mg 12.5 mg PO QAM 06/03/18 11/11/24 11/11/24 tablet,extended release 24 hr (Paxil CR) paroxetine HCl 37.5 mg 37.5 mg PO QAM 06/03/18 11/11/24 11/11/24 tablet,extended release 24 hr (Paxil CR) simvastatin 40 mg tablet (Zocor) 40 mg PO HS 06/03/18 11/11/24 11/10/24 acetaminophen 500 mg tablet 500 mg PO Q6H PRN Pain 02/11/20 11/11/24 02/26/20 (Tylenol Extra Strength) levofloxacin 500 mg tablet 500 mg PO DAILY 7 days #7 tabs 11/09/24 11/11/24 11/10/24 metronidazole 500 mg tablet 500 mg PO TID #21 tabs 11/09/24 11/11/24 11/11/24 oxycodone 5 mg tablet 5 mg PO Q6H PRN pain #9 tabs 11/09/24 11/11/24 11/10/24 Saccharomyces boulardii 250 mg 250 mg PO BID 11/11/24 11/11/24 11/11/24 capsule (Florastor) ibuprofen 200 mg tablet 200 mg PO Q6H PRN Pain 11/11/24 11/11/24 Unknown Active Medications Generic Name Dose Route Start Last Admin Trade Name Freq PRN Reason Stop Dose Admin Acetaminophen 650 mg 11/11/24 11:51 11/12/24 11:02 Acetaminophen 325 Mg Tab PO 12/11/24 11:50 650 mg Q4H PRN Administration Pain or Fever Artificial Tears 1 drops 11/12/24 12:07 11/12/24 12:19 Artificial Tears OPB 12/12/24 12:06 1 drops QID PRN Administration Dryness Fexofenadine HCl 180 mg 11/12/24 09:00 11/12/24 10:45 Fexofenadine Hcl 180 Mg Tab PO 12/12/24 08:59 180 mg QAM JOANN Administration Sodium Chloride 1,000 mls @ 80 mls/hr 11/11/24 11:30 11/12/24 14:36 Nss IV 11/14/24 11:29 80 mls/hr .[id number] JOANN Administration Clindamycin Phosphate 600 mg in 50 mls @ 100 mls/hr 11/11/24 16:00 11/12/24 10:02 Cleocin/D5w IV 11/21/24 15:59 Not Given Q8H JOANN Multivitamins/Minerals 1 tab 11/12/24 09:00 11/12/24 10:45 Cerovite Adv Formula Tab PO 12/12/24 08:59 Not Given QAM JOANN Nystatin 1 appln 11/12/24 10:00 11/12/24 10:12 Nystatin Oint 15 Gm Tube EXT 12/12/24 09:59 1 appln Q6H JOANN Administration Ondansetron HCl 4 mg 11/11/24 11:51 11/11/24 13:10 Ondansetron Inj 2 Mg/Ml 2 Ml Vial IV 12/11/24 11:50 4 mg Q6H PRN Administration Nausea Oxycodone HCl 5 mg 11/11/24 11:51 11/12/24 11:03 Oxycodone Hcl Ir 5 Mg Tab (Immediate Release) PO 11/25/24 11:50 5 mg Q4H PRN Administration Mod-Sev Pain (Scale 4-10) Pantoprazole Sodium 40 mg 11/12/24 09:00 11/12/24 10:46 Pantoprazole 40 Mg Tab PO 12/12/24 08:59 Not Given QAM JOANN Paroxetine HCl 12.5 mg 11/12/24 09:00 11/12/24 10:37 Paroxetine Hcl Controlled Rel 12.5 Mg Tabcr PO 12/12/24 08:59 12.5 mg QAM JOANN Administration Paroxetine HCl 37.5 mg 11/12/24 09:00 11/12/24 10:37 Paroxetine Hcl Controlled Rel 12.5 Mg Tabcr PO 12/12/24 08:59 37.5 mg QAM JOANN Administration Saccharomyces Boulardii 250 mg 11/11/24 21:00 11/12/24 10:45 Saccharomyces Boulardii 250 Mg Cap PO 12/11/24 20:59 250 mg BID JOANN Administration Simvastatin 40 mg 11/11/24 21:00 11/11/24 21:19 Simvastatin 40 Mg Tab PO 12/11/24 20:59 40 mg HS JOANN Administration
[2024-11-12] MEDS ORDERED: ERYTHROMYCIN OP OINT 1 GM PKT OP SCH (14:15)
[2024-11-12] MEDS: MoRPHine SULFATE 2 MG/ML CARP IV STA (14:37)
[2024-11-12] MEDS: ERYTHROMYCIN OP OINT 5 MG/GM 3.5 GM TUBE OP SCH (15:26)
[2024-11-12] MEDS: MoRPHine SULFATE 2 MG/ML CARP IV PRN (18:18)
[2024-11-12] MEDS: FUROSEMIDE INJ 20 MG/2 ML VIAL IV ONE (20:55)
[2024-11-12] MEDS: CHLORHEXIDINE GLUCONATE 0.12% 480 ML MT PRN (21:01)
[2024-11-13] MEDS: ACETAMINOPHEN 1,000 MG/100 ML VIAL IV STA (06:18)
--- NOTE | 2024-11-13 06:20 | Communication Note ---
Date of Service: November 13, 2024 Made aware by RN of uncontrolled blood pressure. SBP 1 50-1 90s the last 48 hours. Patient later complained of headache symptoms to RN not relieved by morphine. AP Hypertensive crisis Likely chronic BP elevation given cardiomegaly on prior chest imaging CT head Hydralazine 1 dose now Initiate lisinopril Will relay to AM provider.
[2024-11-13 08:03] LABS: Hematocrit (blood only) 39.6 % (37.0-47.0); Hemoglobin 13.2 g/dl (12.0-16.0); Mean Corpuscular Hemoglobin 30.0 pg (25.0-34.0); Mean Corpuscular Volume 90.0 fL (80.0-100.0); Platelet Count 182 K/uL (130-400); RDW Standard Deviation 48.0 fL (36.4-46.3); Red Blood Count 4.40 M/uL (4.20-5.40); White Blood Count 7.99 K/ul (4.8-10.8)
[2024-11-13 08:17] LABS: Anion Gap 7.0 (3-11); Blood Urea Nitrogen 10.0 mg/dl (6-23); Calcium 8.5 mg/dl (8.6-10.3); Carbon Dioxide 26.0 mmol/L (21-32); Chloride 105.0 mmol/L (98-107); Creatinine Clr Calc Pharmacy 105.0 ml/min; Glucose 125.0 mg/dl (70-99(Fasting)); Potassium 3.6 mmol/L (3.5-5.1); Sodium 138.0 mmol/L (136-145)
--- NOTE | 2024-11-13 08:20 | CT Scan Report ---
EXAM: CT head/brain wo con CLINICAL HISTORY: stewart TECHNIQUE: Multiple axial images are obtained from the skull base to the vertex without contrast. CT scan was performed according to ALARA (as low as reasonable achievable). COMPARISON: 08 may 2015 FINDINGS: The brain shows normal morphology, attenuation, and volume for age. No evidence of space occupying lesion, hemorrhage, edema, mass effect, midline shift, extra axial collection, or hydrocephalus is noted. Ventricles, sulci, and basal cisterns are symmetric and normal in size and configuration. The braun-white matter differentiation is preserved. Visualized paranasal sinuses and mastoid air cells are well aerated. Orbital contents are within normal limits. Bony structures are intact. IMPRESSION: 1. No evidence of acute intracranial abnormality is demonstrated. Electronically signed by Yong Morris 11-13-2024 08:20 AM
[2024-11-13] MEDS: AMPICILLIN/SULBACTAM SOD 3,000 MG/100 ML BAG IV SCH (08:42)
--- NOTE | 2024-11-13 09:15 | Hospitalist Progress Note ---
Date of Service November 13, 2024 Assessment & Plan (1) Facial cellulitis: (2) Dental infection: Plan Ms. Alvarado is a 68-year-old female with past medical history significant for prediabetes, HLD, nonallergic rhinitis, vertigo, SUMAYA and other problems listed admitted for perioral cellulitis and dental infection which has been ongoing since 11/06/24. Patient started multiple abx regimens prior to presentaion Seen by dentist on 11/08 and started on Z-Gigi w/ no improvement. Seen in our ED on 11/09 and started on po Flagyl and Levaquin w/ no improvement. Seen by medicare compliance auditor prior to admission; attempted root canals both tooth 12 and tooth 14 --> no abscess or drainage noted, subsequently referred to ED. Patient is now s/p extraction of tooth #19 11/12 Patient with rash on left side of face with likely suspected conjunctivitis. Tender to touch and based on imaging review seemingly superficial. clindamycin started initially, added erythromycin ointment given concern for conjunctivitis. Rash over left face is expanding--beefy red in color, demarcated border and tender--suspicious for possible candidal infection. Discussed allergies with patient and noted that most are GI upset with antibiotics, therefore will transition to Unasyn for better gram negative to include bacteroides coverage as well as add IV fluconazole given suspicion for possible candidal involvement. QTc 446 on admission EKG Would expect if typical skin lamar like strep/staph sp., there would have been improvement rather than progression. Daughter at bedside, discussed plan in depth with all questions answered. #L facial cellulitis V dermatitis v erysipelas #Dental infection; failure of outpt ABX therapy Soft tissue neck CT: no soft tissue abscess or fluid seen at the face or neck, no enlarged adenopathy Labs grossly unremarkable Check procal, lactate S/p IV clindamycin in ED (ISO multiple ABX allergies, however all "allergies" reportedly GI upset) MRSA negative continue probiotic OMFS consult; Dr. Jo following, s/p extraction Follow intraoperative cultures, NGTD start unasyn start fluconazole consider ID involvement if progression continues #Left conjunctivitis question for possible conjunctivitis given conjunctival injection and discharge +disocmfort continue erythromycin ointment q4h x5 days #thyroid nodules for OP follow up Multiple thyroid nodules measuring up to 1.4 cm, plan for nonemergent ultrasound as OP #HTN urgency iso pain, s/p IV hydralazine and started on lisinopril CT head without hemorrhage or acute findings CTM #SUMAYA Continue Paxil #HLD Continue statin #Diabetes Hgb A1C 6.5% on this admission Counselling and rn diabetes educator if still admitted come Thursday #GERD Continue Prevacid DVT Prophylaxis: SCDs/TEDs for now PCP: Contreras Shelton MD Disposition: dispo contingent on improvement of cellulitis Admission and Anticipated Discharge Date Admission Date: November 11, 2024 Subjective Reports headache overnight, resolved this am Blood pressure better controlled Reports some improvement in pain, but notes worsening of facial rash Left eye subjectively better with ointment, endorsing still some "sand like" sensation, but able to keep eye open at this time Physical Exam Constitutional: WD/WN, vitals as above ENMT: rash extending over left cheek, including nasolabial fold, along kirstin border of left lip, up to left eye with associated swelling--now with patchy involvement of forehead and extending to right nasolabial fold Respiratory: normal respiratory effort, lungs clear to auscultation Cardiovascular: RRR, no murmur, no edema Results & Data Results & Data Vital Signs (Past 12 Hours) Vital Signs Temp Pulse Pulse Resp BP BP Pulse Ox 11/13/24 07:46 36.7 C 73 18 137/77 97 11/13/24 07:08 74 11/13/24 06:26 157/81 H 11/13/24 05:50 188/111 H 11/13/24 04:45 198/97 H 11/13/24 04:30 36.5 C 74 18 208/97 H 97 11/12/24 23:11 36.9 C 72 18 193/84 H 98 11/12/24 22:03 75 O2 Del Method 11/13/24 07:46 Room Air 11/13/24 07:08 11/13/24 06:26 11/13/24 05:50 11/13/24 04:45 11/13/24 04:30 Room Air 11/12/24 23:11 Room Air 11/12/24 22:03 Laboratory Results Short CBC 11/13/24 Range/Units 07:39 WBC 7.99 (4.8-10.8) K/ul Hgb 13.2 (12.0-16.0) g/dl Hct 39.6 (37.0-47.0) % Plt Count 182 (130-400) K/uL [facility] 11/13/24 07:39 Sodium 138 Potassium 3.6 Chloride 105 Carbon Dioxide 26 BUN 10 Creatinine 0.61 Glucose 125 H Calcium 8.5 L Medications Administered Home Medications Medication Instructions Recorded Confirmed Last Taken fexofenadine 180 mg tablet 180 mg PO QAM 06/03/18 11/11/24 11/10/24 ([facility]) lansoprazole 30 mg capsule,delayed 30 mg PO QAM 06/03/18 11/11/24 11/11/24 release (Prevacid) meclizine 25 mg tablet 25 mg PO TID PRN DIZZY 06/03/18 11/11/24 11/10/24 yclnnbwa-wjka-tpu-folic acid 18 1 tab PO QAM 06/03/18 11/11/24 11/10/24 mg-0.4 mg tablet (One Daily For Women) paroxetine HCl 12.5 mg 12.5 mg PO QAM 06/03/18 11/11/24 11/11/24 tablet,extended release 24 hr (Paxil CR) paroxetine HCl 37.5 mg 37.5 mg PO QAM 06/03/18 11/11/24 11/11/24 tablet,extended release 24 hr (Paxil CR) simvastatin 40 mg tablet (Zocor) 40 mg PO HS 06/03/18 11/11/24 11/10/24 acetaminophen 500 mg tablet 500 mg PO Q6H PRN Pain 02/11/20 11/11/24 02/26/20 (Tylenol Extra Strength) levofloxacin 500 mg tablet 500 mg PO DAILY 7 days #7 tabs 11/09/24 11/11/24 11/10/24 metronidazole 500 mg tablet 500 mg PO TID #21 tabs 11/09/24 11/11/24 11/11/24 oxycodone 5 mg tablet 5 mg PO Q6H PRN pain #9 tabs 11/09/24 11/11/24 11/10/24 Saccharomyces boulardii 250 mg 250 mg PO BID 11/11/24 11/11/24 11/11/24 capsule (Florastor) ibuprofen 200 mg tablet 200 mg PO Q6H PRN Pain 11/11/24 11/11/24 Unknown Active Medications Generic Name Dose Route Start Last Admin Trade Name Freq PRN Reason Stop Dose Admin Acetaminophen 650 mg 11/11/24 11:51 11/12/24 15:35 Acetaminophen 325 Mg Tab PO 12/11/24 11:50 650 mg Q4H PRN Administration Pain or Fever Artificial Tears 1 drops 11/12/24 12:07 11/12/24 12:19 Artificial Tears OPB 12/12/24 12:06 1 drops QID PRN Administration Dryness Chlorhexidine Gluconate 15 ml 11/11/24 16:21 11/12/24 21:01 Chlorhexidine Gluconate 0.12% 480 Ml MT 12/11/24 16:20 15 ml Q12 PRN Administration Pain Erythromycin 1 appln 11/12/24 14:30 11/13/24 06:26 Erythromycin Op Oint 5 Mg/Gm 3.5 Gm Tube OP 11/22/24 14:29 1 appln Q4H JOANN Administration Fexofenadine HCl 180 mg 11/12/24 09:00 11/13/24 07:56 Fexofenadine Hcl 180 Mg Tab PO 12/12/24 08:59 180 mg QAM JOANN Administration Ampicillin Sodium/Sulbactam Sodium 3,000 mg in 100 mls @ 200 mls/hr 11/13/24 08:00 11/13/24 08:42 Unasyn IV 11/23/24 07:59 200 mls/hr Q6H JOANN Administration Lisinopril 5 mg 11/13/24 06:25 11/13/24 06:27 Lisinopril 5 Mg Tab PO 12/13/24 06:24 5 mg QAM JOANN Administration Morphine Sulfate 1 mg 11/12/24 15:16 11/13/24 04:34 Morphine Sulfate 2 Mg/Ml Carp IV 11/26/24 15:15 1 mg Q4H PRN Administration Severe Pain (Scale 7, 8, 9,10) Multivitamins/Minerals 1 tab 11/12/24 09:00 11/13/24 07:56 Cerovite Adv Formula Tab PO 12/12/24 08:59 1 tab QAM JOANN Administration Nystatin 1 appln 11/12/24 10:00 11/13/24 03:37 Nystatin Oint 15 Gm Tube EXT 12/12/24 09:59 1 appln Q6H JOANN Administration Ondansetron HCl 4 mg 11/11/24 11:51 11/13/24 08:18 Ondansetron Inj 2 Mg/Ml 2 Ml Vial IV 12/11/24 11:50 4 mg Q6H PRN Administration Nausea Oxycodone HCl 5 mg 11/11/24 11:51 11/13/24 07:54 Oxycodone Hcl Ir 5 Mg Tab (Immediate Release) PO 11/25/24 11:50 5 mg Q4H PRN Administration Mod-Sev Pain (Scale 4-10) Pantoprazole Sodium 40 mg 11/12/24 09:00 11/13/24 07:56 Pantoprazole 40 Mg Tab PO 12/12/24 08:59 40 mg QAM JOANN Administration Paroxetine HCl 12.5 mg 11/12/24 09:00 11/13/24 07:55 Paroxetine Hcl Controlled Rel 12.5 Mg Tabcr PO 12/12/24 08:59 12.5 mg QAM JOANN Administration Paroxetine HCl 37.5 mg 11/12/24 09:00 11/13/24 07:55 Paroxetine Hcl Controlled Rel 12.5 Mg Tabcr PO 12/12/24 08:59 37.5 mg QAM JOANN Administration Saccharomyces Boulardii 250 mg 11/11/24 21:00 11/13/24 07:55 Saccharomyces Boulardii 250 Mg Cap PO 12/11/24 20:59 250 mg BID JOANN Administration Simvastatin 40 mg 11/11/24 21:00 11/12/24 21:00 Simvastatin 40 Mg Tab PO 12/11/24 20:59 40 mg HS JOANN Administration
[2024-11-13 09:45] LABS: Magnesium 1.8 mg/dl (1.7-2.4)
[2024-11-13 10:00] LABS: Thyroid Stimulating Hormone 0.87 uIu/ml (0.300-4.500)
[2024-11-13] MEDS: FLUCONAZOLE 200 MG/100 ML BAG IV SCH (10:34)
--- NOTE | 2024-11-13 12:17 | Progress Note ---
Date of Service November 13, 2024 Assessment & Plan Admission and Anticipated Discharge Date Admission Date: November 11, 2024 Subjective Post Op infection evaluation at 24 hours The sharp lacerating pain is now resolved lower left area. Now intense headache Facial rash has spread to upper lid, forehead and right check with de marked boarder suggestive of erysipelas infection. The gingival Biopsys sites are healing well and there is no further sloughing of the kirstin or gum surfaces-Bx pending Swelling in the mouth is less but face redness remains. No further drainage is noted. Cultures were reviewed but not final report yet The intense pain has responded well to the antibiotics, extractions and the I and D. The left eye looks to improving I requested that the patient continue with massage, ointment, oral use of Peridex 2 x day and facial care. I will start her on a soft diet as tolerated encourage fluids I will await pathology. Results & Data Vital Signs (Past 12 Hours) Vital Signs Temp Pulse Pulse Resp BP BP Pulse Ox 11/13/24 11:59 36.7 C 75 16 136/73 97 11/13/24 07:46 36.7 C 73 18 137/77 97 11/13/24 07:08 74 11/13/24 06:26 157/81 H 11/13/24 05:50 188/111 H 11/13/24 04:45 198/97 H 11/13/24 04:30 36.5 C 74 18 208/97 H 97 O2 Del Method 11/13/24 11:59 Room Air 11/13/24 07:46 Room Air 11/13/24 07:08 11/13/24 06:26 11/13/24 05:50 11/13/24 04:45 11/13/24 04:30 Room Air PG Care Time/CCT Total # of Minutes Spent Total Time Spent with Patient: Total time spent is greater than 50% in coordination of care (as documented) at patient's floor/unit and/or counseling patient: Coding Level of Care Code None
--- NOTE | 2024-11-13 14:06 | Operative Report ---
PG Post Operative Report Pre & Post Diagnosis Operation Date: 11/12/24 07:30 Pre-Op Diagnosis: (1) Dental infection: (2) Facial cellulitis: (3) Pain, dental: (4) Dental infection: (5) Perioral dermatitis with periocular dermatitis Post-Op Diagnosis: (1) Dental infection: (2) Facial cellulitis: (3) Pain, dental: (4) Dental infection: (5) Perioral dermatitis with periocular dermatitis I identified the patient and participated in the time-out.: Yes Procedure Operation Date: 11/12/24 07:30 Actual Procedures p Incision and Drainage Left Lower Jaw - Krunal Jo DMD s Extraction of Tooth #19 - Krunal Jo DMD Surgeon Krunal Jo DMD Water Resource Engineer none Estimated Blood Loss 2 Findings Consistent with Post-Op Diagnosis Specimens Gingival biopsy anterior and posterior C&S Drains none Anesthesia Type General Complications none Disposition Disposition: Recovery Room Indications severe pain lower left, ulcerative gums, lip and redness upper left cheek Description of Procedure Pre-op= infected teeth # 19, infected ulcerative gums and lips Actual Procedures p Incision and Drainage Submandibular Abscess; Removal of Tooth #19 Infected teeth # 19, infected ulcerative gums and lips Not Applicable) - Krunal Jo DMD CPT Desquamative gingival and lips mucosa CPT 33058 Incision and Drainage CPT 63814 Lower tooth surgical extraction # 19 D7210 x 1 ICD 10 K13.79 K04.7 K12.2 Once cleared for surgery general anesthesia was achieved, the eyes were protected by the anesthesia dept criteria.. A time out was take for patient ID, antibiotics, equipment and position verification once all agreed the procedure began. Local anesthesia was given into each area using Marcaine with a vasoconstrictor ( 1.8 ml per site). A throat pack was placed after the oral cavity was irrigated with saline. Once a surgical level of anesthesia was obtained and the local anesthesia was given time for the blocks the surgery was started. I turned my attention to the extraction of # 19 Incision and Drainage CPT 36138 Using a 15 blade an incision was made lateral in the mucobuccal fold left side near # 19 Once the incision was made a lot of pus extruded from the site. This drainage was cultured for anaerobic, aerobic and fungal bacteria. A curved hemostat was carefully placed into the infected space along the lateral side of the lower jaw and into the submandibular and vestibular space. Some further drainage was now allowed to escape. I palpated the chin and submental area and no further drainage was expressed. The area was irrigated with at least 100 ml of NS solution. I now turned my attention to remove the # 19 tooth. Lower tooth surgical extraction of # 19 [id number] x 1 The full thick Muco-periosteal flap was made on the external oblique ridge to avoid the lingual nerve. The flap was reflected to expose the abscessed # 19 tooth. Upon doing will the swelling in the area was drained. The tooth was removed with a 301 elevator and cow horn forceps.The nerve was intact, there was minimal bleeding. The bone was trimmed, smoothed and the flap was closed with a few 2-0 chromic sutures. Desquamative gingival and lips mucosa upper left CPT 18586 The upper anterior gingival was ulcerative with a white plaque. Once the plaque was rub off a red ulcerative mucosal was noted with very friable tissue that bleed very easy-gums and kirstin of the upper left lip and corner of the mout h. An Incision was made around the ulcers and lip kirstin. The full thickness tissue biopsy was of the lesion was taken. The deep structures in the floor of the mouth were not involved. The periosteum on the ridge was intact as was the lip muscles. The tissue margins were treated with a low dose electrosurgery setting to coagulate any bleeding. The lesion was delivered for pathology evaluation. Suspect -fungal, Desquamative gingival and lips mucosa. I inspected the sites to insure all bleeding was controlled. I removed the throat pack and suctioned the throat. Bilateral gauze pressure dressings were placed. All instrument and sponge count was correct. The patient was allowed to awake from the anesthesia. Once full awake the anesthesia tube was removed and the patient was taken to the recovery room with all vital sign stable. The patient tolerated the surgery very well. I will follow the patient in my office, Rx and instructions will be given upon discharge. I attest to the content of the Intraoperative Record and any orders documented therein. Any exceptions are noted below.
[2024-11-14 07:04] LABS: Hematocrit (blood only) 38.9 % (37.0-47.0); Hemoglobin 12.9 g/dl (12.0-16.0); Mean Corpuscular Hemoglobin 30.3 pg (25.0-34.0); Mean Corpuscular Volume 91.3 fL (80.0-100.0); Platelet Count 183 K/uL (130-400); RDW Standard Deviation 49.8 fL (36.4-46.3); Red Blood Count 4.26 M/uL (4.20-5.40); White Blood Count 6.73 K/ul (4.8-10.8)
[2024-11-14 07:25] LABS: Anion Gap 7.0 (3-11); Blood Urea Nitrogen 8.0 mg/dl (6-23); Calcium 8.6 mg/dl (8.6-10.3); Carbon Dioxide 27.0 mmol/L (21-32); Chloride 105.0 mmol/L (98-107); Creatinine Clr Calc Pharmacy 98.4 ml/min; Glucose 128.0 mg/dl (70-99(Fasting)); Potassium 3.9 mmol/L (3.5-5.1); Sodium 139.0 mmol/L (136-145)
--- NOTE | 2024-11-14 10:56 | Hospitalist Progress Note ---
Date of Service November 14, 2024 Assessment & Plan (1) Varicella-zoster infection: (2) HZV (herpes zoster virus) with ophthalmic complication: (3) Nonsustained ventricular tachycardia: (4) Hypertension, uncontrolled: (5) Dental infection: Plan Patient 68-year-old female who was initially being treated for a cellulitis and erysipelas of her face. Now patient has vesicular lesions and classic dermatomal distribution consistent with varicella-zoster Discontinue antibiotics Transition to oral Valtrex Steroid eyedrops, prednisolone Short course of oral prednisone for the extreme flare and redness that she has of her face Patient really denies any significant pain we will hold off on gabapentin at this time if she starts complaining of some more pain could consider this to prevent postherpetic neuralgia to minimize its risk. Patient with some short runs of nonsustained V. tach in the setting of infection. Blood pressure still could be a little better controlled. Will start some Toprol XL, continue telemetry monitoring Will need outpatient ophthalmology follow-up when discharge Notification communication with dental surgery. Notified them that I am discontinuing antibiotics and will continue to observe observe off antibiotics at this time. Daughter at bedside updated plan of care as well. Admission and Anticipated Discharge Date Admission Date: November 11, 2024 Subjective Patient and daughter at bedside. Daughter is now noted vesicular lesions coming up around her nose and mouth also noted some spots on her forehead extending up into her hairline. Patient gives a classic history of pretty severe pain and burning on her face and her nose and her mouth just prior to this rash coming out. Now with these vesicles it is quite clear that this appears to be varicella-zoster. Patient states that she had some palpitations earlier this morning and that she felt the antibiotics really made her sick and nauseated Physical Exam Physical Exam: Constitutional: Alert, nontoxic HEENT: Mucous membranes moist. Vesicular rash over her left nose, cheek, lips. This extends up into the forehead with vesicular lesions extending into the hairline on the left. Left eye with significant conjunctivitis and some serous drainage. No purulent eye drainage Lungs: Clear to auscultation, decreased, no wheezes rales or rhonchi CV: S1-S2, regular Abdomen: Soft, nontender, nondistended Extremities: No significant edema Neuro: No focal deficits Psych: Cooperative, normal mood Results & Data Results & Data Vital Signs (Past 12 Hours) Vital Signs Temp Pulse Pulse Pulse Resp BP Pulse Ox 11/14/24 08:29 11/14/24 07:54 75 11/14/24 07:18 36.8 C 77 18 138/72 97 11/14/24 04:00 37.0 C 72 18 153/71 H 93 11/13/24 23:56 36.9 C 88 16 152/73 H 95 O2 Del Method 11/14/24 08:29 Room Air 11/14/24 07:54 11/14/24 07:18 Room Air 11/14/24 04:00 Room Air 11/13/24 23:56 Room Air Diagnostic Findings Reviewed imaging, laboratory and diagnostic studies. Pertinent findings as below. CBC stable Electrolytes stable Wound and blood cultures no growth Telemetry monitoring strips reviewed,'s a few bursts of nonsustained ventricular tachycardia.
[2024-11-14] MEDS: predniSONE 20 MG TAB PO SCH (11:24)
[2024-11-14] MEDS: METOPROLOL SUCC 25MG EXT REL TAB PO SCH (11:24)
[2024-11-14] MEDS: prednisoLONE acetate 1% OP SUSP 5 ML BTL OPL SCH (13:49)
[2024-11-15 07:17] VITALS: RESP 18; TEMP 99; O2SAT 97
--- NOTE | 2024-11-15 10:03 | Discharge Summary ---
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 Also thought to have some tooth pain and some swelling or redness. She was placed on several antibiotics include azithromycin, Levaquin and Flagyl. Initially this was thought to be a dental infection and had seen an outpatient dentist who started 2 root canals thinking that there were possibly underlying abscess. Imaging did not confirm this. She came to the emergency room with the symptoms. Started noticing some blistering lesions on her lip as well. Patient was admitted to the hospital. She was started on broad-spectrum antibiotics. There is also concern that this potentially could be a yeast concomitant infection and was started on antifungals. OMFS consultation was obtained. The evaluated patient was also concern of possible infectious process. Patient underwent incision and drainage of left lower drawl as well as extraction of tooth 19. Despite all these interventions the patient's facial redness continued did not seem to improve all that significantly. She also started to have significant conjunctivitis with some pain and irritation of her eye. There was no significant visual changes. She started to get more vesicular lesions along her nasolabial fold and upper lip and also the started to see some develo ping lesions on her forehead up into her scalp on the left side. With these clear physical findings now compliant with her history of pain starting well before any of this redness started this is a classic presentation of herpes zoster. All antibiotics and antifungals were discontinued. She was started on Valtrex. Communication with ophthalmology recommended starting prednisolone eyedrops. She was also put on some oral prednisone for the acute flare of of the varicella zoster rash. With these interventions by the following day she had a significant improvement in the conjunctivitis. The redness and swelling of her face has significantly improved. The vesicles along her nasolabial fold and lip are starting to crust over. She denied any real significant pain at this point. She was followed by [facility] and was healing well from her surgical procedure. She will be discharged home to continue course of Valtrex. We have coordinated ophthalmology/optometry appointment with her tomorrow. She will follow-up with outpatient [facility] and with her PCP. During her hospitalization she was on telemetry. We did see a few bursts of SVT and she was quite hypertensive. She was started on lisinopril and metoprolol to manage her hypertension. This was effective. Suspect some of the SVT was due to the irritability of the infection. She has had no significant bursts of SVT in the last 24 hours. She will continue lisinopril and metoprolol for blood pressure control and will follow-up with her outpatient providers. Patient's daughter was on the phone at the time of reviewing discharge instructions and is agreeable with the plan of care. Notes For Next Care Provider Patient will follow-up with ophthalmology/optometry Follow-up with Dr. Jo post surgical intervention Medication Changes From Visit Levofloxacin and metronidazole discontinued Valtrex for shingles infection Prednisolone eyedrops for shingles infection Lisinopril and metoprolol for hypertension and SVT control Admission HPI Per Admitting Provider Patient is a 68-year-old female with past medical history significant for prediabetes, HLD, nonallergic rhinitis, vertigo, SUMAYA and other problems listed below who presented to the ED for evaluation of a dental infection. History obtained from the patient, patient's daughter at bedside, discussion with ED provider and associated chart review. Patient with development of left-sided facial erythema/swelling and upper left- sided tooth pain beginning 11/06/2024. Was previously seen by her primary dentist on Thursday and was empirically started on a Z-Gigi. Patient did not note any improvement in her symptoms on the Z-Gigi therefore she was seen and evaluated in our ED on Thursday where she was prescribed oral Levaquin and Flagyl. Soft tissue neck CT at that time did not reveal any evidence of a inflammatory/infectious process or focal mass lesion. Patient's symptoms persisted even on the antibiotics therefore she saw an tube repairer yesterday whom started 2 root canals (tooth 12 and tooth 14) in hopes of draining a possible underlying abscess. However, there was no abscess formation seen. the erythema was mostly localized to the left cheek region but now is spreading up under her left eye in addition to the swelling. No drainage noted from the left eye or the oral cavity. Now also with development of small blistering lesions inside her mouth on the left side as well as on her top lip which were first noted yesterday. These are not draining. No fevers at home. No reported issues with swallowing. Denies any breathing difficulty. Pain is mostly localized to the mouth, left cheek and left eye. Feels there is nerve involvement as she has these fleeting waves of stinging and stabbing pain. Pain rated from anywhere to 2 out of 10 to 8 out of 10 at its worst. Has been taking ibuprofen at home with minimal relief in her pain. Admission Exam Per Admitting Provider See H&P Discharge Exam Constitutional: Alert, nontoxic HEENT: Mucous membranes moist. Left conjunctivitis significantly improved, erythema significantly improved Erythema, swelling, tenderness of left cheek is significantly improved, vesicular lesions in left nasolabial fold and left upper lip starting to crust over. There are macular lesions on her left forehead and up into her left hairline that of developing early vesicular changes but again less erythematous and inflamed when compared to yesterday Lungs: Clear to auscultation, decreased, no wheezes rales or rhonchi CV: S1-S2, regular Abdomen: Soft, nontender, nondistended Extremities: No significant edema Neuro: No focal deficits Psych: Cooperative, normal mood Updated Medication List Medication Instructions Recorded Confirmed Type fexofenadine 180 mg tablet 180 mg PO QAM 06/03/18 11/11/24 History (Cristina Allergy) lansoprazole 30 mg capsule,delayed 30 mg PO QAM 06/03/18 11/11/24 History release (Prevacid) meclizine 25 mg tablet 25 mg PO TID PRN DIZZY 06/03/18 11/11/24 History aeyqlprz-qywu-cfw-folic acid 18 1 tab PO QAM 06/03/18 11/11/24 History mg-0.4 mg tablet (One Daily For Women) paroxetine HCl 12.5 mg 12.5 mg PO QAM 06/03/18 11/11/24 History tablet,extended release 24 hr (Paxil CR) paroxetine HCl 37.5 mg 37.5 mg PO QAM 06/03/18 11/11/24 History tablet,extended release 24 hr (Paxil CR) simvastatin 40 mg tablet (Zocor) 40 mg PO HS 06/03/18 11/11/24 History acetaminophen 500 mg tablet 500 mg PO Q6H PRN Pain 02/11/20 11/11/24 History (Tylenol Extra Strength) levofloxacin 500 mg tablet 500 mg PO DAILY 7 days #7 tabs 11/09/24 11/11/24 Rx metronidazole 500 mg tablet 500 mg PO TID #21 tabs 11/09/24 11/11/24 Rx oxycodone 5 mg tablet 5 mg PO Q6H PRN pain #9 tabs 11/09/24 11/11/24 Rx Saccharomyces boulardii 250 mg 250 mg PO BID 11/11/24 11/11/24 History capsule (Florastor) ibuprofen 200 mg tablet 200 mg PO Q6H PRN Pain 11/11/24 11/11/24 History Artificial Tears Soln 1 drp OPB QID PRN dry eye(s) #1 btl 11/15/24 Rx lisinopril 5 mg tablet 5 mg PO QAM 30 days #30 tabs 11/15/24 Rx metoprolol succinate 25 mg 25 mg PO QAM 30 days #30 tabs 11/15/24 Rx tablet,extended release 24 hr prednisolone acetate 1 % eye 2 drp OPL QID #10 mL 11/15/24 Rx drops,suspension prednisone 20 mg tablet 20 mg PO DAILY 3 days #3 tabs 11/15/24 Rx valacyclovir 500 mg tablet 1,000 mg (2 x 500 mg) PO TID 6 11/15/24 Rx days #36 tabs Hospital Stay Data Consultations 11/11/24 09:54 ED Decision to Admit Stat 11/11/24 11:03 Consult Oromaxillofacial Surgery Routine Procedures Performed Operation Date: 11/12/24 07:30 Actual Procedures p Incision and Drainage Left Lower Jaw - Krunal Jo DMD s Extraction of Tooth #19 - Krunal Jo DMD Diagnostic Imagining Performed 11/11/24 07:15 CT soft tissue neck w con Stat 11/13/24 06:01 CT head/brain wo con Stat Reviewed imaging, laboratory and diagnostic studies. Pertinent findings as below. Blood cultures showed no significant growth Face wound cultured mixed microbiota WBCs 6.7 Hemoglobin 12.9 Platelets of 183 Electrolytes within normal ranges Creatinine 0.65 Glucose 128 Hemoglobin A1c 6.5 TSH 0.87 Nasal MRSA screen negative Pending Results Patient Have Any Pending Studies at Discharge: No Discharge Instructions Given to Patient (Per Discharging Provider) The lesions will slowly crust over. Avoid large crowds until everything has been crusted over. People who have not had chickenpox, who are immunocompromised, or should not be visiting you for another 7 to 10 days. Follow-up with ophthalmology Follow-up with dental surgery Total Time Total Time Spent Total Time Spent (In Minutes): 38
[2024-11-15 11:24] VITALS: BP 150/83; PULSE 64
== END 2024-11-15 12:35 | disposition home or self-care (01) | DRG 158 ==
LOC: ED 06:46 → SUATTDRO 11:03 → 2N 11:03